=== PATIENT | male | born 1945 ===

== ENCOUNTER 2016-09-26 19:45 | Inpatient (IN) | payer MEDICARE, OTHER ==
[2016-09-26 19:55] VITALS: BMI 29.9
[2016-09-26] MEDS ORDERED: Sodium Chloride 0.9% 500 ML IV STA (20:15)
--- NOTE | 2016-09-26 20:18 | ED PDOC ---
Arrival/HPI - General Chief Complaint: Shortness Of Breath Time Seen by Provider: 09/26/16 19:54 Historian: Patient - History of Present Illness Narrative History of Present Illness (Text): 09/26/16 20:30 70 year old male presents to the emergency department complaining of generalized muscle pain since this morning. Patient also notes his "head feels empty". He reports that he feels "dizzy" and has no strength. Contrary to triage, patient denies any shortness of breath. Patient denies any trauma, fever , chills, nausea, vomiting, diarrhea, abdominal pain, back pain, chest pain, neck pain, headache. PMD: Dr. Ozuna Time/Duration: Other (today) Symptom Course: Unchanged Quality: Other Context: Home Past Medical History - Provider Review Nursing Documentation Reviewed: Yes - Infectious Disease Hx of Infectious Diseases: None - Tetanus Immunization Tetanus Immunization: Unknown - Cardiac Hx Cardiac Disorders: Yes Hx Hypertension: Yes - Pulmonary Hx Respiratory Disorders: No - Neurological Hx Neurological Disorder: No - HEENT Hx HEENT Disorder: No - Renal Hx Renal Disorder: No - Endocrine/Metabolic Hx Endocrine Disorders: Yes Hx Hypothyroidism: Yes - Hematological/Oncological Hx Blood Disorders: No - Integumentary Hx Dermatological Disorder: No - Musculoskeletal/Rheumatological Hx Musculoskeletal Disorders: No - Gastrointestinal Hx Gastrointestinal Disorders: No - Genitourinary/Gynecological Hx Genitourinary Disorders: No - Psychiatric Hx Psychophysiologic Disorder: Yes Hx Depression: Yes Hx Emotional Abuse: No Hx Physical Abuse: No Hx Substance Use: No - Surgical History Hx Cataract Extraction: Yes (b/l) Hx Tonsillectomy: Yes Other/Comment: goiter removed, sinus surgery - Anesthesia Hx Anesthesia: Yes Hx Anesthesia Reactions: No Hx Malignant Hyperthermia: No - Suicidal Assessment Feels Threatened In Home Enviroment: No Family/Social History - Physician Review Nursing Documentation Reviewed: Yes Family/Social History: No Known Family HX Smoking Status: Former Smoker Hx Alcohol Use: No Hx Substance Use: No Hx Substance Use Treatment: No Allergies/Home Meds Allergies/Adverse Reactions: Allergies No Known Allergies Allergy (Verified 09/26/16 19:55) Home Medications: Home Meds Medication Instructions Recorded Confirmed Febuxostat [Uloric] 80 mg PO DAILY 05/07/12 09/26/16 Gabapentin 100 mg PO BID 05/07/12 09/26/16 Aspirin 2 tab PO DAILY 07/03/12 09/26/16 Colchicine 0.6 mg PO PRN PRN 07/03/12 09/26/16 Indomethacin 50 mg PO PRN PRN 07/03/12 09/26/16 Levothyroxine [Synthroid] 0.5 mg PO DAILY 07/03/12 09/26/16 Sildenafil Citrate [Viagra] 25 mg PO PRN PRN 07/03/12 09/26/16 amLODIPine [Norvasc] 10 mg PO DAILY 03/22/14 09/26/16 Review of Systems - Physician Review All systems were reviewed & negative as marked: Yes - Review of Systems Constitutional: absent: Weight Change, Fevers, Night Sweats Respiratory: absent: SOB, Cough, Sputum, Wheezing Cardiovascular: absent: Chest Pain, Palpitations, Edema Gastrointestinal: absent: Abdominal Pain, Constipation, Diarrhea, Nausea, Vomiting Musculoskeletal: Myalgias. absent: Back Pain, Neck Pain Neurological: Dizziness, Gait Changes. absent: Headache, Focal Weakness, Speech Changes, Facial Droop, Disequilibrium, Seizure Psychiatric: Anxiety Physical Exam Vital Signs Reviewed: Yes Vital Signs Temp Pulse Resp BP Pulse Ox 09/26/16 20:13 18 09/26/16 19:50 97.8 F 100 H 24 184/99 H 100 Temperature: Afebrile Blood Pressure: Hypertensive Pulse: Tachycardic Respiratory Rate: Normal Appearance: Positive for: Well-Appearing Pain Distress: None Mental Status: Positive for: Alert and Oriented X 3 - Systems Exam Head: Present: Atraumatic, Normocephalic Pupils: Present: PERRL Extroacular Muscles: Present: EOMI, Other (scant nystamgus) Conjunctiva: Present: Normal Ears: Present: NORMAL TM Mouth: Present: Moist Mucous Membranes Neck: Present: Normal Range of Motion Respiratory/Chest: Present: Clear to Auscultation, Good Air Exchange. No: Respiratory Distress, Accessory Muscle Use Cardiovascular: Present: Regular Rate and Rhythm, Normal S1, S2. No: Murmurs Abdomen: Present: Normal Bowel Sounds. No: Tenderness, Distention, Peritoneal Signs Back: Present: Normal Inspection Upper Extremity: Present: Normal Inspection, Normal ROM, NORMAL PULSES. No: Cyanosis, Edema Lower Extremity: Present: Normal Inspection, NORMAL PULSES, Normal ROM. No: Edema, CALF TENDERNESS Neurological: Present: GCS=15, CN II-XII Intact, Speech Normal, Motor Func Grossly Intact. No: Gait Normal (unable to get out of bed and ambulate due to report of extreme dizziness) Skin: Present: Warm, Dry, Normal Color. No: Rashes Psychiatric: Present: Alert, Oriented x 3, Normal Insight, Normal Concentration Medical Decision Making ED Course and Treatment: 09/26/16 20:17 Impression: 70 year old male with generalized muscle pain. He notes his "head feels empty". Unable to ambulate on exam. Plan: -- CT head, aspirin if negative cthead -- Chest X-ray -- EKG -- Labs -- IV Fluids, meclizine -- Reassess and disposition Progress Note EKG shows sinus rhythm at 94bpm with 1st degree AV block, pvcs, and non- specific ST changes Report Date: 09/26/16 21:46 EXAM: CT Head Without Intravenous Contrast Dictated and Authenticated by: Blake Chris MD IMPRESSION: 1. No acute intracranial hemorrhage or acute territorial type infarct. 2. There are scattered foci of hypodensity within the cerebral white matter, likely representing small vessel ischemic disease in a patient this age. 3. Minimal to mild atrophy. 4. Paranasal sinus disease is noted above. 5. Effusion is visualized within the right mastoid air cells, consistent with mastoiditis in the absence of trauma. 09/26/16 21:57 Cxray negative. Electrolytes show low phos. Replacement ordered. Thyroid studies and trop x 1 negative. Patient has had no improvement with meclizine and cannot ambulate. Will transfer to tele observation with neuro consult for persistent dizziness. - Lab Interpretations Lab Results: 09/26/16 20:45 09/26/16 20:45 Lab Results 09/26/16 20:45: Free T4 0.85, TSH 3rd Generation 1.01 09/26/16 20:45: Sodium 137, Potassium 3.9, Chloride 102, Carbon Dioxide 24, Anion Gap 15, BUN 11, Creatinine 0.9, Est GFR ( Amer) > 60, Est GFR (Non- Af Amer) > 60, Random Glucose 100, Calcium 8.8, Phosphorus 1.5 L, Magnesium 2.0 , Total Bilirubin 0.8, AST 31, ALT 31, Alkaline Phosphatase 63, Total Creatine Kinase 113, Troponin I < 0.01, Total Protein 8.2, Albumin 4.5, Globulin 3.8, Albumin/Globulin Ratio 1.2 09/26/16 20:45: WBC 5.6, RBC 4.83, Hgb 15.6, Hct 42.3, MCV 87.6, MCH 32.3, MCHC 36.9, RDW 12.8, Plt Count 206, MPV 8.9, Gran % 51.9, Lymph % (Auto) 38.3 H, [place] % (Auto) 7.3 H, Eos % (Auto) 2.0, Baso % (Auto) 0.5, Gran # 2.92, Lymph # 2.2, [place] # 0.4, Eos # 0.1, Baso # 0.03 I have reviewed the lab results: Yes - RAD Interpretation Radiology Orders: 09/26/16 20:14 HEAD W/O CONTRAST [CT] Stat 09/26/16 20:15 CHEST PORTABLE [RAD] Stat - EKG Interpretation Interpreted by ED Physician: Yes - Medication Orders Current Medication Orders: Discontinued Medications Sodium Chloride (Sodium Chloride 0.9%) 500 mls @ 999 mls/hr IV .Q31M STA Stop: 09/26/16 20:45 Last Admin: 09/26/16 20:50 Dose: 999 mls/hr Meclizine HCl (Antivert) 50 mg PO STAT STA Stop: 09/26/16 21:55 Potassium Phos/Sodium Phos (Neutra-Phos) 1 pkt PO STAT STA Stop: 09/26/16 21:32 - Scribe Statement The provider has reviewed the documentation as recorded by the [place] training with Cher Glasgow Provider Scribe Attestation: All medical record entries made by the Scribe were at my direction and personally dictated by me. I have reviewed the chart and agree that the record accurately reflects my personal performance of the history, physical exam, medical decision making, and the department course for this patient. I have also personally directed, reviewed, and agree with the discharge instructions and disposition. Disposition/Present on Arrival - Present on Arrival Any Indicators Present on Arrival: No History of DVT/PE: No History of Uncontrolled Diabetes: No Urinary Catheter: No History of Decub. Ulcer: No History Surgical Site Infection Following: None - Disposition Have Diagnosis and Disposition been Completed?: Yes Diagnosis: Dizziness Disposition: HOSPITALIZED Disposition Time: 22:10 Patient Plan: Observation Condition: FAIR Referrals: Vazquez Wylie MD [Primary Care Provider] - Follow up with primary Forms: [employer] ([place])
[2016-09-26 21:04] LABS: BASO # 0.03 K/mm3 (0.0-2.0); BASO % 0.5 % (0.0-3.0); EOS # 0.1 (0.0-0.7); GRAN # 2.92 (1.4-6.5); GRAN % 51.9 % (50.0-68.0); HEMOGLOBIN 15.6 g/dL (14.0-18.0); LYMPH # 2.2 (1.2-3.4); LYMPH % 38.3 % (22.0-35.0); MEAN CELL VOLUME 87.6 fl (80.0-105.0); MEAN CORPUSCULAR HEMOGLOBIN 32.3 pg (25.0-35.0); MEAN CORPUSCULAR HGB CONC 36.9 g/dl (31.0-37.0); MEAN PLATELET VOLUME 8.9 fl (7.0-11.0); MONO # 0.4 (0.1-0.6); MONO % 7.3 % (1.0-6.0); PLATELET COUNT 206 10^3/uL (120.0-450.0); RBC 4.83 10^6/uL (3.5-6.1); RED CELL DISTRIBUTION WIDTH 12.8 % (11.5-14.5); WHITE BLOOD COUNT 5.6 10^3/ul (4.5-11.0)
[2016-09-26 21:17] LABS: ALB/GLOB RATIO 1.2 (1.1-1.8); ALBUMIN 4.5 g/dL (3.0-4.8); ALT/SGPT 31 U/L (7-56); AST/SGOT 31 U/L (15-59); BLOOD UREA NITROGEN 11 mg/dL (7-21); CALCIUM 8.8 mg/dL (8.4-10.5); GFR AFRICAN-AMERICAN > 60; GFR NON-AFRICAN AMERICAN > 60
[2016-09-26 21:30] LABS: TROPONIN I < 0.01 ng/mL
[2016-09-26] MEDS ORDERED: Potassium & Sodium Phosphate PO STA (21:31)
[2016-09-26 21:33] LABS: FREE T4 0.85 ng/dL (0.78-2.19)
--- NOTE | 2016-09-26 21:46 | CT ---
EXAM: CT Head Without Intravenous Contrast CLINICAL HISTORY: The patient age is 70 years old and is male; Signs and symptoms; Speech disturbance; Slurred speech; Additional info: Headache Facility exam id and description: Ct heads head w/o contrast TECHNIQUE: Axial computed tomography images of the head/brain without intravenous contrast. This CT exam was performed using one or more of the following dose reduction techniques: automated exposure control, adjustment of the mA and/or kV according to patient size, and/or use of iterative reconstruction technique. EXAM DATE/TIME: 09/26/2016 8:14 PM COMPARISON: No relevant prior studies available. FINDINGS: Brain: There are scattered foci of hypodensity within the cerebral white matter, likely representing small vessel ischemic disease in a patient this age. The acuity of the white matter disease is indeterminate. The white-cornejo differentiation is preserved demonstrating no acute territorial type infarct. There is minimal to mild prominence of the ventricles and sulci, compatible with atrophy. No acute intracranial hemorrhage is seen. Midline shift: There is no midline shift. Ventricles: See above. Bones/joints: The calvarium demonstrates no evidence for a depressed fracture. Soft tissues: No acute abnormality. Vasculature: There is atherosclerotic calcification of the cavernous internal carotid arteries and distal vertebral arteries. Sinuses: An air-fluid level is visualized within the left maxillary sinus, with mucosal thickening. There is mucosal thickening of the ethmoid air cells. A mucus retention cyst or polyp is visualized within the right maxillary sinus. Mastoid air cells: Effusion is visualized within the right mastoid air cells, consistent with mastoiditis in the absence of trauma. IMPRESSION: 1. No acute intracranial hemorrhage or acute territorial type infarct. 2. There are scattered foci of hypodensity within the cerebral white matter, likely representing small vessel ischemic disease in a patient this age. 3. Minimal to mild atrophy. 4. Paranasal sinus disease is noted above. 5. Effusion is visualized within the right mastoid air cells, consistent with mastoiditis in the absence of trauma.
[2016-09-27] MEDS: Levothyroxine 50 MCG TAB PO SCH (07:53)
--- NOTE | 2016-09-27 09:00 | RAD ---
HISTORY: sob COMPARISON: No prior. FINDINGS: LUNGS: No active pulmonary disease. PLEURA: No significant pleural effusion identified, no pneumothorax apparent. CARDIOVASCULAR: Normal. OSSEOUS STRUCTURES: No significant abnormalities. VISUALIZED UPPER ABDOMEN: Normal. OTHER FINDINGS: None. IMPRESSION: No active disease.
[2016-09-27] MEDS: FEBUXOSTAT 80 MG PO SCH (12:38)
--- NOTE | 2016-09-27 20:37 | CP.PCM.CON ---
<Oswald Segal - Last Filed: 09/27/16 20:25> History of Present Illness - History of Present Illness History of Present Illness: Consult Note for Dr. Myers 70 y/o M with PMH of HTN and Hyperthyroidism s/p thyroidectomy presents to the hospital for lightheadedness and left sided tingling and numbness. Pt states he was at home yesterday and began feeling these symptoms while sitting down. Pt denies any pain or weakness. Pt states the numbness and tingling are constant, and currently feels these symptoms. Pt did not take any medication at home for these symptoms. No alleviating or exacerbating factors. Pt has never had these symptoms before. Once the patient realized these symptoms were constant, he came to the hospital. Denies CP, SOB, N/V/D, fevers, chills, headache, syncope. PMH: HTN Surgical Hx: Thyroidectomy Family Hx: Noncontributory Social Hx: Quit smoking 20 years ago. 1 ppd x 10 years. Denies alcohol or illicit druguse Medication: Gabapentin, ASA, Norvasc, Vitamins Allergies: NKDA Review of Systems - Review of Systems Review of Systems: 12 point review of systems as per HPI, otherwise negative Past Patient History - Infectious Disease Hx of Infectious Diseases: None - Tetanus Immunizations Tetanus Immunization: Unknown - Past Social History Smoking Status: Former Smoker - CARDIAC Hx Cardiac Disorders: Yes Hx Hypertension: Yes - PULMONARY Hx Respiratory Disorders: No - NEUROLOGICAL Hx Neurological Disorder: No - HEENT Hx Cataracts: Yes (b/l cataract removal) Other/Comment: tonsillectomy - RENAL Hx Chronic Kidney Disease: No - ENDOCRINE/METABOLIC Hx Endocrine Disorders: Yes Hx Hypothyroidism: Yes - HEMATOLOGICAL/ONCOLOGICAL Hx Blood Disorders: No - INTEGUMENTARY Hx Dermatological Problems: No - MUSCULOSKELETAL/RHEUMATOLOGICAL Hx Falls: Yes - GASTROINTESTINAL Other/Comment: inguinal hernia repair - GENITOURINARY/GYNECOLOGICAL Hx Genitourinary Disorders: No - PSYCHIATRIC Hx Depression: Yes Hx Substance Use: No - SURGICAL HISTORY Hx Cataract Extraction: Yes (b/l) Hx Tonsillectomy: Yes Other/Comment: goiter removed, sinus surgery - ANESTHESIA Hx Anesthesia: Yes Hx Anesthesia Reactions: No Hx Malignant Hyperthermia: No Meds Allergies/Adverse Reactions: Allergies Allergy/AdvReac Type Severity Reaction Status Date / Time No Known Allergies Allergy Verified 09/26/16 19:55 - Medications Medications: Current Medications Amlodipine Besylate (Norvasc) 10 mg PO DAILY [facility] Last Admin: 09/27/16 10:17 Dose: 10 mg Aspirin (Ecotrin) 81 mg PO DAILY [facility] Last Admin: 09/27/16 10:13 Dose: 81 mg Clopidogrel Bisulfate (Plavix) 75 mg PO DAILY [facility] Colchicine (Colocrys) 0.6 mg PO DAILY PRN PRN Reason: Pain, Mild (1-3) Gabapentin (Neurontin) 100 mg PO BID [facility] Last Admin: 09/27/16 18:45 Dose: 100 mg Indomethacin (Indocin) 50 mg PO TID PRN PRN Reason: GOUT PAIN Levothyroxine Sodium (Synthroid) 50 mcg PO ACB [facility] Last Admin: 09/27/16 07:53 Dose: 50 mcg Meclizine HCl (Antivert) 12.5 mg PO DAILY PRN PRN Reason: dizzyness Non-Formulary Medication (Febuxostat [Uloric]) 80 mg PO DAILY [facility] Last Admin: 09/27/16 12:38 Dose: Not Given Physical Exam - Constitutional Appears: Non-toxic, No Acute Distress - Head Exam Head Exam: ATRAUMATIC, NORMAL INSPECTION, NORMOCEPHALIC - Eye Exam Eye Exam: EOMI, PERRL - ENT Exam ENT Exam: Mucous Membranes Moist - Neck Exam Neck exam: Positive for: Normal Inspection. Negative for: Lymphadenopathy - Respiratory Exam Respiratory Exam: Clear to Auscultation Bilateral, NORMAL BREATHING PATTERN. absent: Rales, Rhonchi, Wheezes - Cardiovascular Exam Cardiovascular Exam: RRR, +S1, +S2 - GI/Abdominal Exam GI & Abdominal Exam: Normal Bowel Sounds, Soft. absent: Tenderness - Extremities Exam Extremities exam: Positive for: normal inspection. Negative for: calf tenderness, pedal edema - Neurological Exam Neurological exam: Alert, CN II-XII Intact, Oriented x3 Additional comments: + babinski on left foot 5/5 muscle strength in all extremities Tingling sensation on left side, no motor deficits No pronator drift - Psychiatric Exam Psychiatric exam: Normal Affect, Normal Mood - Skin Skin Exam: Intact, Normal Color, Warm Results - Vital Signs Recent Vital Signs: Last Vital Signs Temp 98.3 F 09/27/16 16:53 Pulse 71 09/27/16 17:25 Resp 20 09/27/16 16:53 BP 141/77 09/27/16 16:53 Pulse Ox 95 09/27/16 06:00 - Labs Result Diagrams: 09/26/16 20:45 09/26/16 20:45 Assessment & Plan - Assessment and Plan (Free Text) Plan: 70 y/o M with PMH of HTN presents with what appears to be mild ischemic stroke as per read on Brain MRI. Pt will be started on ASA and plavix at this time. Pt will also benefit from physical therapy and likely need subacute rehab. Pt may also benefit from psychiatry consult. Pt will continue to be monitored and followed at this time. Plan: ASA and plavix Physical therapy May need subacute rehab Luzma, PGY-2 <Tanmay Myers - Last Filed: 09/27/16 22:40> Meds - Medications Medications: Current Medications Amlodipine Besylate (Norvasc) 10 mg PO DAILY [facility] Last Admin: 09/27/16 10:17 Dose: 10 mg Aspirin (Ecotrin) 81 mg PO DAILY [facility] Last Admin: 09/27/16 10:13 Dose: 81 mg Clopidogrel Bisulfate (Plavix) 75 mg PO DAILY [facility] Colchicine (Colocrys) 0.6 mg PO DAILY PRN PRN Reason: Pain, Mild (1-3) Gabapentin (Neurontin) 100 mg PO BID [facility] Last Admin: 09/27/16 18:45 Dose: 100 mg Indomethacin (Indocin) 50 mg PO TID PRN PRN Reason: GOUT PAIN Levothyroxine Sodium (Synthroid) 50 mcg PO ACB [facility] Last Admin: 09/27/16 07:53 Dose: 50 mcg Meclizine HCl (Antivert) 12.5 mg PO DAILY PRN PRN Reason: dizzyness Non-Formulary Medication (Febuxostat [Uloric]) 80 mg PO DAILY [facility] Last Admin: 09/27/16 12:38 Dose: Not Given Results - Vital Signs Recent Vital Signs: Last Vital Signs Temp 98.3 F 09/27/16 16:53 Pulse 71 09/27/16 17:25 Resp 20 09/27/16 16:53 BP 141/77 09/27/16 16:53 Pulse Ox 95 09/27/16 06:00 - Labs Result Diagrams: 09/26/16 20:45 09/26/16 20:45 Assessment & Plan - Assessment and Plan (Free Text) Plan: PATIENTS SYMPTOMS OF LEFT SIDE FACIAL NUMBNESS AND LEFT SIDE EXTREMITY NUMBNESS WITH INTERMITTENT SLURRED SPEECH IS SECONDARY TO AN 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 ON NEURO EXAM HE HAD LEFT PLANTAR FLEXION WITH MILD LEFT SIDE WEAKNESS AND LEFT FACIAL DECREASED SENSATION TO TOUCH. RECOMMEND: 1) ASA 81 MG PO DAILY, PLAVIX 75 MG PO DAILY, LIPITOR 80 MG PO DAILY FOR STROKE PREVENTION. 2) KEEP PERMISSIVE TODAY AND TOMORROW TO A GOAL OF 130-140 MMG HG SYSTOLIC. 3) 2D ECHO, CAROTID DOPPLER, A1C, HOMOCYSTEINE LEVEL. 4. PT/OT AND ROCHELLE. THANK YOU Jonathon MYERS MD. Attending/Attestation - Attestation I have personally seen and examined this patient.: Yes I have fully participated in the care of the patient.: Yes I have reviewed all pertinent clinical information: Yes
--- NOTE | 2016-09-27 21:22 | MRI ---
EXAM: MR Head Without Intravenous Contrast CLINICAL HISTORY: The patient age is 70 years old and is male; Signs and symptoms; Numbness / parasthesia and weakness, extremity; Left; Patient HX: Left side weakness and numbness. ; Additional info: Left side numbness? Weakness Facility exam id and description: Mri br s brain without contrast TECHNIQUE: Magnetic resonance images of the head/brain without intravenous contrast in multiple planes. EXAM DATE/TIME: 09/27/2016 10:59 AM COMPARISON: CT - HEAD W/O CONTRAST 09/26/2016 8:45:00 PM FINDINGS: Brain: There are scattered foci of high FLAIR signal intensity within the cerebral white matter. There is no mass effect or restricted diffusion associated with these foci. In a patient this age, this likely represents chronic small vessel ischemic disease. There is mild prominence of the ventricles and sulci, compatible with atrophy. Foci of T2 hyperintensity are visualized within the bilateral basal ganglia, consistent with dilated perivascular spaces and/or chronic ischemic changes. No cerebral edema. Brainstem: Restricted diffusion is identified within the right side of the chris, consistent with acute ischemic change. Ventricles: See above. Bones/joints: No acute abnormality. Sinuses: An air-fluid level is visualized within the left maxillary sinus, with mucosal thickening. There is focal thickening of scattered ethmoid air cells. Mastoid air cells: Effusion is visualized within the right mastoid air cells, consistent with mastoiditis in the absence of trauma. Orbits: Bilateral probable intraocular lens implants are visualized. IMPRESSION: 1. Restricted diffusion is identified within the right side of the chris, consistent with acute ischemic change. 2. There are scattered foci of high FLAIR signal intensity within the cerebral white matter. In a patient this age, this likely represents chronic small vessel ischemic disease. 3. Mild atrophy. 4. Additional chronic ischemic changes are noted above. 5. Effusion is visualized within the right mastoid air cells, consistent with mastoiditis in the absence of trauma. 6. Paranasal sinus disease is noted above.
--- NOTE | 2016-09-27 22:51 | CP.PCM.HP ---
History of Present Illness - History of Present Illness History of Present Illness: 70 year old male presents to the emergency department complaining of generalized muscle pain since this morning. Patient also notes his "head feels empty". He reports that he feels "dizzy" and has no strength. Contrary to triage, patient denies any shortness of breath. Patient denies any trauma, fever , chills, nausea, vomiting, diarrhea, abdominal pain, back pain, chest pain, neck pain, headache. Present on Admission - Present on Admission Any Indicators Present on Admission: No Review of Systems - Constitutional Constitutional: As Per HPI - EENT Eyes: As Per HPI Ears: As Per HPI Nose/Mouth/Throat: As Per HPI - Cardiovascular Cardiovascular: As Per HPI - Respiratory Respiratory: As Per HPI - Gastrointestinal Gastrointestinal: As Per HPI - Genitourinary Genitourinary: As Per HPI - Musculoskeletal Musculoskeletal: As Per HPI - Integumentary Integumentary: As Per HPI - Neurological Neurological: As Per HPI - Psychiatric Psychiatric: As Per HPI - Endocrine Endocrine: As Per HPI - Hematologic/Lymphatic Hematologic: As Per HPI Past Patient History - Infectious Disease Hx of Infectious Diseases: None - Tetanus Immunizations Tetanus Immunization: Unknown - Past Social History Smoking Status: Former Smoker - CARDIAC Hx Cardiac Disorders: Yes Hx Hypertension: Yes - PULMONARY Hx Respiratory Disorders: No - NEUROLOGICAL Hx Neurological Disorder: No - HEENT Hx Cataracts: Yes (b/l cataract removal) Other/Comment: tonsillectomy - RENAL Hx Chronic Kidney Disease: No - ENDOCRINE/METABOLIC Hx Endocrine Disorders: Yes Hx Hypothyroidism: Yes - HEMATOLOGICAL/ONCOLOGICAL Hx Blood Disorders: No - INTEGUMENTARY Hx Dermatological Problems: No - MUSCULOSKELETAL/RHEUMATOLOGICAL Hx Falls: Yes - GASTROINTESTINAL Other/Comment: inguinal hernia repair - GENITOURINARY/GYNECOLOGICAL Hx Genitourinary Disorders: No - PSYCHIATRIC Hx Depression: Yes Hx Substance Use: No - SURGICAL HISTORY Hx Cataract Extraction: Yes (b/l) Hx Tonsillectomy: Yes Other/Comment: goiter removed, sinus surgery - ANESTHESIA Hx Anesthesia: Yes Hx Anesthesia Reactions: No Hx Malignant Hyperthermia: No Meds Allergies/Adverse Reactions: Allergies Allergy/AdvReac Type Severity Reaction Status Date / Time No Known Allergies Allergy Verified 09/26/16 19:55 Physical Exam - Constitutional Appears: Well - Head Exam Head Exam: ATRAUMATIC, NORMAL INSPECTION, NORMOCEPHALIC - Eye Exam Eye Exam: EOMI, Normal appearance, PERRL Pupil Exam: NORMAL ACCOMODATION, PERRL - ENT Exam ENT Exam: Mucous Membranes Moist, Normal Exam - Neck Exam Neck exam: Positive for: Normal Inspection - Respiratory Exam Respiratory Exam: Clear to Auscultation Bilateral, NORMAL BREATHING PATTERN - Cardiovascular Exam Cardiovascular Exam: REGULAR RHYTHM - GI/Abdominal Exam GI & Abdominal Exam: Normal Bowel Sounds, Soft. absent: Tenderness - Rectal Exam Rectal Exam: NORMAL INSPECTION - Exam Exam: Circumcision, NORMAL INSPECTION External exam: NORMAL EXTERNAL EXAM Speculum exam: NORMAL SPECULUM EXAM Bimanual exam: NORMAL BIMANUAL EXAM - Extremities Exam Extremities exam: Positive for: normal inspection - Back Exam Back exam: NORMAL INSPECTION - Neurological Exam Neurological exam: Alert, CN II-XII Intact, Normal Gait, Oriented x3, Reflexes Normal - Psychiatric Exam Psychiatric exam: Normal Affect, Normal Mood - Skin Skin Exam: Dry, Intact, Normal Color, Warm Results - Vital Signs Recent Vital Signs: Last Vital Signs Temp 98.3 F 09/27/16 16:53 Pulse 71 09/27/16 17:25 Resp 20 09/27/16 16:53 BP 141/77 09/27/16 16:53 Pulse Ox 95 09/27/16 06:00 - Labs Result Diagrams: 09/26/16 20:45 09/26/16 20:45 Assessment & Plan - Assessment and Plan (Free Text) Assessment: 70 y/o M with PMH of HTN presents with what appears to be mild ischemic stroke as per read on Brain MRI. Pt will be started on ASA and plavix at this time. Pt will also benefit from physical therapy and likely need subacute rehab. Pt may also benefit from psychiatry consult. Pt will continue to be monitored and followed at this time. Plan: ASA and plavix Physical therapy May need subacute rehab
--- NOTE | 2016-09-28 01:08 | CARD ---
APPROVED REPORT EKG Measurement Heart [id number] <Conclusion> Sinus rhythm with 1st degree AV block with frequent premature ventricular complexes Possible Left atrial enlargement Inferior infarct, age undetermined Abnormal ECG
[2016-09-28 06:45] LABS: HEMOGLOBIN 15.2 g/dL (14.0-18.0); MEAN CORPUSCULAR HEMOGLOBIN 31.4 pg (25.0-35.0); MEAN CORPUSCULAR HGB CONC 35.3 g/dl (31.0-37.0); MEAN PLATELET VOLUME 8.6 fl (7.0-11.0); RBC 4.84 10^6/uL (3.5-6.1); RED CELL DISTRIBUTION WIDTH 13.3 % (11.5-14.5); WHITE BLOOD COUNT 5.2 10^3/ul (4.5-11.0)
[2016-09-28 06:48] LABS: BLOOD UREA NITROGEN 12 mg/dL (7-21); CALCIUM 8.7 mg/dL (8.4-10.5); GFR AFRICAN-AMERICAN > 60; GFR NON-AFRICAN AMERICAN > 60; HDL CHOLESTEROL 39 mg/dL (29-60)
[2016-09-28 06:59] LABS: LDL CHOLESTEROL 104 mg/dL (0-129)
[2016-09-28] MEDS: Levothyroxine 50 MCG TAB PO SCH (08:28)
[2016-09-28] MEDS: FEBUXOSTAT 80 MG PO SCH (09:08)
--- NOTE | 2016-09-28 14:26 | US ---
PROCEDURE: Bilateral carotid artery duplex ultrasound HISTORY: Carotid stenosis PHYSICIAN(S): Gregory Traylor MD. TECHNIQUE: Duplex sonography and color-flow Doppler were used to evaluate the carotid bifurcations and limited segments of the vertebral arteries bilaterally. FINDINGS: There is mild focal echogenic plaque noted at the carotid bifurcations bilaterally. The peak systolic velocity in the proximal right internal carotid artery is 55 cm/sec. This corresponds to a 20 to 39% proximal right ICA stenosis. Normal systolic velocities are noted in the proximal right external carotid artery. There is antegrade flow in the right vertebral artery. The peak systolic velocity in the proximal left internal carotid artery is 49 cm/sec. This corresponds to a 20 to 39% proximal left ICA stenosis. Normal systolic velocities are noted in the proximal left external carotid artery. There is antegrade flow in the left vertebral artery. IMPRESSION: 1. Bilateral 20-39% proximal ICA stenoses. 2. Antegrade flow in both vertebral arteries.
[2016-09-28] MEDS ORDERED: POLYETHYLENE GLYCOL 3350 17 GM/Dose PACKET PO STA (15:59)
[2016-09-28] MEDS ORDERED: POLYETHYLENE GLYCOL 3350 17 GM/Dose PACKET PO PRN (16:00)
--- NOTE | 2016-09-28 16:28 | CARD ---
APPROVED REPORT EXAM: Two-dimensional and M-mode echocardiogram with Doppler and color Doppler. INDICATION BUBBLE STUDY TO R/O PFO 2D DIMENSIONS Left Atrium (2D)4.0 (1.6-4.0cm)IVSd1.5 (0.7-1.1cm) LVDd4.5 (3.9-5.9cm)PWd1.6 (0.7-1.1cm) LVDs3.4 (2.5-4.0cm)FS (%) 24.9 % LVEF (%)49.4 (>50%) M-Mode DIMENSIONS Aortic Root3.60 (2.2-3.7cm)Aortic Cusp Exc.2.10 (1.5-2.0cm) Aortic Valve AoV Peak Hlrjgvjv206.0cm/Ayana Peak GR.6mmHg Mitral Valve MV E Sieajusf56.5cm/sMV A Wkixqfng250.0cm/sE/A ratio0.4 TDI Lateral E' Peak V6.14cm/sMedial E' Peak V3.61cm/sE/Lateral E'6.6 E/Medial E'11.2 Pulmonary Valve PV Peak Wlcezaga36.1cm/sPV Peak Grad.2mmHg Tricuspid Valve TR Peak Eujpautr754pq/sRAP [id number] Peak Gr.21mmHg [id number] LEFT VENTRICLE The left ventricle is normal size. There is mild to moderate concentric left ventricular hypertrophy. Left ventricle systolic function is low normal.EF-50% There is normal LV segmental wall motion. Transmitral Doppler flow pattern is Grade III-reversible restrictive diastolic dysfunction. No left ventricle thrombus noted on this study. There is no ventricular septal defect visualized. There is no left ventricular aneurysm. There is no mass noted in the left ventricle. RIGHT VENTRICLE The right ventricle is normal size. There is normal right ventricular wall thickness. The right ventricular systolic function is normal. ATRIA The left atrium is mildly dilated. The right atrium size is normal. The atrial septum is aneurysmal, but intact , No PFO by Bubble study or colorflow. AORTIC VALVE The aortic valve is thickened but opens well. The aortic valve is mildly sclerotic. There is trace aortic regurgitation. There is no aortic valvular stenosis. There is no aortic valvular vegetation. MITRAL VALVE The mitral valve is thickened but opens well. Mitral regurgitation is trace. There is no mitral valve stenosis. There is no evidence of mitral valve prolapse. TRICUSPID VALVE The tricuspid valve leaflets are thickened , but open well. There is trace tricuspid regurgitation. There is no tricuspid valve stenosis. There is no tricuspid valve prolapse or vegetation. PULMONIC VALVE The pulmonary valve is normal in structure. There is trace pulmonic valvular regurgitation. There is no pulmonic valvular stenosis. GREAT VESSELS The aortic root is normal in size. The ascending aorta is normal in size. The pulmonary artery is normal. The IVC is normal in size and collapses >50% with inspiration. PERICARDIAL EFFUSION There is no pleural effusion. There is no pericardial effusion. <Conclusion> The left ventricle is normal size. There is mild to moderate concentric left ventricular hypertrophy. Left ventricle systolic function is low normal.EF-50% The atrial septum is aneurysmal, but intact , No PFO by Bubble study or colorflow. Thickened Aortic and mitral Valve leaflets Trace MR/TR/AR/PI [id number] No thrombus or vegetation noted.
--- NOTE | 2016-09-28 19:04 | PN ---
DATE: 09/28/2016 NEUROLOGY FOLLOWUP CHIEF COMPLAINT: Followup for left facial numbness and transient slurred speech. SUBJECTIVE: The patient seen and examined at bedside. Currently, he is no longer have been left facial numbness. He is doing much better. He is able to move his left upper and lower extremities without any difficulties. Mild numbness in the left upper extremity but otherwise he is doing well. He had acute right pontine infarct which is likely secondary to a diffuse atherosclerosis and hypertension. His echocardiogram with bubble study show no evidence of PFO and does showed ezvo-qr-ggxuvmkc concentric left ventricular hypertrophy and EF of 50%. His carotid Doppler showed 20-39% proximal ICA stenosis. He is on aspirin and Plavix for stroke prevention as well as gabapentin 100 mg p.o. b.i.d. for neuropathic relief. He is doing much better in terms of his mood in physical therapy evaluation. PAST MEDICAL HISTORY: History of hypertension and depression from recent loss of his brother. REVIEW OF SYSTEMS: A 14-point review of systems is negative except as per the HPI. ALLERGIES: NO KNOWN DRUG ALLERGIES. MEDICATIONS: Reviewed by the nurse per reconciliation sheet. SOCIAL HISTORY: No illicit drug use, smoking, or EtOH abuse. FAMILY HISTORY: Noncontributory. PHYSICAL EXAMINATION: VITAL SIGNS: Temperature of 98.1, pulse rate 78, blood pressure of 141/75, respiratory rate of 18, oxygen saturation 95% via room air. GENERAL: The patient is sitting up in bed, in no acute distress. HEENT: Head is atraumatic and normocephalic. PERRLA. Extraocular muscles intact. NECK: Supple. No JVD. No adenopathy noted. LUNGS: Clear to auscultation. No adventitious sounds. HEART: S1 and S2, normal rate and rhythm. No murmurs, rubs, or gallops. ABDOMEN: Soft, nontender, nondistended. Bowel sounds are present. EXTREMITIES: No clubbing, no cyanosis. Peripheral pulses 2+ felt bilaterally. NEUROLOGIC: The patient is alert, oriented to person, place, month and year. Speech is fluent without any errors. Cranial nerves II through XII intact. Motor exam: Moves all extremities equally except for some mild left upper extremity pronator drift and mild left side weakness compare to the right. Left toe is upgoing. Right toe is downgoing. Sensory exam: Light touch, pinprick, proprioception, vibration intact. DTRs are 2+ throughout. Coordination: Qmfexs-ew-zfus intact. Gait is deferred for now. LABORATORY DATA: B12 is 654, LDL is 104, total cholesterol 160. Sodium is 140, potassium 3.9, chloride 106, carbon dioxide 23, BUN of 12, creatinine 0.9, random glucose 98, A1c is 5.5. ASSESSMENT AND PLAN: This is a 70-year-old man who has a past medical history of hypertension, dyslipidemia who had came in for dizziness, lightheadedness and transient left side facial numbness in the left side, upper and lower extremity numbness with some mild weakness with intermittent slurred speech which was secondary to an acute right pontine infarct due to hypertension and diffuse atherosclerosis. He is doing much better in terms of exam today. RECOMMENDATIONS: At this time we recommend: 1. Aspirin 81 mg p.o. daily, Plavix 75 mg p.o. daily, Lipitor 80 mg for stroke prevention. 2. Keep his blood pressure between 130-140 mmHg systolically. 4. PT/OT evaluation and for possible subacute rehab. He is clinically stable from neurological standpoint. We will follow him up as an outpatient. Tanmay Myers MD
--- NOTE | 2016-09-28 21:46 | CON ---
REASON FOR THE CONSULTATION: Cardiac evaluation, possible CVA. BRIEF CLINICAL HISTORY: A 70-year-old male with past medical history of hypertension, hyperthyroidism, status post partial thyroidectomy 6 years ago admitted with slurring of speech, heaviness in the tongue and left upper and lower extremity weakness. Denies any chest pain. Denies any shortness of breath. Denies any palpitation. PAST HISTORY: Significant for hyperthyroidism, status post thyroidectomy and gout. PAST SURGICAL HISTORY: Significant for thyroidectomy for hypothyroidism, partial. SOCIAL HISTORY: Denies any smoking but drinks a little bit more than socially. Quit smoking 20 years ago. Used to smoke one pack a day for 10 years. Has no history of substance abuse. CURRENT MEDICATIONS: The patient is taking at home Viagra 25 mg p.r.n., amlodipine 10 mg daily, levothyroxine 50 mcg, indomethacin 50 mg, gabapentin 100 mg, colchicine 0.6 mg, and aspirin. REVIEW OF SYSTEMS: As per HPI. PHYSICAL EXAMINATION VITAL SIGNS: Temperature is afebrile, heart rate 92, blood pressure 139/75. HEENT: PERRLA. Extraocular muscles are intact. NECK: Supple. No carotid bruit. No thyromegaly. CHEST: Clear to auscultation. HEART: S1 and S2, regular. ABDOMEN: Soft. EXTREMITIES: Clubbing and cyanosis negative. LABORATORY DATA: Blood workup as follows: WBC 5.8, hemoglobin 15, hematocrit 43.1, platelet count 197. Chemistry shows sodium 140, potassium 3.9, chloride 106, carbon dioxide 20, anion gap 15, BUN 12, creatinine 0.9, triglycerides 107, cholesterol 160, LDL 104, HDL 39, TSH 1.01. IMPRESSION: Left-sided weakness, slurring of speech, cerebrovascular accident, possible mild ischemic stroke as per MRI of the brain, history of hypertension, borderline diabetes, obesity. RECOMMENDATIONS: Admitting blood pressure 184/99. Controlled with aggressive control of blood pressure. Echo to assess LV function, rule out any PFO with bubble study. Lipid profile, TSH, hemoglobin A1c. EKG shows normal sinus echo and PVCs. Continue monitoring telemetry to rule out any arrhythmia. We will follow with you. Yesterday, magnesium was *------* level today. Thank you Dr. Thomas for providing the opportunity in taking care of the patient. Jan Boudreaux MD
--- NOTE | 2016-09-29 04:13 | PN ---
The patient is 70-year-old male. SUBJECTIVE: The patient is seen and examined at the bedside, looking comfortable. Left facial numbness has gone, able to move his left upper and lower extremities without any difficulty. Less numbness in the left upper extremity, but doing better. No nausea, vomiting or diarrhea. No hematuria or hematochezia. No headache, no dizziness. No chest pain, no palpitation. PHYSICAL EXAMINATION: VITAL SIGNS: Temperature is 98, pulse 78, respiratory rate 18, blood pressure 140/75. HEENT: Head is normocephalic, atraumatic. Eyes; PERRLA. Extraocular muscles intact. Conjunctivae clear. Nose is patent. Mucous membranes moist. NECK: Supple. No carotid bruit. No JVD, no thyromegaly. CHEST: Bilaterally symmetrical. HEART: S1 and S2 positive. LUNGS: Clear to auscultation. ABDOMEN: Soft. Bowel sounds present. No organomegaly. EXTREMITIES: No edema and no cyanosis. NEUROLOGIC: The patient is awake and alert. Moving all 4 extremities. No focal deficit. Communicating very well. MEDICATIONS: Meclizine, colchicine, Zyloric, indomethacin, started the patient on Lipitor, Glycol. LABORATORY DATA: White blood cell 5.2, hemoglobin of 15.2, hematocrit 43.1, platelets 197. Sodium 140, potassium 3.9, BUN 10, creatinine 0.9. ASSESSMENT AND PLAN: The patient is 70-year-old male with right pontine infarction which is likely secondary to diffuse atherosclerosis and hypertension as per neurologist. He has history of hypertension; dyslipidemia; dizziness; lightheadedness, got better; depression, seen by Dr. Emily Askew, psychiatrist, doing good; cerebrovascular accident, seen by neurologist,getting physical therapy. Continue aspirin, keep blood pressure between 130 to 140. Physical therapy and occupational therapy. May be the patient needs subacute rehab. Clinically stable, doing better. Gastrointestinal and deep venous thrombosis prophylaxis , we will follow up. Angelia Thomas MD
--- NOTE | 2016-09-29 04:27 | CON ---
DATE: HISTORY OF PRESENT ILLNESS: The patient is a 70-year-old male with no known previous psychiatric history, self reported history of depression. The patient was admitted on the medical side for evaluation of lightheadedness and left-sided tingling and numbness. Psych consult was called for evaluation of possible depressive symptoms. The patient was seen and examined, discussed with the nursing staff, notes reviewed. The patient presented to be alert and oriented, pleasant and cooperative. The patient reported that now, he still has a slurred speech and some weakness on the left side. The patient reports that at times, he feels depressed, but denied feeling of hopelessness, denied feeling of helplessness, denied thoughts of harming himself or others. The patient also denied feeling anxious. Denied panic attacks. The patient reports at that time, he had difficultly to fall asleep and to stay asleep and he was taking Lunesta in the past. This health technical writer offered Sonata 5 mg at nighttime as needed for insomnia. Risks, benefits, and alternatives were explained to the patient. The patient verbalized understanding, willing to try this medication. The patient denies using any drugs and denied drinking alcohol. PAST PSYCHIATRIC HISTORY: The patient was making vague statement that 8 years ago, he had a gun and he had bad thoughts, but the patient said that tack maker as well as credit risk review officer took that gun from him and from that time, the patient does not have an access to guns. The patient also reported that he used to hear some voices of his family from the because he was missing them so much. At the present moment, the patient denies any psychotic symptoms. The patient reported that he was filling medications at [facility] pharmacy, phone number is [phone]. This health technical writer called and confirmed the medication. The patient was on amlodipine before as well as Flexeril as well as gabapentin. The patient is not on any psychotropic medication and the patient is not on Lunesta. The patient denies being admitted to the psychiatric and the patient even denied history of suicidal attempt. HOME MEDICATIONS: Reviewed. The patient was on Norvasc, Viagra, Synthroid, indomethacin, gabapentin, colchicine as well as aspirin, this is as per emergency room report. SOCIAL HISTORY: The patient is retired. 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 MENTAL STATUS: The patient appears to be alert, pleasant, cooperative, good personal hygiene, intermittent eye contact. Speech was normal rate, tone, quality, and quantity, but the patient complains of the slurring of his speech, which could be very minimal. Mood described, "I feel okay." Affect was reactive. Mood congruent. Thought process was coherent and goal directed. Thought content, the patient denied visual, auditory, or tactile hallucinations. Denies paranoid ideation. The patient denied thoughts of harming himself or others. Denied intents or plan. Insight and judgment are fair. Impulses are low controlled. IMPRESSION: As per history, the patient has history of depression, seems to be in remission, but we need to have more information right now and observe the patient on the medical side. Rule out adjustment disorder and rule out mood disorder due to general medical condition. PLAN: Continue current management. Continue current medication. This health technical writer offered Sonata at the nighttime for insomnia. The patient is willing to take that medication. This health technical writer will follow up on this patient tomorrow. This health technical writer called to the pharmacy and confirmed the medication, the patient was not on any psychotropic medication meanwhile the patient does not present in any acute distress. The patient reported that he is actively participating in yarsani activities as well as the patient said that his mood is not that bad. As per the nursing staff, the patient has changing his stories about the numbness. At the beginning, it was left side and by the end, it was right side and then the patient complained of left side numbness and weakness again, but besides that, there are no behavioral incidents. We will follow up and advice accordingly. Emily Askew MD
--- NOTE | 2016-09-29 07:47 | CON ---
PULMONARY CONSULTATION DATE: 09/28/2016 REFERRING PHYSICIAN: Dr. Thomas. REASON FOR CONSULT: Near syncopal episode, stroke is being ruled out, loud, has sleep apnea syndrome. HISTORY OF PRESENT ILLNESS: This is a 70-year-old gentleman with past medical history significant for hyperthyroidism ended with thyroidectomy in the past, brought into emergency room with lightheadedness. Seen by neurology, neuro workup is progressed. Admit to loud snoring night time, daytime sleepy and takes multiple naps, on and off headaches. No nausea, no vomiting, no diarrhea, no leg pain or no leg swelling. PAST MEDICAL HISTORY: Thyroidectomy, hyperthyroidism, and obesity. FAMILY HISTORY: No significant cardiopulmonary disease reported. SOCIAL HISTORY: He stops smoking many years ago. Denies any alcohol use. ALLERGIES: UNKNOWN. MEDICATIONS: He is on Antivert 12.5 mg daily p.r.n., colchicine 0.6 mg daily, Ecotrin 81 mg daily, Uloric 80 mg daily, Indocin 50 mg 3 times a day p.r.n. basis, Lipitor 10 mg daily, MiraLax 17 g h.s., Neurontin 100 mg twice a day, Norvasc 10 mg daily, Plavix 75 mg daily, zaleplon sonata 5 mg h.s., Synthroid 50 mcg daily. REVIEW OF SYSTEMS: On and off headache, dizziness, loud snoring, daytime sleepiness. No chest pain. No nausea. No vomiting. No dysuria. No leg pain. No leg swelling. PHYSICAL EXAMINATION: GENERAL: Lying in the bed in no acute distress. VITAL SIGNS: Temperature is 98, heart rate is 87, respiratory rate is 18, blood pressure is 141/75 and pulse ox 95% on room air. HEENT: Moist mucous membrane. Crowded airway. Mallampati class IV. NECK: Supple. No JVD. Short, thick neck. LUNGS: Fair airflow with rhonchi. HEART: S1 and S2. ABDOMEN: Soft and nontender. No organomegaly. EXTREMITIES: There is no edema. NEUROLOGIC: Awake, alert, follows simple commands. LABORATORY DATA: Shows hemoglobin 16.2, hematocrit 43.1, WBC 5.2 and platelet is 197. Sodium 140, potassium 3.9, chloride 106, bicarbonate 23, BUN 12, creatinine 0.9, glucose is 98, calcium is 8.7, magnesium 2.0, cholesterol is 160 and B12 is 654. Had echocardiogram done today which shows left ventricle within normal size. LV ejection fraction was 60%. Thickened aortic and mitral valve and no thrombus or vegetation reported. Has carotid studies done which showed bilateral 20-39% proximal ICA stenosis. A brain MRI done yesterday which shows restricted diffusion is identified within the right side of the palms consistent with acute ischemic changes. These are scattered foci of a high FLAIR signal intensity within the cerebral white matter. Mild atrophic additional chronic ischemic changes are noted above. A mastoiditis, paranasal sinus disease is noted. IMPRESSION AND PLAN: Cerebrovascular accident, ischemic changes to the palms with gait disorder, near sleep apnea syndrome, hypertension, history of hypothyroid. Will continue Plavix and aspirin. Keep blood pressure at least 140 and above to 160. Will discuss with neurology the benefit from MRA and possible angiography. Outpatient sleep study, sleep apnea precautions, careful sedation. Thank you and we will follow with you. Jan Godinez MD
[2016-09-29] MEDS: Levothyroxine 50 MCG TAB PO SCH (07:55)
[2016-09-29] MEDS: FEBUXOSTAT 80 MG PO SCH (09:20)
--- NOTE | 2016-09-29 14:27 | PN ---
DATE: SUBJECTIVE: This is a 70-year-old [place] gentleman. The patient was admitted on the medical side for lightheadedness; also weakness on the left side of the body. Psych consult was called for evaluation of possible depressive symptoms. The patient was seen initially yesterday. Followed up by this fiction and nonfiction writer prose today. The patient was initiated from [facility] yesterday because the patient complaint of insomnia. The patient was followed up today. The patient presented to be alert and oriented, pleasant and cooperative. The patient said that he is feeling anxious about the fact that he needs to go to subacute rehab. The patient was provided with rehabs information at [place]. The patient asked to be seen by social insurance adviser. hoe worker explained plan in detail, but she will comeback and talk to him more. The patient denied being depressed; denied thoughts of harming himself or others. Denied intent or plan. The patient reported that he slept well last night. Denied hearing voices. Denied seeing things. Collaterals from the nursing staff, the patient is complaint with the mediations; no behavioral incidents. The patient is pleasant and cooperative. PHYSICAL EXAMINATION: VITAL SIGNS: Reviewed within normal limits. Blood pressure 178/84. MEDICATIONS: Reviewed; Norvasc, aspirin, atenolol, Lipitor, Plavix, Neurontin, Synthroid, Antivert, MiraLax as well as sonata as needed for insomnia. MENTAL STATUS EXAMINATION: The patient appears to be alert and oriented, pleasant and cooperative. Fair eye contact. Speech was normal rate, tone, quality, and quantity. The patient had some accent. Mood described anxious to go to acute rehab. The patient said that his family cannot visit him there. hoe worker is on the case who will explain possible options. The patient's affect was reactive. Mood congruent. Thought process was coherent and goal directed. Thought content, the patient denied visual, auditory, or tactile hallucinations. Denied paranoid ideation. The patient does not present to be psychotic or depressed. Insight and judgment are fair. Impulses are low controlled. IMPRESSION: As per history, the patient has history of depression but seems to be in remission; rule out mood disorder due to general medical condition and anxiety disorder due to general medical condition. The patient has some weakness on his left side of the body; need to have him acute rehab. PLAN: Continue [facility]. The patient needs to be followed up with psychiatrist in the acute rehab. The patient denied thoughts of harming himself or others. Denied intents or plan. The patient is pleasant and cooperative; participating in treatment plan. This fiction and nonfiction writer prose will sign off. Should you have any questions, give me a call back. Thank you very much for letting me to participate in care of your patient. The patient did not in eminent danger to self or others. Should that have any questions give me a call back. Emily Askew MD
--- NOTE | 2016-09-29 14:29 | PN ---
DATE: 09/29/2016 REASON FOR CONSULTATION: Followup cardiac evaluation for CVA. SUBJECTIVE: The patient denies any chest pain with complaining of weakness of the left upper and lower extremity. OBJECTIVE: GENERAL: Lying flat on the bed, not in apparent distress. VITAL SIGNS: As follows, temperature afebrile, heart rate 60, blood pressure 149/90. HEENT: PERRLA intact. NECK: Supple. No carotid bruit or thyromegaly. CHEST: Clear to auscultation. HEART: S1 and S2 regular. ABDOMEN: Soft. EXTREMITIES: Clubbing and cyanosis negative. Left upper extremity and lower extremity weaker than the right. LABORATORY DATA: The patient had echocardiography done yesterday that showed left ventricle ejection fraction 50% low normal septum aneurysmal, but intact no PFO, color flow or bubble study noted. No PFO. Thickened aortic and mitral valve leaflet, trace MR, trace TR, trace CR, trace PI, RV systolic pressure 31. No thrombus or vegetation noted. Bilateral carotid duplex showed 20% to 39% proximal ICA stenosis. Antegrade flow and in vertebral arteries noted. Telemetry strip shows no arrhythmia. IMPRESSION: A 70-year-old male with past medical history significant for hypertension. Admitted with the left upper and lower extremity weakness. Echo did not show any evidence of patent foramen ovale, bilateral carotid mild disease. No arrhythmia noted in telemetry. RECOMMENDATIONS: Continue aggressive control of hypertension. Continue aspirin. Continue atorvastatin. Discontinue telemetry. We will follow with you. I will put hydralazine p.r.n. because the patient is on amlodipine 10 mg, put low dose of atenolol also and put 10 mg hydralazine p.r.n., also increase atorvastatin to 20 mg daily. Thank you Dr. Thomas for providing the opportunity in taking care of the patient Marcia Ricardo. Jan Boudreaux MD
[2016-09-29] MEDS ORDERED: Sodium Chloride 0.9% 1,000 ML IV SCH (15:00)
--- NOTE | 2016-09-29 16:50 | MRI ---
PROCEDURE: MRI BRAIN WITHOUT CONTRAST HISTORY: stroke COMPARISON: Brain MRI 09/27/2016 without contrast TECHNIQUE: Multiplanar, multisequence MR images of the brain were obtained without intravenous contrast enhancement. FINDINGS: HEMORRHAGE: None DWI: No evidence of an acute or early subacute infarction. BRAIN PARENCHYMA: A lacune infarction in evolution is appreciate the right chris with persistent restricted diffusion as shown on prior MRI of the brain 09/27/2016. The overall volume of affected chris has increased slightly. The pontine infarction is better defined in long TR weighted imaging in the interval. A tiny probable cavernomas in the right cerebral peduncle once again, cephalad to the level of the infarct. No definite acute intracranial hemorrhage is grossly evident. No separate interval brain infarction identified throughout the remainder of the brain. Stable diffuse cerebral atrophy and chronic microangiopathy are identified with the cerebellum remaining unremarkable diffusely. No suspicious extra-axial fluid collection. VENTRICLES: Unremarkable. No hydrocephalus. CRANIUM: Unremarkable. ORBITS: Grossly unremarkable. PARANASAL SINUSES/MASTOIDS: Left maxillary sinus disease is again evident and there is likely some hypo development of the right mastoid air cell complex with mastoiditis not completely excluded here. VASCULAR SYSTEM: Skull base flow voids intact. OTHER FINDINGS: None. IMPRESSION: Mild increase in size of an acute lacunar infarction at the right chris with post ischemic changes now identifiable in the FLAIR and T2 weighted sequences separate from the diffusion-weighted study. No significant mass effect and no definite acute intracranial hemorrhage identified. Lesser additional findings as discussed above.
--- NOTE | 2016-09-29 17:12 | CT ---
PROCEDURE: CT Angiography of the neck with contrast HISTORY: right pontine infarct with swelling COMPARISON: None available. TECHNIQUE: Contiguous axial images of the neck were obtained from the level of the skull-base to the superior mediastinum in the arteriographic phase of enhancement. Coronal and sagittal reformats or also generated. IV contrast dose: Omnipaque 350, 150 cc Radiation Dose - DLP: 566 mGy-cm This CT exam was performed using one or more of the following dose reduction techniques: Automated exposure control, adjustment of the mA and/or kV according to patient size, and/or use of iterative reconstruction technique. FINDINGS: RIGHT CAROTID ARTERIES: Common Carotid Artery: Normal. Carotid Bifurcation: Trace atherosclerotic plaque is seen at the proximal anterior right carotid bulb extending into the external carotid artery minimally. Internal Carotid Artery:No significant stenosis. External Carotid Artery (proximal branches): No significant stenosis. LEFT CAROTID ARTERIES: Common Carotid Artery: Normal. Carotid Bifurcation: Trace atherosclerotic plaque is identified at the left carotid bulb extending into the left internal carotid artery origin minimally. Internal Carotid Artery:No significant stenosis. External Carotid Artery (proximal branches): Normal. VERTEBRAL ARTERIES: Right Vertebral Artery: Normal. Left Vertebral Artery: Minimal distal atherosclerotic plaque without significant stenosis. Left dominant vertebrobasilar circulation. The basilar artery appears widely patent incidentally. OTHER FINDINGS: None. IMPRESSION: No significant stenosis in the bilateral common or internal carotid artery is or the visualized bilateral vertebral arteries. Trace atherosclerotic changes are seen at the bilateral carotid bulbs as well as distal left vertebral artery as discussed above.
--- NOTE | 2016-09-29 18:31 | PN ---
NEUROLOGY FOLLOWUP DATE: 09/29/2016 CHIEF COMPLAINT: Followup for left facial numbness and left-sided weakness. SUBJECTIVE: The patient was seen and examined at bedside. The patient had worsening left side numbness and as well as left side weakness, left lower extremity weakness more than left upper extremity. Has now more prominent left facial droop, which was different than yesterday. He had an elevated blood pressure with systolic and diastolic of 182/107 at 5:30 this morning. He has been having fluctuated elevated blood pressures throughout his stay. He went for another stat MRI of the brain which showed mild extension of the existing acute right pontine infarct with some mild swelling, likely causing his further left-sided weakness. He had a echocardiogram with bubble study which showed no evidence of PFO and showed [id number] concentric left hypertrophy with EF of 50%. His carotid Doppler showed 20-39% proximal ICA stenosis. He was placed on aspirin and Plavix for stroke prevention and gabapentin 100 mg p.o. b.i.d. for neuropathic pain relief. He will be going for a stat CT angio of the head and neck. PAST MEDICAL HISTORY: History of hypertension and depression for recent loss of his brother. REVIEW OF SYSTEMS: A 14-point review of system is negative except for the HPI. ALLERGIES: NO KNOWN DRUG ALLERGIES. SOCIAL HISTORY: No illicit drug use, smoking or EtOH abuse. FAMILY HISTORY: Noncontributory. PHYSICAL EXAMINATION: GENERAL: The patient is sitting up in the bed. In no acute distress. VITAL SIGNS: Afebrile, pulse rate is 91, blood pressure is 170/84, respiratory rate of 14, and oxygen saturation of 99% via room air. HEENT: Atraumatic and normocephalic. PERRLA. Extraocular muscles intact. NECK: Supple. No JVD. No adenopathy noted. LUNGS: Clear to auscultation. No adventitious sounds. HEART: S1 and S2, normal rate and rhythm. No murmurs, rubs, or gallops. ABDOMEN: Soft, nontender, nondistended. Bowel sounds are present. EXTREMITIES: No clubbing and no cyanosis. Peripheral pulses 2+ felt bilaterally. NEUROLOGIC: The patient is alert and oriented to person, place, month and year. Speech is slightly dysarthric, no aphasia noted. Cranial nerves II through XII are intact except for a left facial droop. Motor exam: Moves all extremities equally except for some left upper and lower extremity hemiparesis with left lower extremity plegia. Left toe is upgoing. Right toe is downgoing. Sensory exam: Light touch, pinprick, proprioception, vibration intact. Decrease to light touch on the left when compared to the right. DTRs are 2+ throughout. Coordination: [id number] intact with the right, but difficult on the left due to the left-sided weakness. Gait is deferred for now. LABORATORY DATA: No new labs were done today. ASSESSMENT AND PLAN: This is a 70-year-old man with past medical history of hypertension and dyslipidemia, who came in for dizziness, lightheadedness and transient left-sided facial numbness in the left side as well as left side mild left upper and lower extremity weakness and intermittent slurred speech who was found to have small acute right pontine infarct which is secondary to diffuse atherosclerosis and hypertension. Today, on 09/29/2016, he had worsening left hemiparesis and the left facial droop with some slurred speech and went for stat MRI of the brain which showed more of an extension of his existing acute right pontine infarct with some mild swelling which was seen by me which is likely secondary to uncontrolled hypertension and diffuse atherosclerotic disease, most likely small vessel. RECOMMENDATIONS: At this time we will recommend: 1. Stat CT angio of the head and neck. 2. Continue with aspirin 81 mg p.o. daily and Plavix 75 mg p.o. daily and Lipitor 80 mg for stroke prevention. 3. do not actually drop his blood pressure more than 20 mmHg at a time. 4. We will await the results of CT angio. 5. We will continue for acute rehab placement for PT and OT and speech therapy and follow with from vascular neurology for any further additional input. Thank you for this follow up. Tanmay Myers MD MTDAngel
--- NOTE | 2016-09-29 18:38 | CP.PCM.CON ---
History of Present Illness - History of Present Illness History of Present Illness: Mr. Kennedy is a 70-year-old man with a past medical history of hypertension and hyperthyroidism (s/p thyroidectomy), who presented to the ED on the 8th with left facial numbness and slight weakness on the left side. MRI of the brain showed a right pontine ischemic ischemic stroke. He was started on aspirin and Plavix. However, over the last 24 hours, he has continued to progress the left side hemiplegia, dysarthia, diplopia and dysphagia. I was called to assist from a vascular neurology standpoint. When I saw the patient, he was sitting up in his chair with difficulty in speech , but was able to comprehend and followed commands appropriately. He could not move his left side and was complaining that he was having double vision. Review of Systems - Review of Systems All systems: reviewed and no additional remarkable complaints except Past Patient History - Infectious Disease Hx of Infectious Diseases: None - Tetanus Immunizations Tetanus Immunization: Unknown - Past Social History Smoking Status: Former Smoker - CARDIAC Hx Cardiac Disorders: Yes Hx Hypertension: Yes - PULMONARY Hx Respiratory Disorders: No - NEUROLOGICAL Hx Neurological Disorder: No - HEENT Hx Cataracts: Yes (b/l cataract removal) Other/Comment: tonsillectomy - RENAL Hx Chronic Kidney Disease: No - ENDOCRINE/METABOLIC Hx Hypothyroidism: Yes - HEMATOLOGICAL/ONCOLOGICAL Hx Blood Disorders: No - INTEGUMENTARY Hx Dermatological Problems: No - MUSCULOSKELETAL/RHEUMATOLOGICAL Hx Falls: Yes - GASTROINTESTINAL Other/Comment: inguinal hernia repair - GENITOURINARY/GYNECOLOGICAL Hx Genitourinary Disorders: No - PSYCHIATRIC Hx Depression: Yes Hx Substance Use: No - SURGICAL HISTORY Hx Cataract Extraction: Yes (b/l) Hx Tonsillectomy: Yes Other/Comment: goiter removed, sinus surgery - ANESTHESIA Hx Anesthesia: Yes Hx Anesthesia Reactions: No Hx Malignant Hyperthermia: No Meds Allergies/Adverse Reactions: Allergies Allergy/AdvReac Type Severity Reaction Status Date / Time No Known Allergies Allergy Verified 09/26/16 19:55 - Medications Medications: Current Medications Amlodipine Besylate (Norvasc) 10 mg PO DAILY [facility] Last Admin: 09/29/16 09:17 Dose: 10 mg Aspirin (Ecotrin) 81 mg PO DAILY [facility] Last Admin: 09/29/16 09:17 Dose: 81 mg Atenolol (Tenormin) 25 mg PO DAILY [facility] Last Admin: 09/29/16 09:22 Dose: 25 mg Atorvastatin Calcium (Lipitor) 80 mg PO DIN [facility] Last Admin: 09/29/16 18:09 Dose: 80 mg Clopidogrel Bisulfate (Plavix) 75 mg PO DAILY [facility] Last Admin: 09/29/16 09:17 Dose: 75 mg Colchicine (Colocrys) 0.6 mg PO DAILY PRN PRN Reason: Pain, Mild (1-3) Gabapentin (Neurontin) 100 mg PO BID [facility] Last Admin: 09/29/16 18:09 Dose: 100 mg Hydralazine HCl (Apresoline) 10 mg PO QID PRN PRN Reason: for sbp>170 & or diastolic>100 Sodium Chloride (Sodium Chloride 0.9%) 1,000 mls @ 100 mls/hr IV .Q10H [facility] Indomethacin (Indocin) 50 mg PO TID PRN PRN Reason: GOUT PAIN Levothyroxine Sodium (Synthroid) 50 mcg PO ACB [facility] Last Admin: 09/29/16 07:55 Dose: 50 mcg Meclizine HCl (Antivert) 12.5 mg PO DAILY PRN PRN Reason: dizzyness Non-Formulary Medication (Febuxostat [Uloric]) 80 mg PO DAILY [facility] Last Admin: 09/29/16 09:20 Dose: Not Given Polyethylene Glycol (Miralax) 17 gm PO HS PRN PRN Reason: Constipation Zaleplon (Sonata) 5 mg PO HS PRN PRN Reason: Insomnia Last Admin: 09/28/16 23:25 Dose: 5 mg Physical Exam - Constitutional Appears: Well - Head Exam Head Exam: ATRAUMATIC, NORMAL INSPECTION, NORMOCEPHALIC - Eye Exam Eye Exam: Normal appearance, PERRL - ENT Exam ENT Exam: Mucous Membranes Moist, Normal Exam - Neck Exam Neck exam: Positive for: Full Rom, Normal Inspection - Respiratory Exam Respiratory Exam: Clear to Auscultation Bilateral, NORMAL BREATHING PATTERN - Cardiovascular Exam Cardiovascular Exam: REGULAR RHYTHM, +S1, +S2 - GI/Abdominal Exam GI & Abdominal Exam: Normal Bowel Sounds, Soft. absent: Tenderness - Rectal Exam Rectal Exam: Deferred - Extremities Exam Extremities exam: Positive for: normal inspection - Back Exam Back exam: NORMAL INSPECTION - Neurological Exam Neurological exam: Abnormal Gait Additional comments: Diplopia worse on right lateral gaze. Left facial droop, left arm strength is 0 /5 proximally and 1/5 distally, left leg is 1/5 proximally and 0/5 distally. Right upper and lower extremities are full in strength. Sensation is intact throughout. Gait was not assessed. NIHSS = 10 - Psychiatric Exam Psychiatric exam: Normal Affect, Normal Mood - Skin Skin Exam: Dry, Intact, Normal Color, Warm Results - Vital Signs Recent Vital Signs: Last Vital Signs Temp 98.4 F 09/29/16 05:30 Pulse 78 09/29/16 09:22 Resp 18 09/29/16 09:00 BP 178/84 H 09/29/16 09:22 Pulse Ox 99 09/29/16 09:00 - Labs Result Diagrams: 09/28/16 04:10 09/28/16 04:10 Labs: Laboratory Results - last 24 hr 09/29/16 06:30 TSH 3rd Generation 0.65 - Imaging and Cardiology CT scan - head Status: Image reviewed by me, Report reviewed by me (left vertebral artery appears to have a concentric plaque that is not likely to be flow limiting close to the joining with the other vert.) MRI Status: Image reviewed by me, Report reviewed by me (Right pontine ischemic stroke increased in size with slightly more edema than previous MRI.) Assessment & Plan (1) Right pontine stroke Assessment and Plan: The patient seems to be progressing and has more significant weakness and oropharyngeal muscle difficulty. I recommend the followin. Telemetry 2. NPO until further notice, except for meds during which time he should be observed by a nurse taking the medications with thickened liquid 3. Load with Plavix 300 mg ONCE and continue 75 mg daily along with aspirin 81 mg daily, give high dose statin (Lipitor 80 mg) 4. Fluids with NS at 100 mL/hr 5. Permissive hypertension (only treat BP that is higher than 200/105 mm Hg for the next 24 hours) 6. Q 1 hour neuro checks, and transfer to ICU 7. DVT Px Thank you. I will follow the patient along with general neurology and the primary team. Status: Acute Priority: High
--- NOTE | 2016-09-29 18:41 | CP.PCM.PN ---
Subjective - Date & Time of Evaluation Date of Evaluation: 09/29/16 Time of Evaluation: 14:00 - Subjective Subjective: Called by pre owned sales consultant to evaluate the patient in concern for worsening CVA and airway management The patient is seen to be aao x 3 , speaking in full sentences but is having some trouble clearing secretions. L sided weakness noted. Objective - Vital Signs/Intake and Output Vital Signs (last 24 hours): Temp Pulse Resp BP Pulse Ox 98.6 F 77 19 151/92 H 97 09/29/16 18:19 09/29/16 18:19 09/29/16 18:19 09/29/16 18:19 09/29/16 18:19 Intake and Output: 09/29/16 09/29/16 06:59 18:59 Intake Total 360 Output Total 850 Balance -490 - Medications Medications: Current Medications Amlodipine Besylate (Norvasc) 10 mg PO DAILY [facility] Last Admin: 09/29/16 09:17 Dose: 10 mg Aspirin (Ecotrin) 81 mg PO DAILY [facility] Last Admin: 09/29/16 09:17 Dose: 81 mg Atenolol (Tenormin) 25 mg PO DAILY [facility] Last Admin: 09/29/16 09:22 Dose: 25 mg Atorvastatin Calcium (Lipitor) 80 mg PO DIN [facility] Last Admin: 09/29/16 18:09 Dose: 80 mg Clopidogrel Bisulfate (Plavix) 75 mg PO DAILY [facility] Last Admin: 09/29/16 09:17 Dose: 75 mg Colchicine (Colocrys) 0.6 mg PO DAILY PRN PRN Reason: Pain, Mild (1-3) Gabapentin (Neurontin) 100 mg PO BID [facility] Last Admin: 09/29/16 18:09 Dose: 100 mg Hydralazine HCl (Apresoline) 10 mg PO QID PRN PRN Reason: for sbp>170 & or diastolic>100 Sodium Chloride (Sodium Chloride 0.9%) 1,000 mls @ 100 mls/hr IV .Q10H [facility] Indomethacin (Indocin) 50 mg PO TID PRN PRN Reason: GOUT PAIN Levothyroxine Sodium (Synthroid) 50 mcg PO ACB [facility] Last Admin: 09/29/16 07:55 Dose: 50 mcg Meclizine HCl (Antivert) 12.5 mg PO DAILY PRN PRN Reason: dizzyness Non-Formulary Medication (Febuxostat [Uloric]) 80 mg PO DAILY [facility] Last Admin: 09/29/16 09:20 Dose: Not Given Polyethylene Glycol (Miralax) 17 gm PO HS PRN PRN Reason: Constipation Zaleplon (Sonata) 5 mg PO HS PRN PRN Reason: Insomnia Last Admin: 09/28/16 23:25 Dose: 5 mg - Labs Labs: 09/28/16 04:10 09/28/16 04:10 - Constitutional Appears: Well - Head Exam Head Exam: ATRAUMATIC - Eye Exam Eye Exam: EOMI, Normal appearance - ENT Exam ENT Exam: Mucous Membranes Moist - Neck Exam Neck Exam: Full ROM - Respiratory Exam Respiratory Exam: NORMAL BREATHING PATTERN - Cardiovascular Exam Cardiovascular Exam: REGULAR RHYTHM - GI/Abdominal Exam GI & Abdominal Exam: Normal Bowel Sounds - Rectal Exam Rectal Exam: NORMAL INSPECTION - Extremities Exam Extremities Exam: Normal Inspection - Back Exam Back Exam: NORMAL INSPECTION - Neurological Exam Neurological Exam: Alert, Awake, Oriented x3 Neuro motor strength exam: Left Upper Extremity: 2/1, Left Lower Extremity: 2/1 - Psychiatric Exam Psychiatric exam: Normal Affect - Skin Skin Exam: Warm Assessment and Plan - Assessment and Plan (Free Text) Assessment: 70 y/o M w/ CVA w/ mild worsening noted on repeat MRi . Alejandra focus and CTA shows abnormality in the basilar artery. SBP 180, would keep as is. Permissive HTN Neurochecks needed. NPO. Swallow eval. Neurology consults appreciated. If there is concern about the patient aspirating , can be watched in the ICU cc time 45 min
[2016-09-29] MEDS: Sodium Chloride 0.9% 1,000 ML IV SCH (20:53)
--- NOTE | 2016-09-29 23:20 | PN ---
PULMONARY PROGRESS NOTE DATE: 09/29/2016 REFERRING PHYSICIAN: Dr. Thomas. SUBJECTIVE: The patient was lying in the bed. He was moved to med/surgical floor, more dysarthric than yesterday, left upper and lower extremity much weaker than yesterday. No chest pain, no shortness of breath. No nausea. No vomiting. No diarrhea. PHYSICAL EXAMINATION: GENERAL: No acute distress. VITAL SIGNS: Temperature is 98, heart rate is 91, respiratory rate is 18, blood pressure is 178/84 and pulse ox 99% on room air. HEENT: Moist mucous membrane. Crowded airway. Mallampati score is IV. NECK: Supple. No JVD. LUNGS: Has fair airflow with rhonchi. HEART: S1 and S2. ABDOMEN: Soft and nontender. No organomegaly. EXTREMITIES: There is no edema. NEUROLOGIC: More dysarthric, increased weakness of left upper and lower extremity almost 2/5 probably of the both left upper and lower extremity. He is awake and alert though. MEDICATIONS: He is on Antivert 12.5 mg daily p.r.n., hydralazine 10 mg q.i.d. p.r.n., colchicine 0.6 mg daily p.r.n., Ecotrin 81 mg daily, Uloric 80 mg daily, Indocin 50 mg 3 times a day p.r.n., MiraLax 17 g p.r.n., gabapentin 100 mg twice a day, Norvasc 10 mg daily, IV fluid normal saline being started 100 mL per hour, Ambien 5 mg at bedtime p.r.n., Synthroid 50 mcg daily and Tenormin 25 mg daily. LABORATORY DATA: Shows hemoglobin 15.2, hematocrit 43.1 and WBC 5.2. IMPRESSION AND PLAN: Ischemic stroke of chris area, hypertension, hypothyroid, history of gout, may have sleep apnea syndrome, so the patient is changed with increased weakness of left extremity and also with dysarthria. Case discussed in detail with pocket grinder operator to move the patient to ICU, also spoke to nursing staff and incharge nurse. Case discussed with general neurology Dr. Myers and also spoke to vascular neurology Dr. Chung Macario in detail, to stat MRI of the brain done which shows increasing evolving chris stroke and also CT angio shows vertebral artery and basilar artery compromise with the flow. I had a long discussion with vascular neurology Dr. Macario. The patient being started on high-dose of anti-lipid also being loaded with Plavix, IV fluid already started. We will keep the patient's blood pressure high as per neuro team, also need to involve neuro intervention in case his neurology status worse and the need of stenting the vertebral artery. Also spoke to William Joya and informed about the case, she has agreed with the plan and the patient will be moving to ICU on IV fluid, Plavix and high-dose of Lipitor and close monitoring. If deteriorate, may need intervention, sleep apnea precaution, keep head elevated 45 degree, avoid sedation. Critical care time spent more than 35 minutes. Jan Godinez MD
--- NOTE | 2016-09-29 23:43 | CP.PCM.PN ---
Subjective - Date & Time of Evaluation Date of Evaluation: 09/29/16 Time of Evaluation: 06:00 - Subjective Subjective: Mr. Kennedy is a 70-year-old man with a past medical history of hypertension and hyperthyroidism (s/p thyroidectomy), who presented to the ED on the with left facial numbness and slight weakness on the left side. MRI of the brain showed a right pontine ischemic ischemic stroke. He was started on aspirin and Plavix. However, over the last 24 hours, he has continued to progress the left side hemiplegia, dysarthia, diplopia and dysphagia. patient was sitting up in his chair with difficulty in speech, but was able to comprehend and followed commands appropriately. He could not move his left side and was complaining that he was having double vision. icu consult called to transfer pt to the unit , Objective - Vital Signs/Intake and Output Vital Signs (last 24 hours): Temp Pulse Resp BP Pulse Ox 98 F 70 16 144/83 99 09/29/16 21:17 09/29/16 21:17 09/29/16 21:17 09/29/16 21:17 09/29/16 21:17 - Medications Medications: Current Medications Amlodipine Besylate (Norvasc) 10 mg PO DAILY [facility] Last Admin: 09/29/16 09:17 Dose: 10 mg Aspirin (Ecotrin) 81 mg PO DAILY [facility] Last Admin: 09/29/16 09:17 Dose: 81 mg Atenolol (Tenormin) 25 mg PO DAILY [facility] Last Admin: 09/29/16 09:22 Dose: 25 mg Atorvastatin Calcium (Lipitor) 80 mg PO DIN [facility] Last Admin: 09/29/16 18:09 Dose: 80 mg Clopidogrel Bisulfate (Plavix) 75 mg PO DAILY [facility] Last Admin: 09/29/16 09:17 Dose: 75 mg Colchicine (Colocrys) 0.6 mg PO DAILY PRN PRN Reason: Pain, Mild (1-3) Gabapentin (Neurontin) 100 mg PO BID [facility] Last Admin: 09/29/16 18:09 Dose: 100 mg Hydralazine HCl (Apresoline) 10 mg PO QID PRN PRN Reason: for sbp>170 & or diastolic>100 Sodium Chloride (Sodium Chloride 0.9%) 1,000 mls @ 100 mls/hr IV .Q10H [facility] Last Admin: 09/29/16 20:53 Dose: 100 mls/hr Indomethacin (Indocin) 50 mg PO TID PRN PRN Reason: GOUT PAIN Levothyroxine Sodium (Synthroid) 50 mcg PO ACB [facility] Last Admin: 09/29/16 07:55 Dose: 50 mcg Meclizine HCl (Antivert) 12.5 mg PO DAILY PRN PRN Reason: dizzyness Non-Formulary Medication (Febuxostat [Uloric]) 80 mg PO DAILY [facility] Last Admin: 09/29/16 09:20 Dose: Not Given Polyethylene Glycol (Miralax) 17 gm PO HS PRN PRN Reason: Constipation Zaleplon (Sonata) 5 mg PO HS PRN PRN Reason: Insomnia Last Admin: 09/29/16 22:45 Dose: 5 mg - Labs Labs: 09/28/16 04:10 09/28/16 04:10 - Constitutional Appears: Well - Head Exam Head Exam: ATRAUMATIC, NORMAL INSPECTION, NORMOCEPHALIC - Eye Exam Eye Exam: Normal appearance - ENT Exam ENT Exam: Mucous Membranes Moist, Normal Exam - Neck Exam Neck Exam: Full ROM, Normal Inspection. absent: Lymphadenopathy - Respiratory Exam Respiratory Exam: Clear to Ausculation Bilateral, NORMAL BREATHING PATTERN - Cardiovascular Exam Cardiovascular Exam: REGULAR RHYTHM, +S1, +S2. absent: Murmur - GI/Abdominal Exam GI & Abdominal Exam: Soft, Normal Bowel Sounds. absent: Tenderness - Rectal Exam Rectal Exam: NORMAL INSPECTION - Exam Exam: Circumcision, NORMAL INSPECTION External exam: NORMAL EXTERNAL EXAM Speculum exam: NORMAL SPECULUM EXAM Bimanual exam: NORMAL BIMANUAL EXAM - Extremities Exam Extremities Exam: Normal Capillary Refill, Normal Inspection. absent: Joint Swelling, Pedal Edema - Back Exam Back Exam: NORMAL INSPECTION - Neurological Exam Neurological Exam: Alert, Awake, Oriented x3 - Psychiatric Exam Psychiatric exam: Normal Affect, Normal Mood - Skin Skin Exam: Dry, Intact, Normal Color, Warm Assessment and Plan (1) Hyperthyroidism Status: Acute - Assessment and Plan (Free Text) Assessment: 70 y/o M w/ CVA w/ mild worsening noted on repeat MRi . Alejandra focus and CTA shows abnormality in the basilar artery. SBP 180, would keep as is. Permissive HTN Neurochecks needed. NPO. Swallow eval. Neurology consults appreciated. If there is concern about the patient aspirating , can be watched in the ICU Plan: 1. transfer to the unit 2. NPO until further notice, except for meds during which time he should be observed by a nurse taking the medications with thickened liquid 3. Load with Plavix 300 mg ONCE and continue 75 mg daily along with aspirin 81 mg daily, give high dose statin (Lipitor 80 mg) 4. Fluids with NS at 100 mL/hr 5. Permissive hypertension (only treat BP that is higher than 200/105 mm Hg for the next 24 hours) 6. Q 1 hour neuro checks, and transfer to ICU 7. DVT Px d/d with dr marx .
[2016-09-30] MEDS: Sodium Chloride 0.9% 1,000 ML IV SCH ×2 (06:51→17:14)
--- NOTE | 2016-09-30 09:17 | PN ---
DATE: 09/30/2016 SUBJECTIVE: The patient is awake alert, speaking freely without slurry, but complaints of left-sided weakness and inability to move the left arm. The patient does have some noticeable swelling on the left side of his face, but no facial droopy. No complaints of pain, no nausea, vomiting, no chest pain, no abdominal pain, no cough or wheezing. He is able to swallow water and take his p.o. medications at this time. PHYSICAL EXAMINATION GENERAL: Note that his temperature is 98, pulse is 66, respirations at 19 and BP 158/79. SKIN: Warm and dry. HEENT: Head atraumatic normocephalic. Eyes reactive to light. Ears, nose and throat seen to be within normal limits. NECK: Supple, no JVD, no thyroid enlargement, no lymph nodes. HEART: Has regular rate and rhythm. Normal S1 and S2. LUNGS: Reveal good breath sounds bilaterally. ABDOMEN: Soft, decreased bowel sounds. GENITALIA AND RECTAL: Deferred. MUSCULOSKELETAL: No joint deformities. EXTREMITIES: Reveal trace lower extremity edema. NEUROLOGIC: The patient has a dense left-sided weakness and hemiplegia. LABORATORY DATA: Reveals a white count of 5.2, hemoglobin of 15.5, hematocrit 43.1 with platelets of 197,000. Sodium is 140, potassium 3.9, chloride 106, CO2 of 23 with a BUN of 12, creatinine of 0.9 and glucose of 106. IMPRESSION: This patient has right pontine ischemic stroke that seems to have progressed resulting in a dense left-sided hemiplegia. The patient has a history of hypertension, hyperthyroidism status post thyroidectomy. PLAN: We will continue with ICU observation with neuro checks. The patient is on hydralazine for his blood pressure, Antivert and medications for his cholesterol which is Lipitor. He is getting Plavix and continues with his Synthroid. The patient will be followed closely and we will continue to treat aggressively along with the other consultants and the primary care doctor. Ariel Lugo MD
[2016-09-30] MEDS: Levothyroxine 50 MCG TAB PO SCH (11:51)
[2016-09-30] MEDS: FEBUXOSTAT 80 MG PO SCH (11:52)
--- NOTE | 2016-09-30 21:24 | CP.PCM.PN ---
Subjective - Date & Time of Evaluation Date of Evaluation: 09/30/16 Time of Evaluation: 21:22 - Subjective Subjective: Mr. Kennedy was seen and examined today in the ICU. There were no acute events overnight. He continues to have the same left side weakness and diplopia he was complaining of yesterday. His speech is dysarthria. He is able to swallow thickened liquid. He had no other complaints. Objective - Vital Signs/Intake and Output Vital Signs (last 24 hours): Temp Pulse Resp BP Pulse Ox 98.6 F 66 20 118/72 96 09/30/16 18:29 09/30/16 18:29 09/30/16 18:29 09/30/16 18:29 09/30/16 18:29 Intake and Output: 09/30/16 10/01/16 18:59 06:59 Intake Total 1920 Output Total 850 Balance 1070 - Medications Medications: Current Medications Amlodipine Besylate (Norvasc) 10 mg PO DAILY [facility] Last Admin: 09/30/16 11:51 Dose: 10 mg Aspirin (Ecotrin) 81 mg PO DAILY [facility] Last Admin: 09/30/16 11:51 Dose: 81 mg Atenolol (Tenormin) 25 mg PO DAILY [facility] Last Admin: 09/30/16 11:51 Dose: 25 mg Atorvastatin Calcium (Lipitor) 80 mg PO DIN [facility] Last Admin: 09/30/16 17:16 Dose: 80 mg Clopidogrel Bisulfate (Plavix) 75 mg PO DAILY [facility] Last Admin: 09/30/16 11:51 Dose: 75 mg Colchicine (Colocrys) 0.6 mg PO DAILY PRN PRN Reason: Pain, Mild (1-3) Gabapentin (Neurontin) 100 mg PO BID [facility] Last Admin: 09/30/16 17:16 Dose: 100 mg Hydralazine HCl (Apresoline) 10 mg PO QID PRN PRN Reason: for sbp>170 & or diastolic>100 Sodium Chloride (Sodium Chloride 0.9%) 1,000 mls @ 100 mls/hr IV .Q10H [facility] Last Admin: 09/30/16 17:14 Dose: 100 mls/hr Levothyroxine Sodium (Synthroid) 50 mcg PO ACB [facility] Last Admin: 09/30/16 11:51 Dose: 50 mcg Non-Formulary Medication (Febuxostat [Uloric]) 80 mg PO DAILY [facility] Last Admin: 09/30/16 11:52 Dose: Not Given Pantoprazole Sodium (Protonix Ec Tab) 40 mg PO 0600 [facility] Polyethylene Glycol (Miralax) 17 gm PO HS PRN PRN Reason: Constipation Zaleplon (Sonata) 5 mg PO HS PRN PRN Reason: Insomnia Last Admin: 09/29/16 22:45 Dose: 5 mg - Labs Labs: 09/28/16 04:10 09/28/16 04:10 - Neurological Exam Additional comments: Neurologically unchanged compared with yesterday's examination. Assessment and Plan (1) Right pontine stroke Assessment & Plan: Stable clinical exam. Will obtain repeat CT scan of the head tomorrow to evaluate evolution and begin normalizing the blood pressure. Continue aspirin and plavix as planned, continue NS at 100 mL/hr, DVT Px, PT/OT treatment. Status: Acute
--- NOTE | 2016-10-01 00:47 | PN ---
PULMONARY CRITICAL CARE PROGRESS NOTE DATE: 09/30/2016 REFERRING PHYSICIAN: Dr. Thomas. SUBJECTIVE: He is seen examiner intensive care unit, night was unremarkable. He was started on IV fluids, received high dose of Plavix and Lipitor. Seems like his stroke is complete. Still have a 1/5 weakness strength of the left upper extremity, has about 2/5 left lower extremity, dysarthria is little better, wants to eat, diet has been disorder. No cough, no sputum production, no nausea, no vomiting, no diarrhea, no leg pain or leg swelling. Asking his BiPAP, it could be started in the hospital. OBJECTIVE: GENERAL: No acute distress. VITAL SIGNS: Temperature is 98, heart rate is 76, respiratory rate is 18, blood pressure 152/89 and pulse ox 97% on nasal cannula. HEENT: Moist mucous membrane. Crowded airway. Mallampati score is IV. NECK: Supple. No JVD. LUNGS: Has fair airflow with rhonchi. HEART: S1 and S2. ABDOMEN: Soft and nontender. No organomegaly. EXTREMITIES: There is no edema. NEUROLOGIC: Awake, alert, follows simple commands. MEDICATIONS: He is on: 1. Antivert 12.5 mg daily, p.r.n. 2. Hydralazine 10 mg q.i.d., p.r.n. 3. Colchicine 0.6 mg p.r.n. 4. Ecotrin 81 mg daily. 5. Uloric 80 mg daily. 6. Indocin 50 mg three times a day, p.r.n. 7. Lipitor 80 mg twice a day. 8. MiraLax 17 g at bedtime. 9. Neurontin 100 mg twice a day. 10. Norvasc 10 mg daily. 11. Plavix 75 mg daily. 12. IV fluid normal saline 100 mL per hour. 13. Sonata 5 mg at bedtime, p.r.n. 14. Synthroid 50 mcg p.o. 15. Tenormin 25 mg daily. LABORATORY DATA: Reviewed. No new lab results available. His homocysteine level yesterday was 9.7. TSH 0.65. ASSESSMENT AND PLAN: Ischemic stroke involving the chris with progression yesterday of the stroke with the left upper extremity weakness, left lower extremity weakness with dysarthria. Issue of hypertension, hypothyroid, gout may have sleep apnea syndrome. Appreciated neurology team help. Seems stable with the last 12 hour or so. We will continue IV fluid, try to keep blood pressure higher. We will start him on a CPAP 10 cm at 30% oxygen while sleeping. Has patient precautions, gastric prophylaxis, DVT prophylaxis. We will start physical therapy by tomorrow. Critical care time spent more than 35 minutes. Thank you for this follow up. Jan Godinez MD
[2016-10-01] MEDS: Sodium Chloride 0.9% 1,000 ML IV SCH ×2 (03:15→15:13)
--- NOTE | 2016-10-01 05:04 | PN ---
DATE: SUBJECTIVE: The patient is a 70-year-old male. The patient is seen and examined at the bedside in the unit, feeling comfortable. No nausea, vomiting, or diarrhea. He is still complaining about the weakness of the left side. He is not able to move the left upper extremity. No hematuria, hematochezia. No coughing. No wheezing. He is able to swallow water and take his p.o. medications. We will do swallowing evaluation. PHYSICAL EXAMINATION: VITAL SIGNS: Temperature 98, pulse 56, respirations 19, blood pressure 160/70. HEENT: Head is normocephalic and atraumatic. Eyes: PERRLA, extraocular muscles intact, conjunctivae are clear. Nose is patent. Mucous membranes moist. NECK: Supple. No carotid bruits or thyromegaly. CHEST: Bilaterally symmetrical. HEART: S1 and S2 positive. LUNGS: Clear to auscultation. ABDOMEN: Soft. Bowel sounds positive. No organomegaly. EXTREMITIES: No edema. No cyanosis. NEUROLOGIC: The patient is awake and alert. Moving all 4 extremities. No focal deficit. LABORATORY DATA: White blood cell is 5.3, hemoglobin 15.5, hematocrit 43.1, platelets of 197. Sodium 140, potassium 3.9, BUN 12, creatinine 0.9. MEDICATIONS: Reviewed by me. ASSESSMENT AND PLAN: Mr. Davion Kennedy is a 70-year-old male, who has right pontine ischemic stroke that seems to have progressed, resulting in dense left sided hemiplegia. The patient has a history of hypertension, hyperthyroidism, status post thyroidectomy. Now, the patient is in intensive care unit. Neuro check. We will continue hydralazine, Antivert, Lipitor, stroke protocol. The patient is getting Plavix and Synthroid. Seen by Dr. Chung Macario, stroke specialist. No overnight change happened. We will obtain a CT scan of the head tomorrow to evaluate the evolution and begin normalization of the blood pressure. Continue normal saline at 75 mL/hour. GI and DVT prophylaxis. Repeat labs. We will follow up. Angelia Thomas MD
[2016-10-01 05:58] LABS: HEMOGLOBIN 15.9 g/dL (14.0-18.0); MEAN CELL VOLUME 88.4 fl (80.0-105.0); MEAN CORPUSCULAR HEMOGLOBIN 31.9 pg (25.0-35.0); MEAN CORPUSCULAR HGB CONC 36.1 g/dl (31.0-37.0); MEAN PLATELET VOLUME 8.7 fl (7.0-11.0); RBC 4.98 10^6/uL (3.5-6.1); WHITE BLOOD COUNT 6.7 10^3/ul (4.5-11.0)
[2016-10-01 06:13] LABS: ALB/GLOB RATIO 1.3 (1.1-1.8); ALT/SGPT 23 U/L (7-56); AST/SGOT 28 U/L (15-59); BLOOD UREA NITROGEN 16 mg/dL (7-21); GFR AFRICAN-AMERICAN > 60; GFR NON-AFRICAN AMERICAN > 60
[2016-10-01 07:45] VITALS: O2SAT 96
[2016-10-01] MEDS: Levothyroxine 50 MCG TAB PO SCH (08:40)
[2016-10-01] MEDS: FEBUXOSTAT 80 MG PO SCH (09:55)
[2016-10-01] MEDS: Pantoprazole 40 mg EC Tab PO SCH (09:56)
--- NOTE | 2016-10-01 13:07 | PN ---
DATE: 10/01/2016 [employer]S CL[employer] MAINTENANCE NOTE SUBJECTIVE: The patient is resting comfortably and speaking freely. No complaints of cough or congestion or aspiration. The patient has some small movement on the left upper extremity. No nauseousness or vomiting. No drooling. No obvious facial droop at this time. PHYSICAL EXAMINATION: VITAL SIGNS: Temperature 97.9, pulse 61, respirations 15, blood pressure 149/90, and O2 saturation 96% on room air. HEENT: Head is atraumatic and normocephalic. Eyes are reactive to light. Ears, nose, and throat seemed to be within normal limits. NECK: Supple. No JVD. No thyroid enlargement. No lymph nodes. HEART: Regular rate and rhythm. Normal S1 and S2. LUNGS: Reveals good breath sounds bilaterally. ABDOMEN: Soft and nontender. Normal bowel sounds. No organomegaly noted. GENITALIA: Deferred. RECTAL: Deferred. MUSCULOSKELETAL: No joint deformities. EXTREMITIES: Revealed significant weakness on the left side upper and lower extremities. Trace lower extremity edema. NEUROLOGIC: The patient has left-sided weakness from CVA. LABORATORY DATA: Reveal a white count of 6.7, hemoglobin of 15.9, and hematocrit 44.0 with platelet of 206,000. CMP is pending. IMPRESSION: The patient has a right pontine ischemic stroke with dense left-sided hemiplegia. He has a history of hypertension, hyperthyroid, and status post thyroidectomy. PLAN: We will continue with ICU observation and neuro checks, but if other consultants and attending are agreeable, we will transfer to the floor. We will continue with hydralazine for the patient's blood pressure. He is on Antivert, as well as cholesterol medications, which is Lipitor. The patient continues with Plavix and his Synthroid and we will continue to observe and treat aggressively along with the other consultants and primary care doctor. Ariel Lugo MD
--- NOTE | 2016-10-01 14:55 | CP.PCM.PN ---
Subjective - Date & Time of Evaluation Date of Evaluation: 10/01/16 Time of Evaluation: 14:52 - Subjective Subjective: Mr. Kennedy was seen and examined today at bedside. He was working with speech therapy at the time and was showing some modest improvement. His diet was advanced and he was tolerating it well. There were no acute events overnight. Objective - Vital Signs/Intake and Output Vital Signs (last 24 hours): Temp Pulse Resp BP Pulse Ox 98.7 F 62 20 158/80 H 96 10/01/16 11:27 10/01/16 11:16 10/01/16 11:16 10/01/16 11:16 10/01/16 11:16 Intake and Output: 10/01/16 10/01/16 06:59 18:59 Intake Total 1340 Output Total 1600 Balance -260 - Medications Medications: Current Medications Amlodipine Besylate (Norvasc) 10 mg PO DAILY [facility] Last Admin: 10/01/16 09:54 Dose: 10 mg Aspirin (Ecotrin) 81 mg PO DAILY [facility] Last Admin: 10/01/16 09:55 Dose: 81 mg Atenolol (Tenormin) 25 mg PO DAILY [facility] Last Admin: 10/01/16 09:54 Dose: 25 mg Atorvastatin Calcium (Lipitor) 80 mg PO DIN [facility] Last Admin: 09/30/16 17:16 Dose: 80 mg Clopidogrel Bisulfate (Plavix) 75 mg PO DAILY [facility] Last Admin: 10/01/16 09:54 Dose: 75 mg Colchicine (Colocrys) 0.6 mg PO DAILY PRN PRN Reason: Pain, Mild (1-3) Gabapentin (Neurontin) 100 mg PO BID [facility] Last Admin: 10/01/16 09:54 Dose: 100 mg Hydralazine HCl (Apresoline) 10 mg PO QID PRN PRN Reason: for sbp>170 & or diastolic>100 Last Admin: 10/01/16 06:00 Dose: 10 mg Sodium Chloride (Sodium Chloride 0.9%) 1,000 mls @ 100 mls/hr IV .Q10H [facility] Last Admin: 10/01/16 03:15 Dose: 100 mls/hr Levothyroxine Sodium (Synthroid) 50 mcg PO ACB [facility] Last Admin: 10/01/16 08:40 Dose: 50 mcg Non-Formulary Medication (Febuxostat [Uloric]) 80 mg PO DAILY [facility] Last Admin: 10/01/16 09:55 Dose: Not Given Pantoprazole Sodium (Protonix Ec Tab) 40 mg PO 0600 [facility] Last Admin: 10/01/16 09:56 Dose: 40 mg Polyethylene Glycol (Miralax) 17 gm PO HS PRN PRN Reason: Constipation Zaleplon (Sonata) 5 mg PO HS PRN PRN Reason: Insomnia Last Admin: 09/29/16 22:45 Dose: 5 mg - Labs Labs: 10/01/16 05:30 10/01/16 05:30 - Neurological Exam Neurological Exam: Altered, Awake, CN II-XII Intact, Oriented x3 Neuro motor strength exam: Left Upper Extremity: 0 (trace movement in the thumb) , Right Upper Extremity: 5, Left Lower Extremity: 3, Right Lower Extremity: 5 Assessment and Plan (1) Right pontine stroke Assessment & Plan: Continue current medication regimen. May start normalizing BP today, but hold antihypertensive meds for BP< 120/80. Continue DVT Px, PT/OT. Status: Acute
--- NOTE | 2016-10-02 00:27 | CP.PCM.PN ---
Subjective - Date & Time of Evaluation Date of Evaluation: 10/01/16 Time of Evaluation: 09:00 - Subjective Subjective: Subjective: Mr. Kennedy was seen and examined today at bedside. He was working with speech therapy at the time and was showing some modest improvement. His diet was advanced and he was tolerating it well. There were no acute events overnight. . transfer to medicle floor . Objective - Vital Signs/Intake and Output Vital Signs (last 24 hours): Temp Pulse Resp BP Pulse Ox 98.7 F 62 20 158/80 H 96 10/01/16 11:27 10/01/16 11:16 10/01/16 11:16 10/01/16 11:16 10/01/16 11:16 Intake and Output: 10/01/16 10/02/16 18:59 06:59 Output Total 1775 Balance -1775 - Medications Medications: Current Medications Amlodipine Besylate (Norvasc) 10 mg PO DAILY REPLACED BY [facility] Last Admin: 10/01/16 09:54 Dose: 10 mg Aspirin (Ecotrin) 81 mg PO DAILY REPLACED BY [facility] Last Admin: 10/01/16 09:55 Dose: 81 mg Atenolol (Tenormin) 25 mg PO DAILY REPLACED BY [facility] Last Admin: 10/01/16 09:54 Dose: 25 mg Atorvastatin Calcium (Lipitor) 80 mg PO DIN REPLACED BY [facility] Last Admin: 10/01/16 17:21 Dose: 80 mg Clopidogrel Bisulfate (Plavix) 75 mg PO DAILY REPLACED BY [facility] Last Admin: 10/01/16 09:54 Dose: 75 mg Colchicine (Colocrys) 0.6 mg PO DAILY PRN PRN Reason: Pain, Mild (1-3) Gabapentin (Neurontin) 100 mg PO BID REPLACED BY [facility] Last Admin: 10/01/16 17:21 Dose: 100 mg Hydralazine HCl (Apresoline) 10 mg PO QID PRN PRN Reason: for sbp>170 & or diastolic>100 Last Admin: 10/01/16 06:00 Dose: 10 mg Sodium Chloride (Sodium Chloride 0.9%) 1,000 mls @ 100 mls/hr IV .Q10H REPLACED BY [facility] Last Admin: 10/01/16 15:13 Dose: 100 mls/hr Levothyroxine Sodium (Synthroid) 50 mcg PO ACB REPLACED BY [facility] Last Admin: 10/01/16 08:40 Dose: 50 mcg Non-Formulary Medication (Febuxostat [Uloric]) 80 mg PO DAILY REPLACED BY [facility] Last Admin: 10/01/16 09:55 Dose: Not Given Pantoprazole Sodium (Protonix Ec Tab) 40 mg PO 0600 REPLACED BY [facility] Last Admin: 10/01/16 09:56 Dose: 40 mg Polyethylene Glycol (Miralax) 17 gm PO HS PRN PRN Reason: Constipation Zaleplon (Sonata) 5 mg PO HS PRN PRN Reason: Insomnia Last Admin: 09/29/16 22:45 Dose: 5 mg - Labs Labs: 10/01/16 05:30 10/01/16 05:30 - Constitutional Appears: Well - Head Exam Head Exam: ATRAUMATIC, NORMAL INSPECTION, NORMOCEPHALIC - Eye Exam Eye Exam: EOMI, Normal appearance, PERRL Pupil Exam: NORMAL ACCOMODATION, PERRL - ENT Exam ENT Exam: Mucous Membranes Moist, Normal Exam - Neck Exam Neck Exam: Full ROM, Normal Inspection. absent: Lymphadenopathy - Respiratory Exam Respiratory Exam: Clear to Ausculation Bilateral, NORMAL BREATHING PATTERN - Cardiovascular Exam Cardiovascular Exam: REGULAR RHYTHM, +S1, +S2. absent: Murmur - GI/Abdominal Exam GI & Abdominal Exam: Soft, Normal Bowel Sounds. absent: Tenderness - Rectal Exam Rectal Exam: NORMAL INSPECTION - Exam Exam: Circumcision, NORMAL INSPECTION External exam: NORMAL EXTERNAL EXAM Speculum exam: NORMAL SPECULUM EXAM Bimanual exam: NORMAL BIMANUAL EXAM - Extremities Exam Extremities Exam: Full ROM, Normal Capillary Refill, Normal Inspection. absent : Joint Swelling, Pedal Edema - Back Exam Back Exam: NORMAL INSPECTION - Neurological Exam Neurological Exam: Alert, Awake, CN II-XII Intact, Normal Gait, Oriented x3 - Psychiatric Exam Psychiatric exam: Normal Affect, Normal Mood - Skin Skin Exam: Dry, Intact, Normal Color, Warm Assessment and Plan (1) Hyperthyroidism Status: Acute - Assessment and Plan (Free Text) Assessment: Mr. Kennedy was seen and examined today at bedside. He was working with speech therapy at the time and was showing some modest improvement. His diet was advanced and he was tolerating it well. There were no acute events overnight. right pontine stroke Plan: Continue current medication regimen. May start normalizing BP today, but hold antihypertensive meds for BP< 120/80. Continue DVT Px, PT/OT.
[2016-10-02] MEDS: Sodium Chloride 0.9% 1,000 ML IV SCH ×2 (05:59→06:00)
[2016-10-02] MEDS: Pantoprazole 40 mg EC Tab PO SCH (05:59)
[2016-10-02 08:21] VITALS: PULSE 63; RESP 18; TEMP 98.1
[2016-10-02] MEDS: Levothyroxine 50 MCG TAB PO SCH (09:55)
[2016-10-02] MEDS: FEBUXOSTAT 80 MG PO SCH (09:58)
--- NOTE | 2016-10-02 14:38 | CP.PCM.PN ---
Subjective - Date & Time of Evaluation Date of Evaluation: 10/02/16 Time of Evaluation: 14:35 - Subjective Subjective: Mr. Kennedy was seen and examined today at bedside. He was found in NAD. There were no acute events overnight. He had a friend in the room visiting and the patient was conversant despite having some residual dysarthria. Objective - Vital Signs/Intake and Output Vital Signs (last 24 hours): Temp Pulse Resp BP Pulse Ox 98.1 F 63 18 153/94 H 96 10/02/16 08:00 10/02/16 13:36 10/02/16 08:00 10/02/16 13:36 10/02/16 08:00 Intake and Output: 10/02/16 10/02/16 06:59 18:59 Intake Total 120 840 Output Total 3075 725 Balance -2955 115 - Medications Medications: Current Medications Amlodipine Besylate (Norvasc) 10 mg PO DAILY [facility] Last Admin: 10/02/16 09:58 Dose: 10 mg Aspirin (Ecotrin) 81 mg PO DAILY [facility] Last Admin: 10/02/16 09:55 Dose: 81 mg Atenolol (Tenormin) 25 mg PO DAILY [facility] Last Admin: 10/02/16 09:55 Dose: 25 mg Atorvastatin Calcium (Lipitor) 80 mg PO DIN [facility] Last Admin: 10/01/16 17:21 Dose: 80 mg Clopidogrel Bisulfate (Plavix) 75 mg PO DAILY [facility] Last Admin: 10/02/16 09:58 Dose: 75 mg Colchicine (Colocrys) 0.6 mg PO DAILY PRN PRN Reason: Pain, Mild (1-3) Gabapentin (Neurontin) 100 mg PO BID [facility] Last Admin: 10/02/16 09:58 Dose: 100 mg Hydralazine HCl (Apresoline) 10 mg PO QID PRN PRN Reason: for sbp>170 & or diastolic>100 Last Admin: 10/02/16 05:59 Dose: 10 mg Hydralazine HCl (Apresoline) 10 mg PO TID [facility] Last Admin: 10/02/16 13:36 Dose: 10 mg Sodium Chloride (Sodium Chloride 0.9%) 1,000 mls @ 100 mls/hr IV .Q10H [facility] Last Admin: 10/02/16 06:00 Dose: Not Given Levothyroxine Sodium (Synthroid) 50 mcg PO ACB [facility] Last Admin: 10/02/16 09:55 Dose: 50 mcg Non-Formulary Medication (Febuxostat [Uloric]) 80 mg PO DAILY [facility] Last Admin: 10/02/16 09:58 Dose: Not Given Pantoprazole Sodium (Protonix Ec Tab) 40 mg PO 0600 [facility] Last Admin: 10/02/16 05:59 Dose: 40 mg Polyethylene Glycol (Miralax) 17 gm PO HS PRN PRN Reason: Constipation Zaleplon (Sonata) 5 mg PO HS PRN PRN Reason: Insomnia Last Admin: 09/29/16 22:45 Dose: 5 mg - Labs Labs: 10/01/16 05:30 10/01/16 05:30 - Neurological Exam Neurological Exam: Awake, CN II-XII Intact Neuro motor strength exam: Left Upper Extremity: 0 (subtle thumb movement), Right Upper Extremity: 5, Left Lower Extremity: 3, Right Lower Extremity: 5 Additional comments: NIHSS= 7 Assessment and Plan (1) Right pontine stroke Assessment & Plan: Continue current medications. Transfer to acute rehab for further management. DVT Px. Speech/swallow eval and adjust diet accordingly to avoid aspiration PNA. Status: Acute
--- NOTE | 2016-10-02 15:18 | PN ---
DATE: 10/02/2016 LOCATION: The patient in room 362, bed 1. REASON FOR CONSULTATION: CVA, cardiac evaluation. SUBJECTIVE: The patient is sitting in chair without any chest pain, shortness of breath, or palpitation. Still complaints weakness of the left upper and left lower extremity. PHYSICAL EXAMINATION: VITAL SIGNS: Blood pressure 159/96, respirations 18, pulse 63, and temperature 98.1. HEENT: Head is normocephalic. Eyes: Pupils normal. Conjunctivae normal. Nose and throat normal. NECK: JVP low. Carotid equal. Thorax: AP diameter normal. LUNGS: Clear. CARDIOVASCULAR: S1 and S2. ABDOMEN: Soft. No tenderness. No organomegaly. Bowel sounds normal. EXTREMITIES: No clubbing. No cyanosis. LABORATORY DATA: Shows WBC 6.7, hemoglobin 15.9, hematocrit 44.0, and platelets 206. Random sugar 109. Sodium 141, potassium 3.6, BUN 16, creatinine 0.9. AST 28, ALT 23, total protein and albumin normal. DIAGNOSES: Hypertension, weakness of the left leg. Echo did not show any evidence of foramen ovale. No arrhythmia was noted on telemetry. PLAN: The patient's blood pressure is still elevated. The patient is on aspirin 81 mg daily, Uloric 80 mg p.o. daily, Lipitor 80 mg p.o. daily, Neurontin 100 mg b.i.d., amlodipine 10 daily, Plavix 75 daily, Protonix 40 mg daily, Synthroid 50 mcg p.o. daily, atenolol 25 mg p.o. daily. Since blood pressure is high, the patient on hydralazine 10 mg p.o. q.i.d. p.r.n., we will put the patient on regular hydralazine 10 mg t.i.d. to control the blood pressure and will monitor with you and follow with you. Jan Loredo MD
[2016-10-02 17:39] VITALS: BP 152/87
--- NOTE | 2016-10-02 22:27 | PN ---
PULMONARY PROGRESS NOTE DATE: 10/02/2016 REFERRING PHYSICIAN: Dr. Thomas. SUBJECTIVE: He is lying in the bed, head at 45 degrees. Tolerated CPAP well last night. No headache. No rhinitis. Has left upper extremity plegia. No cough, no sputum production, no nausea, no vomiting, no diarrhea. PHYSICAL EXAMINATION: GENERAL: No acute distress. VITAL SIGNS: Temperature is 98, heart rate 63, respiratory rate is 20, blood pressure 152/87 and pulse ox 96% on room air. HEENT: Moist mucous membrane. Crowded airway. NECK: Supple. No JVD. LUNGS: Has fair airflow with few rhonchi. HEART: S1 and S2. ABDOMEN: Soft and nontender. No organomegaly. EXTREMITIES: There is no edema. NEUROLOGIC: Awake, alert and follows simple commands. Has a left hemiparesis. MEDICATIONS: Hydralazine 10 mg q.i.d. p.r.n., colchicine 0.6 mg daily, Ecotrin 81 mg daily, Uloric 80 mg daily, Lipitor 80 mg daily, MiraLax 17 g p.o. at bedtime, Neurontin 100 mg twice a day, Norvasc 10 mg daily, Plavix 75 mg daily, Protonix 40 mg daily, IV fluid normal saline 100 mL per hour, Sonata 5 mg at bedtime p.r.n., Tenormin 25 mg at bedtime and Synthroid 50 mcg p.o. a.c. LABORATORY DATA: Reviewed. Blood sugar 131. MRSA not detected. IMPRESSION AND PLAN: Alejandra ischemic stroke for the left upper extremity and left lower extremity weakness, hypertension, hypothyroid, may have sleep apnea syndrome. The patient will be transferred to acute inpatient rehab. We will suggest continue continuous positive airway pressure 10 cm, gastric prophylaxis, deep vein thrombosis prophylaxis, and aspiration precaution. He should attend a sleep study as an outpatient. Thank you. We will follow with you. Jan Godinez MD
--- NOTE | 2016-10-03 15:05 | PCM.RRTMUL ---
PRINT SUPPORT SPECIALIST Nurse Assessment - Ventilator Settings FIO2 (% Oxygen):: 30 - Vital Signs Blood Pressure:: 152/87 I.Reason for PRINT SUPPORT SPECIALIST - A) Acute Change in Patient: Subjective: PRINT SUPPORT SPECIALIST Time: 2:46p.m. Vital Signs: BP-125/69 RR-14 HR-58 O2%-97 S: Pt. seen at bed. PRINT SUPPORT SPECIALIST called because patient just had a bowel movement and felt dizzy and got up and collappsed but did not lose consciousness. Pt. now in bed alert awake oriented x 3. Pt. denies hitting his head on the floor. Pt. wiht no complaints at this time. O: General: AAOx3 NAD Heent: NC/AT Resp: CTAB Cardio:S1-S2 no mumur [employer]INT SUPPORT [employer]IST Intervention CBC BMP EKG O2 via Nasal Canula Accucheck [employer]IST outcome: EKG- with no change from previous EKG Pt. stable and asymptomatic 139 accucheck A/P: 70 y.o. male in acute rehab s/p CVA in stable conditon. PMD notified, DR. Antonio aware PRINT SUPPORT SPECIALIST End 2:55p.m. Vitals signs BP139/75 RR-14 HR-55 O2 via NC 100% [employer] SUPPORT SPECIALIST resident: Facundo Olson M.D. PR[employer] SUPPORT SPECIALIST leader: Dr. Nella Weber
== END 2016-10-02 19:49 | DRG 65 ==
LOC: ED 19:45 → ERH 22:11 → 2RSO 23:55 → OBSVTOIN 09-27 22:57 → 3RNO 09-29 11:28 → CCU 09-29 20:38 → 3RNO 10-01 12:18
PROVIDERS: ADMIT Internal Medicine; ATTEND Internal Medicine
DX: I63.9 Cerebral infarction, unspecified (principal); G81.94 Hemiplegia, unspecified affecting left nondominant side; I10 Essential (primary) hypertension; E78.5 Hyperlipidemia, unspecified; E89.0 Postprocedural hypothyroidism; G47.30 Sleep apnea, unspecified; R47.1 Dysarthria and anarthria; H53.2 Diplopia; R13.10 Dysphagia, unspecified; H70.91 Unspecified mastoiditis, right ear; I65.23 Occlusion and stenosis of bilateral carotid arteries; M10.9 Gout, unspecified; R29.810 Facial weakness; Z79.899 Other long term (current) drug therapy; Z79.82 Long term (current) use of aspirin; Z87.891 Personal history of nicotine dependence; Z98.42 Cataract extraction status, left eye; Z98.41 Cataract extraction status, right eye; R40.2412 Glasgow coma scale score 13-15, at arrival to emergency department; I44.0 Atrioventricular block, first degree; F32.89 Other specified depressive episodes; F06.30 Mood disorder due to known physiological condition, unspecified; F43.20 Adjustment disorder, unspecified; F06.4 Anxiety disorder due to known physiological condition

== ENCOUNTER 2017-08-11 16:48 | Inpatient (IN) | payer MEDICARE, OTHER ==
--- NOTE | 2017-08-11 17:22 | ED PDOC ---
Arrival/HPI - General Chief Complaint: Shortness Of Breath Time Seen by Provider: 08/11/17 17:01 Historian: Patient - History of Present Illness Narrative History of Present Illness (Text): 08/11/17 17:19 pt p/w + < 1 day onset of shortness of breath/wheezing/severe weakness/fatigue; pt states he was awake this morning and trying to move around in his apt and suddenly felt very shortness of breath; pt states no fever/chills/sweats, no chest pain/palpitations, no abd pain, no n/v, no numbness/tingling, no urinary/ bowel changes, no sick contact, no travel; pt states he accidentally fell while in his bedroom, + left facial bruising is noted, pt states he did not seek any medical attention; pt denied LOC, pt denied lightheadedness/dizziness; pt is here for further eval; pt's without other complaints. PCP: Dr Wylie pt is right hand dominate hx of CVA (left sided weakness), pt is primarily wheelchair bound pt lives alone primarily Time/Duration: 24 hours Symptom Onset: Sudden Symptom Course: Unchanged Activities at Onset: Rest Context: Home Past Medical History - Provider Review Nursing Documentation Reviewed: Yes - Travel History Have you recently traveled outside [place] w/in the past 3 mons?: No - Past History Past History: Non-Contributing - Infectious Disease Hx of Infectious Diseases: None - Tetanus Immunization Tetanus Immunization: Unknown - Cardiac Hx Hypertension: Yes - Pulmonary Hx Respiratory Disorders: Yes Hx Sleep Apnea: Yes Other/Comment: uses BPAP - Neurological Hx Neurological Disorder: No - HEENT Hx Cataracts: Yes (b/l cataract removal) Other/Comment: tonsillectomy - Renal Hx Renal Disorder: No - Endocrine/Metabolic Hx Hypothyroidism: Yes - Hematological/Oncological Hx AIDS: No - Integumentary Hx Dermatological Disorder: No - Musculoskeletal/Rheumatological Hx Falls: No - Gastrointestinal Other/Comment: inguinal hernia repair - Genitourinary/Gynecological Hx Genitourinary Disorders: No - Psychiatric Hx Depression: Yes Hx Substance Use: No - Surgical History Hx Cataract Extraction: Yes (b/l) Hx Tonsillectomy: Yes Other/Comment: goiter removed, sinus surgery(Polyps). Inguinal Hernia. - Anesthesia Hx Anesthesia: Yes Hx Anesthesia Reactions: No Hx Malignant Hyperthermia: No - Suicidal Assessment Feels Threatened In Home Enviroment: No Family/Social History - Physician Review Nursing Documentation Reviewed: Yes Family/Social History: No Known Family HX Smoking Status: Former Smoker Hx Alcohol Use: No Hx Substance Use: No Hx Substance Use Treatment: No Allergies/Home Meds Allergies/Adverse Reactions: Allergies No Known Allergies Allergy (Verified 08/11/17 16:55) Home Medications: Home Meds Medication Instructions Recorded Confirmed Levothyroxine [Synthroid] 50 mcg PO DAILY 07/03/12 08/11/17 Allopurinol [Zyloprim] 300 mg PO DAILY 08/11/17 08/11/17 Cyclobenzaprine [Flexeril] 10 mg PO TID 08/11/17 08/11/17 Gabapentin [Neurontin] 600 mg PO DAILY 08/11/17 08/11/17 Losartan/Hydrochlorothiazide 1 tab PO DAILY 08/11/17 08/11/17 [Losartan-Hctz 50-12.5 mg Tab] Meloxicam [Mobic] 15 mg PO DAILY 08/11/17 08/11/17 Tamsulosin [Flomax] 1 cap PO DAILY 08/11/17 08/11/17 Verapamil [Calan SR Tab] 240 mg PO DAILY 08/11/17 08/11/17 Review of Systems - Review of Systems Constitutional: Fatigue Eyes: Normal ENT: Normal Respiratory: SOB, Wheezing. absent: Cough Cardiovascular: FALCON. absent: Chest Pain, Palpitations Gastrointestinal: absent: Abdominal Pain, Nausea, Vomiting Genitourinary Male: Normal Musculoskeletal: Normal Skin: Normal Neurological: absent: Headache, Dizziness Endocrine: Normal Hemo/Lymphatic: Normal Psychiatric: Normal Physical Exam - Physical Exam Narrative Physical Exam (Text): 08/11/17 17:23 General: alert/awake, GCS = 15, oriented x 2 (not to date/time), resting in bed , uncomfortable, cooperative, interactive; NAD Head: NC/AT EYE: PERRLA, EOMI, sclera anicteric, no nystagmus, no photophobia; visual field intact b/l Facial: noted left mid-face/lower facial ecchymosis; no gross deformities noted , no focal tenderness, pt is able to open his jaw Oral: uvula/tongue are midline, no exudate/lesions, no drooling/stridor, no dysphonia; poor dentitions NECK: intact ROM, no midline tenderness, no nuchal rigidity, no meningeal signs ; no step off Chest: basiliar wheezing noted b/l, no w/r/r; no tachypenia, no accessory muscle use noted Cardiac: +S1, +S2, no m/r/r, no tachycardia Abdominal: +BS, soft/nd/nt, well nourished patient; no masses/rebound/guarding/ rigidity; no carter's sign, no mcburney's point tenderness Extremities: intact ROM, strength 5-/5 grossly intact b/l upper limbs Left weaker than Right; pt lower ext 4+/5 strength with left weaker than right; neurovasc intact b/l; +1/5 pitting edema/swelling b/l up to mid tib-fib; no Patricia's sign b/l BACK: no step off, no midline tenderness, NO crepitus, no gross deformities noted; Intact ROM SKIN: cap refill < 1 sec, no ulcerations, no petechiae, no rashes; no gross pallor noted NEURO: CNII-XII WNL, no facial asymmetries, oriented x 2 (not to date/time) Psych: normal insight, slight flat/depressed affect; follows command with ease Vital Signs Reviewed: Yes Vital Signs Temp Pulse Resp BP Pulse Ox 08/11/17 19:00 94 H 19 167/91 H 99 08/11/17 17:00 99.2 F 65 20 167/85 H 97 Temperature: Afebrile Blood Pressure: Hypertensive Pulse: Regular Respiratory Rate: Normal Appearance: Positive for: Well-Appearing, Uncomfortable. No: Non-Toxic, Ill- Appearing, Unkept Pain Distress: None Mental Status: Positive for: other (alert/awake, oriented x 2 (not to date/time) ) - Systems Exam Head: Present: Atraumatic, Normocephalic Medical Decision Making ED Course and Treatment: 08/11/17 17:27 Impression: shortness of breath/weakness i have consider all the differential diagnosis regarding pt's chief medical complaints/clinical findings, including but are not limited to: shortness of breath/wheezing/weakness A/P: shortness of breath/wheezing/weakness - labs - iv - ct - us - xray - treatment - supportive care - observe/reevaluation 1850 pt is resting in bed, NOT in any distress oriented x 2 (not to date/time) follows commands with ease 08/11/17 19:00 Dr Day, ICU intensivists made aware, will evaluate patient, will likely accept patient to the ICU for further eval/care/mgt paging Dr Johnston (Neurosx nutrition aide) 08/11/17 19:[address] Johnston, on-call neurosurgeon, who has been made aware of patient's condition/emergency department diagnosis. Requesting patient to be placed under observation in ICU and will prep for surgery Sunday/Sunday; and requests patient's admitting physicians to obtain medical clearance for surgery; recommend elevating pt's head/head of the bed to [address] Johnston about giving patient anticonvulsant medications and he stated currently it is not recommended. We also discussed about reversal of patient's Plavix, however patient's INR is 1.1 (below an INR of 2), Dr. Johnston does not recommend Concentra at this current time. 08/11/17 19:[address] Thomas, on-call medical service/attending, who has been made aware of patient's condition, and agrees with emergency department management and treatment. 08/11/172029 pt is made aware of his medical results agrees with admission Re-evaluation Time: 19:22 Reassessment Condition: Unchanged - Critical Care Critical Care Minutes: 45 minutes Critical Care Time: Excluding Proc Time Narrative Critical Care (Text): 08/11/17 21:54 critical care time: 45min, excluding procedure time, excluding time teaching residents/students/mid-level providers; including initial eval/diagnosis, diagnostic interpretation, re-eval, consultations, final disposition - Lab Interpretations Lab Results: 08/11/17 17:55 08/11/17 17:55 Lab Results 08/11/17 19:40: Urine Color Yellow, Urine Appearance Clear, Urine pH 6.5, Ur Specific Wagner 1.015, Urine Protein Negative, Urine Glucose (UA) Negative, Urine Ketones Negative, Urine Blood Negative, Urine Nitrate Negative, Urine Bilirubin Negative, Urine Urobilinogen 0.2, Ur Leukocyte Esterase Negative 08/11/17 17:55: Sodium 134, Chloride 94 L, Potassium 3.8, Carbon Dioxide 26, Anion Gap 18, BUN 23 H, Creatinine 1.1, Est GFR ( Amer) > 60, Est GFR ( Non-Af Amer) > 60, Random Glucose 144 H, Calcium 9.1, Magnesium 2.0, Total Bilirubin 1.2, AST 27, ALT 31, Alkaline Phosphatase 57, Lactate Dehydrogenase 537, Total Creatine Kinase 88, Troponin I < 0.01, NT-Pro-B Natriuret Pep 299, Total Protein 8.0, Albumin 4.5, Globulin 3.6, Albumin/Globulin Ratio 1.3 08/11/17 17:55: pO2 40, VBG pH 7.39, VBG pCO2 46.0, VBG HCO3 27.8, VBG Total CO2 29.2 H, VBG O2 Sat (Calc) 80.6 H, VBG Base Excess 2.2 H, VBG Potassium 4.0, Sodium 131.0 L, Chloride 95.0 L, Glucose 156 H, Lactate 2.4 H, FiO2 21.0, Venous Blood Potassium 4.0 08/11/17 17:55: PT 12.7 H, INR 1.11 H, APTT 30.9 08/11/17 17:55: WBC 8.8 D, RBC 4.11, Hgb 13.6 L D, Hct 37.1 L, MCV 90.3, MCH 33.1, MCHC 36.7, RDW 13.9, Plt Count 247, MPV 8.0, Gran % 73.3 H, Lymph % (Auto ) 16.7 L, Colbert % (Auto) 8.8 H, Eos % (Auto) 0.9 L, Baso % (Auto) 0.3, Gran # 6.45, Lymph # (Auto) 1.5, Colbert # (Auto) 0.8 H, Eos # (Auto) 0.1, Baso # (Auto) 0.03 I have reviewed the lab results: Yes Interpretation: Abnormal lab values (elevated lactic; elevated gluc) - RAD Interpretation Narrative RAD Interpretations (Text): prelim reading 08/11/[address] head: Prominent acute subdural bleed in the left hemispheric convexity. Moderate midline shift is present. Mild uncal herniation. Thank you for allowing us to participate in the care of your patient. Dictated and Authenticated by: Kwadwo Christie MD 08/11/2017 7:05 PM Eastern Time ([place] & [place]) CT face: IMPRESSION: No definite facial fractures. Left maxillary sinus fluid. Soft tissue contusion of the left zygomatic region. Thank you for allowing us to participate in the care of your patient. Dictated and Authenticated by: Kwadwo Christie MD 08/11/2017 7:07 PM Eastern Time ([place] & [place]) Chest X-Ray: rotated poor insp effort left lower lobe atelectasis? Physician Impression : Abnormal B/L leg u/s: NO DVT Radiology Orders: 08/11/17 17:15 DUPLEX LOWER EXTRM VEIN BILAT [US] Stat 08/11/17 17:16 HEAD W/O CONTRAST [CT] Stat CHEST PORTABLE [RAD] Stat 08/11/17 17:17 MAXILLOFACIAL W/O CONTRAST [CT] Stat Computer Sciences Professor: ED Physician, Radiologist - EKG Interpretation EKG Interpretation (Text): 08/11/17 17:30 sinus rhythm at 95 bpm, LAD, + ectopy, qs in leads III/F, V1-2, no st-t changes , ABNL EKG; unchanged compare with old ekg 09/2016 Interpreted by ED Physician: Yes Type: 12 lead EKG Comparison: Similar to previous EKG - Medication Orders Current Medication Orders: Allopurinol (Zyloprim) 300 mg PO DAILY [facility] Atenolol (Tenormin) 25 mg PO DAILY [facility] Atorvastatin Calcium (Lipitor) 80 mg PO DIN [facility] Famotidine (Pepcid) 40 mg PO HS [facility] Gabapentin (Neurontin) 600 mg PO DAILY [facility] PRN Reason: Protocol Hydrochlorothiazide (Microzide) 12.5 mg PO DAILY [facility] Levalbuterol HCl (Xopenex) 1.25 mg IH [id number] [facility] Levothyroxine Sodium (Synthroid) 50 mcg PO ACB [facility] Losartan Potassium (Cozaar) 50 mg PO DAILY [facility] Methylprednisolone (Solu-Medrol) 40 mg IV Q12 [facility] Tamsulosin HCl (Flomax) 0.4 mg PO DAILY [facility] Verapamil HCl (Calan Sr Tab) 240 mg PO DAILY [facility] Discontinued Medications Albuterol/Ipratropium (Duoneb 3 Mg/0.5 Mg (3 Ml) Ud) 3 ml IH Q15M [facility] Stop: 08/11/17 18:01 Last Admin: 08/11/17 18:11 Dose: 3 ml Aspirin (Ecotrin) 81 mg PO STAT [facility] Stop: 08/11/17 17:16 Last Admin: 08/11/17 18:09 Dose: 81 mg Methylprednisolone (Solu-Medrol) 125 mg IVP STAT [facility] Stop: 08/11/17 17:19 Last Admin: 08/11/17 17:56 Dose: 125 mg Disposition/Present on Arrival - Present on Arrival Any Indicators Present on Arrival: No History of DVT/PE: No History of Uncontrolled Diabetes: No Urinary Catheter: No History of Decub. 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
[2017-08-11] MEDS: Albuterol-Ipratrop 3 mg / 0.5 (3 ml) UD IH SCH ×3 (17:34→18:11)
[2017-08-11 18:07] LABS: BASO # 0.03 K/mm3 (0.0-2.0); BASO % 0.3 % (0.0-3.0); EOS # 0.1 (0.0-0.7); EOS % 0.9 % (1.5-5.0); GRAN # 6.45 (1.4-6.5); GRAN % 73.3 % (50.0-68.0); HEMOGLOBIN 13.6 g/dL (14.0-18.0); LYMPH # 1.5 (1.2-3.4); LYMPH % 16.7 % (22.0-35.0); MEAN CELL VOLUME 90.3 fl (80.0-105.0); MEAN CORPUSCULAR HEMOGLOBIN 33.1 pg (25.0-35.0); MEAN CORPUSCULAR HGB CONC 36.7 g/dl (31.0-37.0); MONO # 0.8 (0.1-0.6); MONO % 8.8 % (1.0-6.0); RBC 4.11 10^6/uL (3.5-6.1); RED CELL DISTRIBUTION WIDTH 13.9 % (11.5-14.5); WHITE BLOOD COUNT 8.8 10^3/ul (4.5-11.0)
[2017-08-11 18:08] LABS: VENOUS BLOOD GAS BASE EXCESS 2.2 mmol/L (0.0-2.0); VENOUS BLOOD GAS PO2 40 mm/Hg (30-55); VENOUS BLOOD PH 7.39 (7.32-7.43)
[2017-08-11 18:14] LABS: ALB/GLOB RATIO 1.3 (1.1-1.8); ALBUMIN 4.5 g/dL (3.0-4.8); ALT/SGPT 31 U/L (7-56); AST/SGOT 27 U/L (17-59); BLOOD UREA NITROGEN 23 mg/dL (7-21); CALCIUM 9.1 mg/dL (8.4-10.5); GFR AFRICAN-AMERICAN > 60; GFR NON-AFRICAN AMERICAN > 60
[2017-08-11 18:20] LABS: INR 1.11 (0.93-1.08); PARTIAL THROMBOPLASTIN TIME 30.9 Seconds (25.1-36.5); PROTHROMBIN TIME 12.7 SECONDS (9.4-12.5)
[2017-08-11 18:26] LABS: B-TYPE NATRIURETIC PEPTIDE 299 pg/mL (0-450); TROPONIN I < 0.01 ng/mL
[2017-08-11 19:52] LABS: PH,URINE 6.5 (4.7-8.0); URINE BILIRUBIN NEGATIVE (NEGATIVE); URINE BLOOD NEGATIVE (NEGATIVE); URINE GLUCOSE (UA) NEGATIVE (NEGATIVE); URINE LEUKOCYTE ESTERASE NEGATIVE Leu/uL (NEGATIVE); URINE PROTEIN NEGATIVE mg/dL (<30 mg/dL); URINE UROBILINOGEN 0.2 E.U./dL (<1 E.U./dL)
[2017-08-11 19:55] LABS: URINE APPEARANCE CLEAR (CLEAR); URINE COLOR YELLOW (YELLOW)
--- NOTE | 2017-08-11 20:46 | CP.PCM.CON ---
<GeriElly murcia - Last Filed: 08/11/17 21:43> History of Present Illness - History of Present Illness History of Present Illness: ICU Consult Note, Adonay Delgado PGY2 Reason for consult: Subdural hematoma This is a 71yo male with past medical history of HTN, hypothyroidism, CVA (L sided weakness) who came to ED for shortness of breath and fall. Patient reports he tried to transfer from his bed to the wheel chair and he fell. He hit his head, but denies losing consciousness or have dizziness at the time. He uses a wheelchair and lives alone so the fall was unwitnessed. Patient is a poor historian. He states that he felt short of breath for 1 day and was wheezing, but does not feel short of breath now. His GCS is 15. In ED, patient was found to have L subdural hematoma 1.4cm w/ midline shift. There are no focal neurologic deficits. Patient denies chest pain, numbness/tingling, fever/ chills, dizziness, nausea/vomiting/diarrhea, vision changes, headache, weakness. History was obtained through medical records. Past medical history: HTN, hypothyroidism, CVA (L sided weakness) Past surgical history: thyroidectomy, bilateral cataract removal Home meds: Reviewed as per MAR Allergies: NKDA Social history: Lives alone. Former smoker, denies EtOH or drug use. Review of Systems - Review of Systems All systems: reviewed and no additional remarkable complaints except Review of Systems: 12 point ROS reviewed as per HPI. Past Patient History - Infectious Disease Hx of Infectious Diseases: None - Tetanus Immunizations Tetanus Immunization: Unknown - Past Medical History & Family History Past Medical History?: Yes - Past Social History Smoking Status: Former Smoker - CARDIAC Hx Hypertension: Yes - PULMONARY Hx Respiratory Disorders: Yes Hx Sleep Apnea: Yes Other/Comment: uses BPAP - NEUROLOGICAL Hx Neurological Disorder: No - HEENT Hx Cataracts: Yes (b/l cataract removal) Other/Comment: tonsillectomy - RENAL Hx Chronic Kidney Disease: No - ENDOCRINE/METABOLIC Hx Hypothyroidism: Yes - HEMATOLOGICAL/ONCOLOGICAL Hx AIDS: No - INTEGUMENTARY Hx Dermatological Problems: No - MUSCULOSKELETAL/RHEUMATOLOGICAL Hx Falls: No - GASTROINTESTINAL Other/Comment: inguinal hernia repair - GENITOURINARY/GYNECOLOGICAL Hx Genitourinary Disorders: No - PSYCHIATRIC Hx Depression: Yes Hx Substance Use: No - SURGICAL HISTORY Hx Cataract Extraction: Yes (b/l) Hx Tonsillectomy: Yes Other/Comment: goiter removed, sinus surgery(Polyps). Inguinal Hernia. - ANESTHESIA Hx Anesthesia: Yes Hx Anesthesia Reactions: No Hx Malignant Hyperthermia: No Meds Allergies/Adverse Reactions: Allergies Allergy/AdvReac Type Severity Reaction Status Date / Time No Known Allergies Allergy Verified 08/11/17 16:55 - Medications Medications: Current Medications Allopurinol (Zyloprim) 300 mg PO DAILY [facility] Atenolol (Tenormin) 25 mg PO DAILY [facility] Atorvastatin Calcium (Lipitor) 80 mg PO DIN [facility] Famotidine (Pepcid) 40 mg PO HS [facility] Gabapentin (Neurontin) 600 mg PO DAILY [facility] PRN Reason: Protocol Hydrochlorothiazide (Microzide) 12.5 mg PO DAILY [facility] Levalbuterol HCl (Xopenex) 1.25 mg IH [id number] [facility] Levothyroxine Sodium (Synthroid) 50 mcg PO ACB [facility] Losartan Potassium (Cozaar) 50 mg PO DAILY [facility] Methylprednisolone (Solu-Medrol) 40 mg IV Q12 [facility] Tamsulosin HCl (Flomax) 0.4 mg PO DAILY [facility] Verapamil HCl (Calan Sr Tab) 240 mg PO DAILY [facility] Physical Exam - Constitutional Appears: No Acute Distress - Head Exam Additional comments: L cheek bruising - Eye Exam Eye Exam: Normal appearance, PERRL Pupil Exam: NORMAL ACCOMODATION, PERRL - ENT Exam ENT Exam: Mucous Membranes Moist - Respiratory Exam Respiratory Exam: Clear to Auscultation Bilateral, NORMAL BREATHING PATTERN. absent: Rales, Rhonchi, Wheezes - Cardiovascular Exam Cardiovascular Exam: REGULAR RHYTHM, +S1, +S2. absent: Gallop, Rubs, Systolic Murmur - GI/Abdominal Exam GI & Abdominal Exam: Normal Bowel Sounds, Soft. absent: Rigid, Tenderness - Extremities Exam Extremities exam: Negative for: calf tenderness, pedal edema - Neurological Exam Neurological exam: Alert, CN II-XII Intact - Expanded Neurological Exam Expanded Patient oriented to: person, place, time Cranial nerves: EOM's Intact: Normal, Facial Palsey w/Forehead Movement: Normal , Facial Palsey w/o Forehead Movement: Normal Sensory exam: Lower Extremity 2 Point Discrimination: Normal, Lower Extremity Light Touch: Normal Neuro motor strength exam: Left Upper Extremity: 3, Right Upper Extremity: 5, Left Lower Extremity: 4, Right Lower Extremity: 5 Coma Scale Eye Opening: SPONTANEOUS Coma Scale Motor Response: OBEYS COMMANDS Coma Scale Verbal: Oriented Coma Scale Total: 15 - Skin Skin Exam: Dry, Warm Additional comments: Bruising on L face and R flank Results - Vital Signs Recent Vital Signs: Last Vital Signs Temp 99.2 F 08/11/17 17:00 Pulse 94 H 08/11/17 19:00 Resp 19 08/11/17 19:00 BP 167/91 H 08/11/17 19:00 Pulse Ox 99 08/11/17 19:00 - Labs Result Diagrams: 08/11/17 17:55 08/11/17 17:55 Assessment & Plan - Assessment and Plan (Free Text) Assessment: This is a 71yo male with past medical history of HTN, hypothyroidism, CVA (L sided weakness) admitted for L subdural hematoma Plan: Neuro: L subdural hematoma, Hx of CVA w/ residual L sided weakness Head CT: L subdural hematoma w/ midline shift 1.7cm Maxofacial CT showed L zygomatic contusion, no fracture Neuro checks Continue to monitor BP Neuro and neurosurgery on consult Possible plan for OR Sun/ Passed bedside swallow eval- no focal neurological deficits noted Head of bed elevated Fall/seizure precaution CV: Hx of HTN Cardiology on consult for possible OR EKG showed SR@95 BPM, similar to previous EKG Patient placed on home meds: Atenolol, cozaar, Verapamil, HCTZ, Lipitor Maintain SBP <160. Avoid fluctuations in BP Pulm: Aspiration precaution Maintain SpO2>90% Xopenex, On solumedrol 40q12 CXR showed poor inspiration- final read pending GI: Passed swallow eval Heart healthy diet Nephro: Monitor electrolytes and replace as needed Heme: Hgb 13.7- continue to monitor H/H INR: 1.1 - recheck in AM Hold anticoagulation due to active bleeding LE U/S negative for DVT ID: afebrile, no leukocytosis Lactate 2.4. Can be reactive from hematoma Endo: Maintain euglycemia (140-180s) GI ppx: Pepcid DVT ppx: SCDs Case seen, discussed and reviewed with attending Adonay Delgado PGY2 - Date & Time Date: 08/11/17 Time: 22:32 <Cm Day - Last Filed: 08/11/17 23:41> Meds - Medications Medications: Current Medications Allopurinol (Zyloprim) 300 mg PO DAILY [facility] Atenolol (Tenormin) 25 mg PO DAILY [facility] Atorvastatin Calcium (Lipitor) 80 mg PO DIN [facility] Last Admin: 08/11/17 22:48 Dose: 80 mg Famotidine (Pepcid) 40 mg PO HS [facility] Last Admin: 08/11/17 22:46 Dose: 40 mg Gabapentin (Neurontin) 600 mg PO DAILY [facility] PRN Reason: Protocol Hydrochlorothiazide (Microzide) 12.5 mg PO DAILY [facility] Levalbuterol HCl (Xopenex) 1.25 mg IH [id number] [facility] Levothyroxine Sodium (Synthroid) 50 mcg PO ACB [facility] Losartan Potassium (Cozaar) 50 mg PO DAILY [facility] Methylprednisolone (Solu-Medrol) 40 mg IV Q12 [facility] Last Admin: 08/11/17 22:45 Dose: 40 mg Tamsulosin HCl (Flomax) 0.4 mg PO DAILY [facility] Verapamil HCl (Calan Sr Tab) 240 mg PO DAILY [facility] Results - Vital Signs Recent Vital Signs: Last Vital Signs Temp 98.6 F 08/11/17 21:30 Pulse 97 H 08/11/17 23:20 Resp 20 08/11/17 23:20 BP 159/98 H 08/11/17 23:00 Pulse Ox 95 08/11/17 23:20 - Labs Result Diagrams: 08/11/17 17:55 08/11/17 17:55 Labs: Laboratory Results - last 24 hr 08/11/17 22:32 pO2 77 H VBG pH 7.44 H VBG pCO2 35.0 L VBG HCO3 23.8 VBG Total CO2 24.9 VBG O2 Sat (Calc) 97.4 H VBG Base Excess 0.1 VBG Potassium 3.6 Sodium 130.0 L Chloride 96.0 L Glucose 215 H Lactate 3.0 H FiO2 21.0 Venous Blood Potassium 3.6 Attending/Attestation - Attestation I have personally seen and examined this patient.: Yes I have fully participated in the care of the patient.: Yes I have reviewed all pertinent clinical information: Yes Notes (Text): 08/11/17 23:41 He was seen when he was in the bed # 1 in the ER. Agree with consult note.
[2017-08-11] MEDS: Levalbuterol 1.25 MG/3 ML Inhal Soln UD IH SCH (21:00)
[2017-08-11 22:42] LABS: VENOUS BLOOD GAS BASE EXCESS 0.1 mmol/L (0.0-2.0); VENOUS BLOOD GAS PO2 77 mm/Hg (30-55); VENOUS BLOOD PH 7.44 (7.32-7.43)
[2017-08-11] MEDS: MethylPREDNISolone 40 mg Vial IV SCH (22:45)
[2017-08-12] MEDS: Levalbuterol 1.25 MG/3 ML Inhal Soln UD IH SCH ×2 (02:15→07:13)
[2017-08-12 02:32] VITALS: BMI 28.5
[2017-08-12 05:53] LABS: VENOUS BLOOD GAS BASE EXCESS -1.5 mmol/L (0.0-2.0); VENOUS BLOOD GAS PO2 90 mm/Hg (30-55); VENOUS BLOOD PH 7.47 (7.32-7.43)
[2017-08-12 05:56] LABS: HEMOGLOBIN 14.2 g/dL (14.0-18.0); MEAN CELL VOLUME 89.7 fl (80.0-105.0); MEAN CORPUSCULAR HEMOGLOBIN 32.6 pg (25.0-35.0); MEAN CORPUSCULAR HGB CONC 36.3 g/dl (31.0-37.0); MEAN PLATELET VOLUME 7.9 fl (7.0-11.0); RBC 4.36 10^6/uL (3.5-6.1); RED CELL DISTRIBUTION WIDTH 13.7 % (11.5-14.5); WHITE BLOOD COUNT 9.3 10^3/ul (4.5-11.0)
[2017-08-12 06:08] LABS: ALB/GLOB RATIO 1.3 (1.1-1.8); ALBUMIN 4.7 g/dL (3.0-4.8); ALT/SGPT 20 U/L (7-56); AST/SGOT 34 U/L (17-59); BLOOD UREA NITROGEN 19 mg/dL (7-21); CALCIUM 9.3 mg/dL (8.4-10.5); GFR AFRICAN-AMERICAN > 60; GFR NON-AFRICAN AMERICAN > 60
[2017-08-12 06:09] LABS: INR 1.13 (0.93-1.08)
--- NOTE | 2017-08-12 07:08 | HP ---
DATE: 08/11/2017 HISTORY OF PRESENT ILLNESS: Patient is a 71-year-old [place] male who came to emergency room because of shortness of breath, but denies any chest pain. When he woke up this morning, he had some shortness of breath that progressively got worse. So, he came to emergency room for further evaluation. Does complain of some palpitation. No chest pain. No abdominal pain. No nausea or vomiting. No diarrhea. No hemoptysis. No hematemesis. Does complain of generalized weakness and fatigue. Patient has significant past medical history of CVA with left-sided weakness and mostly he is wheelchair bound. Patient also added that he had a fall last night and did not get any attention. He states he has fallen multiple times. PAST MEDICAL HISTORY: His past medical history is also significant for: 1. COPD. 2. History of CHF. 3. History of sleep apnea and he uses BiPAP for that. 4. History of CVA with left hemiparesis. 5. Hypothyroidism. SURGICAL HISTORY: Significant for: 1. Thyroidectomy because of goiter. 2. History of cataract extraction. 3. History of inguinal hernia repair. 4. History of polypectomy for a nasal polyp. ALLERGIES: HE IS NOT ALLERGIC TO ANY MEDICATION. MEDICATIONS AT HOME: He is on levothyroxine 50 mcg daily, losartan 50/12.5 daily, Flexeril 10 mg three times a day, Lipitor 80 mg daily, atenolol 25 daily, verapamil mg daily, Mobic 15 mg daily, gabapentin 600 daily, Flomax 0.4 mg daily, Plavix 75 daily, allopurinol 300 daily. SOCIAL HISTORY: He used to be a heavy smoker in the past, but quit a few years ago. REVIEW OF SYSTEMS: Significant for mild shortness of breath and left-sided weakness. Patient was admitted in rehab in rest of last year after he had the stroke. PHYSICAL EXAMINATION: GENERAL: Awake, alert, oriented, able to communicate. VITAL SIGNS: He has temperature of 99.2, pulse 65, respirations 20, blood pressure 167/91. LUNGS: Bilateral few expiratory rhonchi. HEART: S1 and S2 audible. ABDOMEN: Soft and nontender. No rebound. No guarding. NEUROLOGIC: He is awake and alert with left hemiparesis. LABORATORY EXAM: WBC is 8.8, hemoglobin 13.6, hematocrit 37.1, platelet 247. PT 12.7, INR 1.1, PTT 31.9. Chemistry: Sodium 134, potassium 3.8, chloride 94, CO2 of 26, BUN 23, creatinine 1.1, blood sugar of 144. Patient has facial droop. The maxillofacial CT scan is negative for fracture and CT scan of the brain shows subdural hematoma. ASSESSMENT: 1. Chronic obstructive pulmonary disease exacerbation. 2. Multiple falls leading to subdural hematoma. 3. History of cerebrovascular accident with left hemiparesis. 4. Hypertension. 5. Hyperlipidemia. 6. History of spinal stenosis. 7. Degenerative disk disease. 8. Generalized osteoarthritis. 9. History of acute lacunar infarct of the right chris with ischemic changes. PLAN: Patient will be admitted in ICU, possible [facility] hole intervention for evacuation of hematoma. Monitor his neurological status. Monitor his blood pressure. We will resume his medication. Hold his Plavix for now. Neuro eval by Dr. Myers and neurosurgical eval by Dr. Johnston have been requested. Adrian Thomas MD
[2017-08-12] MEDS: Levothyroxine 50 MCG TAB PO SCH (07:47)
--- NOTE | 2017-08-12 08:32 | CP.CCUPN ---
<Jaylyn Fernandez - Last Filed: 08/12/17 14:10> CCU Subjective - Physician Review Subjective (Free Text): 08/12/17 08:28 Overnight, BP 170. Got hydralazine x 1 tolerated breakfast Sunday - Intervention neurosurg Cardiac clearance CCU Objective - Vital Signs / Intake & Output Vital Signs (Last 4 hours): Vital Signs Pulse Resp BP Pulse Ox 08/12/17 06:40 105 H 19 95 08/12/17 06:31 104 H 17 187/101 H 96 08/12/17 06:30 106 H 17 94 L 08/12/17 06:20 103 H 16 96 08/12/17 06:10 103 H 15 96 08/12/17 06:01 107 H 17 167/103 H 98 08/12/17 06:00 108 H 18 93 L 08/12/17 05:50 121 H 23 87 L 08/12/17 05:40 107 H 19 94 L 08/12/17 05:30 105 H 18 97 08/12/17 05:20 98 H 18 95 08/12/17 05:10 101 H 19 95 08/12/17 05:00 105 H 22 135/105 H 92 L 08/12/17 04:50 94 H 18 94 L 08/12/17 04:40 97 H 19 94 L 08/12/17 04:33 98 H 154/82 H 95 08/12/17 04:30 97 H 20 95 Intake and Output (Last 8hrs): Intake & Output 08/11/17 08/12/17 08/12/17 22:59 06:59 14:59 Weight 171 lb 3.2 oz Other: Voiding Method Urinal - Physical Exam Head: Positive for: Normocephalic, Other (L zygomatic contusion; L neck contusion. tender on palpation. No pain when moving eyes.) Pupils: Positive for: PERRL, Other (4mm b/l) Extroacular Muscles: Positive for: EOMI Neck: Positive for: Other (supple) Respiratory/Chest: Positive for: Clear to Auscultation, Decreased Breath Sounds (b/l lung bases). Negative for: Respiratory Distress, Rales, Retracting, Rhonchi Cardiovascular: Positive for: Regular Rate and Rhythm, Normal S1, S2 Abdomen: Positive for: Normal Bowel Sounds. Negative for: Tenderness, Distention, Peritoneal Signs, Rebound, [place]'s Point Tender Back: Positive for: Normal Inspection, Other (R flank eccymosis). Negative for : Midline Tenderness, Paraspinal Tenderness Lower Extremity: Negative for: Edema, CALF TENDERNESS Neurological: Positive for: CN II-XII Intact, Speech Normal, Other (Motor: LUE/ LLE 3+/5; RUE/RLE 4/5. Good hand vegetable grader on R; weak hand vegetable grader on L; Sensory intact. AAOx3) Skin: Positive for: Warm, Dry, Other (accymosis; R flank' L face) Psychiatric: Positive for: Alert, Oriented x 3 - Medications Active Medications: Active Medications Generic Name Dose Route Start Last Admin Trade Name Freq PRN Reason Stop Dose Admin Allopurinol 300 mg 08/12/17 10:00 Zyloprim PO DAILY LUIS Atenolol 25 mg 08/12/17 10:00 Tenormin PO DAILY ULIS Atorvastatin Calcium 80 mg 08/11/17 19:45 08/11/17 22:48 Lipitor PO 80 mg DIN LUIS Administration Famotidine 40 mg 08/11/17 22:00 08/11/17 22:46 Pepcid PO 40 mg HS LUIS Administration Gabapentin 600 mg 08/12/17 10:00 Neurontin PO DAILY [facility] Protocol Hydrochlorothiazide 12.5 mg 08/12/17 10:00 Microzide PO DAILY LUIS Levalbuterol HCl 1.25 mg 08/11/17 20:00 08/12/17 07:13 Xopenex IH 1.25 mg [id number] LUIS Administration Levothyroxine Sodium 50 mcg 08/12/17 07:30 08/12/17 07:47 Synthroid PO 50 mcg ACB LUIS Administration Losartan Potassium 50 mg 08/12/17 10:00 Cozaar PO DAILY LUIS Methylprednisolone 40 mg 08/11/17 22:00 08/11/17 22:45 Solu-Medrol IV 40 mg Q12 LUIS Administration Tamsulosin HCl 0.4 mg 08/12/17 10:00 Flomax PO DAILY LUIS Verapamil HCl 240 mg 08/12/17 10:00 Calan Sr Tab PO DAILY LUIS - Patient Studies Lab Studies: Lab Studies 08/12/17 08/12/17 08/12/17 Range/Units 08:00 05:35 05:30 WBC (4.5-11.0) 10^3/ul RBC (3.5-6.1) 10^6/uL Hgb (14.0-18.0) g/dL Hct (42.0-52.0) % MCV (80.0-105.0) fl MCH (25.0-35.0) pg MCHC (31.0-37.0) g/dl RDW (11.5-14.5) % Plt Count (120.0-450.0) 10^3/uL MPV (7.0-11.0) fl PT 13.0 H (9.4-12.5) SECONDS INR 1.13 H (0.93-1.08) pO2 90 H (30-55) mm/Hg VBG pH 7.47 H (7.32-7.43) VBG pCO2 29.0 L (40-60) VBG HCO3 21.1 (21-28) mmol/l VBG Total CO2 22.0 (22-28) mmol.L VBG O2 Sat (Calc) 98.7 H (40-65) % VBG Base Excess -1.5 L (0.0-2.0) mmol/L VBG Potassium 3.9 (3.6-5.2) mmol/L Sodium 131.0 L (132-148) mmol/L Chloride 96.0 L (98-107) mmol/L Glucose 164 H (75-110) mg/dl Lactate 4.1 H* (0.7-2.1) mmol/L FiO2 21.0 % Potassium (3.6-5.0) mmol/L Carbon Dioxide (21-33) mmol/L Anion Gap (10-20) BUN (7-21) mg/dL Creatinine (0.8-1.5) mg/dl Est GFR ( Amer) Est GFR (Non-Af Amer) Random Glucose (70-110) mg/dL Calcium (8.4-10.5) mg/dL Phosphorus 4.1 (2.5-4.5) mg/dL Total Bilirubin (0.2-1.3) mg/dL AST (17-59) U/L ALT (7-56) U/L Alkaline Phosphatase (38-126) U/L Total Creatine Kinase 86 (35-230) U/L Total Protein (5.8-8.3) g/dL Albumin (3.0-4.8) g/dL Globulin gm/dL Albumin/Globulin Ratio (1.1-1.8) Venous Blood Potassium 3.9 (3.6-5.2) mmol/L 08/12/17 08/12/17 08/11/17 Range/Units 05:30 05:30 22:32 WBC 9.3 (4.5-11.0) 10^3/ul RBC 4.36 (3.5-6.1) 10^6/uL Hgb 14.2 (14.0-18.0) g/dL Hct 39.1 L (42.0-52.0) % MCV 89.7 (80.0-105.0) fl MCH 32.6 (25.0-35.0) pg MCHC 36.3 (31.0-37.0) g/dl RDW 13.7 (11.5-14.5) % Plt Count 256 (120.0-450.0) 10^3/uL MPV 7.9 (7.0-11.0) fl PT (9.4-12.5) SECONDS INR (0.93-1.08) pO2 77 H (30-55) mm/Hg VBG pH 7.44 H (7.32-7.43) VBG pCO2 35.0 L (40-60) VBG HCO3 23.8 (21-28) mmol/l VBG Total CO2 24.9 (22-28) mmol.L VBG O2 Sat (Calc) 97.4 H (40-65) % VBG Base Excess 0.1 (0.0-2.0) mmol/L VBG Potassium 3.6 (3.6-5.2) mmol/L Sodium 135 130.0 L (132-148) mmol/L Chloride 96 L 96.0 L (98-107) mmol/L Glucose 215 H (75-110) mg/dl Lactate 3.0 H (0.7-2.1) mmol/L FiO2 21.0 % Potassium 4.1 (3.6-5.0) mmol/L Carbon Dioxide 21 (21-33) mmol/L Anion Gap 22 H (10-20) BUN 19 (7-21) mg/dL Creatinine 0.9 (0.8-1.5) mg/dl Est GFR ( Amer) > 60 Est GFR (Non-Af Amer) > 60 Random Glucose 155 H (70-110) mg/dL Calcium 9.3 (8.4-10.5) mg/dL Phosphorus (2.5-4.5) mg/dL Total Bilirubin 1.2 (0.2-1.3) mg/dL AST 34 (17-59) U/L ALT 20 (7-56) U/L Alkaline Phosphatase 64 (38-126) U/L Total Creatine Kinase (35-230) U/L Total Protein 8.3 (5.8-8.3) g/dL Albumin 4.7 (3.0-4.8) g/dL Globulin 3.6 gm/dL Albumin/Globulin Ratio 1.3 (1.1-1.8) Venous Blood Potassium 3.6 (3.6-5.2) mmol/L Laboratory Results - last 24 hr 08/11/17 08/12/17 08/12/17 22:32 05:30 05:30 WBC 9.3 RBC 4.36 Hgb 14.2 Hct 39.1 L MCV 89.7 MCH 32.6 MCHC 36.3 RDW 13.7 Plt Count 256 MPV 7.9 PT INR pO2 77 H VBG pH 7.44 H VBG pCO2 35.0 L VBG HCO3 23.8 VBG Total CO2 24.9 VBG O2 Sat (Calc) 97.4 H VBG Base Excess 0.1 VBG Potassium 3.6 Sodium 130.0 L 135 Chloride 96.0 L 96 L Glucose 215 H Lactate 3.0 H FiO2 21.0 Potassium 4.1 Carbon Dioxide 21 Anion Gap 22 H BUN 19 Creatinine 0.9 Est GFR ( Amer) > 60 Est GFR (Non-Af Amer) > 60 Random Glucose 155 H Calcium 9.3 Phosphorus Total Bilirubin 1.2 AST 34 ALT 20 Alkaline Phosphatase 64 Total Creatine Kinase Total Protein 8.3 Albumin 4.7 Globulin 3.6 Albumin/Globulin Ratio 1.3 Venous Blood Potassium 3.6 08/12/17 08/12/17 08/12/17 05:30 05:35 08:00 WBC RBC Hgb Hct MCV MCH MCHC RDW Plt Count MPV PT 13.0 H INR 1.13 H pO2 90 H VBG pH 7.47 H VBG pCO2 29.0 L VBG HCO3 21.1 VBG Total CO2 22.0 VBG O2 Sat (Calc) 98.7 H VBG Base Excess -1.5 L VBG Potassium 3.9 Sodium 131.0 L Chloride 96.0 L Glucose 164 H Lactate 4.1 H* FiO2 21.0 Potassium Carbon Dioxide Anion Gap BUN Creatinine Est GFR ( Amer) Est GFR (Non-Af Amer) Random Glucose Calcium Phosphorus 4.1 Total Bilirubin AST ALT Alkaline Phosphatase Total Creatine Kinase 86 Total Protein Albumin Globulin Albumin/Globulin Ratio Venous Blood Potassium 3.9 Critical Care Progress Note - Nutrition Nutrition: Nutrition Category Date Time Status Heart Healthy Diet [DIET] Diets 08/11/17 Breakfast Active Assessment/Plan - Assessment and Plan (Free Text) Plan: Mr Marcia Ricardo, 71yo male with past medical history of HTN, hypothyroidism, CVA (L sided weakness) admitted for L subdural hematoma s/p fall due to lost of balance. He has bruises on L face and R body, suspicious of Hx frequent falls. CT head (08/11): Prominent acute subdural bleed in the left hemispheric convexity. Moderate midline shift is present. Mild uncal herniation. PE: pupil 4mm b/l. A: Acute on chronic subdural hematoma with midline shift, questionable uncal herniation because pt is still conscious & no 3rd nerve palsy (down and out) COPD exacerbation Hx prior CVA with L residual weakness Mechanical fall Hx Falls; Deconditioning Neuro: Head CT: L subdural hematoma w/ midline shift 1.7cm Maxofacial CT showed L zygomatic contusion, no fracture Continue Neuro checks Craniotomy with evacuation of L sided subdural hematoma tomorrow (Mon) Passed bedside swallow eval - no focal neurological deficits noted Head of bed elevated Fall/seizure precaution No need for 3% Na - chronic subdural hematoma. Shrinking brain will make the chronic hematoma larger HOLD PLAVIX CV: Hx of HTN Yes. Cardiology cleared for OR EKG showed SR@95 BPM, similar to previous EKG Patient placed on home meds: Atenolol, cozaar, Verapamil, HCTZ, Lipitor Maintain SBP 130-140. Avoid fluctuations in BP Want RN to page resident if BP too high. Pulm: Aspiration precaution Maintain SpO2>90% Duoneb On solumedrol 40q12 CXR showed poor inspiration, no marked pleural effusion/infiltrates GI: Passed swallow eval Heart healthy diet Nephro: Monitor electrolytes and replace as needed Heme: Hgb 13.7 --> 14.2; stable INR: 1.1 --> 1.3 Hold anticoagulation due to active bleeding LE U/S negative for DVT ID: afebrile, no leukocytosis Lactate 2.4. Can be reactive from hematoma Endo: Maintain euglycemia (140-180s) GI ppx: Pepcid DVT ppx: SCDs Dispo plan: OR tomorrow. NPO MN. continue neuro check Consult: Louis Whitney, s/r/d/w Dr. Mcclellan <Wily Mcclellan - Last Filed: 08/12/17 15:13> CCU Objective - Vital Signs / Intake & Output Vital Signs (Last 4 hours): Vital Signs Temp Pulse Resp BP 08/12/17 14:00 86 144/66 08/12/17 13:59 87 19 08/12/17 13:00 139/82 08/12/17 12:59 87 21 08/12/17 12:18 100 H 24 08/12/17 12:00 98.6 F 100 H 23 Intake and Output (Last 8hrs): Intake & Output 08/12/17 08/12/17 08/12/17 06:59 14:59 22:59 Intake Total 120 Output Total 500 Balance -380 Weight 171 lb 12.8 oz Intake: IV 0 Right Antecubital 0 Oral 120 Output: Urine 500 Urine, Voided 500 Other: # Bowel Movements 0 - Medications Active Medications: Active Medications Generic Name Dose Route Start Last Admin Trade Name Freq PRN Reason Stop Dose Admin Albuterol/Ipratropium 3 ml 08/12/17 14:00 08/12/17 13:15 Duoneb 3 Mg/0.5 Mg (3 Ml) Ud IH 3 ml [id number] LUIS Administration Allopurinol 300 mg 08/12/17 10:00 08/12/17 09:12 Zyloprim PO 300 mg DAILY LUIS Administration Atenolol 25 mg 08/12/17 10:00 08/12/17 09:12 Tenormin PO 25 mg DAILY LUIS Administration Atorvastatin Calcium 80 mg 08/11/17 19:45 08/11/17 22:48 Lipitor PO 80 mg DIN LUIS Administration Doxycycline Hyclate 100 mg 08/12/17 10:00 08/12/17 09:14 Doryx PO 100 mg Q12 LUIS Administration Protocol Famotidine 40 mg 08/11/17 22:00 08/11/17 22:46 Pepcid PO 40 mg HS LUIS Administration Gabapentin 600 mg 08/12/17 10:00 08/12/17 09:14 Neurontin PO 600 mg DAILY LUIS Administration Protocol Hydrochlorothiazide 12.5 mg 08/12/17 10:00 08/12/17 09:14 Microzide PO 12.5 mg DAILY LUIS Administration Levalbuterol HCl 1.25 mg 08/11/17 20:00 08/12/17 07:13 Xopenex IH 1.25 mg [id number] LUIS Administration Levothyroxine Sodium 50 mcg 08/12/17 07:30 08/12/17 07:47 Synthroid PO 50 mcg ACB LUIS Administration Losartan Potassium 50 mg 08/12/17 10:00 08/12/17 09:14 Cozaar PO 50 mg DAILY LUIS Administration Methylprednisolone 40 mg 08/11/17 22:00 08/12/17 09:15 Solu-Medrol IV 40 mg Q12 LUIS Administration Tamsulosin HCl 0.4 mg 08/12/17 10:00 08/12/17 09:14 Flomax PO 0.4 mg DAILY LUIS Administration Verapamil HCl 240 mg 08/12/17 10:00 08/12/17 09:25 Calan Sr Tab PO 240 mg DAILY LUIS Administration - Patient Studies Lab Studies: Lab Studies 08/12/17 08/12/17 08/12/17 Range/Units 11:40 08:00 05:35 WBC (4.5-11.0) 10^3/ul RBC (3.5-6.1) 10^6/uL Hgb (14.0-18.0) g/dL Hct (42.0-52.0) % MCV (80.0-105.0) fl MCH (25.0-35.0) pg MCHC (31.0-37.0) g/dl RDW (11.5-14.5) % Plt Count (120.0-450.0) 10^3/uL MPV (7.0-11.0) fl PT (9.4-12.5) SECONDS INR (0.93-1.08) pO2 55 90 H (30-55) mm/Hg VBG pH 7.48 H 7.47 H (7.32-7.43) VBG pCO2 31.0 L 29.0 L (40-60) VBG HCO3 23.1 21.1 (21-28) mmol/l VBG Total CO2 24.1 22.0 (22-28) mmol.L VBG O2 Sat (Calc) 93.9 H 98.7 H (40-65) % VBG Base Excess 0.4 -1.5 L (0.0-2.0) mmol/L VBG Potassium 4.0 3.9 (3.6-5.2) mmol/L Sodium 129.0 L 131.0 L (132-148) mmol/L Chloride 95.0 L 96.0 L (98-107) mmol/L Glucose 182 H 164 H (75-110) mg/dl Lactate 3.5 H 4.1 H* (0.7-2.1) mmol/L FiO2 21.0 21.0 % Potassium (3.6-5.0) mmol/L Carbon Dioxide (21-33) mmol/L Anion Gap (10-20) BUN (7-21) mg/dL Creatinine (0.8-1.5) mg/dl Est GFR ( Amer) Est GFR (Non-Af Amer) Random Glucose (70-110) mg/dL Calcium (8.4-10.5) mg/dL Phosphorus 4.1 (2.5-4.5) mg/dL Total Bilirubin (0.2-1.3) mg/dL AST (17-59) U/L ALT (7-56) U/L Alkaline Phosphatase (38-126) U/L Total Creatine Kinase 86 (35-230) U/L Total Protein (5.8-8.3) g/dL Albumin (3.0-4.8) g/dL Globulin gm/dL Albumin/Globulin Ratio (1.1-1.8) Venous Blood Potassium 4.0 3.9 (3.6-5.2) mmol/L 08/12/17 08/12/17 08/12/17 Range/Units 05:30 05:30 05:30 WBC 9.3 (4.5-11.0) 10^3/ul RBC 4.36 (3.5-6.1) 10^6/uL Hgb 14.2 (14.0-18.0) g/dL Hct 39.1 L (42.0-52.0) % MCV 89.7 (80.0-105.0) fl MCH 32.6 (25.0-35.0) pg MCHC 36.3 (31.0-37.0) g/dl RDW 13.7 (11.5-14.5) % Plt Count 256 (120.0-450.0) 10^3/uL MPV 7.9 (7.0-11.0) fl PT 13.0 H (9.4-12.5) SECONDS INR 1.13 H (0.93-1.08) pO2 (30-55) mm/Hg VBG pH (7.32-7.43) VBG pCO2 (40-60) VBG HCO3 (21-28) mmol/l VBG Total CO2 (22-28) mmol.L VBG O2 Sat (Calc) (40-65) % VBG Base Excess (0.0-2.0) mmol/L VBG Potassium (3.6-5.2) mmol/L Sodium 135 (132-148) mmol/L Chloride 96 L (98-107) mmol/L Glucose (75-110) mg/dl Lactate (0.7-2.1) mmol/L FiO2 % Potassium 4.1 (3.6-5.0) mmol/L Carbon Dioxide 21 (21-33) mmol/L Anion Gap 22 H (10-20) BUN 19 (7-21) mg/dL Creatinine 0.9 (0.8-1.5) mg/dl Est GFR ( Amer) > 60 Est GFR (Non-Af Amer) > 60 Random Glucose 155 H (70-110) mg/dL Calcium 9.3 (8.4-10.5) mg/dL Phosphorus (2.5-4.5) mg/dL Total Bilirubin 1.2 (0.2-1.3) mg/dL AST 34 (17-59) U/L ALT 20 (7-56) U/L Alkaline Phosphatase 64 (38-126) U/L Total Creatine Kinase (35-230) U/L Total Protein 8.3 (5.8-8.3) g/dL Albumin 4.7 (3.0-4.8) g/dL Globulin 3.6 gm/dL Albumin/Globulin Ratio 1.3 (1.1-1.8) Venous Blood Potassium (3.6-5.2) mmol/L 08/11/17 Range/Units 22:32 WBC (4.5-11.0) 10^3/ul RBC (3.5-6.1) 10^6/uL Hgb (14.0-18.0) g/dL Hct (42.0-52.0) % MCV (80.0-105.0) fl MCH (25.0-35.0) pg MCHC (31.0-37.0) g/dl RDW (11.5-14.5) % Plt Count (120.0-450.0) 10^3/uL MPV (7.0-11.0) fl PT (9.4-12.5) SECONDS INR (0.93-1.08) pO2 77 H (30-55) mm/Hg VBG pH 7.44 H (7.32-7.43) VBG pCO2 35.0 L (40-60) VBG HCO3 23.8 (21-28) mmol/l VBG Total CO2 24.9 (22-28) mmol.L VBG O2 Sat (Calc) 97.4 H (40-65) % VBG Base Excess 0.1 (0.0-2.0) mmol/L VBG Potassium 3.6 (3.6-5.2) mmol/L Sodium 130.0 L (132-148) mmol/L Chloride 96.0 L (98-107) mmol/L Glucose 215 H (75-110) mg/dl Lactate 3.0 H (0.7-2.1) mmol/L FiO2 21.0 % Potassium (3.6-5.0) mmol/L Carbon Dioxide (21-33) mmol/L Anion Gap (10-20) BUN (7-21) mg/dL Creatinine (0.8-1.5) mg/dl Est GFR ( Amer) Est GFR (Non-Af Amer) Random Glucose (70-110) mg/dL Calcium (8.4-10.5) mg/dL Phosphorus (2.5-4.5) mg/dL Total Bilirubin (0.2-1.3) mg/dL AST (17-59) U/L ALT (7-56) U/L Alkaline Phosphatase (38-126) U/L Total Creatine Kinase (35-230) U/L Total Protein (5.8-8.3) g/dL Albumin (3.0-4.8) g/dL Globulin gm/dL Albumin/Globulin Ratio (1.1-1.8) Venous Blood Potassium 3.6 (3.6-5.2) mmol/L Laboratory Results - last 24 hr 08/11/17 08/12/17 08/12/17 22:32 05:30 05:30 WBC 9.3 RBC 4.36 Hgb 14.2 Hct 39.1 L MCV 89.7 MCH 32.6 MCHC 36.3 RDW 13.7 Plt Count 256 MPV 7.9 PT INR pO2 77 H VBG pH 7.44 H VBG pCO2 35.0 L VBG HCO3 23.8 VBG Total CO2 24.9 VBG O2 Sat (Calc) 97.4 H VBG Base Excess 0.1 VBG Potassium 3.6 Sodium 130.0 L 135 Chloride 96.0 L 96 L Glucose 215 H Lactate 3.0 H FiO2 21.0 Potassium 4.1 Carbon Dioxide 21 Anion Gap 22 H BUN 19 Creatinine 0.9 Est GFR ( Amer) > 60 Est GFR (Non-Af Amer) > 60 Random Glucose 155 H Calcium 9.3 Phosphorus Total Bilirubin 1.2 AST 34 ALT 20 Alkaline Phosphatase 64 Total Creatine Kinase Total Protein 8.3 Albumin 4.7 Globulin 3.6 Albumin/Globulin Ratio 1.3 Venous Blood Potassium 3.6 08/12/17 08/12/17 08/12/17 05:30 05:35 08:00 WBC RBC Hgb Hct MCV MCH MCHC RDW Plt Count MPV PT 13.0 H INR 1.13 H pO2 90 H VBG pH 7.47 H VBG pCO2 29.0 L VBG HCO3 21.1 VBG Total CO2 22.0 VBG O2 Sat (Calc) 98.7 H VBG Base Excess -1.5 L VBG Potassium 3.9 Sodium 131.0 L Chloride 96.0 L Glucose 164 H Lactate 4.1 H* FiO2 21.0 Potassium Carbon Dioxide Anion Gap BUN Creatinine Est GFR ( Amer) Est GFR (Non-Af Amer) Random Glucose Calcium Phosphorus 4.1 Total Bilirubin AST ALT Alkaline Phosphatase Total Creatine Kinase 86 Total Protein Albumin Globulin Albumin/Globulin Ratio Venous Blood Potassium 3.9 08/12/17 11:40 WBC RBC Hgb Hct MCV MCH MCHC RDW Plt Count MPV PT INR pO2 55 VBG pH 7.48 H VBG pCO2 31.0 L VBG HCO3 23.1 VBG Total CO2 24.1 VBG O2 Sat (Calc) 93.9 H VBG Base Excess 0.4 VBG Potassium 4.0 Sodium 129.0 L Chloride 95.0 L Glucose 182 H Lactate 3.5 H FiO2 21.0 Potassium Carbon Dioxide Anion Gap BUN Creatinine Est GFR ( Amer) Est GFR (Non-Af Amer) Random Glucose Calcium Phosphorus Total Bilirubin AST ALT Alkaline Phosphatase Total Creatine Kinase Total Protein Albumin Globulin Albumin/Globulin Ratio Venous Blood Potassium 4.0 Critical Care Progress Note - Nutrition Nutrition: Nutrition Category Date Time Status Heart Healthy Diet [DIET] Diets 08/11/17 Breakfast Active Attending/Attestation - Attestation I have personally seen and examined this patient.: Yes I have fully participated in the care of the patient.: Yes I have reviewed all pertinent clinical information: Yes Notes (Text): 08/12/17 15:[address] Mcclellan note
[2017-08-12] MEDS ORDERED: Sodium Chloride 3% 500 ML IV SCH (08:45)
[2017-08-12] MEDS: MethylPREDNISolone 40 mg Vial IV SCH ×2 (09:15→21:12)
[2017-08-12] MEDS: Verapamil 240 mg ER Tab PO SCH (09:25)
--- NOTE | 2017-08-12 09:29 | CP.PCM.PN ---
Subjective - Date & Time of Evaluation Date of Evaluation: 08/12/17 Time of Evaluation: 09:26 - Subjective Subjective: This is a 71yo male with past medical history of HTN, hypothyroidism, CVA (L sided weakness) who came to ED for shortness of breath and fall. Patient reports he tried to transfer from his bed to the wheel chair and he fell. He hit his head, but denies losing consciousness or have dizziness at the time. He uses a wheelchair and lives alone so the fall was unwitnessed. Patient is a poor historian. He states that he felt short of breath for 1 day and was wheezing, but does not feel short of breath now. His GCS is 15. In ED, patient was found to have L subdural hematoma 1.4cm w/ midline shift. Patient denies chest pain, numbness/tingling, fever/chills, dizziness, nausea/vomiting/diarrhea , vision changes, headache, weakness. Past medical history: HTN, hypothyroidism, CVA (L sided weakness) Past surgical history: thyroidectomy, bilateral cataract removal Home meds: Reviewed as per [facility] Allergies: NKDA Social history: Lives alone. Former smoker, denies EtOH or drug use. Exam: fully awake alert oriented MARLI EOM full Face symetric with l sided bruising Motor mild weakness mildred from old cva mild pronator drift Imp L CSDH Spoke to pt he understands and agrees to craniotomy evac of L CSDH Will proceed tomorrow Objective - Vital Signs/Intake and Output Vital Signs (last 24 hours): Temp Pulse Resp BP Pulse Ox 98.4 F 105 H 19 187/101 H 95 08/12/17 00:00 08/12/17 06:40 08/12/17 06:40 08/12/17 06:31 08/12/17 06:40 Intake and Output: 08/12/17 08/12/17 06:59 18:59 Intake Total 120 Output Total 500 Balance -380 - Medications Medications: Current Medications Albuterol/Ipratropium (Duoneb 3 Mg/0.5 Mg (3 Ml) Ud) 3 ml IH [id number] [facility] Allopurinol (Zyloprim) 300 mg PO DAILY [facility] Atenolol (Tenormin) 25 mg PO DAILY [facility] Atorvastatin Calcium (Lipitor) 80 mg PO DIN [facility] Last Admin: 08/11/17 22:48 Dose: 80 mg Doxycycline Hyclate (Doryx) 100 mg PO Q12 LUIS PRN Reason: Protocol Famotidine (Pepcid) 40 mg PO HS [facility] Last Admin: 08/11/17 22:46 Dose: 40 mg Gabapentin (Neurontin) 600 mg PO DAILY [facility] PRN Reason: Protocol Hydrochlorothiazide (Microzide) 12.5 mg PO DAILY [facility] Sodium Chloride (Hypertonic Saline 3%) 500 mls @ 30 mls/hr IV .[id number] [facility] Last Admin: 08/12/17 08:51 Dose: 30 mls/hr Levalbuterol HCl (Xopenex) 1.25 mg IH [id number] [facility] Last Admin: 08/12/17 07:13 Dose: 1.25 mg Levothyroxine Sodium (Synthroid) 50 mcg PO ACB [facility] Last Admin: 08/12/17 07:47 Dose: 50 mcg Losartan Potassium (Cozaar) 50 mg PO DAILY [facility] Methylprednisolone (Solu-Medrol) 40 mg IV Q12 [facility] Last Admin: 08/11/17 22:45 Dose: 40 mg Tamsulosin HCl (Flomax) 0.4 mg PO DAILY [facility] Verapamil HCl (Calan Sr Tab) 240 mg PO DAILY [facility] - Labs Labs: 08/12/17 05:30 08/12/17 05:30 PT 13.0 SECONDS (9.4-12.5) H 08/12/17 05:30 INR 1.13 (0.93-1.08) H 08/12/17 05:30 APTT 30.9 Seconds (25.1-36.5) 08/11/17 17:55
[2017-08-12] MEDS ORDERED: Levothyroxine 50 MCG TAB PO SCH (10:00)
[2017-08-12] MEDS ORDERED: Non Formulary Medication (Losartan/Hydrochlorothiazide [Losartan-Hctz 50-12.5 Mg Tab] 1 TA PO SCH (10:00)
[2017-08-12] MEDS ORDERED: Verapamil 180 mg ER Tab PO SCH (10:00)
--- NOTE | 2017-08-12 10:29 | CON ---
DATE: 08/12/2017 HISTORY OF PRESENT ILLNESS: This is a 71-year-old gentleman with history of COPD, hypertension, CHF and prior history of left hemiparesis, who presented to [facility] (Formerly [facility]) after he fell last night. He described this episode of waking up in the middle of the night with wheezing, shortness of breath and inability to take a deep breath. He was trying to get up and then fell on his face. No chest pain. No nausea, no vomiting, no diarrhea. No constipation. No aggravating or alleviating factors. No nausea, no vomiting. PAST MEDICAL HISTORY: COPD, CHF, sleep apnea, CVA with left hemiparesis, hypothyroidism. SOCIAL HISTORY: The patient is ex-smoker, quit many years ago. No alcohol or illicit drug abuse. ALLERGIES: NKDA. CURRENT MEDICATIONS DuoNeb every 6 hours, allopurinol, atenolol, Lipitor, Pepcid, Neurontin, hydrochlorothiazide, Xopenex, Synthroid, losartan, Solu-Medrol 40 mg IV every 12 hours, hypertonic saline at 30 mL per hour, Flomax, verapamil. PHYSICAL EXAMINATION: VITAL SIGNS: Blood pressure 166/99, heart rate 108, oxygen saturation 96%, respiratory rate 19. HEENT: There is left cheek ecchymosis where he fell. HEART: Regular rate and rhythm. S1 and S2 normal. LUNGS: Clear to auscultation bilaterally. ABDOMEN: Soft, nontender, nondistended. MUSCULOSKELETAL: No C/C/E. NEUROLOGIC: The patient has 4/4 motor strength in the left upper and lower extremity, 5/5 strength on the right upper and lower extremity. It appears that it is chronic and residual and has something to do with prior episode of CVA rather than new subdural hematoma that was found during this admission. SKIN: Moist. PSYCH: The patient is alert, awake, oriented, protecting his airways, not in respiratory or otherwise distress. He is oriented x3. Very comfortable. LABORATORY DATA: Sodium 135, potassium 4.1, chloride 96, carbon dioxide 21, BUN 19, creatinine 0.9, down from 1.1, phosphorus 4.1, CPK 86, AST 34, ALT 20. INR 1.13. CT head revealed left subdural hematoma, acute on chronic, substantial midline shift with questionable uncal herniation. Neurosurgery was contacted yesterday and aware of all the results. Maxillofacial CAT scan did not reveal any fracture, however, contusion of the left soft tissue was noted. Chest x-ray did not reveal any acute pulmonary disease. ASSESSMENT AND PLAN: The patient is a 71-year-old gentleman who presented with [id number]-[id number] subdural hematoma with midline shift and questionable uncal herniation. His clinical exam however, is fairly unremarkable except for residual motor weakness in the left upper and lower extremities which relates to prior history of cerebrovascular accident. The patient does not have third nerve palsy and he is alert, awake, oriented and protecting his airways. At present time, we will proceed with hypertonic saline, Neurology and neurosurgery followup. Neurosurgery requested Cardiology clearance and the order for aprn's insight was put in last night. We will continue to target euvolemia, euglycemia, normothermia and oxygen saturation more than 90%. We will continue with mechanical DVT prophylaxis. We will continue with GI prophylaxis. Other concern is chronic obstructive pulmonary disease flare which led to the patient's fall and currently, the patient is on steroid taper and bronchodilators. I will start the patient on antibiotics. ccm time 40 min Wily Mcclellan MD SALVATORE
[2017-08-12] MEDS: Insulin Reg-LOW-Coverage SC SCH (10:30)
--- NOTE | 2017-08-12 10:57 | CT ---
PROCEDURE: CT HEAD WITHOUT CONTRAST. HISTORY: fall last night, no witness, left facial trauma COMPARISON: Correlation made with concurrent CT scan maxillofacial skeleton. Comparison made with prior CT scan and MRI brain dated 09/26/2016 hand 09/29/2016 respectively. TECHNIQUE: Axial computed tomography images were obtained through the head/brain without intravenous contrast. Radiation dose: Total exam DLP = 823.93 mGy-cm. This CT exam was performed using one or more of the following dose reduction techniques: Automated exposure control, adjustment of the mA and/or kV according to patient size, and/or use of iterative reconstruction technique. FINDINGS: HEMORRHAGE: There is a large left-sided subdural hematoma which extends from from skullbase level superiorly to the convexity. The hematoma is predominantly high so to low-attenuation with some areas of increased attenuation and most consistent with a chronic subdural hematoma. The at collection exerts considerable mass effect with compression of the left cerebral hemisphere and left lateral ventricle with [id number] midline shift (subfalcine herniation) estimated at approximately 12.4 mm. . There may be some minimal left-sided uncal herniation as well. . Vascular calcifications both carotid siphons and vertebral arteries. BRAIN: Mild diffuse/confluent chronic periventricular white matter ischemic changes seen left cerebral hemisphere. These changes are likely present on the right side of compressed and therefore difficult to visualize. Re- demonstrated is a chronic right pontine infarct There is very minor dolichoectasia of the basilar artery. VENTRICLES: As above, marked compression of the left lateral ventricle due to the aforementioned subdural hematoma with mild dilatation of the right temporal horn and right atrium and to a lesser degree posterior body of the right lateral ventricle likely due to mild compression at the level of the right foramen of Monro. CALVARIUM: No acute calvarial fractures. PARANASAL SINUSES: Mild mucosal thickening left maxillary antrum. Minor mucosal thickening seen within a few ethmoid air cells extending superiorly into the frontal sinus. . MASTOID AIR CELLS: The right mastoid air complex remains underpneumatized and sclerotic with opacification of residual right-sided mastoid air cells as well as of partial opacification of the mastoid antrum. There is small amount of soft tissue seen in the epitympanic recess. OTHER FINDINGS: Changes of bilateral cataract surgery IMPRESSION: Large chronic predominant chronic left-sided subdural hematoma with significant subjacent aspect the left cerebral hemisphere resulting in subfalcine and minimal left-sided uncal herniation. There is mild dilatation of the right ventricle consistent with mild compression of the right foramina Painter. Chronic white matter and brainstem ischemic changes. Mild mucoperiosteal inflammatory changes. The right mastoid air complex is underpneumatized and sclerotic with of partial opacification as described.
[2017-08-12 11:49] LABS: VENOUS BLOOD GAS BASE EXCESS 0.4 mmol/L (0.0-2.0); VENOUS BLOOD GAS PO2 55 mm/Hg (30-55); VENOUS BLOOD PH 7.48 (7.32-7.43)
--- NOTE | 2017-08-12 11:58 | CT ---
PROCEDURE: CT MAXILLOFACIAL BONES WITHOUT CONTRAST HISTORY: Fall last night, no witness, left facial trauma COMPARISON: None TECHNIQUE: Contiguous axial CT images of the maxillofacial bones were obtained. Coronal and sagittal reformats were generated. Radiation dose: Total exam DLP = 740.44 mGy-cm. This CT exam was performed using one or more of the following dose reduction techniques: Automated exposure control, adjustment of the mA and/or kV according to patient size, and/or use of iterative reconstruction technique. FINDINGS: NASAL BONES: No evidence of acute nasal bone fracture seen. . There is mild leftward deviation of the nasal septum. In addition, there is a localized atrophic changes of the nasal septal mucosa ORBITS: Changes of bilateral cataract surgery. PARANASAL SINUSES/ MASTOIDS: Minor mucosal thickening left maxillary antrum with questionable tiny fluid level. Minimal mucosal thickening right maxillary antrum. . There is also minimal mucosal thickening within the ethmoid air complex extending superiorly into the frontal sinus. MAXILLA: There is mild soft tissue swelling over the left zygoma and zygomatic arch extending slightly medially into the left premaxillary soft tissues MANDIBLE/ TEMPOROMANDIBULAR JOINTS: Unremarkable. SKULL BASE: Unremarkable. TEMPORAL BONES: Middle ears and mastoid grossly unremarkable. OTHER FINDINGS: None. IMPRESSION: No acute maxillofacial skeletal fracture. Mild soft tissue swelling over the left zygomatic arch and left premaxillary soft tissues. Mild Mild mucoperiosteal inflammatory changes both maxillary antra left greater than right and to a lesser degree ethmoid air complex. Mild leftward deviation of the nasal septum.
[2017-08-12] MEDS: Albuterol-Ipratrop 3 mg / 0.5 (3 ml) UD IH SCH ×2 (13:15→20:30)
--- NOTE | 2017-08-12 13:46 | CARD ---
APPROVED REPORT EKG Measurement Heart [id number] CT [id number] <Conclusion> Sinus rhythm with frequent premature ventricular complexes in a pattern of bigeminy Inferior infarct, age undetermined Abnormal ECG
--- NOTE | 2017-08-12 16:11 | RAD ---
HISTORY: acute shortness of breath, weakness COMPARISON: Comparison chest dated 09/26/2016. FINDINGS: LUNGS: Poor inspiration with low lung volumes, crowded bronchovascular markings and mild bibasilar atelectasis. Right paratracheal density consistent with ectatic great vessels. PLEURA: No significant pleural effusion identified, no pneumothorax apparent. CARDIOVASCULAR: Borderline/mild cardiomegaly. . OSSEOUS STRUCTURES: . Degenerative osteoarthritis both shoulder girdles. VISUALIZED UPPER ABDOMEN: Normal. OTHER FINDINGS: None. IMPRESSION: Poor inspiration with low lung volumes, crowded bronchovascular markings and mild bibasilar atelectasis.
--- NOTE | 2017-08-12 17:46 | US ---
HISTORY: Leg pain and swelling. Evaluate for DVT PHYSICIAN(S): Gregory Traylor MD. TECHNIQUE: Duplex sonography and color-flow Doppler with graded compression were used to evaluate the deep venous systems of both lower extremities. FINDINGS: The visualized deep venous systems of both lower extremities are sonographically normal and compressible. Normal wave forms and augmentation are seen. There is no sonographic evidence for deep venous thrombosis in the visualized segments of both lower extremities. IMPRESSION: No sonographic evidence for deep venous thrombosis in the visualized segments of both lower extremities.
[2017-08-12] MEDS ORDERED: Propofol 10 mg/ml Inj (20 ML) ONE (20:34)
[2017-08-12] MEDS ORDERED: Rocuronium 10 mg/ml (5 ml) ONE (20:35)
[2017-08-12] MEDS ORDERED: Lidocaine 1% Inj (20ml) ONE (20:35)
[2017-08-12] MEDS ORDERED: Etomidate 20 mg/10ml Inj IV ONE (20:35)
[2017-08-12] MEDS ORDERED: Phenylephrine 10 mg/ml Inj ONE (20:36)
[2017-08-12] MEDS ORDERED: ePHEDrine 50 mg/ml Inj ONE (20:36)
[2017-08-13] MEDS: Sodium Chloride 0.9% 1,000 ML IV SCH ×2 (00:30→17:14)
[2017-08-13] MEDS: Albuterol-Ipratrop 3 mg / 0.5 (3 ml) UD IH SCH ×4 (03:16→20:25)
[2017-08-13 07:10] LABS: HEMOGLOBIN 13.6 g/dL (14.0-18.0); MEAN CORPUSCULAR HEMOGLOBIN 32.5 pg (25.0-35.0); MEAN CORPUSCULAR HGB CONC 36.1 g/dl (31.0-37.0); MEAN PLATELET VOLUME 8.2 fl (7.0-11.0); RBC 4.19 10^6/uL (3.5-6.1); RED CELL DISTRIBUTION WIDTH 13.9 % (11.5-14.5); WHITE BLOOD COUNT 19.5 10^3/ul (4.5-11.0)
[2017-08-13 07:25] LABS: INR 1.08 (0.93-1.08); PARTIAL THROMBOPLASTIN TIME 28.7 Seconds (25.1-36.5); PROTHROMBIN TIME 12.4 SECONDS (9.4-12.5)
--- NOTE | 2017-08-13 07:39 | CON ---
DATE: 08/12/2017 CARDIOLOGY CONSULTATION REASON FOR CONSULTATION: Preop evaluation, risk stratification for craniotomy for evacuation of subdural hematoma. BRIEF CLINICAL HISTORY: A 71-year-old Citizen Of [place] male with a past medical history of significant COPD, sleep apnea, CVA with left-sided weakness, who was trying to get out of the commode and could not get up and fell down and gait become unsteady, due to this he fell down and left-sided facial bruise and subdural hematoma with some midline shift, requiring craniotomy and evacuation tomorrow. Cardiology consult was called for preoperative evaluation and risk stratification. Patient denies any chest pain, shortness of breath, or any palpitation. PAST MEDICAL HISTORY: Significant COPD; history of sleep apnea, uses BiPAP at home; history of CVA, left-sided weakness; hypothyroidism. PAST SURGICAL HISTORY: Significant thyroidectomy because of the goiter, history of cataract surgery, history of appendectomy, history of inguinal hernia repair, history of nasal polyp removal. SOCIAL HISTORY: Denies smoking. Denies any history of alcohol abuse. ALLERGIES: NO KNOWN DRUG ALLERGY. CURRENT MEDICATIONS: Patient is taking at home, levothyroxine, losartan, cyanocobalamin, atorvastatin, atenolol, verapamil, meloxicam, gabapentin, Flomax, clopidogrel, and allopurinol. REVIEW OF SYSTEMS: As per HPI. PHYSICAL EXAMINATION: GENERAL: Height of the patient 5 feet 5 inches, weight of the patient was 171 pounds , body mass index 28.5 kg/m2. VITAL SIGNS: Temperature afebrile, heart rate 104, blood pressure 147/95. HEENT: PERRLA. Extraocular muscles intact. NECK: Supple. No carotid bruit or thyromegaly. CHEST: Clear to auscultation. HEART: S1 and S2 regular. ABDOMEN: Soft. EXTREMITIES: Clubbing and cyanosis, negative. LABORATORY DATA: Blood workup as follows: WBC 9.3, hemoglobin 14, hematocrit 39.1, platelet count 256. Chemistry showed sodium 135, potassium 4, chloride 96, carbon dioxide 21, anion gap of 20, BUN 19, creatinine 0.9. ECG shows sinus rhythm, premature atrial contraction, Q-wave interval . IMPRESSION: A 71-year-old male with a past medical history significant for cerebrovascular accident with left-sided weakness, status post mechanical fall leading to subdural hematoma, history of cerebrovascular accident, hypertension, hyperlipidemia, subdural hematoma, midline shift, history of stress test one year ago by PMD at [facility], found to be negative, according to the patient. History of echo, 1 year ago, according to patient, no significant problem noted. RECOMMENDATION: No acute evidence of ischemia, arrhythmia, angina, or congestive heart failure noted. Patient is okay to go for surgery as a moderate risk. Discontinue Plavix. We will start low dose beta-verónica because of APCs. Continue verapamil. We will follow with you. Thank you, Dr. Thomas, for providing me the opportunity in taking care of the patient, Davion Kennedy. We will get lipid profile, TSH, hemoglobin A1c in the morning. We will consider the patient as a moderate risk. Jan Boudreaux MD
[2017-08-13] MEDS: Levothyroxine 50 MCG TAB PO SCH (07:56)
[2017-08-13] MEDS: Insulin Reg-LOW-Coverage SC SCH ×4 (08:00→21:47)
[2017-08-13 08:52] LABS: LDL CHOLESTEROL 44 mg/dL (0-129)
[2017-08-13 08:53] LABS: ALB/GLOB RATIO 1.4 (1.1-1.8); ALBUMIN 4.4 g/dL (3.0-4.8); ALT/SGPT 19 U/L (7-56); AST/SGOT 23 U/L (17-59); BLOOD UREA NITROGEN 24 mg/dL (7-21); CALCIUM 9.2 mg/dL (8.4-10.5); GFR AFRICAN-AMERICAN > 60; GFR NON-AFRICAN AMERICAN > 60; HDL CHOLESTEROL 50 mg/dL (29-60)
--- NOTE | 2017-08-13 09:35 | PN ---
DATE: 08/12/2017 SUBJECTIVE: The patient has no complaints of any chest pain. No shortness of breath. No headaches. No dizziness. He says he was able to get some sleep last night. He wanted to call his family so I dialled his number. PHYSICAL EXAMINATION: VITAL SIGNS: Temperature is 98.4, pulse of 105, blood pressure is 187/101, repeat is 158/92, respirations 19, O2 saturation is 95%. GENERAL: The patient is lying in bed, flat, comfortable. HEENT: No oral lesion. Anicteric sclerae. Moist mucosa. NECK: No JVD, adenopathy, or thyromegaly. CARDIOVASCULAR: S1 and S2, regular. No murmurs, rubs, or gallops. LUNGS: Clear to auscultation bilaterally. No wheeze, rales, or rhonchi. ABDOMEN: Bowel sounds are positive, soft, nontender and nondistended. EXTREMITIES: No cyanosis, clubbing or edema. ASSESSMENT: 1. Subdural hematoma. 2. Chronic obstructive pulmonary disease. 3. Hypertension. 4, Dyslipidemia. 5. Spinal stenosis. 6. Degenerative joint disease. 7. Osteoarthritis. 8. History of lacunar infarct of the right chris. PLAN: The patient is currently admitted to the hospital. He is on losartan for his hypertension. He is on verapamil for his hypertension as well. He is on Flomax. He will continue Lipitor for dyslipidemia. He is on hydrochlorothiazide for his hypertension. He is going to continue with allopurinol. He has consult with Dr. Myers and Dr. Johnston from Neurology and Neurosurgery that is pending. I did speak to the laundry presser on the case. We will continue to follow closely. Cale Alcocer MD MTDD
[2017-08-13] MEDS: MethylPREDNISolone 40 mg Vial IV SCH ×2 (10:01→21:45)
[2017-08-13] MEDS: Verapamil 240 mg ER Tab PO SCH (12:00)
--- NOTE | 2017-08-13 12:09 | CP.CCUPN ---
<Jaylyn Fernandez - Last Filed: 08/13/17 15:11> CCU Subjective - Physician Review Subjective (Free Text): 08/12/17 08:28 Overnight, BP 170. Got hydralazine x 1 tolerated breakfast Sunday - Intervention neurosurg Cardiac clearance 08/13/17 12:06 Got hydralazine x 1 3am 179/98. No new focal neurol deficit Pt complaint that his R arm was weaker than yesterday 08/13/17 15:11 Just received pt from OR s/p craniotomy with L sided subdural hematoma evacuation 50cc blood loss. lidocaine/epi local. General anesthesia. Per Dr Johnston: - drain in subdural space. - hang drain low to promote drainage - Do not change the drain bag - Air in subdural space as pt lay in recumbent position. - amount of drainage is immaterial - neuro check q1 - Diet after fully awake CCU Objective - Vital Signs / Intake & Output Vital Signs (Last 4 hours): Vital Signs Pulse Resp BP Pulse Ox 08/13/17 10:01 99 H 146/81 08/13/17 10:00 98 H 150/90 08/13/17 09:59 101 H 22 08/13/17 09:14 98 H 146/81 08/13/17 09:00 96 H 21 146/81 96 Intake and Output (Last 8hrs): Intake & Output 08/12/17 08/13/17 08/13/17 22:59 06:59 14:59 Intake Total 735 680 Output Total 360 1230 Balance 375 -550 Weight 175 lb 6.4 oz 175 lb Intake: IV 15 560 Right Antecubital 15 560 Oral 720 120 Output: Urine 360 1230 Urine, Voided 360 1230 Other: # Voids Urine, Voided 2 # Bowel Movements 0 0 - Physical Exam Head: Positive for: Normocephalic, Other (L zygomatic contusion; L neck contusion. tender on palpation. No pain when moving eyes.) Pupils: Positive for: PERRL, Other (4mm b/l) Extroacular Muscles: Positive for: EOMI Neck: Positive for: Other (supple) Respiratory/Chest: Positive for: Clear to Auscultation, Decreased Breath Sounds (b/l lung bases). Negative for: Respiratory Distress, Rales, Retracting, Rhonchi Cardiovascular: Positive for: Regular Rate and Rhythm, Normal S1, S2 Abdomen: Positive for: Normal Bowel Sounds. Negative for: Tenderness, Distention, Peritoneal Signs, Rebound, McBur[place]'s Point Tender Back: Positive for: Normal Inspection, Other (R flank eccymosis). Negative for : Midline Tenderness, Paraspinal Tenderness Lower Extremity: Negative for: Edema, CALF TENDERNESS Neurological: Positive for: CN II-XII Intact, Speech Normal, Other (Motor: LUE 3 /5; LLE 3+/5; RUE/RLE 4/5. Good hand docking pilot on R; weak hand docking pilot on L; Sensory intact. AAOx3) Skin: Positive for: Warm, Dry, Other (accymosis; R flank' L face) Psychiatric: Positive for: Alert, Oriented x 3 - Medications Active Medications: Active Medications Generic Name Dose Route Start Last Admin Trade Name Freq PRN Reason Stop Dose Admin Albuterol/Ipratropium 3 ml 08/12/17 14:00 08/13/17 08:11 Duoneb 3 Mg/0.5 Mg (3 Ml) Ud IH 3 ml [id number] LUIS Administration Allopurinol 300 mg 08/12/17 10:00 08/13/17 10:00 Zyloprim PO 300 mg DAILY LUIS Administration Atenolol 25 mg 08/12/17 10:00 08/13/17 10:01 Tenormin PO 25 mg DAILY LUIS Administration Atorvastatin Calcium 80 mg 08/11/17 19:45 08/12/17 17:42 Lipitor PO 80 mg DIN LUIS Administration Doxycycline Hyclate 100 mg 08/12/17 10:00 08/13/17 09:59 Doryx PO 100 mg Q12 LUIS Administration Protocol Famotidine 40 mg 08/11/17 22:00 08/12/17 21:13 Pepcid PO 40 mg HS LUIS Administration Gabapentin 600 mg 08/12/17 10:00 08/13/17 10:02 Neurontin PO 600 mg DAILY LUIS Administration Protocol Hydrochlorothiazide 12.5 mg 08/12/17 10:00 08/13/17 10:00 Microzide PO 12.5 mg DAILY LUIS Administration Sodium Chloride 1,000 mls @ 80 mls/hr 08/13/17 00:30 08/13/17 00:30 Sodium Chloride 0.9% IV 80 mls/hr .[id number] LUIS Administration Insulin Human Regular 0 units 08/12/17 22:00 08/13/17 08:00 Humulin R Low SC Not Given ACHS LUIS Protocol Levalbuterol HCl 1.25 mg 08/11/17 20:00 08/12/17 07:13 Xopenex IH 1.25 mg [id number] LUIS Administration Levothyroxine Sodium 75 mcg 08/14/17 07:30 Synthroid PO ACB LUIS Losartan Potassium 50 mg 08/12/17 10:00 08/13/17 10:00 Cozaar PO 50 mg DAILY LUIS Administration Methylprednisolone 40 mg 08/11/17 22:00 08/13/17 10:01 Solu-Medrol IV 40 mg Q12 LUIS Administration Tamsulosin HCl 0.4 mg 08/12/17 10:00 08/13/17 10:00 Flomax PO 0.4 mg DAILY LUIS Administration Verapamil HCl 240 mg 08/12/17 10:00 08/12/17 09:25 Calan Sr Tab PO 240 mg DAILY LUIS Administration - Patient Studies Lab Studies: Lab Studies 08/13/17 08/13/17 08/13/17 Range/Units 11:11 09:45 09:10 WBC (4.5-11.0) 10^3/ul RBC (3.5-6.1) 10^6/uL Hgb (14.0-18.0) g/dL Hct (42.0-52.0) % MCV (80.0-105.0) fl MCH (25.0-35.0) pg MCHC (31.0-37.0) g/dl RDW (11.5-14.5) % Plt Count (120.0-450.0) 10^3/uL MPV (7.0-11.0) fl PT (9.4-12.5) SECONDS INR (0.93-1.08) APTT (25.1-36.5) Seconds Sodium (132-148) mmol/L Potassium (3.6-5.0) mmol/L Chloride (98-107) mmol/L Carbon Dioxide (21-33) mmol/L Anion Gap (10-20) BUN (7-21) mg/dL Creatinine (0.8-1.5) mg/dl Est GFR ( Amer) Est GFR (Non-Af Amer) POC Glucose (mg/dL) 140 H (65-110) mg/dL Random Glucose (70-110) mg/dL Hemoglobin A1c (4.2-6.5) % Calcium (8.4-10.5) mg/dL Phosphorus (2.5-4.5) mg/dL Magnesium (1.7-2.2) mg/dL Total Bilirubin (0.2-1.3) mg/dL AST (17-59) U/L ALT (7-56) U/L Alkaline Phosphatase (38-126) U/L Total Creatine Kinase (35-230) U/L Total Protein (5.8-8.3) g/dL Albumin (3.0-4.8) g/dL Globulin gm/dL Albumin/Globulin Ratio (1.1-1.8) Triglycerides (35-160) mg/dL Cholesterol (130-200) mg/dL LDL Cholesterol Direct (0-129) mg/dL HDL Cholesterol (29-60) mg/dL TSH 3rd Generation (0.46-4.68) mIU/mL Blood Type AB POSITIVE Blood Type Confirm AB POSITIVE Antibody Screen Negative BBK History Checked No verified bt 08/13/17 08/13/17 08/13/17 Range/Units 07:51 06:00 06:00 WBC (4.5-11.0) 10^3/ul RBC (3.5-6.1) 10^6/uL Hgb (14.0-18.0) g/dL Hct (42.0-52.0) % MCV (80.0-105.0) fl MCH (25.0-35.0) pg MCHC (31.0-37.0) g/dl RDW (11.5-14.5) % Plt Count (120.0-450.0) 10^3/uL MPV (7.0-11.0) fl PT 12.4 (9.4-12.5) SECONDS INR 1.08 (0.93-1.08) APTT 28.7 (25.1-36.5) Seconds Sodium (132-148) mmol/L Potassium (3.6-5.0) mmol/L Chloride (98-107) mmol/L Carbon Dioxide (21-33) mmol/L Anion Gap (10-20) BUN (7-21) mg/dL Creatinine (0.8-1.5) mg/dl Est GFR ( Amer) Est GFR (Non-Af Amer) POC Glucose (mg/dL) 129 H (65-110) mg/dL Random Glucose (70-110) mg/dL Hemoglobin A1c (4.2-6.5) % Calcium (8.4-10.5) mg/dL Phosphorus (2.5-4.5) mg/dL Magnesium (1.7-2.2) mg/dL Total Bilirubin (0.2-1.3) mg/dL AST (17-59) U/L ALT (7-56) U/L Alkaline Phosphatase (38-126) U/L Total Creatine Kinase (35-230) U/L Total Protein (5.8-8.3) g/dL Albumin (3.0-4.8) g/dL Globulin gm/dL Albumin/Globulin Ratio (1.1-1.8) Triglycerides (35-160) mg/dL Cholesterol (130-200) mg/dL LDL Cholesterol Direct (0-129) mg/dL HDL Cholesterol (29-60) mg/dL TSH 3rd Generation 4.93 H (0.46-4.68) mIU/mL Blood Type Blood Type Confirm Antibody Screen BBK History Checked 08/13/17 08/13/17 08/13/17 Range/Units 06:00 05:00 05:00 WBC 19.5 H D (4.5-11.0) 10^3/ul RBC 4.19 (3.5-6.1) 10^6/uL Hgb 13.6 L (14.0-18.0) g/dL Hct 37.7 L (42.0-52.0) % MCV 90.0 (80.0-105.0) fl MCH 32.5 (25.0-35.0) pg MCHC 36.1 (31.0-37.0) g/dl RDW 13.9 (11.5-14.5) % Plt Count 263 (120.0-450.0) 10^3/uL MPV 8.2 (7.0-11.0) fl PT (9.4-12.5) SECONDS INR (0.93-1.08) APTT (25.1-36.5) Seconds Sodium 132 (132-148) mmol/L Potassium 4.3 (3.6-5.0) mmol/L Chloride 95 L (98-107) mmol/L Carbon Dioxide 19 L (21-33) mmol/L Anion Gap 24 H (10-20) BUN 24 H (7-21) mg/dL Creatinine 0.8 (0.8-1.5) mg/dl Est GFR ( Amer) > 60 Est GFR (Non-Af Amer) > 60 POC Glucose (mg/dL) (65-110) mg/dL Random Glucose 141 H (70-110) mg/dL Hemoglobin A1c 5.6 (4.2-6.5) % Calcium 9.2 (8.4-10.5) mg/dL Phosphorus 3.3 (2.5-4.5) mg/dL Magnesium 2.0 (1.7-2.2) mg/dL Total Bilirubin 0.8 (0.2-1.3) mg/dL AST 23 (17-59) U/L ALT 19 (7-56) U/L Alkaline Phosphatase 59 (38-126) U/L Total Creatine Kinase 124 (35-230) U/L Total Protein 7.7 (5.8-8.3) g/dL Albumin 4.4 (3.0-4.8) g/dL Globulin 3.2 gm/dL Albumin/Globulin Ratio 1.4 (1.1-1.8) Triglycerides 51 (35-160) mg/dL Cholesterol 107 L (130-200) mg/dL LDL Cholesterol Direct 44 (0-129) mg/dL HDL Cholesterol 50 (29-60) mg/dL TSH 3rd Generation (0.46-4.68) mIU/mL Blood Type Blood Type Confirm Antibody Screen BBK History Checked 08/12/17 Range/Units 22:13 WBC (4.5-11.0) 10^3/ul RBC (3.5-6.1) 10^6/uL Hgb (14.0-18.0) g/dL Hct (42.0-52.0) % MCV (80.0-105.0) fl MCH (25.0-35.0) pg MCHC (31.0-37.0) g/dl RDW (11.5-14.5) % Plt Count (120.0-450.0) 10^3/uL MPV (7.0-11.0) fl PT (9.4-12.5) SECONDS INR (0.93-1.08) APTT (25.1-36.5) Seconds Sodium (132-148) mmol/L Potassium (3.6-5.0) mmol/L Chloride (98-107) mmol/L Carbon Dioxide (21-33) mmol/L Anion Gap (10-20) BUN (7-21) mg/dL Creatinine (0.8-1.5) mg/dl Est GFR ( Amer) Est GFR (Non-Af Amer) POC Glucose (mg/dL) 136 H (65-110) mg/dL Random Glucose (70-110) mg/dL Hemoglobin A1c (4.2-6.5) % Calcium (8.4-10.5) mg/dL Phosphorus (2.5-4.5) mg/dL Magnesium (1.7-2.2) mg/dL Total Bilirubin (0.2-1.3) mg/dL AST (17-59) U/L ALT (7-56) U/L Alkaline Phosphatase (38-126) U/L Total Creatine Kinase (35-230) U/L Total Protein (5.8-8.3) g/dL Albumin (3.0-4.8) g/dL Globulin gm/dL Albumin/Globulin Ratio (1.1-1.8) Triglycerides (35-160) mg/dL Cholesterol (130-200) mg/dL LDL Cholesterol Direct (0-129) mg/dL HDL Cholesterol (29-60) mg/dL TSH 3rd Generation (0.46-4.68) mIU/mL Blood Type Blood Type Confirm Antibody Screen BBK History Checked Laboratory Results - last 24 hr 08/12/17 08/13/17 08/13/17 22:13 05:00 05:00 WBC 19.5 H D RBC 4.19 Hgb 13.6 L Hct 37.7 L MCV 90.0 MCH 32.5 MCHC 36.1 RDW 13.9 Plt Count 263 MPV 8.2 PT INR APTT Sodium 132 Potassium 4.3 Chloride 95 L Carbon Dioxide 19 L Anion Gap 24 H BUN 24 H Creatinine 0.8 Est GFR ( Amer) > 60 Est GFR (Non-Af Amer) > 60 POC Glucose (mg/dL) 136 H Random Glucose 141 H Hemoglobin A1c Calcium 9.2 Phosphorus 3.3 Magnesium 2.0 Total Bilirubin 0.8 AST 23 ALT 19 Alkaline Phosphatase 59 Total Creatine Kinase 124 Total Protein 7.7 Albumin 4.4 Globulin 3.2 Albumin/Globulin Ratio 1.4 Triglycerides 51 Cholesterol 107 L LDL Cholesterol Direct 44 HDL Cholesterol 50 TSH 3rd Generation Blood Type Blood Type Confirm Antibody Screen BBK History Checked 08/13/17 08/13/17 08/13/17 06:00 06:00 06:00 WBC RBC Hgb Hct MCV MCH MCHC RDW Plt Count MPV PT 12.4 INR 1.08 APTT 28.7 Sodium Potassium Chloride Carbon Dioxide Anion Gap BUN Creatinine Est GFR ( Amer) Est GFR (Non-Af Amer) POC Glucose (mg/dL) Random Glucose Hemoglobin A1c 5.6 Calcium Phosphorus Magnesium Total Bilirubin AST ALT Alkaline Phosphatase Total Creatine Kinase Total Protein Albumin Globulin Albumin/Globulin Ratio Triglycerides Cholesterol LDL Cholesterol Direct HDL Cholesterol TSH 3rd Generation 4.93 H Blood Type Blood Type Confirm Antibody Screen BBK History Checked 08/13/17 08/13/17 08/13/17 07:51 09:10 09:45 WBC RBC Hgb Hct MCV MCH MCHC RDW Plt Count MPV PT INR APTT Sodium Potassium Chloride Carbon Dioxide Anion Gap BUN Creatinine Est GFR ( Amer) Est GFR (Non-Af Amer) POC Glucose (mg/dL) 129 H Random Glucose Hemoglobin A1c Calcium Phosphorus Magnesium Total Bilirubin AST ALT Alkaline Phosphatase Total Creatine Kinase Total Protein Albumin Globulin Albumin/Globulin Ratio Triglycerides Cholesterol LDL Cholesterol Direct HDL Cholesterol TSH 3rd Generation Blood Type AB POSITIVE Blood Type Confirm AB POSITIVE Antibody Screen Negative BBK History Checked No verified bt 08/13/17 11:11 WBC RBC Hgb Hct MCV MCH MCHC RDW Plt Count MPV PT INR APTT Sodium Potassium Chloride Carbon Dioxide Anion Gap BUN Creatinine Est GFR ( Amer) Est GFR (Non-Af Amer) POC Glucose (mg/dL) 140 H Random Glucose Hemoglobin A1c Calcium Phosphorus Magnesium Total Bilirubin AST ALT Alkaline Phosphatase Total Creatine Kinase Total Protein Albumin Globulin Albumin/Globulin Ratio Triglycerides Cholesterol LDL Cholesterol Direct HDL Cholesterol TSH 3rd Generation Blood Type Blood Type Confirm Antibody Screen BBK History Checked Fingerstick Blood Sugar Results: 129 Critical Care Progress Note - Nutrition Nutrition: Nutrition Category Date Time Status Heart Healthy Diet [DIET] Diets 08/11/17 Breakfast Active Assessment/Plan - Assessment and Plan (Free Text) Plan: Mr Marcia Ricardo, 71yo male with past medical history of HTN, hypothyroidism, CVA (L sided weakness) admitted for L subdural hematoma s/p fall due to lost of balance. He has bruises on L face and R body, suspicious of Hx frequent falls. CT head (08/11): Prominent acute subdural bleed in the left hemispheric convexity. Moderate midline shift is present. Mild uncal herniation. PE: pupil 4mm b/l. 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 Cardiology cleared for OR EKG showed SR@95 BPM, similar to previous EKG Patient placed on home meds: Atenolol, cozaar, Verapamil, HCTZ, Lipitor Maintain SBP 130-140. Avoid fluctuations in BP Want RN to page resident if BP too high. Pulm: Aspiration precaution Maintain SpO2>90% Duoneb On solumedrol 40q12 CXR showed poor inspiration, no marked pleural effusion/infiltrates GI: Passed swallow eval Heart healthy diet Nephro: Monitor electrolytes and replace as needed Heme: Hgb 13.7 --> 14.2; stable INR: 1.1 --> 1.3 Hold anticoagulation due to active bleeding LE U/S negative for DVT ID: Lactate 4.1 --> 3.5 --> 3.2. Septic work up Gabyojillian, lee, pending ID recs Endo: Maintain euglycemia (140-180s) GI ppx: Pepcid DVT ppx: SCDs Dispo plan: Pt has new R arm weakness as compare to yesterday. OR today. Neuro check q1. CT head on Sunday. Call Dr. Johnston if any questions Consult: Louis Whitney s/r/d/w Dr. Garcia <Kei Garcia - Last Filed: 08/13/17 15:47> CCU Objective - Vital Signs / Intake & Output Intake and Output (Last 8hrs): Intake & Output 08/13/17 08/13/17 08/13/17 06:59 14:59 22:59 Intake Total 680 Output Total 1230 Balance -550 Weight 175 lb 6.4 oz 175 lb Intake: IV 560 Right Antecubital 560 Oral 120 Output: Urine 1230 Urine, Voided 1230 Other: # Bowel Movements 0 - Medications Active Medications: Active Medications Generic Name Dose Route Start Last Admin Trade Name Freq PRN Reason Stop Dose Admin Albuterol/Ipratropium 3 ml 08/12/17 14:00 08/13/17 13:45 Duoneb 3 Mg/0.5 Mg (3 Ml) Ud IH Not Given [id number] LUIS Allopurinol 300 mg 08/12/17 10:00 08/13/17 10:00 Zyloprim PO 300 mg DAILY LUIS Administration Atenolol 25 mg 08/12/17 10:00 08/13/17 10:01 Tenormin PO 25 mg DAILY LUIS Administration Atorvastatin Calcium 80 mg 08/11/17 19:45 08/12/17 17:42 Lipitor PO 80 mg DIN LUIS Administration Doxycycline Hyclate 100 mg 08/12/17 10:00 08/13/17 09:59 Doryx PO 100 mg Q12 LUIS Administration Protocol Famotidine 40 mg 08/11/17 22:00 08/12/17 21:13 Pepcid PO 40 mg HS LUIS Administration Gabapentin 600 mg 08/12/17 10:00 08/13/17 10:02 Neurontin PO 600 mg DAILY LUIS Administration Protocol Hydrochlorothiazide 12.5 mg 08/12/17 10:00 08/13/17 10:00 Microzide PO 12.5 mg DAILY LUIS Administration Sodium Chloride 1,000 mls @ 80 mls/hr 08/13/17 00:30 08/13/17 00:30 Sodium Chloride 0.9% IV 80 mls/hr .[id number] LUIS Administration Vancomycin HCl 1 gm in 250 mls @ 167 mls/hr 08/13/17 13:00 08/13/17 13:07 Vancomycin 1gm IVPB 167 mls/hr Q12H LUIS Administration Protocol Insulin Human Regular 0 units 08/12/17 22:00 08/13/17 13:07 Humulin R Low SC Not Given ACHS LUIS Protocol Levalbuterol HCl 1.25 mg 08/11/17 20:00 08/12/17 07:13 Xopenex IH 1.25 mg [id number] LUIS Administration Levothyroxine Sodium 75 mcg 08/14/17 07:30 Synthroid PO ACB LUIS Losartan Potassium 50 mg 08/12/17 10:00 08/13/17 10:00 Cozaar PO 50 mg DAILY LUIS Administration Methylprednisolone 40 mg 08/11/17 22:00 08/13/17 10:01 Solu-Medrol IV 40 mg Q12 LUIS Administration Tamsulosin HCl 0.4 mg 08/12/17 10:00 08/13/17 10:00 Flomax PO 0.4 mg DAILY LUIS Administration Verapamil HCl 240 mg 08/12/17 10:00 08/12/17 09:25 Calan Sr Tab PO 240 mg DAILY LUIS Administration - Patient Studies Lab Studies: Microbiology Studies 08/11/17 22:10 MRSA Culture (Admit) - Final Naris MRSA NOT DETECTED Lab Studies 08/13/17 08/13/17 08/13/17 Range/Units 13:20 12:15 11:11 WBC (4.5-11.0) 10^3/ul RBC (3.5-6.1) 10^6/uL Hgb (14.0-18.0) g/dL Hct (42.0-52.0) % MCV (80.0-105.0) fl MCH (25.0-35.0) pg MCHC (31.0-37.0) g/dl RDW (11.5-14.5) % Plt Count (120.0-450.0) 10^3/uL MPV (7.0-11.0) fl PT (9.4-12.5) SECONDS INR (0.93-1.08) APTT (25.1-36.5) Seconds pO2 52 (30-55) mm/Hg VBG pH 7.42 (7.32-7.43) VBG pCO2 36.0 L (40-60) VBG HCO3 23.4 (21-28) mmol/l VBG Total CO2 24.5 (22-28) mmol.L VBG O2 Sat (Calc) 91.5 H (40-65) % VBG Base Excess -0.7 L (0.0-2.0) mmol/L VBG Potassium 4.2 (3.6-5.2) mmol/L Glucose 128 H (75-110) mg/dl Lactate 3.2 H (0.7-2.1) mmol/L FiO2 21.0 % Sodium 128.0 L (132-148) mmol/L Potassium (3.6-5.0) mmol/L Chloride 96.0 L (98-107) mmol/L Carbon Dioxide (21-33) mmol/L Anion Gap (10-20) BUN (7-21) mg/dL Creatinine (0.8-1.5) mg/dl Est GFR ( Amer) Est GFR (Non-Af Amer) POC Glucose (mg/dL) 140 H (65-110) mg/dL Random Glucose (70-110) mg/dL Hemoglobin A1c (4.2-6.5) % Calcium (8.4-10.5) mg/dL Phosphorus (2.5-4.5) mg/dL Magnesium (1.7-2.2) mg/dL Total Bilirubin (0.2-1.3) mg/dL AST (17-59) U/L ALT (7-56) U/L Alkaline Phosphatase (38-126) U/L Total Creatine Kinase (35-230) U/L Total Protein (5.8-8.3) g/dL Albumin (3.0-4.8) g/dL Globulin gm/dL Albumin/Globulin Ratio (1.1-1.8) Triglycerides (35-160) mg/dL Cholesterol (130-200) mg/dL LDL Cholesterol Direct (0-129) mg/dL HDL Cholesterol (29-60) mg/dL TSH 3rd Generation (0.46-4.68) mIU/mL Venous Blood Potassium 4.2 (3.6-5.2) mmol/L Urine Color Yellow (YELLOW) Urine Appearance Clear (CLEAR) Urine pH 7.0 (4.7-8.0) Ur Specific [place] 1.015 (1.005-1.035) Urine Protein Negative (<30 mg/dL) mg/dL Urine Glucose (UA) Negative (NEGATIVE) mg/dL Urine Ketones Negative (NEGATIVE) mg/dL Urine Blood Negative (NEGATIVE) Urine Nitrate Negative (NEGATIVE) Urine Bilirubin Negative (NEGATIVE) Urine Urobilinogen 0.2 (<1 E.U./dL) E.U./dL Ur Leukocyte Esterase Negative (NEGATIVE) Jovana/uL Blood Type Blood Type Confirm Antibody Screen BBK History Checked 08/13/17 08/13/17 08/13/17 Range/Units 09:45 09:10 07:51 WBC (4.5-11.0) 10^3/ul RBC (3.5-6.1) 10^6/uL Hgb (14.0-18.0) g/dL Hct (42.0-52.0) % MCV (80.0-105.0) fl MCH (25.0-35.0) pg MCHC (31.0-37.0) g/dl RDW (11.5-14.5) % Plt Count (120.0-450.0) 10^3/uL MPV (7.0-11.0) fl PT (9.4-12.5) SECONDS INR (0.93-1.08) APTT (25.1-36.5) Seconds pO2 (30-55) mm/Hg VBG pH (7.32-7.43) VBG pCO2 (40-60) VBG HCO3 (21-28) mmol/l VBG Total CO2 (22-28) mmol.L VBG O2 Sat (Calc) (40-65) % VBG Base Excess (0.0-2.0) mmol/L VBG Potassium (3.6-5.2) mmol/L Glucose (75-110) mg/dl Lactate (0.7-2.1) mmol/L FiO2 % Sodium (132-148) mmol/L Potassium (3.6-5.0) mmol/L Chloride (98-107) mmol/L Carbon Dioxide (21-33) mmol/L Anion Gap (10-20) BUN (7-21) mg/dL Creatinine (0.8-1.5) mg/dl Est GFR ( Amer) Est GFR (Non-Af Amer) POC Glucose (mg/dL) 129 H (65-110) mg/dL Random Glucose (70-110) mg/dL Hemoglobin A1c (4.2-6.5) % Calcium (8.4-10.5) mg/dL Phosphorus (2.5-4.5) mg/dL Magnesium (1.7-2.2) mg/dL Total Bilirubin (0.2-1.3) mg/dL AST (17-59) U/L ALT (7-56) U/L Alkaline Phosphatase (38-126) U/L Total Creatine Kinase (35-230) U/L Total Protein (5.8-8.3) g/dL Albumin (3.0-4.8) g/dL Globulin gm/dL Albumin/Globulin Ratio (1.1-1.8) Triglycerides (35-160) mg/dL Cholesterol (130-200) mg/dL LDL Cholesterol Direct (0-129) mg/dL HDL Cholesterol (29-60) mg/dL TSH 3rd Generation (0.46-4.68) mIU/mL Venous Blood Potassium (3.6-5.2) mmol/L Urine Color (YELLOW) Urine Appearance (CLEAR) Urine pH (4.7-8.0) Ur Specific [place] (1.005-1.035) Urine Protein (<30 mg/dL) mg/dL Urine Glucose (UA) (NEGATIVE) mg/dL Urine Ketones (NEGATIVE) mg/dL Urine Blood (NEGATIVE) Urine Nitrate (NEGATIVE) Urine Bilirubin (NEGATIVE) Urine Urobilinogen (<1 E.U./dL) E.U./dL Ur Leukocyte Esterase (NEGATIVE) Jovana/uL Blood Type AB POSITIVE Blood Type Confirm AB POSITIVE Antibody Screen Negative BBK History Checked No verified bt 08/13/17 08/13/17 08/13/17 Range/Units 06:00 06:00 06:00 WBC (4.5-11.0) 10^3/ul RBC (3.5-6.1) 10^6/uL Hgb (14.0-18.0) g/dL Hct (42.0-52.0) % MCV (80.0-105.0) fl MCH (25.0-35.0) pg MCHC (31.0-37.0) g/dl RDW (11.5-14.5) % Plt Count (120.0-450.0) 10^3/uL MPV (7.0-11.0) fl PT 12.4 (9.4-12.5) SECONDS INR 1.08 (0.93-1.08) APTT 28.7 (25.1-36.5) Seconds pO2 (30-55) mm/Hg VBG pH (7.32-7.43) VBG pCO2 (40-60) VBG HCO3 (21-28) mmol/l VBG Total CO2 (22-28) mmol.L VBG O2 Sat (Calc) (40-65) % VBG Base Excess (0.0-2.0) mmol/L VBG Potassium (3.6-5.2) mmol/L Glucose (75-110) mg/dl Lactate (0.7-2.1) mmol/L FiO2 % Sodium (132-148) mmol/L Potassium (3.6-5.0) mmol/L Chloride (98-107) mmol/L Carbon Dioxide (21-33) mmol/L Anion Gap (10-20) BUN (7-21) mg/dL Creatinine (0.8-1.5) mg/dl Est GFR ( Amer) Est GFR (Non-Af Amer) POC Glucose (mg/dL) (65-110) mg/dL Random Glucose (70-110) mg/dL Hemoglobin A1c 5.6 (4.2-6.5) % Calcium (8.4-10.5) mg/dL Phosphorus (2.5-4.5) mg/dL Magnesium (1.7-2.2) mg/dL Total Bilirubin (0.2-1.3) mg/dL AST (17-59) U/L ALT (7-56) U/L Alkaline Phosphatase (38-126) U/L Total Creatine Kinase (35-230) U/L Total Protein (5.8-8.3) g/dL Albumin (3.0-4.8) g/dL Globulin gm/dL Albumin/Globulin Ratio (1.1-1.8) Triglycerides (35-160) mg/dL Cholesterol (130-200) mg/dL LDL Cholesterol Direct (0-129) mg/dL HDL Cholesterol (29-60) mg/dL TSH 3rd Generation 4.93 H (0.46-4.68) mIU/mL Venous Blood Potassium (3.6-5.2) mmol/L Urine Color (YELLOW) Urine Appearance (CLEAR) Urine pH (4.7-8.0) Ur Specific [place] (1.005-1.035) Urine Protein (<30 mg/dL) mg/dL Urine Glucose (UA) (NEGATIVE) mg/dL Urine Ketones (NEGATIVE) mg/dL Urine Blood (NEGATIVE) Urine Nitrate (NEGATIVE) Urine Bilirubin (NEGATIVE) Urine Urobilinogen (<1 E.U./dL) E.U./dL Ur Leukocyte Esterase (NEGATIVE) Jovana/uL Blood Type Blood Type Confirm Antibody Screen BBK History Checked 08/13/17 08/13/17 08/12/17 Range/Units 05:00 05:00 22:13 WBC 19.5 H D (4.5-11.0) 10^3/ul RBC 4.19 (3.5-6.1) 10^6/uL Hgb 13.6 L (14.0-18.0) g/dL Hct 37.7 L (42.0-52.0) % MCV 90.0 (80.0-105.0) fl MCH 32.5 (25.0-35.0) pg MCHC 36.1 (31.0-37.0) g/dl RDW 13.9 (11.5-14.5) % Plt Count 263 (120.0-450.0) 10^3/uL MPV 8.2 (7.0-11.0) fl PT (9.4-12.5) SECONDS INR (0.93-1.08) APTT (25.1-36.5) Seconds pO2 (30-55) mm/Hg VBG pH (7.32-7.43) VBG pCO2 (40-60) VBG HCO3 (21-28) mmol/l VBG Total CO2 (22-28) mmol.L VBG O2 Sat (Calc) (40-65) % VBG Base Excess (0.0-2.0) mmol/L VBG Potassium (3.6-5.2) mmol/L Glucose (75-110) mg/dl Lactate (0.7-2.1) mmol/L FiO2 % Sodium 132 (132-148) mmol/L Potassium 4.3 (3.6-5.0) mmol/L Chloride 95 L (98-107) mmol/L Carbon Dioxide 19 L (21-33) mmol/L Anion Gap 24 H (10-20) BUN 24 H (7-21) mg/dL Creatinine 0.8 (0.8-1.5) mg/dl Est GFR ( Amer) > 60 Est GFR (Non-Af Amer) > 60 POC Glucose (mg/dL) 136 H (65-110) mg/dL Random Glucose 141 H (70-110) mg/dL Hemoglobin A1c (4.2-6.5) % Calcium 9.2 (8.4-10.5) mg/dL Phosphorus 3.3 (2.5-4.5) mg/dL Magnesium 2.0 (1.7-2.2) mg/dL Total Bilirubin 0.8 (0.2-1.3) mg/dL AST 23 (17-59) U/L ALT 19 (7-56) U/L Alkaline Phosphatase 59 (38-126) U/L Total Creatine Kinase 124 (35-230) U/L Total Protein 7.7 (5.8-8.3) g/dL Albumin 4.4 (3.0-4.8) g/dL Globulin 3.2 gm/dL Albumin/Globulin Ratio 1.4 (1.1-1.8) Triglycerides 51 (35-160) mg/dL Cholesterol 107 L (130-200) mg/dL LDL Cholesterol Direct 44 (0-129) mg/dL HDL Cholesterol 50 (29-60) mg/dL TSH 3rd Generation (0.46-4.68) mIU/mL Venous Blood Potassium (3.6-5.2) mmol/L Urine Color (YELLOW) Urine Appearance (CLEAR) Urine pH (4.7-8.0) Ur Specific [place] (1.005-1.035) Urine Protein (<30 mg/dL) mg/dL Urine Glucose (UA) (NEGATIVE) mg/dL Urine Ketones (NEGATIVE) mg/dL Urine Blood (NEGATIVE) Urine Nitrate (NEGATIVE) Urine Bilirubin (NEGATIVE) Urine Urobilinogen (<1 E.U./dL) E.U./dL Ur Leukocyte Esterase (NEGATIVE) Jovana/uL Blood Type Blood Type Confirm Antibody Screen BBK History Checked Laboratory Results - last 24 hr 08/12/17 08/13/17 08/13/17 22:13 05:00 05:00 WBC 19.5 H D RBC 4.19 Hgb 13.6 L Hct 37.7 L MCV 90.0 MCH 32.5 MCHC 36.1 RDW 13.9 Plt Count 263 MPV 8.2 PT INR APTT pO2 VBG pH VBG pCO2 VBG HCO3 VBG Total CO2 VBG O2 Sat (Calc) VBG Base Excess VBG Potassium Glucose Lactate FiO2 Sodium 132 Potassium 4.3 Chloride 95 L Carbon Dioxide 19 L Anion Gap 24 H BUN 24 H Creatinine 0.8 Est GFR ( Amer) > 60 Est GFR (Non-Af Amer) > 60 POC Glucose (mg/dL) 136 H Random Glucose 141 H Hemoglobin A1c Calcium 9.2 Phosphorus 3.3 Magnesium 2.0 Total Bilirubin 0.8 AST 23 ALT 19 Alkaline Phosphatase 59 Total Creatine Kinase 124 Total Protein 7.7 Albumin 4.4 Globulin 3.2 Albumin/Globulin Ratio 1.4 Triglycerides 51 Cholesterol 107 L LDL Cholesterol Direct 44 HDL Cholesterol 50 TSH 3rd Generation Venous Blood Potassium Urine Color Urine Appearance Urine pH Ur Specific [place] Urine Protein Urine Glucose (UA) Urine Ketones Urine Blood Urine Nitrate Urine Bilirubin Urine Urobilinogen Ur Leukocyte Esterase Blood Type Blood Type Confirm Antibody Screen BBK History Checked 08/13/17 08/13/17 08/13/17 06:00 06:00 06:00 WBC RBC Hgb Hct MCV MCH MCHC RDW Plt Count MPV PT 12.4 INR 1.08 APTT 28.7 pO2 VBG pH VBG pCO2 VBG HCO3 VBG Total CO2 VBG O2 Sat (Calc) VBG Base Excess VBG Potassium Glucose Lactate FiO2 Sodium Potassium Chloride Carbon Dioxide Anion Gap BUN Creatinine Est GFR ( Amer) Est GFR (Non-Af Amer) POC Glucose (mg/dL) Random Glucose Hemoglobin A1c 5.6 Calcium Phosphorus Magnesium Total Bilirubin AST ALT Alkaline Phosphatase Total Creatine Kinase Total Protein Albumin Globulin Albumin/Globulin Ratio Triglycerides Cholesterol LDL Cholesterol Direct HDL Cholesterol TSH 3rd Generation 4.93 H Venous Blood Potassium Urine Color Urine Appearance Urine pH Ur Specific [place] Urine Protein Urine Glucose (UA) Urine Ketones Urine Blood Urine Nitrate Urine Bilirubin Urine Urobilinogen Ur Leukocyte Esterase Blood Type Blood Type Confirm Antibody Screen BBK History Checked 08/13/17 08/13/17 08/13/17 07:51 09:10 09:45 WBC RBC Hgb Hct MCV MCH MCHC RDW Plt Count MPV PT INR APTT pO2 VBG pH VBG pCO2 VBG HCO3 VBG Total CO2 VBG O2 Sat (Calc) VBG Base Excess VBG Potassium Glucose Lactate FiO2 Sodium Potassium Chloride Carbon Dioxide Anion Gap BUN Creatinine Est GFR ( Amer) Est GFR (Non-Af Amer) POC Glucose (mg/dL) 129 H Random Glucose Hemoglobin A1c Calcium Phosphorus Magnesium Total Bilirubin AST ALT Alkaline Phosphatase Total Creatine Kinase Total Protein Albumin Globulin Albumin/Globulin Ratio Triglycerides Cholesterol LDL Cholesterol Direct HDL Cholesterol TSH 3rd Generation Venous Blood Potassium Urine Color Urine Appearance Urine pH Ur Specific [place] Urine Protein Urine Glucose (UA) Urine Ketones Urine Blood Urine Nitrate Urine Bilirubin Urine Urobilinogen Ur Leukocyte Esterase Blood Type AB POSITIVE Blood Type Confirm AB POSITIVE Antibody Screen Negative BBK History Checked No verified bt 08/13/17 08/13/17 08/13/17 11:11 12:15 13:20 WBC RBC Hgb Hct MCV MCH MCHC RDW Plt Count MPV PT INR APTT pO2 52 VBG pH 7.42 VBG pCO2 36.0 L VBG HCO3 23.4 VBG Total CO2 24.5 VBG O2 Sat (Calc) 91.5 H VBG Base Excess -0.7 L VBG Potassium 4.2 Glucose 128 H Lactate 3.2 H FiO2 21.0 Sodium 128.0 L Potassium Chloride 96.0 L Carbon Dioxide Anion Gap BUN Creatinine Est GFR ( Amer) Est GFR (Non-Af Amer) POC Glucose (mg/dL) 140 H Random Glucose Hemoglobin A1c Calcium Phosphorus Magnesium Total Bilirubin AST ALT Alkaline Phosphatase Total Creatine Kinase Total Protein Albumin Globulin Albumin/Globulin Ratio Triglycerides Cholesterol LDL Cholesterol Direct HDL Cholesterol TSH 3rd Generation Venous Blood Potassium 4.2 Urine Color Yellow Urine Appearance Clear Urine pH 7.0 Ur Specific [place] 1.015 Urine Protein Negative Urine Glucose (UA) Negative Urine Ketones Negative Urine Blood Negative Urine Nitrate Negative Urine Bilirubin Negative Urine Urobilinogen 0.2 Ur Leukocyte Esterase Negative Blood Type Blood Type Confirm Antibody Screen BBK History Checked Critical Care Progress Note - Nutrition Nutrition: Nutrition Category Date Time Status Heart Healthy Diet [DIET] Diets 08/11/17 Breakfast Active Attending/Attestation - Attestation I have personally seen and examined this patient.: Yes I have fully participated in the care of the patient.: Yes I have reviewed all pertinent clinical information: Yes Notes (Text): 08/13/17 15:44 The patient was seen and examined at the bedside. Patient care was discussed with resident Medical records, lab studies were reviewed and management issues were discussed and formulated. Last 24H events reviewed. Agree with above treatment plans as outlined in 's note with addition of the following: Acute respiratory insufficiency \ Hypoxemia \ COPD \ Subdural hematoma \ HTN -hemodynamic monitoring to maintain MAP>65; B\P control as per neurosurgery parameters -o2 supplementation to maintain Spo2>90 Pao2>60 -continue nebs and taper steroids -broad spectrum ABX and f\u cultures; ID team eval -neurosurgery team f\u post-op; f\u repeat CT head when indicated by -neurology team f\u -f\u Bun\Cr and U\o; continue IVF -NPO diet and aspiration precautions -ISS and BGM monitoring to maintain euglycemia -continue neuro checks as per neurosurgery protocol -DVT\PUD prophylaxis prophylaxis CCM time 30min
[2017-08-13 12:40] LABS: VENOUS BLOOD GAS BASE EXCESS -0.7 mmol/L (0.0-2.0); VENOUS BLOOD GAS PO2 52 mm/Hg (30-55); VENOUS BLOOD PH 7.42 (7.32-7.43)
[2017-08-13] MEDS ORDERED: Meropenem 500 MG in Sodium Chloride 0.9% 50 ML IVPB SCH (12:45)
[2017-08-13] MEDS ORDERED: Vancomycin 500 mg Inj IVPB SCH (12:45)
[2017-08-13] MEDS ORDERED: Propofol 10 mg/ml Inj (20 ML) ONE (12:57)
[2017-08-13] MEDS ORDERED: Rocuronium 10 mg/ml (5 ml) ONE (12:58)
[2017-08-13] MEDS ORDERED: Lidocaine 1% w Epi 1:100,000 Inj ONE (13:05)
[2017-08-13] MEDS ORDERED: Vancomycin 1 g Inj ONE (13:05)
[2017-08-13] MEDS: Vancomycin 1gm in NS 250ml 1 GM/250 ML BAG IVPB SCH (13:07)
--- NOTE | 2017-08-13 13:27 | CP.PCM.CON ---
History of Present Illness - History of Present Illness History of Present Illness: Infectious Disease Consultation: August 13, 2017 71 yo male presenting with SOB and fall but was found to have a Subdural hematoma on imaging studies. Intervention by Neurosurgery. Found to have leukocytosis of 19.7 today. Neurosurgery planning craniotomy evacuation of left CSDH which was done this afternoon. The patient is wheelchair bound and the fall occurred at his home and was unwitnessed. Patient claims he fell while transferring from wheelchair to toilet bowl. The patient claims SOB and wheezing for the past day. On the whole, the patient is awake, alert, and orientated but he is a poor historian. PMHx: HTN, hypothyroidism, CVA (Left sided weakness) PSHx: Thyroidectomy, bilateral cataract removal. Allergies: NKDA Social Hx: lives alone Ex-Smoker No EtOH or illicit drug use Active Medications Albuterol/Ipratropium (Duoneb 3 Mg/0.5 Mg (3 Ml) Ud) 3 ml [facility] [id number] [facility] Last Admin: 08/13/17 13:45 Dose: Not Given Allopurinol (Zyloprim) 300 mg PO DAILY [facility] Last Admin: 08/13/17 10:00 Dose: 300 mg Atenolol (Tenormin) 25 mg PO DAILY [facility] Last Admin: 08/13/17 10:01 Dose: 25 mg Atorvastatin Calcium (Lipitor) 80 mg PO DIN [facility] Last Admin: 08/13/17 17:13 Dose: Not Given Doxycycline Hyclate (Doryx) 100 mg PO Q12 [facility] PRN Reason: Protocol Last Admin: 08/13/17 09:59 Dose: 100 mg Famotidine (Pepcid) 40 mg PO HS [facility] Last Admin: 08/12/17 21:13 Dose: 40 mg Gabapentin (Neurontin) 600 mg PO DAILY [facility] PRN Reason: Protocol Last Admin: 08/13/17 10:02 Dose: 600 mg Hydrochlorothiazide (Microzide) 12.5 mg PO DAILY [facility] Last Admin: 08/13/17 10:00 Dose: 12.5 mg Sodium Chloride (Sodium Chloride 0.9%) 1,000 mls @ 80 mls/hr IV .[id number] [facility] Last Admin: 08/13/17 17:14 Dose: 80 mls/hr Vancomycin HCl (Vancomycin 1gm) 1 gm in 250 mls @ 167 mls/hr IVPB Q12H [facility] PRN Reason: Protocol Last Admin: 08/13/17 13:07 Dose: 167 mls/hr Insulin Human Regular (Humulin R Low) 0 units SC ACHS [facility] PRN Reason: Protocol Last Admin: 08/13/17 17:00 Dose: Not Given Levalbuterol HCl (Xopenex) 1.25 mg [facility] [id number] [facility] Last Admin: 08/12/17 07:13 Dose: 1.25 mg Levothyroxine Sodium (Synthroid) 75 mcg PO ACB [facility] Losartan Potassium (Cozaar) 50 mg PO DAILY [facility] Last Admin: 08/13/17 10:00 Dose: 50 mg Methylprednisolone (Solu-Medrol) 40 mg IV Q12 [facility] Last Admin: 08/13/17 10:01 Dose: 40 mg Tamsulosin HCl (Flomax) 0.4 mg PO DAILY [facility] Last Admin: 08/13/17 10:00 Dose: 0.4 mg Verapamil HCl (Calan Sr Tab) 240 mg PO DAILY [facility] Last Admin: 08/13/17 12:00 Dose: 240 mg Family Hx: non given ROS: No fevers, chills, nausea, vomiting, diarrhea, headaches, dizziness, chest pain , abdominal pain, melena, hematuria, hematemesis, hematochezia, depression, anxiety. Past Patient History - Infectious Disease Hx of Infectious Diseases: None - Tetanus Immunizations Tetanus Immunization: Unknown - Past Medical History & Family History Past Medical History?: Yes - Past Social History Smoking Status: Former Smoker - CARDIAC Hx Hypertension: Yes - PULMONARY Hx Respiratory Disorders: Yes Hx Sleep Apnea: Yes Other/Comment: uses BPAP - NEUROLOGICAL Hx Neurological Disorder: No HX Cerebrovascular Accident: Yes - HEENT Hx Cataracts: Yes (b/l cataract removal) Other/Comment: tonsillectomy - RENAL Hx Chronic Kidney Disease: No - ENDOCRINE/METABOLIC Hx Hypothyroidism: Yes - HEMATOLOGICAL/ONCOLOGICAL Hx Blood Transfusions: No Hx Blood Transfusion Reaction: No - INTEGUMENTARY Hx Dermatological Problems: No - MUSCULOSKELETAL/RHEUMATOLOGICAL Hx Falls: Yes - GASTROINTESTINAL Other/Comment: inguinal hernia repair - GENITOURINARY/GYNECOLOGICAL Hx Genitourinary Disorders: No - PSYCHIATRIC Hx Depression: Yes Hx Substance Use: No - SURGICAL HISTORY Hx Surgeries: Yes - ANESTHESIA Hx Anesthesia Reactions: No Hx Malignant Hyperthermia: No Meds Allergies/Adverse Reactions: Allergies Allergy/AdvReac Type Severity Reaction Status Date / Time No Known Allergies Allergy Verified 08/11/17 16:55 - Medications Medications: Current Medications Albuterol/Ipratropium (Duoneb 3 Mg/0.5 Mg (3 Ml) Ud) 3 ml [facility] [id number] [facility] Last Admin: 08/13/17 08:11 Dose: 3 ml Allopurinol (Zyloprim) 300 mg PO DAILY [facility] Last Admin: 08/13/17 10:00 Dose: 300 mg Atenolol (Tenormin) 25 mg PO DAILY [facility] Last Admin: 08/13/17 10:01 Dose: 25 mg Atorvastatin Calcium (Lipitor) 80 mg PO DIN [facility] Last Admin: 08/12/17 17:42 Dose: 80 mg Doxycycline Hyclate (Doryx) 100 mg PO Q12 [facility] PRN Reason: Protocol Last Admin: 08/13/17 09:59 Dose: 100 mg Famotidine (Pepcid) 40 mg PO HS [facility] Last Admin: 08/12/17 21:13 Dose: 40 mg Gabapentin (Neurontin) 600 mg PO DAILY [facility] PRN Reason: Protocol Last Admin: 08/13/17 10:02 Dose: 600 mg Hydrochlorothiazide (Microzide) 12.5 mg PO DAILY [facility] Last Admin: 08/13/17 10:00 Dose: 12.5 mg Sodium Chloride (Sodium Chloride 0.9%) 1,000 mls @ 80 mls/hr IV .[id number] [facility] Last Admin: 08/13/17 00:30 Dose: 80 mls/hr Vancomycin HCl (Vancomycin 1gm) 1 gm in 250 mls @ 167 mls/hr IVPB Q12H [facility] PRN Reason: Protocol Last Admin: 08/13/17 13:07 Dose: 167 mls/hr Insulin Human Regular (Humulin R Low) 0 units SC ACHS [facility] PRN Reason: Protocol Last Admin: 08/13/17 13:07 Dose: Not Given Levalbuterol HCl (Xopenex) 1.25 mg [facility] [id number] [facility] Last Admin: 08/12/17 07:13 Dose: 1.25 mg Levothyroxine Sodium (Synthroid) 75 mcg PO ACB [facility] Losartan Potassium (Cozaar) 50 mg PO DAILY [facility] Last Admin: 08/13/17 10:00 Dose: 50 mg Methylprednisolone (Solu-Medrol) 40 mg IV Q12 [facility] Last Admin: 08/13/17 10:01 Dose: 40 mg Tamsulosin HCl (Flomax) 0.4 mg PO DAILY [facility] Last Admin: 08/13/17 10:00 Dose: 0.4 mg Verapamil HCl (Calan Sr Tab) 240 mg PO DAILY [facility] Last Admin: 08/12/17 09:25 Dose: 240 mg Physical Exam - Constitutional Appears: Non-toxic, No Acute Distress, Chronically Ill - Head Exam Additional comments: Left neck contusion Left zygomatic contusion. - Eye Exam Eye Exam: EOMI, PERRL - ENT Exam ENT Exam: Mucous Membranes Moist, Normal External Ear Exam, TM's Normal Bilaterally - Neck Exam Neck exam: Positive for: Full Rom - Respiratory Exam Respiratory Exam: Decreased Breath Sounds, Clear to Auscultation Bilateral. absent: Rales, Rhonchi, Wheezes - Cardiovascular Exam Cardiovascular Exam: REGULAR RHYTHM, RRR, +S1, +S2 - GI/Abdominal Exam GI & Abdominal Exam: Normal Bowel Sounds, Soft. absent: Distended, Tenderness - Extremities Exam Extremities exam: Negative for: joint swelling, pedal edema - Neurological Exam Neurological exam: Alert, CN II-XII Intact, Oriented x3 - Psychiatric Exam Psychiatric exam: Normal Affect, Normal Mood - Skin Skin Exam: Intact, Normal Color Results - Vital Signs Recent Vital Signs: Last Vital Signs Temp 98.8 F 08/13/17 08:00 Pulse 99 H 08/13/17 10:01 Resp 22 08/13/17 09:59 BP 146/81 08/13/17 10:01 Pulse Ox 96 08/13/17 09:00 - Labs Result Diagrams: 08/13/17 05:00 08/13/17 05:00 Labs: Laboratory Results - last 24 hr 08/12/17 08/13/17 08/13/17 22:13 05:00 05:00 WBC 19.5 H D RBC 4.19 Hgb 13.6 L Hct 37.7 L MCV 90.0 MCH 32.5 MCHC 36.1 RDW 13.9 Plt Count 263 MPV 8.2 PT INR APTT pO2 VBG pH VBG pCO2 VBG HCO3 VBG Total CO2 VBG O2 Sat (Calc) VBG Base Excess VBG Potassium Glucose Lactate FiO2 Sodium 132 Potassium 4.3 Chloride 95 L Carbon Dioxide 19 L Anion Gap 24 H BUN 24 H Creatinine 0.8 Est GFR ( Amer) > 60 Est GFR (Non-Af Amer) > 60 POC Glucose (mg/dL) 136 H Random Glucose 141 H Hemoglobin A1c Calcium 9.2 Phosphorus 3.3 Magnesium 2.0 Total Bilirubin 0.8 AST 23 ALT 19 Alkaline Phosphatase 59 Total Creatine Kinase 124 Total Protein 7.7 Albumin 4.4 Globulin 3.2 Albumin/Globulin Ratio 1.4 Triglycerides 51 Cholesterol 107 L LDL Cholesterol Direct 44 HDL Cholesterol 50 TSH 3rd Generation Venous Blood Potassium Blood Type Blood Type Confirm Antibody Screen BBK History Checked 08/13/17 08/13/17 08/13/17 06:00 06:00 06:00 WBC RBC Hgb Hct MCV MCH MCHC RDW Plt Count MPV PT 12.4 INR 1.08 APTT 28.7 pO2 VBG pH VBG pCO2 VBG HCO3 VBG Total CO2 VBG O2 Sat (Calc) VBG Base Excess VBG Potassium Glucose Lactate FiO2 Sodium Potassium Chloride Carbon Dioxide Anion Gap BUN Creatinine Est GFR ( Amer) Est GFR (Non-Af Amer) POC Glucose (mg/dL) Random Glucose Hemoglobin A1c 5.6 Calcium Phosphorus Magnesium Total Bilirubin AST ALT Alkaline Phosphatase Total Creatine Kinase Total Protein Albumin Globulin Albumin/Globulin Ratio Triglycerides Cholesterol LDL Cholesterol Direct HDL Cholesterol TSH 3rd Generation 4.93 H Venous Blood Potassium Blood Type Blood Type Confirm Antibody Screen BBK History Checked 08/13/17 08/13/17 08/13/17 07:51 09:10 09:45 WBC RBC Hgb Hct MCV MCH MCHC RDW Plt Count MPV PT INR APTT pO2 VBG pH VBG pCO2 VBG HCO3 VBG Total CO2 VBG O2 Sat (Calc) VBG Base Excess VBG Potassium Glucose Lactate FiO2 Sodium Potassium Chloride Carbon Dioxide Anion Gap BUN Creatinine Est GFR ( Amer) Est GFR (Non-Af Amer) POC Glucose (mg/dL) 129 H Random Glucose Hemoglobin A1c Calcium Phosphorus Magnesium Total Bilirubin AST ALT Alkaline Phosphatase Total Creatine Kinase Total Protein Albumin Globulin Albumin/Globulin Ratio Triglycerides Cholesterol LDL Cholesterol Direct HDL Cholesterol TSH 3rd Generation Venous Blood Potassium Blood Type AB POSITIVE Blood Type Confirm AB POSITIVE Antibody Screen Negative BBK History Checked No verified bt 08/13/17 08/13/17 11:11 12:15 WBC RBC Hgb Hct MCV MCH MCHC RDW Plt Count MPV PT INR APTT pO2 52 VBG pH 7.42 VBG pCO2 36.0 L VBG HCO3 23.4 VBG Total CO2 24.5 VBG O2 Sat (Calc) 91.5 H VBG Base Excess -0.7 L VBG Potassium 4.2 Glucose 128 H Lactate 3.2 H FiO2 21.0 Sodium 128.0 L Potassium Chloride 96.0 L Carbon Dioxide Anion Gap BUN Creatinine Est GFR ( Amer) Est GFR (Non-Af Amer) POC Glucose (mg/dL) 140 H Random Glucose Hemoglobin A1c Calcium Phosphorus Magnesium Total Bilirubin AST ALT Alkaline Phosphatase Total Creatine Kinase Total Protein Albumin Globulin Albumin/Globulin Ratio Triglycerides Cholesterol LDL Cholesterol Direct HDL Cholesterol TSH 3rd Generation Venous Blood Potassium 4.2 Blood Type Blood Type Confirm Antibody Screen BBK History Checked Assessment & Plan - Assessment and Plan (Free Text) Assessment: 71 yo male with presentation of SOB, wheezing, and fall at home. The patient was found to have a subdural hematoma. Leukocytosis of 19.5. Taken to OR by neurosurgery today. Started on broad spectrum antibiotics with Doxycycline, Vancomycin, and Rocephin (to start). No known drug allergies. Supportive care. S/P craniotomy. K[place]aid cultures. Thank you for allowing me to participate in the care of the patient, we will follow with you.
[2017-08-13 13:33] LABS: URINE BILIRUBIN NEGATIVE (NEGATIVE); URINE BLOOD NEGATIVE (NEGATIVE); URINE GLUCOSE (UA) NEGATIVE (NEGATIVE); URINE LEUKOCYTE ESTERASE NEGATIVE Leu/uL (NEGATIVE); URINE PROTEIN NEGATIVE mg/dL (<30 mg/dL); URINE UROBILINOGEN 0.2 E.U./dL (<1 E.U./dL)
[2017-08-13 13:35] LABS: URINE APPEARANCE CLEAR (CLEAR); URINE COLOR YELLOW (YELLOW)
[2017-08-13] MEDS ORDERED: Bacitracin Ointment 30 GM TUBE ONE (14:00)
[2017-08-13] MEDS ORDERED: Absorbable Gelatin Sponge Size 100 ONE (14:04)
[2017-08-13] MEDS ORDERED: Thrombin Topical 20,000 Intl Units Spray Kit TOP ONE (14:05)
[2017-08-13] MEDS ORDERED: Glycopyrrolate 0.2 mg/ml (2ml vial) ONE (14:20)
[2017-08-13 17:02] LABS: VENOUS BLOOD GAS BASE EXCESS -1.8 mmol/L (0.0-2.0); VENOUS BLOOD GAS PO2 38 mm/Hg (30-55); VENOUS BLOOD PH 7.36 (7.32-7.43)
--- NOTE | 2017-08-14 01:27 | PN ---
DATE: 08/13/2017 SUBJECTIVE: Patient is a 71-year-old, seen and examined, lying in bed, seems to be comfortable. Seems to be more alert, able to give some history, seems to be somewhat confused though. PHYSICAL EXAMINATION: VITAL SIGNS: He is afebrile, pulse 80, respirations 14, blood pressure 159/91. LUNGS: Bilateral good airflow. No rhonchi or crackle. HEART: S1 and S2 audible. ABDOMEN: Soft, obese, nontender. No rebound. No guarding. NEUROLOGIC: He is awake and alert, able to communicate, but forgetful. SKIN: He has left facial and cheek bruise. LABORATORY DATA: WBC hemoglobin 13.6, hematocrit 37, platelets 263. PT 12.4, INR 1.08. Chemistry: Blood sugar is 128. Urinalysis is unremarkable. ASSESSMENT: 1. Status post fall. 2. Subdural hematoma. 3. Left facial contusion. 4. 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 5. Hypertension. 6. Hyperlipidemia. PLAN: Patient underwent dorcas hole evacuation of subdural hematoma. Otherwise, we will monitor his blood pressure. Currently he is on verapamil 240 daily, losartan 50 mg daily. He has been started on doxycycline. He is on nebulizer treatment. I will continue him on statins. He is on Solu-Medrol 40 mg every 12 hours, we will taper down in a.m. He is also getting vancomycin 1 g every 12 hours, and we will follow up CBC and CMP in the a.m. Adrian Thomas MD
[2017-08-14] MEDS: Vancomycin 1gm in NS 250ml 1 GM/250 ML BAG IVPB SCH ×2 (01:42→13:20)
[2017-08-14] MEDS: Albuterol-Ipratrop 3 mg / 0.5 (3 ml) UD IH SCH ×4 (02:58→19:21)
[2017-08-14] MEDS: Sodium Chloride 0.9% 1,000 ML IV SCH (04:43)
[2017-08-14 06:36] LABS: HEMOGLOBIN 14.2 g/dL (14.0-18.0); MEAN CELL VOLUME 90.9 fl (80.0-105.0); MEAN CORPUSCULAR HEMOGLOBIN 33.2 pg (25.0-35.0); MEAN CORPUSCULAR HGB CONC 36.5 g/dl (31.0-37.0); MEAN PLATELET VOLUME 8.6 fl (7.0-11.0); RBC 4.28 10^6/uL (3.5-6.1); WHITE BLOOD COUNT 17.4 10^3/ul (4.5-11.0)
[2017-08-14 06:42] LABS: VENOUS BLOOD GAS BASE EXCESS -0.7 mmol/L (0.0-2.0); VENOUS BLOOD GAS PO2 108 mm/Hg (30-55); VENOUS BLOOD PH 7.39 (7.32-7.43)
[2017-08-14 07:07] LABS: ALB/GLOB RATIO 1.2 (1.1-1.8); ALBUMIN 4.2 g/dL (3.0-4.8); ALT/SGPT 20 U/L (7-56); AST/SGOT 24 U/L (17-59); BLOOD UREA NITROGEN 18 mg/dL (7-21); CALCIUM 8.5 mg/dL (8.4-10.5); GFR AFRICAN-AMERICAN > 60; GFR NON-AFRICAN AMERICAN > 60
--- NOTE | 2017-08-14 07:44 | CP.CCUPN ---
<Jaylyn Fernandez - Last Filed: 08/14/17 10:09> CCU Subjective - Physician Review Subjective (Free Text): 08/12/17 08:28 Overnight, BP 170. Got hydralazine x 1 tolerated breakfast Sunday - Intervention neurosurg Cardiac clearance 08/13/17 12:06 Got hydralazine x 1 3am 179/98. No new focal neurol deficit Pt complaint that his R arm was weaker than yesterday 08/13/17 15:11 Just received pt from OR s/p craniotomy with L sided subdural hematoma evacuation 50cc blood loss. lidocaine/epi local. General anesthesia. Per Dr Johnston: - drain in subdural space. - hang drain low to promote drainage - Do not change the drain bag - Air in subdural space as pt lay in recumbent position. - amount of drainage is immaterial - neuro check q1 - Diet after fully awake 08/14/17 07:40 Pt is awake, states L arm weakness was better. tolerated dinner. No acute complaint CCU Objective - Vital Signs / Intake & Output Vital Signs (Last 4 hours): Vital Signs Temp Pulse Resp BP Pulse Ox 08/14/17 07:00 84 14 156/70 H 97 08/14/17 06:00 84 13 148/83 97 08/14/17 05:24 92 H 20 169/96 H 94 L 08/14/17 05:00 95 H 23 178/97 H 08/14/17 04:00 98.8 F 94 H 17 152/91 H 93 L Intake and Output (Last 8hrs): Intake & Output 08/13/17 08/14/17 08/14/17 22:59 06:59 14:59 Intake Total 1150 960 Output Total 400 Balance 750 960 Intake: IV 1150 960 Right Antecubital 1150 960 Oral 0 0 Output: Urine 400 Urine, Voided 400 Other: # Voids Urine, Voided 0 # Bowel Movements 0 - Physical Exam Head: Positive for: Normocephalic, Other (L zygomatic contusion; L neck contusion. tender on palpation. No pain when moving eyes. L subdural space drain in place, serosanguounous drainage) Pupils: Positive for: PERRL, Other (4mm b/l) Extroacular Muscles: Positive for: EOMI Neck: Positive for: Other (supple) Respiratory/Chest: Positive for: Clear to Auscultation, Decreased Breath Sounds (b/l lung bases). Negative for: Respiratory Distress, Rales, Retracting, Rhonchi Cardiovascular: Positive for: Regular Rate and Rhythm, Normal S1, S2 Abdomen: Positive for: Normal Bowel Sounds. Negative for: Tenderness, Distention, Peritoneal Signs, Rebound, [place]'s Point Tender Back: Positive for: Normal Inspection, Other (R flank eccymosis). Negative for : Midline Tenderness, Paraspinal Tenderness Lower Extremity: Negative for: Edema, CALF TENDERNESS Neurological: Positive for: CN II-XII Intact, Speech Normal, Other (Motor: LUE/ LLE 3+/5; RUE/RLE 4/5. 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 AAOx3) Skin: Positive for: Warm, Dry, Other (accymosis; R flank' L face) Psychiatric: Positive for: Alert, Oriented x 3 - Medications Active Medications: Active Medications Generic Name Dose Route Start Last Admin Trade Name Freq PRN Reason Stop Dose Admin Albuterol/Ipratropium 3 ml 08/12/17 14:00 08/14/17 02:58 Duoneb 3 Mg/0.5 Mg (3 Ml) Ud IH 3 ml [id number] LUIS Administration Allopurinol 300 mg 08/12/17 10:00 08/13/17 10:00 Zyloprim PO 300 mg DAILY LUIS Administration Atenolol 25 mg 08/12/17 10:00 08/13/17 10:01 Tenormin PO 25 mg DAILY LUIS Administration Atorvastatin Calcium 80 mg 08/11/17 19:45 08/13/17 17:13 Lipitor PO Not Given DIN LUIS Doxycycline Hyclate 100 mg 08/12/17 10:00 08/13/17 21:45 Doryx PO 100 mg Q12 LUIS Administration Protocol Famotidine 40 mg 08/11/17 22:00 08/13/17 21:46 Pepcid PO 40 mg HS LUIS Administration Gabapentin 600 mg 08/12/17 10:00 08/13/17 10:02 Neurontin PO 600 mg DAILY LUIS Administration Protocol Hydrochlorothiazide 12.5 mg 08/12/17 10:00 08/13/17 10:00 Microzide PO 12.5 mg DAILY LUIS Administration Sodium Chloride 1,000 mls @ 80 mls/hr 08/13/17 00:30 08/14/17 04:43 Sodium Chloride 0.9% IV 80 mls/hr .[id number] LUIS Administration Vancomycin HCl 1 gm in 250 mls @ 167 mls/hr 08/13/17 13:00 08/14/17 01:42 Vancomycin 1gm IVPB 167 mls/hr Q12H LUIS Administration Protocol Ceftriaxone Sodium 1 gm in 100 mls @ 100 mls/hr 08/14/17 10:00 Rocephin 1 Gram Ivpb IVPB DAILY LUIS Protocol Insulin Human Regular 0 units 08/12/17 22:00 08/13/17 21:47 Humulin R Low SC Not Given ACHS LUIS Protocol Levothyroxine Sodium 75 mcg 08/14/17 07:30 Synthroid PO ACB LUIS Losartan Potassium 50 mg 08/12/17 10:00 08/13/17 10:00 Cozaar PO 50 mg DAILY LUIS Administration Methylprednisolone 40 mg 08/11/17 22:00 08/13/17 21:45 Solu-Medrol IV 40 mg Q12 LUIS Administration Tamsulosin HCl 0.4 mg 08/12/17 10:00 08/13/17 10:00 Flomax PO 0.4 mg DAILY LUIS Administration Verapamil HCl 240 mg 08/12/17 10:00 08/13/17 12:00 Calan Sr Tab PO 240 mg DAILY LUIS Administration - Patient Studies Lab Studies: Microbiology Studies 08/11/17 22:10 MRSA Culture (Admit) - Final Naris MRSA NOT DETECTED Lab Studies 08/14/17 08/14/17 08/14/17 Range/Units 06:28 06:28 06:28 WBC 17.4 H (4.5-11.0) 10^3/ul RBC 4.28 (3.5-6.1) 10^6/uL Hgb 14.2 (14.0-18.0) g/dL Hct 38.9 L (42.0-52.0) % MCV 90.9 (80.0-105.0) fl MCH 33.2 (25.0-35.0) pg MCHC 36.5 (31.0-37.0) g/dl RDW 14.0 (11.5-14.5) % Plt Count 250 (120.0-450.0) 10^3/uL MPV 8.6 (7.0-11.0) fl pO2 108 H (30-55) mm/Hg VBG pH 7.39 (7.32-7.43) VBG pCO2 40.0 (40-60) VBG HCO3 24.2 (21-28) mmol/l VBG Total CO2 25.4 (22-28) mmol.L VBG O2 Sat (Calc) 99.1 H (40-65) % VBG Base Excess -0.7 L (0.0-2.0) mmol/L VBG Potassium 4.1 (3.6-5.2) mmol/L Glucose 159 H (75-110) mg/dl Lactate 3.5 H (0.7-2.1) mmol/L FiO2 21.0 % Sodium 132 129.0 L (132-148) mmol/L Potassium 4.2 (3.6-5.0) mmol/L Chloride 97 L 97.0 L (98-107) mmol/L Carbon Dioxide 22 (21-33) mmol/L Anion Gap 18 (10-20) BUN 18 (7-21) mg/dL Creatinine 0.7 L (0.8-1.5) mg/dl Est GFR ( Amer) > 60 Est GFR (Non-Af Amer) > 60 POC Glucose (mg/dL) (65-110) mg/dL Random Glucose 149 H (70-110) mg/dL Hemoglobin A1c (4.2-6.5) % Calcium 8.5 (8.4-10.5) mg/dL Phosphorus (2.5-4.5) mg/dL Magnesium (1.7-2.2) mg/dL Total Bilirubin 0.8 (0.2-1.3) mg/dL AST 24 (17-59) U/L ALT 20 (7-56) U/L Alkaline Phosphatase 59 (38-126) U/L Total Creatine Kinase (35-230) U/L Total Protein 7.6 (5.8-8.3) g/dL Albumin 4.2 (3.0-4.8) g/dL Globulin 3.4 gm/dL Albumin/Globulin Ratio 1.2 (1.1-1.8) Triglycerides (35-160) mg/dL Cholesterol (130-200) mg/dL LDL Cholesterol Direct (0-129) mg/dL HDL Cholesterol (29-60) mg/dL Procalcitonin (0.19-0.49) NG/ML TSH 3rd Generation (0.46-4.68) mIU/mL Venous Blood Potassium 4.1 (3.6-5.2) mmol/L Urine Color (YELLOW) Urine Appearance (CLEAR) Urine pH (4.7-8.0) Ur Specific [place] (1.005-1.035) Urine Protein (<30 mg/dL) mg/dL Urine Glucose (UA) (NEGATIVE) mg/dL Urine Ketones (NEGATIVE) mg/dL Urine Blood (NEGATIVE) Urine Nitrate (NEGATIVE) Urine Bilirubin (NEGATIVE) Urine Urobilinogen (<1 E.U./dL) E.U./dL Ur Leukocyte Esterase (NEGATIVE) Jovana/uL Blood Type Blood Type Confirm Antibody Screen BBK History Checked 08/13/17 08/13/17 08/13/17 Range/Units 21:05 16:53 16:04 WBC (4.5-11.0) 10^3/ul RBC (3.5-6.1) 10^6/uL Hgb (14.0-18.0) g/dL Hct (42.0-52.0) % MCV (80.0-105.0) fl MCH (25.0-35.0) pg MCHC (31.0-37.0) g/dl RDW (11.5-14.5) % Plt Count (120.0-450.0) 10^3/uL MPV (7.0-11.0) fl pO2 38 (30-55) mm/Hg VBG pH 7.36 (7.32-7.43) VBG pCO2 42.0 (40-60) VBG HCO3 23.7 (21-28) mmol/l VBG Total CO2 25.0 (22-28) mmol.L VBG O2 Sat (Calc) 78.9 H (40-65) % VBG Base Excess -1.8 L (0.0-2.0) mmol/L VBG Potassium 4.4 (3.6-5.2) mmol/L Glucose 145 H (75-110) mg/dl Lactate 3.4 H (0.7-2.1) mmol/L FiO2 21.0 % Sodium 130.0 L (132-148) mmol/L Potassium (3.6-5.0) mmol/L Chloride 96.0 L (98-107) mmol/L Carbon Dioxide (21-33) mmol/L Anion Gap (10-20) BUN (7-21) mg/dL Creatinine (0.8-1.5) mg/dl Est GFR ( Amer) Est GFR (Non-Af Amer) POC Glucose (mg/dL) 108 128 H (65-110) mg/dL Random Glucose (70-110) mg/dL Hemoglobin A1c (4.2-6.5) % Calcium (8.4-10.5) mg/dL Phosphorus (2.5-4.5) mg/dL Magnesium (1.7-2.2) mg/dL Total Bilirubin (0.2-1.3) mg/dL AST (17-59) U/L ALT (7-56) U/L Alkaline Phosphatase (38-126) U/L Total Creatine Kinase (35-230) U/L Total Protein (5.8-8.3) g/dL Albumin (3.0-4.8) g/dL Globulin gm/dL Albumin/Globulin Ratio (1.1-1.8) Triglycerides (35-160) mg/dL Cholesterol (130-200) mg/dL LDL Cholesterol Direct (0-129) mg/dL HDL Cholesterol (29-60) mg/dL Procalcitonin (0.19-0.49) NG/ML TSH 3rd Generation (0.46-4.68) mIU/mL Venous Blood Potassium 4.4 (3.6-5.2) mmol/L Urine Color (YELLOW) Urine Appearance (CLEAR) Urine pH (4.7-8.0) Ur Specific [place] (1.005-1.035) Urine Protein (<30 mg/dL) mg/dL Urine Glucose (UA) (NEGATIVE) mg/dL Urine Ketones (NEGATIVE) mg/dL Urine Blood (NEGATIVE) Urine Nitrate (NEGATIVE) Urine Bilirubin (NEGATIVE) Urine Urobilinogen (<1 E.U./dL) E.U./dL Ur Leukocyte Esterase (NEGATIVE) Jovana/uL Blood Type Blood Type Confirm Antibody Screen BBK History Checked 08/13/17 08/13/17 08/13/17 Range/Units 13:20 12:15 12:15 WBC (4.5-11.0) 10^3/ul RBC (3.5-6.1) 10^6/uL Hgb (14.0-18.0) g/dL Hct (42.0-52.0) % MCV (80.0-105.0) fl MCH (25.0-35.0) pg MCHC (31.0-37.0) g/dl RDW (11.5-14.5) % Plt Count (120.0-450.0) 10^3/uL MPV (7.0-11.0) fl pO2 52 (30-55) mm/Hg VBG pH 7.42 (7.32-7.43) VBG pCO2 36.0 L (40-60) VBG HCO3 23.4 (21-28) mmol/l VBG Total CO2 24.5 (22-28) mmol.L VBG O2 Sat (Calc) 91.5 H (40-65) % VBG Base Excess -0.7 L (0.0-2.0) mmol/L VBG Potassium 4.2 (3.6-5.2) mmol/L Glucose 128 H (75-110) mg/dl Lactate 3.2 H (0.7-2.1) mmol/L FiO2 21.0 % Sodium 128.0 L (132-148) mmol/L Potassium (3.6-5.0) mmol/L Chloride 96.0 L (98-107) mmol/L Carbon Dioxide (21-33) mmol/L Anion Gap (10-20) BUN (7-21) mg/dL Creatinine (0.8-1.5) mg/dl Est GFR ( Amer) Est GFR (Non-Af Amer) POC Glucose (mg/dL) (65-110) mg/dL Random Glucose (70-110) mg/dL Hemoglobin A1c (4.2-6.5) % Calcium (8.4-10.5) mg/dL Phosphorus (2.5-4.5) mg/dL Magnesium (1.7-2.2) mg/dL Total Bilirubin (0.2-1.3) mg/dL AST (17-59) U/L ALT (7-56) U/L Alkaline Phosphatase (38-126) U/L Total Creatine Kinase (35-230) U/L Total Protein (5.8-8.3) g/dL Albumin (3.0-4.8) g/dL Globulin gm/dL Albumin/Globulin Ratio (1.1-1.8) Triglycerides (35-160) mg/dL Cholesterol (130-200) mg/dL LDL Cholesterol Direct (0-129) mg/dL HDL Cholesterol (29-60) mg/dL Procalcitonin 0.05 L (0.19-0.49) NG/ML TSH 3rd Generation (0.46-4.68) mIU/mL Venous Blood Potassium 4.2 (3.6-5.2) mmol/L Urine Color Yellow (YELLOW) Urine Appearance Clear (CLEAR) Urine pH 7.0 (4.7-8.0) Ur Specific [place] 1.015 (1.005-1.035) Urine Protein Negative (<30 mg/dL) mg/dL Urine Glucose (UA) Negative (NEGATIVE) mg/dL Urine Ketones Negative (NEGATIVE) mg/dL Urine Blood Negative (NEGATIVE) Urine Nitrate Negative (NEGATIVE) Urine Bilirubin Negative (NEGATIVE) Urine Urobilinogen 0.2 (<1 E.U./dL) E.U./dL Ur Leukocyte Esterase Negative (NEGATIVE) Jovana/uL Blood Type Blood Type Confirm Antibody Screen BBK History Checked 08/13/17 08/13/17 08/13/17 Range/Units 11:11 09:45 09:10 WBC (4.5-11.0) 10^3/ul RBC (3.5-6.1) 10^6/uL Hgb (14.0-18.0) g/dL Hct (42.0-52.0) % MCV (80.0-105.0) fl MCH (25.0-35.0) pg MCHC (31.0-37.0) g/dl RDW (11.5-14.5) % Plt Count (120.0-450.0) 10^3/uL MPV (7.0-11.0) fl pO2 (30-55) mm/Hg VBG pH (7.32-7.43) VBG pCO2 (40-60) VBG HCO3 (21-28) mmol/l VBG Total CO2 (22-28) mmol.L VBG O2 Sat (Calc) (40-65) % VBG Base Excess (0.0-2.0) mmol/L VBG Potassium (3.6-5.2) mmol/L Glucose (75-110) mg/dl Lactate (0.7-2.1) mmol/L FiO2 % Sodium (132-148) mmol/L Potassium (3.6-5.0) mmol/L Chloride (98-107) mmol/L Carbon Dioxide (21-33) mmol/L Anion Gap (10-20) BUN (7-21) mg/dL Creatinine (0.8-1.5) mg/dl Est GFR ( Amer) Est GFR (Non-Af Amer) POC Glucose (mg/dL) 140 H (65-110) mg/dL Random Glucose (70-110) mg/dL Hemoglobin A1c (4.2-6.5) % Calcium (8.4-10.5) mg/dL Phosphorus (2.5-4.5) mg/dL Magnesium (1.7-2.2) mg/dL Total Bilirubin (0.2-1.3) mg/dL AST (17-59) U/L ALT (7-56) U/L Alkaline Phosphatase (38-126) U/L Total Creatine Kinase (35-230) U/L Total Protein (5.8-8.3) g/dL Albumin (3.0-4.8) g/dL Globulin gm/dL Albumin/Globulin Ratio (1.1-1.8) Triglycerides (35-160) mg/dL Cholesterol (130-200) mg/dL LDL Cholesterol Direct (0-129) mg/dL HDL Cholesterol (29-60) mg/dL Procalcitonin (0.19-0.49) NG/ML TSH 3rd Generation (0.46-4.68) mIU/mL Venous Blood Potassium (3.6-5.2) mmol/L Urine Color (YELLOW) Urine Appearance (CLEAR) Urine pH (4.7-8.0) Ur Specific [place] (1.005-1.035) Urine Protein (<30 mg/dL) mg/dL Urine Glucose (UA) (NEGATIVE) mg/dL Urine Ketones (NEGATIVE) mg/dL Urine Blood (NEGATIVE) Urine Nitrate (NEGATIVE) Urine Bilirubin (NEGATIVE) Urine Urobilinogen (<1 E.U./dL) E.U./dL Ur Leukocyte Esterase (NEGATIVE) Jovana/uL Blood Type AB POSITIVE Blood Type Confirm AB POSITIVE Antibody Screen Negative BBK History Checked No verified bt 08/13/17 08/13/17 08/13/17 Range/Units 07:51 06:00 06:00 WBC (4.5-11.0) 10^3/ul RBC (3.5-6.1) 10^6/uL Hgb (14.0-18.0) g/dL Hct (42.0-52.0) % MCV (80.0-105.0) fl MCH (25.0-35.0) pg MCHC (31.0-37.0) g/dl RDW (11.5-14.5) % Plt Count (120.0-450.0) 10^3/uL MPV (7.0-11.0) fl pO2 (30-55) mm/Hg VBG pH (7.32-7.43) VBG pCO2 (40-60) VBG HCO3 (21-28) mmol/l VBG Total CO2 (22-28) mmol.L VBG O2 Sat (Calc) (40-65) % VBG Base Excess (0.0-2.0) mmol/L VBG Potassium (3.6-5.2) mmol/L Glucose (75-110) mg/dl Lactate (0.7-2.1) mmol/L FiO2 % Sodium (132-148) mmol/L Potassium (3.6-5.0) mmol/L Chloride (98-107) mmol/L Carbon Dioxide (21-33) mmol/L Anion Gap (10-20) BUN (7-21) mg/dL Creatinine (0.8-1.5) mg/dl Est GFR ( Amer) Est GFR (Non-Af Amer) POC Glucose (mg/dL) 129 H (65-110) mg/dL Random Glucose (70-110) mg/dL Hemoglobin A1c 5.6 (4.2-6.5) % Calcium (8.4-10.5) mg/dL Phosphorus (2.5-4.5) mg/dL Magnesium (1.7-2.2) mg/dL Total Bilirubin (0.2-1.3) mg/dL AST (17-59) U/L ALT (7-56) U/L Alkaline Phosphatase (38-126) U/L Total Creatine Kinase (35-230) U/L Total Protein (5.8-8.3) g/dL Albumin (3.0-4.8) g/dL Globulin gm/dL Albumin/Globulin Ratio (1.1-1.8) Triglycerides (35-160) mg/dL Cholesterol (130-200) mg/dL LDL Cholesterol Direct (0-129) mg/dL HDL Cholesterol (29-60) mg/dL Procalcitonin (0.19-0.49) NG/ML TSH 3rd Generation 4.93 H (0.46-4.68) mIU/mL Venous Blood Potassium (3.6-5.2) mmol/L Urine Color (YELLOW) Urine Appearance (CLEAR) Urine pH (4.7-8.0) Ur Specific [place] (1.005-1.035) Urine Protein (<30 mg/dL) mg/dL Urine Glucose (UA) (NEGATIVE) mg/dL Urine Ketones (NEGATIVE) mg/dL Urine Blood (NEGATIVE) Urine Nitrate (NEGATIVE) Urine Bilirubin (NEGATIVE) Urine Urobilinogen (<1 E.U./dL) E.U./dL Ur Leukocyte Esterase (NEGATIVE) Jovana/uL Blood Type Blood Type Confirm Antibody Screen BBK History Checked 08/13/17 Range/Units 05:00 WBC (4.5-11.0) 10^3/ul RBC (3.5-6.1) 10^6/uL Hgb (14.0-18.0) g/dL Hct (42.0-52.0) % MCV (80.0-105.0) fl MCH (25.0-35.0) pg MCHC (31.0-37.0) g/dl RDW (11.5-14.5) % Plt Count (120.0-450.0) 10^3/uL MPV (7.0-11.0) fl pO2 (30-55) mm/Hg VBG pH (7.32-7.43) VBG pCO2 (40-60) VBG HCO3 (21-28) mmol/l VBG Total CO2 (22-28) mmol.L VBG O2 Sat (Calc) (40-65) % VBG Base Excess (0.0-2.0) mmol/L VBG Potassium (3.6-5.2) mmol/L Glucose (75-110) mg/dl Lactate (0.7-2.1) mmol/L FiO2 % Sodium 132 (132-148) mmol/L Potassium 4.3 (3.6-5.0) mmol/L Chloride 95 L (98-107) mmol/L Carbon Dioxide 19 L (21-33) mmol/L Anion Gap 24 H (10-20) BUN 24 H (7-21) mg/dL Creatinine 0.8 (0.8-1.5) mg/dl Est GFR ( Amer) > 60 Est GFR (Non-Af Amer) > 60 POC Glucose (mg/dL) (65-110) mg/dL Random Glucose 141 H (70-110) mg/dL Hemoglobin A1c (4.2-6.5) % Calcium 9.2 (8.4-10.5) mg/dL Phosphorus 3.3 (2.5-4.5) mg/dL Magnesium 2.0 (1.7-2.2) mg/dL Total Bilirubin 0.8 (0.2-1.3) mg/dL AST 23 (17-59) U/L ALT 19 (7-56) U/L Alkaline Phosphatase 59 (38-126) U/L Total Creatine Kinase 124 (35-230) U/L Total Protein 7.7 (5.8-8.3) g/dL Albumin 4.4 (3.0-4.8) g/dL Globulin 3.2 gm/dL Albumin/Globulin Ratio 1.4 (1.1-1.8) Triglycerides 51 (35-160) mg/dL Cholesterol 107 L (130-200) mg/dL LDL Cholesterol Direct 44 (0-129) mg/dL HDL Cholesterol 50 (29-60) mg/dL Procalcitonin (0.19-0.49) NG/ML TSH 3rd Generation (0.46-4.68) mIU/mL Venous Blood Potassium (3.6-5.2) mmol/L Urine Color (YELLOW) Urine Appearance (CLEAR) Urine pH (4.7-8.0) Ur Specific [place] (1.005-1.035) Urine Protein (<30 mg/dL) mg/dL Urine Glucose (UA) (NEGATIVE) mg/dL Urine Ketones (NEGATIVE) mg/dL Urine Blood (NEGATIVE) Urine Nitrate (NEGATIVE) Urine Bilirubin (NEGATIVE) Urine Urobilinogen (<1 E.U./dL) E.U./dL Ur Leukocyte Esterase (NEGATIVE) Jovana/uL Blood Type Blood Type Confirm Antibody Screen BBK History Checked Laboratory Results - last 24 hr 08/13/17 08/13/17 08/13/17 05:00 06:00 06:00 WBC RBC Hgb Hct MCV MCH MCHC RDW Plt Count MPV pO2 VBG pH VBG pCO2 VBG HCO3 VBG Total CO2 VBG O2 Sat (Calc) VBG Base Excess VBG Potassium Glucose Lactate FiO2 Sodium 132 Potassium 4.3 Chloride 95 L Carbon Dioxide 19 L Anion Gap 24 H BUN 24 H Creatinine 0.8 Est GFR ( Amer) > 60 Est GFR (Non-Af Amer) > 60 POC Glucose (mg/dL) Random Glucose 141 H Hemoglobin A1c 5.6 Calcium 9.2 Phosphorus 3.3 Magnesium 2.0 Total Bilirubin 0.8 AST 23 ALT 19 Alkaline Phosphatase 59 Total Creatine Kinase 124 Total Protein 7.7 Albumin 4.4 Globulin 3.2 Albumin/Globulin Ratio 1.4 Triglycerides 51 Cholesterol 107 L LDL Cholesterol Direct 44 HDL Cholesterol 50 Procalcitonin TSH 3rd Generation 4.93 H Venous Blood Potassium Urine Color Urine Appearance Urine pH Ur Specific [place] Urine Protein Urine Glucose (UA) Urine Ketones Urine Blood Urine Nitrate Urine Bilirubin Urine Urobilinogen Ur Leukocyte Esterase Blood Type Blood Type Confirm Antibody Screen BBK History Checked 08/13/17 08/13/17 08/13/17 07:51 09:10 09:45 WBC RBC Hgb Hct MCV MCH MCHC RDW Plt Count MPV pO2 VBG pH VBG pCO2 VBG HCO3 VBG Total CO2 VBG O2 Sat (Calc) VBG Base Excess VBG Potassium Glucose Lactate FiO2 Sodium Potassium Chloride Carbon Dioxide Anion Gap BUN Creatinine Est GFR ( Amer) Est GFR (Non-Af Amer) POC Glucose (mg/dL) 129 H Random Glucose Hemoglobin A1c Calcium Phosphorus Magnesium Total Bilirubin AST ALT Alkaline Phosphatase Total Creatine Kinase Total Protein Albumin Globulin Albumin/Globulin Ratio Triglycerides Cholesterol LDL Cholesterol Direct HDL Cholesterol Procalcitonin TSH 3rd Generation Venous Blood Potassium Urine Color Urine Appearance Urine pH Ur Specific [place] Urine Protein Urine Glucose (UA) Urine Ketones Urine Blood Urine Nitrate Urine Bilirubin Urine Urobilinogen Ur Leukocyte Esterase Blood Type AB POSITIVE Blood Type Confirm AB POSITIVE Antibody Screen Negative BBK History Checked No verified bt 08/13/17 08/13/17 08/13/17 11:11 12:15 12:15 WBC RBC Hgb Hct MCV MCH MCHC RDW Plt Count MPV pO2 52 VBG pH 7.42 VBG pCO2 36.0 L VBG HCO3 23.4 VBG Total CO2 24.5 VBG O2 Sat (Calc) 91.5 H VBG Base Excess -0.7 L VBG Potassium 4.2 Glucose 128 H Lactate 3.2 H FiO2 21.0 Sodium 128.0 L Potassium Chloride 96.0 L Carbon Dioxide Anion Gap BUN Creatinine Est GFR ( Amer) Est GFR (Non-Af Amer) POC Glucose (mg/dL) 140 H Random Glucose Hemoglobin A1c Calcium Phosphorus Magnesium Total Bilirubin AST ALT Alkaline Phosphatase Total Creatine Kinase Total Protein Albumin Globulin Albumin/Globulin Ratio Triglycerides Cholesterol LDL Cholesterol Direct HDL Cholesterol Procalcitonin 0.05 L TSH 3rd Generation Venous Blood Potassium 4.2 Urine Color Urine Appearance Urine pH Ur Specific [place] Urine Protein Urine Glucose (UA) Urine Ketones Urine Blood Urine Nitrate Urine Bilirubin Urine Urobilinogen Ur Leukocyte Esterase Blood Type Blood Type Confirm Antibody Screen BBK History Checked 08/13/17 08/13/17 08/13/17 13:20 16:04 16:53 WBC RBC Hgb Hct MCV MCH MCHC RDW Plt Count MPV pO2 38 VBG pH 7.36 VBG pCO2 42.0 VBG HCO3 23.7 VBG Total CO2 25.0 VBG O2 Sat (Calc) 78.9 H VBG Base Excess -1.8 L VBG Potassium 4.4 Glucose 145 H Lactate 3.4 H FiO2 21.0 Sodium 130.0 L Potassium Chloride 96.0 L Carbon Dioxide Anion Gap BUN Creatinine Est GFR ( Amer) Est GFR (Non-Af Amer) POC Glucose (mg/dL) 128 H Random Glucose Hemoglobin A1c Calcium Phosphorus Magnesium Total Bilirubin AST ALT Alkaline Phosphatase Total Creatine Kinase Total Protein Albumin Globulin Albumin/Globulin Ratio Triglycerides Cholesterol LDL Cholesterol Direct HDL Cholesterol Procalcitonin TSH 3rd Generation Venous Blood Potassium 4.4 Urine Color Yellow Urine Appearance Clear Urine pH 7.0 Ur Specific [place] 1.015 Urine Protein Negative Urine Glucose (UA) Negative Urine Ketones Negative Urine Blood Negative Urine Nitrate Negative Urine Bilirubin Negative Urine Urobilinogen 0.2 Ur Leukocyte Esterase Negative Blood Type Blood Type Confirm Antibody Screen BBK History Checked 08/13/17 08/14/17 08/14/17 21:05 06:28 06:28 WBC 17.4 H RBC 4.28 Hgb 14.2 Hct 38.9 L MCV 90.9 MCH 33.2 MCHC 36.5 RDW 14.0 Plt Count 250 MPV 8.6 pO2 108 H VBG pH 7.39 VBG pCO2 40.0 VBG HCO3 24.2 VBG Total CO2 25.4 VBG O2 Sat (Calc) 99.1 H VBG Base Excess -0.7 L VBG Potassium 4.1 Glucose 159 H Lactate 3.5 H FiO2 21.0 Sodium 129.0 L Potassium Chloride 97.0 L Carbon Dioxide Anion Gap BUN Creatinine Est GFR ( Amer) Est GFR (Non-Af Amer) POC Glucose (mg/dL) 108 Random Glucose Hemoglobin A1c Calcium Phosphorus Magnesium Total Bilirubin AST ALT Alkaline Phosphatase Total Creatine Kinase Total Protein Albumin Globulin Albumin/Globulin Ratio Triglycerides Cholesterol LDL Cholesterol Direct HDL Cholesterol Procalcitonin TSH 3rd Generation Venous Blood Potassium 4.1 Urine Color Urine Appearance Urine pH Ur Specific [place] Urine Protein Urine Glucose (UA) Urine Ketones Urine Blood Urine Nitrate Urine Bilirubin Urine Urobilinogen Ur Leukocyte Esterase Blood Type Blood Type Confirm Antibody Screen BBK History Checked 08/14/17 06:28 WBC RBC Hgb Hct MCV MCH MCHC RDW Plt Count MPV pO2 VBG pH VBG pCO2 VBG HCO3 VBG Total CO2 VBG O2 Sat (Calc) VBG Base Excess VBG Potassium Glucose Lactate FiO2 Sodium 132 Potassium 4.2 Chloride 97 L Carbon Dioxide 22 Anion Gap 18 BUN 18 Creatinine 0.7 L Est GFR ( Amer) > 60 Est GFR (Non-Af Amer) > 60 POC Glucose (mg/dL) Random Glucose 149 H Hemoglobin A1c Calcium 8.5 Phosphorus Magnesium Total Bilirubin 0.8 AST 24 ALT 20 Alkaline Phosphatase 59 Total Creatine Kinase Total Protein 7.6 Albumin 4.2 Globulin 3.4 Albumin/Globulin Ratio 1.2 Triglycerides Cholesterol LDL Cholesterol Direct HDL Cholesterol Procalcitonin TSH 3rd Generation Venous Blood Potassium Urine Color Urine Appearance Urine pH Ur Specific [place] Urine Protein Urine Glucose (UA) Urine Ketones Urine Blood Urine Nitrate Urine Bilirubin Urine Urobilinogen Ur Leukocyte Esterase Blood Type Blood Type Confirm Antibody Screen BBK History Checked Fingerstick Blood Sugar Results: 108 Critical Care Progress Note - Nutrition Nutrition: Nutrition Category Date Time Status Heart Healthy Diet [DIET] Diets 08/11/17 Breakfast Active Assessment/Plan - Assessment and Plan (Free Text) Plan: Mr Marcia Ricardo, 71yo male with past medical history of HTN, hypothyroidism, CVA (L sided weakness) admitted for L subdural hematoma s/p fall due to lost of balance. He has bruises on L face and R body, suspicious of Hx frequent falls. CT head (08/11): Prominent acute subdural bleed in the left hemispheric convexity. Moderate midline shift is present. Mild uncal herniation. PE: pupil 4mm b/l. 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 Cardiology cleared for OR EKG showed SR@95 BPM, similar to previous EKG Patient placed on home meds: Atenolol, cozaar, Verapamil, HCTZ, Lipitor Maintain SBP 130-160. Avoid fluctuations in BP Want RN to page resident if BP too high. Pulm: Aspiration precaution o2 supplementation to maintain Spo2>90 Pao2>60 Duoneb On solumedrol 20q12 CXR showed poor inspiration, no marked pleural effusion/infiltrates GI: Passed swallow eval Heart healthy diet : D/C fluid. Pt can eat [place] cath if needed Nephro: Monitor electrolytes and replace as needed Heme: H/H stable Hold anticoagulation due to subdural hematoma LE U/S negative for DVT ID: Lactate 4.1 --> 3.5 F/u Septic work up U/A neg MRSA nares negative Doxycycline, Vancomycin, and Rocephin Endo: Maintain euglycemia (140-180s) GI ppx: Pepcid DVT ppx: SCDs Dispo plan: Neuro check q1. CT head on Sunday to see air situation & see if drain can be pulled. Dr. Johnston ok for PT/OT in bed. Tomorrow, after CT, call Dr. Johnston if OK to pull drain and downgrade to tele Consult: Louis Whitney Asif s/r/d/w Dr. Garcia <Kei Garcia - Last Filed: 08/14/17 10:43> CCU Objective - Vital Signs / Intake & Output Vital Signs (Last 4 hours): Vital Signs Pulse Resp BP Pulse Ox 08/14/17 09:11 94 H 147/87 08/14/17 09:10 94 H 147/87 08/14/17 09:04 93 H 147/87 08/14/17 07:00 84 14 156/70 H 97 Intake and Output (Last 8hrs): Intake & Output 08/13/17 08/14/17 08/14/17 22:59 06:59 14:59 Intake Total 1150 960 Output Total 400 Balance 750 960 Intake: IV 1150 960 Right Antecubital 1150 960 Oral 0 0 Output: Urine 400 Urine, Voided 400 Other: # Voids Urine, Voided 0 # Bowel Movements 0 - Medications Active Medications: Active Medications Generic Name Dose Route Start Last Admin Trade Name Freq PRN Reason Stop Dose Admin Albuterol/Ipratropium 3 ml 08/12/17 14:00 08/14/17 07:58 Duoneb 3 Mg/0.5 Mg (3 Ml) Ud IH 3 ml [id number] LUIS Administration Allopurinol 300 mg 08/12/17 10:00 08/14/17 09:05 Zyloprim PO 300 mg DAILY LUIS Administration Atenolol 25 mg 08/12/17 10:00 08/14/17 09:11 Tenormin PO 25 mg DAILY LUIS Administration Atorvastatin Calcium 80 mg 08/11/17 19:45 08/13/17 17:13 Lipitor PO Not Given DIN LUIS Doxycycline Hyclate 100 mg 08/12/17 10:00 08/14/17 09:05 Doryx PO 100 mg Q12 LUIS Administration Protocol Famotidine 40 mg 08/11/17 22:00 08/13/17 21:46 Pepcid PO 40 mg HS LUIS Administration Gabapentin 600 mg 08/12/17 10:00 08/14/17 09:05 Neurontin PO 600 mg DAILY LUIS Administration Protocol Hydralazine HCl 10 mg 08/14/17 09:58 Apresoline IVP Q6 PRN for sbp>160 Hydrochlorothiazide 12.5 mg 08/12/17 10:00 08/14/17 09:06 Microzide PO 12.5 mg DAILY LUIS Administration Vancomycin HCl 1 gm in 250 mls @ 167 mls/hr 08/13/17 13:00 08/14/17 01:42 Vancomycin 1gm IVPB 167 mls/hr Q12H LUIS Administration Protocol Ceftriaxone Sodium 1 gm in 100 mls @ 100 mls/hr 08/14/17 10:00 08/14/17 09:02 Rocephin 1 Gram Ivpb IVPB 100 mls/hr DAILY LUIS Administration Protocol Insulin Human Regular 0 units 08/12/17 22:00 08/14/17 08:37 Humulin R Low SC Not Given ACHS LUIS Protocol Levothyroxine Sodium 75 mcg 08/14/17 07:30 08/14/17 08:40 Synthroid PO 75 mcg ACB LUIS Administration Losartan Potassium 50 mg 08/12/17 10:00 08/14/17 09:04 Cozaar PO 50 mg DAILY LUIS Administration Methylprednisolone 20 mg 08/14/17 10:00 08/14/17 09:04 Solu-Medrol IVP 20 mg Q12 LUIS Administration Tamsulosin HCl 0.4 mg 08/12/17 10:00 08/14/17 09:05 Flomax PO 0.4 mg DAILY LUIS Administration Verapamil HCl 240 mg 08/12/17 10:00 08/14/17 09:10 Calan Sr Tab PO 240 mg DAILY LUIS Administration - Patient Studies Lab Studies: Microbiology Studies 08/11/17 22:10 MRSA Culture (Admit) - Final Naris MRSA NOT DETECTED Lab Studies 08/14/17 08/14/17 08/14/17 Range/Units 08:25 06:28 06:28 WBC 17.4 H (4.5-11.0) 10^3/ul RBC 4.28 (3.5-6.1) 10^6/uL Hgb 14.2 (14.0-18.0) g/dL Hct 38.9 L (42.0-52.0) % MCV 90.9 (80.0-105.0) fl MCH 33.2 (25.0-35.0) pg MCHC 36.5 (31.0-37.0) g/dl RDW 14.0 (11.5-14.5) % Plt Count 250 (120.0-450.0) 10^3/uL MPV 8.6 (7.0-11.0) fl pO2 (30-55) mm/Hg VBG pH (7.32-7.43) VBG pCO2 (40-60) VBG HCO3 (21-28) mmol/l VBG Total CO2 (22-28) mmol.L VBG O2 Sat (Calc) (40-65) % VBG Base Excess (0.0-2.0) mmol/L VBG Potassium (3.6-5.2) mmol/L Sodium 132 (132-148) mmol/L Chloride 97 L (98-107) mmol/L Glucose (75-110) mg/dl Lactate (0.7-2.1) mmol/L FiO2 % Potassium 4.2 (3.6-5.0) mmol/L Carbon Dioxide 22 (21-33) mmol/L Anion Gap 18 (10-20) BUN 18 (7-21) mg/dL Creatinine 0.7 L (0.8-1.5) mg/dl Est GFR ( Amer) > 60 Est GFR (Non-Af Amer) > 60 POC Glucose (mg/dL) 122 H (65-110) mg/dL Random Glucose 149 H (70-110) mg/dL Hemoglobin A1c (4.2-6.5) % Calcium 8.5 (8.4-10.5) mg/dL Total Bilirubin 0.8 (0.2-1.3) mg/dL AST 24 (17-59) U/L ALT 20 (7-56) U/L Alkaline Phosphatase 59 (38-126) U/L Total Protein 7.6 (5.8-8.3) g/dL Albumin 4.2 (3.0-4.8) g/dL Globulin 3.4 gm/dL Albumin/Globulin Ratio 1.2 (1.1-1.8) Procalcitonin (0.19-0.49) NG/ML Venous Blood Potassium (3.6-5.2) mmol/L Urine Color (YELLOW) Urine Appearance (CLEAR) Urine pH (4.7-8.0) Ur Specific Newton (1.005-1.035) Urine Protein (<30 mg/dL) mg/dL Urine Glucose (UA) (NEGATIVE) mg/dL Urine Ketones (NEGATIVE) mg/dL Urine Blood (NEGATIVE) Urine Nitrate (NEGATIVE) Urine Bilirubin (NEGATIVE) Urine Urobilinogen (<1 E.U./dL) E.U./dL Ur Leukocyte Esterase (NEGATIVE) Jovana/uL 08/14/17 08/13/17 08/13/17 Range/Units 06:28 21:05 16:53 WBC (4.5-11.0) 10^3/ul RBC (3.5-6.1) 10^6/uL Hgb (14.0-18.0) g/dL Hct (42.0-52.0) % MCV (80.0-105.0) fl MCH (25.0-35.0) pg MCHC (31.0-37.0) g/dl RDW (11.5-14.5) % Plt Count (120.0-450.0) 10^3/uL MPV (7.0-11.0) fl pO2 108 H 38 (30-55) mm/Hg VBG pH 7.39 7.36 (7.32-7.43) VBG pCO2 40.0 42.0 (40-60) VBG HCO3 24.2 23.7 (21-28) mmol/l VBG Total CO2 25.4 25.0 (22-28) mmol.L VBG O2 Sat (Calc) 99.1 H 78.9 H (40-65) % VBG Base Excess -0.7 L -1.8 L (0.0-2.0) mmol/L VBG Potassium 4.1 4.4 (3.6-5.2) mmol/L Sodium 129.0 L 130.0 L (132-148) mmol/L Chloride 97.0 L 96.0 L (98-107) mmol/L Glucose 159 H 145 H (75-110) mg/dl Lactate 3.5 H 3.4 H (0.7-2.1) mmol/L FiO2 21.0 21.0 % Potassium (3.6-5.0) mmol/L Carbon Dioxide (21-33) mmol/L Anion Gap (10-20) BUN (7-21) mg/dL Creatinine (0.8-1.5) mg/dl Est GFR ( Amer) Est GFR (Non-Af Amer) POC Glucose (mg/dL) 108 (65-110) mg/dL Random Glucose (70-110) mg/dL Hemoglobin A1c (4.2-6.5) % Calcium (8.4-10.5) mg/dL Total Bilirubin (0.2-1.3) mg/dL AST (17-59) U/L ALT (7-56) U/L Alkaline Phosphatase (38-126) U/L Total Protein (5.8-8.3) g/dL Albumin (3.0-4.8) g/dL Globulin gm/dL Albumin/Globulin Ratio (1.1-1.8) Procalcitonin (0.19-0.49) NG/ML Venous Blood Potassium 4.1 4.4 (3.6-5.2) mmol/L Urine Color (YELLOW) Urine Appearance (CLEAR) Urine pH (4.7-8.0) Ur Specific Newton (1.005-1.035) Urine Protein (<30 mg/dL) mg/dL Urine Glucose (UA) (NEGATIVE) mg/dL Urine Ketones (NEGATIVE) mg/dL Urine Blood (NEGATIVE) Urine Nitrate (NEGATIVE) Urine Bilirubin (NEGATIVE) Urine Urobilinogen (<1 E.U./dL) E.U./dL Ur Leukocyte Esterase (NEGATIVE) Jovana/uL 08/13/17 08/13/17 08/13/17 Range/Units 16:04 13:20 12:15 WBC (4.5-11.0) 10^3/ul RBC (3.5-6.1) 10^6/uL Hgb (14.0-18.0) g/dL Hct (42.0-52.0) % MCV (80.0-105.0) fl MCH (25.0-35.0) pg MCHC (31.0-37.0) g/dl RDW (11.5-14.5) % Plt Count (120.0-450.0) 10^3/uL MPV (7.0-11.0) fl pO2 52 (30-55) mm/Hg VBG pH 7.42 (7.32-7.43) VBG pCO2 36.0 L (40-60) VBG HCO3 23.4 (21-28) mmol/l VBG Total CO2 24.5 (22-28) mmol.L VBG O2 Sat (Calc) 91.5 H (40-65) % VBG Base Excess -0.7 L (0.0-2.0) mmol/L VBG Potassium 4.2 (3.6-5.2) mmol/L Sodium 128.0 L (132-148) mmol/L Chloride 96.0 L (98-107) mmol/L Glucose 128 H (75-110) mg/dl Lactate 3.2 H (0.7-2.1) mmol/L FiO2 21.0 % Potassium (3.6-5.0) mmol/L Carbon Dioxide (21-33) mmol/L Anion Gap (10-20) BUN (7-21) mg/dL Creatinine (0.8-1.5) mg/dl Est GFR ( Amer) Est GFR (Non-Af Amer) POC Glucose (mg/dL) 128 H (65-110) mg/dL Random Glucose (70-110) mg/dL Hemoglobin A1c (4.2-6.5) % Calcium (8.4-10.5) mg/dL Total Bilirubin (0.2-1.3) mg/dL AST (17-59) U/L ALT (7-56) U/L Alkaline Phosphatase (38-126) U/L Total Protein (5.8-8.3) g/dL Albumin (3.0-4.8) g/dL Globulin gm/dL Albumin/Globulin Ratio (1.1-1.8) Procalcitonin (0.19-0.49) NG/ML Venous Blood Potassium 4.2 (3.6-5.2) mmol/L Urine Color Yellow (YELLOW) Urine Appearance Clear (CLEAR) Urine pH 7.0 (4.7-8.0) Ur Specific Newton 1.015 (1.005-1.035) Urine Protein Negative (<30 mg/dL) mg/dL Urine Glucose (UA) Negative (NEGATIVE) mg/dL Urine Ketones Negative (NEGATIVE) mg/dL Urine Blood Negative (NEGATIVE) Urine Nitrate Negative (NEGATIVE) Urine Bilirubin Negative (NEGATIVE) Urine Urobilinogen 0.2 (<1 E.U./dL) E.U./dL Ur Leukocyte Esterase Negative (NEGATIVE) Jovana/uL 08/13/17 08/13/17 08/13/17 Range/Units 12:15 11:11 06:00 WBC (4.5-11.0) 10^3/ul RBC (3.5-6.1) 10^6/uL Hgb (14.0-18.0) g/dL Hct (42.0-52.0) % MCV (80.0-105.0) fl MCH (25.0-35.0) pg MCHC (31.0-37.0) g/dl RDW (11.5-14.5) % Plt Count (120.0-450.0) 10^3/uL MPV (7.0-11.0) fl pO2 (30-55) mm/Hg VBG pH (7.32-7.43) VBG pCO2 (40-60) VBG HCO3 (21-28) mmol/l VBG Total CO2 (22-28) mmol.L VBG O2 Sat (Calc) (40-65) % VBG Base Excess (0.0-2.0) mmol/L VBG Potassium (3.6-5.2) mmol/L Sodium (132-148) mmol/L Chloride (98-107) mmol/L Glucose (75-110) mg/dl Lactate (0.7-2.1) mmol/L FiO2 % Potassium (3.6-5.0) mmol/L Carbon Dioxide (21-33) mmol/L Anion Gap (10-20) BUN (7-21) mg/dL Creatinine (0.8-1.5) mg/dl Est GFR ( Amer) Est GFR (Non-Af Amer) POC Glucose (mg/dL) 140 H (65-110) mg/dL Random Glucose (70-110) mg/dL Hemoglobin A1c 5.6 (4.2-6.5) % Calcium (8.4-10.5) mg/dL Total Bilirubin (0.2-1.3) mg/dL AST (17-59) U/L ALT (7-56) U/L Alkaline Phosphatase (38-126) U/L Total Protein (5.8-8.3) g/dL Albumin (3.0-4.8) g/dL Globulin gm/dL Albumin/Globulin Ratio (1.1-1.8) Procalcitonin 0.05 L (0.19-0.49) NG/ML Venous Blood Potassium (3.6-5.2) mmol/L Urine Color (YELLOW) Urine Appearance (CLEAR) Urine pH (4.7-8.0) Ur Specific Newton (1.005-1.035) Urine Protein (<30 mg/dL) mg/dL Urine Glucose (UA) (NEGATIVE) mg/dL Urine Ketones (NEGATIVE) mg/dL Urine Blood (NEGATIVE) Urine Nitrate (NEGATIVE) Urine Bilirubin (NEGATIVE) Urine Urobilinogen (<1 E.U./dL) E.U./dL Ur Leukocyte Esterase (NEGATIVE) Jovana/uL Laboratory Results - last 24 hr 08/13/17 08/13/17 08/13/17 06:00 11:11 12:15 WBC RBC Hgb Hct MCV MCH MCHC RDW Plt Count MPV pO2 VBG pH VBG pCO2 VBG HCO3 VBG Total CO2 VBG O2 Sat (Calc) VBG Base Excess VBG Potassium Sodium Chloride Glucose Lactate FiO2 Potassium Carbon Dioxide Anion Gap BUN Creatinine Est GFR ( Amer) Est GFR (Non-Af Amer) POC Glucose (mg/dL) 140 H Random Glucose Hemoglobin A1c 5.6 Calcium Total Bilirubin AST ALT Alkaline Phosphatase Total Protein Albumin Globulin Albumin/Globulin Ratio Procalcitonin 0.05 L Venous Blood Potassium Urine Color Urine Appearance Urine pH Ur Specific Newton Urine Protein Urine Glucose (UA) Urine Ketones Urine Blood Urine Nitrate Urine Bilirubin Urine Urobilinogen Ur Leukocyte Esterase 08/13/17 08/13/17 08/13/17 12:15 13:20 16:04 WBC RBC Hgb Hct MCV MCH MCHC RDW Plt Count MPV pO2 52 VBG pH 7.42 VBG pCO2 36.0 L VBG HCO3 23.4 VBG Total CO2 24.5 VBG O2 Sat (Calc) 91.5 H VBG Base Excess -0.7 L VBG Potassium 4.2 Sodium 128.0 L Chloride 96.0 L Glucose 128 H Lactate 3.2 H FiO2 21.0 Potassium Carbon Dioxide Anion Gap BUN Creatinine Est GFR ( Amer) Est GFR (Non-Af Amer) POC Glucose (mg/dL) 128 H Random Glucose Hemoglobin A1c Calcium Total Bilirubin AST ALT Alkaline Phosphatase Total Protein Albumin Globulin Albumin/Globulin Ratio Procalcitonin Venous Blood Potassium 4.2 Urine Color Yellow Urine Appearance Clear Urine pH 7.0 Ur Specific Newton 1.015 Urine Protein Negative Urine Glucose (UA) Negative Urine Ketones Negative Urine Blood Negative Urine Nitrate Negative Urine Bilirubin Negative Urine Urobilinogen 0.2 Ur Leukocyte Esterase Negative 08/13/17 08/13/17 08/14/17 16:53 21:05 06:28 WBC RBC Hgb Hct MCV MCH MCHC RDW Plt Count MPV pO2 38 108 H VBG pH 7.36 7.39 VBG pCO2 42.0 40.0 VBG HCO3 23.7 24.2 VBG Total CO2 25.0 25.4 VBG O2 Sat (Calc) 78.9 H 99.1 H VBG Base Excess -1.8 L -0.7 L VBG Potassium 4.4 4.1 Sodium 130.0 L 129.0 L Chloride 96.0 L 97.0 L Glucose 145 H 159 H Lactate 3.4 H 3.5 H FiO2 21.0 21.0 Potassium Carbon Dioxide Anion Gap BUN Creatinine Est GFR ( Amer) Est GFR (Non-Af Amer) POC Glucose (mg/dL) 108 Random Glucose Hemoglobin A1c Calcium Total Bilirubin AST ALT Alkaline Phosphatase Total Protein Albumin Globulin Albumin/Globulin Ratio Procalcitonin Venous Blood Potassium 4.4 4.1 Urine Color Urine Appearance Urine pH Ur Specific Newton Urine Protein Urine Glucose (UA) Urine Ketones Urine Blood Urine Nitrate Urine Bilirubin Urine Urobilinogen Ur Leukocyte Esterase 08/14/17 08/14/17 08/14/17 06:28 06:28 08:25 WBC 17.4 H RBC 4.28 Hgb 14.2 Hct 38.9 L MCV 90.9 MCH 33.2 MCHC 36.5 RDW 14.0 Plt Count 250 MPV 8.6 pO2 VBG pH VBG pCO2 VBG HCO3 VBG Total CO2 VBG O2 Sat (Calc) VBG Base Excess VBG Potassium Sodium 132 Chloride 97 L Glucose Lactate FiO2 Potassium 4.2 Carbon Dioxide 22 Anion Gap 18 BUN 18 Creatinine 0.7 L Est GFR ( Amer) > 60 Est GFR (Non-Af Amer) > 60 POC Glucose (mg/dL) 122 H Random Glucose 149 H Hemoglobin A1c Calcium 8.5 Total Bilirubin 0.8 AST 24 ALT 20 Alkaline Phosphatase 59 Total Protein 7.6 Albumin 4.2 Globulin 3.4 Albumin/Globulin Ratio 1.2 Procalcitonin Venous Blood Potassium Urine Color Urine Appearance Urine pH Ur Specific Newton Urine Protein Urine Glucose (UA) Urine Ketones Urine Blood Urine Nitrate Urine Bilirubin Urine Urobilinogen Ur Leukocyte Esterase Critical Care Progress Note - Nutrition Nutrition: Nutrition Category Date Time Status Heart Healthy Diet [DIET] Diets 08/11/17 Breakfast Active Attending/Attestation - Attestation I have personally seen and examined this patient.: Yes I have fully participated in the care of the patient.: Yes I have reviewed all pertinent clinical information: Yes Notes (Text): 08/14/17 10:41 The patient was seen and examined at the bedside. Patient care was discussed with resident Medical records, lab studies were reviewed and management issues were discussed and formulated. Last 24H events reviewed. Agree with above treatment plans as outlined in 's note with addition of the following: Acute respiratory insufficiency \ Hypoxemia \ COPD \ Subdural hematoma \ HTN -hemodynamic monitoring to maintain MAP>65; B\P control as per neurosurgery parameters -o2 supplementation to maintain Spo2>90 Pao2>60 -continue nebs and taper steroids -broad spectrum ABX and f\u cultures; ID team eval appreciated -neurosurgery team f\u post-op; f\u repeat CT head tomorrow -neurology team f\u -f\u Bun\Cr and U\o; d\c IVF -start PO diet and continue aspiration precautions -ISS and BGM monitoring to maintain euglycemia -continue neuro checks as per neurosurgery protocol -PT\OT eval -DVT\PUD prophylaxis prophylaxis CCM time 25min
[2017-08-14] MEDS: Insulin Reg-LOW-Coverage SC SCH ×4 (08:37→21:36)
[2017-08-14] MEDS: Levothyroxine 75 MCG TAB PO SCH (08:40)
[2017-08-14] MEDS: cefTRIAXone 1 gm 1 GM/100 ML BAG IVPB SCH (09:02)
[2017-08-14] MEDS: MethylPREDNISolone 40 mg Vial IVP SCH ×2 (09:04→21:36)
[2017-08-14] MEDS: Verapamil 240 mg ER Tab PO SCH (09:10)
--- NOTE | 2017-08-14 09:11 | OP ---
PROCEDURE DATE: 08/13/2017 SURGEON: Joselito Johnston MD PREOPERATIVE DIAGNOSIS: Left extensive subdural hematoma. POSTOPERATIVE DIAGNOSIS: Left extensive subdural hematoma. OPERATIVE PROCEDURE: Left craniotomy and evacuation of subdural hematoma. DESCRIPTION OF PROCEDURE: The patient was brought to the operating room, intubated appropriately. Head was turned to the right. Bolster was placed under the left shoulder. His head was prepped and draped in the usual manner. A lazy-S incision was marked out superior to the superior temporal line and instilled lidocaine with epinephrine after draping. The scalp was incised sharply and retracted back using Gelpi retractors. Two dorcas holes were placed and craniotome was swung around connecting them. The bone plate was removed and the dura was opened in a cruciate manner. The underlying subdural fluid was thick color and had appearance of several fragments of fresh clot remaining. The subdural specimen was sent for pathology and subdural space was irrigated until all returns were clear. At this point, there was noticed that the source of bleeding appeared to be at the superior aspect of the craniotomy site where there was bridging veins attached to the dura. These were coagulated and divided. A piece of Gelfoam was placed over this area. A 10-Slovenian red rubber catheter was passed through a separate stab wound into the subdural space and the dura was then re-approximated using 4-0 Nurolon. We irrigated through the catheter again until all returns were clear, and then a piece of Gelfoam was placed over the exposed dura. The bone plate was re-approximated with two 12 Rapid Fix and one 16 Rapid Fix clamps. This was done after a piece of Gelfoam was placed over the exposed dura. The scalp was re-approximated with two layers of 3-0 Vicryl subgaleal and skin marcelino. The drain was tacked in the usual manner and attached to the collection bag. Sterile dressing was applied. The patient was awoken from anesthesia, found to be moving all extremities in preop condition, taken to the ICU in stable condition. Blood loss approximately 75 mL. All counts were correct. Specimen was subdural hematoma, left sided. Joselito Johnston MD [facility] # [id number]
--- NOTE | 2017-08-14 09:11 | CON ---
DATE: 08/13/2017 NEUROLOGY CONSULT CHIEF COMPLAINT: Left subdural hematoma. HISTORY OF PRESENT ILLNESS: A 71-year-old man with history of hypertension, hypothyroidism, history of CVA, residual mild left-sided weakness, who has had a fall while going from bed to the wheelchair and had some confusion, therefore came in to the hospital, had a left subdural hematoma with mass effect. It was in the left hemisphere convexity with moderate midline shift with herniation with pupils 4 mm bilaterally. Neurosurgery evaluated the patient, will take him from craniotomy for a status post left subdural evacuation. Currently, the patient is following commands. He has mild residual left-sided weakness. His Plavix is on hold. Otherwise, no new focal neurological signs. He is deconditioned. REVIEW OF SYSTEMS: Fourteen-point review of systems is negative except as per the HPI. PAST MEDICAL HISTORY: As above. FAMILY HISTORY: Noncontributory. SOCIAL HISTORY: No illicit drug use, smoking or EtOH abuse. MEDICATIONS: Reviewed by nurses' reconciliation sheet. LABORATORY DATA: Sodium is 132, potassium 4.3, chloride of 95, carbon dioxide 19, BUN of 24, creatinine 0.8, random glucose of 141, A1c is 5.6, TSH is 4.93. PHYSICAL EXAMINATION: VITAL SIGNS: Temperature afebrile, pulse rate of 99, blood pressure 146/81, respiratory rate of 22. GENERAL: The patient is sitting up in bed, in no acute distress. HEENT: Has some left zygomatic contusion and left neck contusion from the fall. Pupils are equal, reactive to light, 4 mm bilaterally. NECK: Supple. No JVD. No adenopathy noted. LUNGS: Decreased breath sounds bilaterally. ABDOMEN: Soft, nontender and nondistended. Bowel sounds are present. HEART: S1, S2. Normal rate and rhythm. No murmurs, rubs or gallops. EXTREMITIES: No clubbing. No cyanosis. Peripheral pulses 2+ felt bilaterally. NEUROLOGIC: The patient is alert and oriented to person, place, month and year. Speech is fluent without any errors. Cranial nerves II through XII intact. Motor exam: Moves all extremities equally except for his residual left-sided weakness 4/5 and right upper extremity is 5-/5 bilaterally. 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 This could be residual from old CVA. Sensory exam: Light touch, pinprick, proprioception and vibration are intact. DTRs are 2+ throughout. Coordination: [id number] intact. No dysmetria noted. ASSESSMENT AND PLAN: This is a 71-year-old man with past medical history of hypertension, hypothyroidism, history of cerebrovascular accident left residual weakness. Admitted for status post fall after losing balance and sustained a left subdural hematoma in the left hemispheric convexity with moderate midline shift with herniation and his pupils are 4 mm bilaterally. He has acute on chronic subdural hematoma with midline shift, but he is alert and oriented to person and place, month and year. He is status post evacuation and craniotomy by Neurosurgery at this time. He is also being treated for his underlying chronic obstructive pulmonary disease exacerbation. He is mildly deconditioned. At this time, I recommend, 1. Follow up with Neurosurgery's recommendations in regards to his subdural evacuation on the left, for craniotomy. 2. Hold antiplatelets for 3 seeks from the onset of the bleed. 3. Keep his blood pressures between 130-140s and avoid fluctuations in blood pressure. 4. Maintain his SpO2 above 90, DuoNeb, Solu-Medrol 40 every 12. 5. Physical Therapy/Occupational Therapy evaluation and continue current present medical management. Thank you for this consult. Tanmay Myers MD
--- NOTE | 2017-08-14 09:17 | PN ---
DATE: 08/13/2017 TYPE OF DICTATION: Progress note. REASON FOR CONSULTATION AND FOLLOWUP: Preop evaluation; risk stratification for craniotomy for evacuation of subdural hematoma. SUBJECTIVE: Patient denies any chest pain, shortness of breath, or any palpitation, lying flat in the bed. OBJECTIVE: GENERAL: Not in apparent distress. VITAL SIGNS: As follows, temperature afebrile, heart rate 96, blood pressure 143/80. HEENT: PERRLA. Extraocular muscles intact. NECK: Supple. No carotid bruits or thyromegaly. CHEST: Clear to auscultation. HEART: S1 and S2 regular. ABDOMEN: Soft. EXTREMITIES: Clubbing and cyanosis negative. LABORATORY DATA: Blood workup as follows: WBC , hemoglobin 13.6, hematocrit 37.7, platelet count of 263. Chemistry shows sodium 132, potassium 4.3, chloride 95, carbon dioxide is 19, anion gap of 24, BUN 24, creatinine 0.8. TSH 4.93. Total cholesterol 107, triglycerides 51, LDL 44, HDL 50. IMPRESSION: Status post fall, status post subdural hematoma requiring OR for evacuation and craniotomy, history of cerebrovascular accident in the past, hyperlipidemia, hypothyroidism, hypertension, history of a stress test a year ago by PMD negative. RECOMMENDATIONS: The patient is cleared to go from Cardiology point of view as a moderate risk. No craniotomy. No absolute contraindication. (No evidence of ischemia). No evidence of arrhythmia or congestive heart failure. We will follow postop. Continue verapamil. Continue low-dose beta-verónica. We will start . The patient was on 50 mcg, we will increase to 75 of levothyroxine. Thank you, Dr. Thomas, for providing us the opportunity in taking care of the patient, Davion Kennedy. Jan Boudreaux MD
--- NOTE | 2017-08-14 11:21 | CP.PCM.PN ---
Subjective - Date & Time of Evaluation Date of Evaluation: 08/14/17 Time of Evaluation: 11:20 - Subjective Subjective: post op day 1 awake alert talking appropriatley good st L arm weaker but baseline Abelardo drain functioning nicely CT in AM Objective - Vital Signs/Intake and Output Vital Signs (last 24 hours): Temp Pulse Resp BP Pulse Ox 98.8 F 94 H 14 147/87 97 08/14/17 04:00 08/14/17 09:11 08/14/17 07:00 08/14/17 09:11 08/14/17 07:00 Intake and Output: 08/14/17 08/14/17 06:59 18:59 Intake Total 960 Balance 960 - Medications Medications: Current Medications Albuterol/Ipratropium (Duoneb 3 Mg/0.5 Mg (3 Ml) Ud) 3 ml IH [id number] [facility] Last Admin: 08/14/17 07:58 Dose: 3 ml Allopurinol (Zyloprim) 300 mg PO DAILY [facility] Last Admin: 08/14/17 09:05 Dose: 300 mg Atenolol (Tenormin) 25 mg PO DAILY [facility] Last Admin: 08/14/17 09:11 Dose: 25 mg Atorvastatin Calcium (Lipitor) 80 mg PO DIN [facility] Last Admin: 08/13/17 17:13 Dose: Not Given Doxycycline Hyclate (Doryx) 100 mg PO Q12 [facility] PRN Reason: Protocol Last Admin: 08/14/17 09:05 Dose: 100 mg Famotidine (Pepcid) 40 mg PO HS [facility] Last Admin: 08/13/17 21:46 Dose: 40 mg Gabapentin (Neurontin) 600 mg PO DAILY [facility] PRN Reason: Protocol Last Admin: 08/14/17 09:05 Dose: 600 mg Hydralazine HCl (Apresoline) 10 mg IVP Q6 PRN PRN Reason: for sbp>160 Hydrochlorothiazide (Microzide) 12.5 mg PO DAILY [facility] Last Admin: 08/14/17 09:06 Dose: 12.5 mg Vancomycin HCl (Vancomycin 1gm) 1 gm in 250 mls @ 167 mls/hr IVPB Q12H [facility] PRN Reason: Protocol Last Admin: 08/14/17 01:42 Dose: 167 mls/hr Ceftriaxone Sodium (Rocephin 1 Gram Ivpb) 1 gm in 100 mls @ 100 mls/hr IVPB DAILY [facility] PRN Reason: Protocol Last Admin: 08/14/17 09:02 Dose: 100 mls/hr Insulin Human Regular (Humulin R Low) 0 units SC ACHS [facility] PRN Reason: Protocol Last Admin: 08/14/17 08:37 Dose: Not Given Levothyroxine Sodium (Synthroid) 75 mcg PO ACB [facility] Last Admin: 08/14/17 08:40 Dose: 75 mcg Losartan Potassium (Cozaar) 50 mg PO DAILY [facility] Last Admin: 08/14/17 09:04 Dose: 50 mg Methylprednisolone (Solu-Medrol) 20 mg IVP Q12 [facility] Last Admin: 08/14/17 09:04 Dose: 20 mg Tamsulosin HCl (Flomax) 0.4 mg PO DAILY [facility] Last Admin: 08/14/17 09:05 Dose: 0.4 mg Verapamil HCl (Calan Sr Tab) 240 mg PO DAILY [facility] Last Admin: 08/14/17 09:10 Dose: 240 mg - Labs Labs: 08/14/17 06:28 08/14/17 06:28 PT 12.4 SECONDS (9.4-12.5) 08/13/17 06:00 INR 1.08 (0.93-1.08) 08/13/17 06:00 APTT 28.7 Seconds (25.1-36.5) 08/13/17 06:00
--- NOTE | 2017-08-14 12:10 | PN ---
DATE: 08/14/2017 SUBJECTIVE: Patient is a 71 years old, seen and examined, seems to be doing okay, able to communicate. Not in any acute distress. Eating and tolerating. Had status post craniotomy with left-sided subdural hematoma evacuation. PHYSICAL EXAMINATION: VITAL SIGNS: The patient is afebrile, pulse 94, respirations 14, blood pressure 147/87. LUNGS: Bilateral good airflow. No rhonchi or crackle. HEART: S1 and S2 audible. ABDOMEN: Soft, nontender. No rebound. No guarding. NEUROLOGIC: The patient is awake and alert, able to communicate. He has residual deficit from previous CVA with left hemiparesis. EXTREMITIES: Bilateral legs, no edema. LABORATORY DATA: WBC is 17.4, hemoglobin 14, hematocrit 38.9, platelets 250. Chemistry: Sodium 132, potassium 4.2, chloride 97, CO2 of 22, BUN 18, creatinine 0.7, blood sugar of 122. ASSESSMENT AND PLAN: 1. Status post fall. 2. Left subdural hematoma, status post craniotomy and evacuation, 50 mL of blood was removed. 3. History of cerebrovascular accident with left hemiparesis. 4. History of hypertension. 5. Hyperlipidemia. 6. History of chronic obstructive pulmonary disease. PLAN: We will continue cardiac monitoring. Continue ICU monitoring. Neurological check and monitor blood pressure. Continue on current antibiotics. We will follow up this patient in a.m. Adrian Thomas MD
--- NOTE | 2017-08-14 16:50 | CP.PCM.PN ---
Subjective - Date & Time of Evaluation Date of Evaluation: 08/14/17 Time of Evaluation: 16:00 - Subjective Subjective: Infectious Disease Follow Up: August 14, 2017 71 yo male presenting with SOB and fall but was found to have a Subdural hematoma on imaging studies. Intervention by Neurosurgery. Found to have leukocytosis of 19.7 today. Neurosurgery planning craniotomy evacuation of left CSDH which was done this afternoon. The patient is wheelchair bound and the fall occurred at his home and was unwitnessed. Patient claims he fell while transferring from wheelchair to toilet bowl. The patient claims SOB and wheezing for the past day. On the whole, the patient is awake, alert, and orientated but he is a poor historian. POD #1 for craniotomy. Tolerating oral intake. Objective - Vital Signs/Intake and Output Vital Signs (last 24 hours): Temp Pulse Resp BP Pulse Ox 98.5 F 84 19 156/92 H 96 08/14/17 12:00 08/14/17 13:50 08/14/17 13:00 08/14/17 13:00 08/14/17 13:00 Intake and Output: 08/14/17 08/14/17 06:59 18:59 Intake Total 960 Balance 960 - Medications Medications: Current Medications Albuterol/Ipratropium (Duoneb 3 Mg/0.5 Mg (3 Ml) Ud) 3 ml IH [id number] [facility] Last Admin: 08/14/17 14:05 Dose: 3 ml Allopurinol (Zyloprim) 300 mg PO DAILY [facility] [place] Last Admin: 08/14/17 09:05 Dose: 300 mg Atenolol (Tenormin) 25 mg PO DAILY [facility] [place] Last Admin: 08/14/17 09:11 Dose: 25 mg Atorvastatin Calcium (Lipitor) 80 mg PO DIN [facility] [place] Last Admin: 08/13/17 17:13 Dose: Not Given Doxycycline Hyclate (Doryx) 100 mg PO Q12 [facility] PRN Reason: Protocol Last Admin: 08/14/17 09:05 Dose: 100 mg Famotidine (Pepcid) 40 mg PO HS [facility] [place] Last Admin: 08/13/17 21:46 Dose: 40 mg Gabapentin (Neurontin) 600 mg PO DAILY [facility] [place] PRN Reason: Protocol Last Admin: 08/14/17 09:05 Dose: 600 mg Hydralazine HCl (Apresoline) 10 mg IVP Q6 PRN PRN Reason: for sbp>160 Hydrochlorothiazide (Microzide) 12.5 mg PO DAILY [facility] [place] Last Admin: 08/14/17 09:06 Dose: 12.5 mg Vancomycin HCl (Vancomycin 1gm) 1 gm in 250 mls @ 167 mls/hr IVPB Q12H [facility] PRN Reason: Protocol Last Admin: 08/14/17 13:20 Dose: 167 mls/hr Ceftriaxone Sodium (Rocephin 1 Gram Ivpb) 1 gm in 100 mls @ 100 mls/hr IVPB DAILY [facility] PRN Reason: Protocol Last Admin: 08/14/17 09:02 Dose: 100 mls/hr Insulin Human Regular (Humulin R Low) 0 units SC ACHS [facility] PRN Reason: Protocol Last Admin: 08/14/17 12:55 Dose: 1 unit Levothyroxine Sodium (Synthroid) 75 mcg PO ACB [facility] [place] Last Admin: 08/14/17 08:40 Dose: 75 mcg Losartan Potassium (Cozaar) 50 mg PO DAILY [facility] [place] Last Admin: 08/14/17 09:04 Dose: 50 mg Methylprednisolone (Solu-Medrol) 20 mg IVP Q12 [facility] Last Admin: 08/14/17 09:04 Dose: 20 mg Tamsulosin HCl (Flomax) 0.4 mg PO DAILY [facility] [place] Last Admin: 08/14/17 09:05 Dose: 0.4 mg Verapamil HCl (Calan Sr Tab) 240 mg PO DAILY [facility] [place] Last Admin: 08/14/17 09:10 Dose: 240 mg - Labs Labs: 08/14/17 06:28 08/14/17 06:28 PT 12.4 SECONDS (9.4-12.5) 08/13/17 06:00 INR 1.08 (0.93-1.08) 08/13/17 06:00 APTT 28.7 Seconds (25.1-36.5) 08/13/17 06:00 - Constitutional Appears: Non-toxic, No Acute Distress, Chronically Ill - Head Exam Additional comments: Left neck contusion Left zygomatic contusion. S/P craniotomy - Eye Exam Eye Exam: EOMI, PERRL Pupil Exam: NORMAL ACCOMODATION, PERRL - ENT Exam ENT Exam: Mucous Membranes Moist, Normal External Ear Exam, TM's Normal Bilaterally - Neck Exam Neck Exam: Full ROM - Respiratory Exam Respiratory Exam: Decreased Breath Sounds, NORMAL BREATHING PATTERN. absent: Rales, Rhonchi, Wheezes - Cardiovascular Exam Cardiovascular Exam: REGULAR RHYTHM, RRR, +S1, +S2 - GI/Abdominal Exam GI & Abdominal Exam: Soft, Normal Bowel Sounds. absent: Distended, Tenderness - Extremities Exam Extremities Exam: Joint Swelling, Pedal Edema - Neurological Exam Neurological Exam: Alert, Awake, CN II-XII Intact, Oriented x3 - Psychiatric Exam Psychiatric exam: Normal Affect, Normal Mood - Skin Skin Exam: Intact, Normal Color Assessment and Plan - Assessment and Plan (Free Text) Assessment: 71 yo male with presentation of SOB, wheezing, and fall at home. The patient was found to have a subdural hematoma. Leukocytosis of 19.5. Taken to OR by neurosurgery today. Started on broad spectrum antibiotics with Doxycycline, Vancomycin, and Rocephin (to start). No known drug allergies. Supportive care. S/P craniotomy. Kincaid cultures. Slight improvement to WBC to 17.4. Cultures taken to date have been negative so far. POD #1 from craniotomy. Tolerating oral feeds today. Thank you for allowing me to participate in the care of the patient, we will follow with you.
[2017-08-15] MEDS: Vancomycin 1gm in NS 250ml 1 GM/250 ML BAG IVPB SCH ×2 (01:33→13:25)
[2017-08-15] MEDS: Albuterol-Ipratrop 3 mg / 0.5 (3 ml) UD IH SCH ×4 (02:45→19:29)
[2017-08-15] MEDS ORDERED: [UNRECOGNIZED DRUG - OTHER] MM ONE (02:51)
[2017-08-15] MEDS ORDERED: Absorbable Gelatin Sponge Size 100 MM ONE (03:00)
[2017-08-15 06:52] LABS: GRAN # 11.43 (1.4-6.5); GRAN % 90.3 % (50.0-68.0); HEMOGLOBIN 13.6 g/dL (14.0-18.0); LYMPH # 0.5 (1.2-3.4); LYMPH % 3.9 % (22.0-35.0); MEAN CELL VOLUME 89.8 fl (80.0-105.0); MEAN CORPUSCULAR HEMOGLOBIN 32.9 pg (25.0-35.0); MEAN CORPUSCULAR HGB CONC 36.7 g/dl (31.0-37.0); MEAN PLATELET VOLUME 8.5 fl (7.0-11.0); MONO # 0.7 (0.1-0.6); MONO % 5.8 % (1.0-6.0); PLATELET COUNT 236 10^3/uL (120.0-450.0); RBC 4.13 10^6/uL (3.5-6.1); RED CELL DISTRIBUTION WIDTH 13.7 % (11.5-14.5); WHITE BLOOD COUNT 12.7 10^3/ul (4.5-11.0)
[2017-08-15 07:12] LABS: ALB/GLOB RATIO 1.2 (1.1-1.8); ALT/SGPT 21 U/L (7-56); AST/SGOT 28 U/L (17-59); BLOOD UREA NITROGEN 20 mg/dL (7-21); CALCIUM 8.4 mg/dL (8.4-10.5); GFR AFRICAN-AMERICAN > 60; GFR NON-AFRICAN AMERICAN > 60
[2017-08-15] MEDS: Insulin Reg-LOW-Coverage SC SCH ×4 (07:30→22:30)
--- NOTE | 2017-08-15 07:42 | PN ---
DATE: 08/14/2017 REASON FOR THE CONSULTATION: Followup preop evaluation and risk stratification for craniotomy for evacuation of subdural hematoma, status post craniotomy postop. SUBJECTIVE: The patient denies any chest pain, shortness of breath or any palpitation. Head is wrapped in the dressing postop and draining blood. Drainage tube is in place. OBJECTIVE: GENERAL: Not in any apparent distress. As mentioned, head is in a dressing after craniotomy and drainage tube is there. VITAL SIGNS: Temperature afebrile, heart rate 94, blood pressure 147/87. HEENT: PERRLA. Extraocular muscles intact. NECK: Supple. No carotid bruit. No thyromegaly. CHEST: Clear to auscultation. HEART: S1 and S2 regular. ABDOMEN: Soft. EXTREMITIES: Clubbing and cyanosis negative. LABORATORY DATA: Blood workup as follows; WBC , hemoglobin 14.8, hematocrit 38.9, platelet count 250. Chemistry shows sodium 132, potassium 4.2, chloride 97, carbon dioxide 22, anion gap of 18, BUN 18, creatinine 0.7. IMPRESSION: Status post fall; status post subdural hematoma, status post craniotomy and evacuation of subdural hematoma, extensive left subdural hematoma; hypertension; leukocytosis; history of cerebrovascular accident with left-sided weakness; unsteady gait; facial contusion from the fall. RECOMMENDATION: Decrease IV fluid. Start p.o. medication. Continue losartan. Continue p.r.n. hydralazine for systolic more than 160. Continue hydrochlorothiazide. Continue verapamil. Continue low-dose beta verónica. We will follow with you. Thank you, Dr. Thomas for providing us the opportunity in taking care of the patient, Davion Kennedy. Jan Boudreaux MD
[2017-08-15 07:51] LABS: LYMPHOCYTE 4 % (22.0-35.0); MONOCYTE 6 % (1.0-6.0); NEUTROPHIL 90 % (50.0-70.0)
[2017-08-15 07:52] LABS: PLATELET ESTIMATE n (NORMAL)
[2017-08-15] MEDS: Levothyroxine 75 MCG TAB PO SCH (08:02)
--- NOTE | 2017-08-15 08:09 | CT ---
PROCEDURE: CT HEAD WITHOUT CONTRAST. HISTORY: follow up COMPARISON: None available. TECHNIQUE: Axial computed tomography images were obtained through the head/brain without intravenous contrast. Radiation dose: Total exam DLP = mGy-cm. This CT exam was performed using one or more of the following dose reduction techniques: Automated exposure control, adjustment of the mA and/or kV according to patient size, and/or use of iterative reconstruction technique. FINDINGS: HEMORRHAGE: Significant air noted in the left extradural space likely postsurgical. Findings compatible with post surgical evacuation of left subdural hematoma. BRAIN: No mass effect or edema. No atrophy or chronic microvascular ischemic changes. VENTRICLES: Unremarkable. No hydrocephalus. CALVARIUM: Unremarkable. PARANASAL SINUSES: Unremarkable as visualized. No significant inflammatory changes. MASTOID AIR CELLS: Unremarkable as visualized. No inflammatory changes. OTHER FINDINGS: None. IMPRESSION: Significant air noted in the left extradural space likely postsurgical. Findings compatible with post surgical evacuation of left subdural hematoma. Moderate mass effect.
--- NOTE | 2017-08-15 08:26 | CP.CCUPN ---
<Jaylyn Fernandez - Last Filed: 08/15/17 12:03> CCU Subjective - Physician Review Subjective (Free Text): 08/12/17 08:28 Overnight, BP 170. Got hydralazine x 1 tolerated breakfast Sunday - Intervention neurosurg Cardiac clearance 08/13/17 12:06 Got hydralazine x 1 3am 179/98. No new focal neurol deficit Pt complaint that his R arm was weaker than yesterday 08/13/17 15:11 Just received pt from OR s/p craniotomy with L sided subdural hematoma evacuation 50cc blood loss. lidocaine/epi local. General anesthesia. Per Dr Johnston: - drain in subdural space. - hang drain low to promote drainage - Do not change the drain bag - Air in subdural space as pt lay in recumbent position. - amount of drainage is immaterial - neuro check q1 - Diet after fully awake 08/14/17 07:40 Pt is awake, states L arm weakness was better. tolerated dinner. No acute complaint 08/15/17 08:23 Pt was agitated last night, got ativan 0.5 x 1 SBP 179-180 6am - got hydralazine When interview pt this am, pt did not recall any event overnight CCU Objective - Vital Signs / Intake & Output Vital Signs (Last 4 hours): Vital Signs Pulse BP 08/15/17 06:34 97 H 174/94 H 08/15/17 06:00 90 Intake and Output (Last 8hrs): Intake & Output 08/14/17 08/15/17 08/15/17 22:59 06:59 14:59 Intake Total 1520 Output Total 505 Balance 1015 Intake: IV 800 Right Antecubital 800 Oral 720 Output: Drainage 25 EVD 25 Urine 480 Urine, Voided 480 Other: # Bowel Movements 0 - Physical Exam Head: Positive for: Normocephalic, Other (L zygomatic contusion; L neck contusion. tender on palpation. No pain when moving eyes. L subdural space drain in place, serosanguounous drainage) Pupils: Positive for: PERRL, Other (4mm b/l) Extroacular Muscles: Positive for: EOMI Neck: Positive for: Other (supple) Respiratory/Chest: Positive for: Clear to Auscultation, Decreased Breath Sounds (b/l lung bases). Negative for: Respiratory Distress, Rales, Retracting, Rhonchi Cardiovascular: Positive for: Regular Rate and Rhythm, Normal S1, S2 Abdomen: Positive for: Normal Bowel Sounds. Negative for: Tenderness, Distention, Peritoneal Signs, Rebound, [place]'s [place] Tender Back: Positive for: Normal Inspection, Other (R flank eccymosis). Negative for : Midline Tenderness, Paraspinal Tenderness Lower Extremity: Negative for: Edema, CALF TENDERNESS Neurological: Positive for: CN II-XII Intact, Speech Normal, Other (Motor: LUE/ LLE 3+/5; RUE/RLE 4/5. Good hand acquisitions assistant on R; weak hand acquisitions assistant on L; Sensory intact. AAOx3) Skin: Positive for: Warm, Dry, Other (accymosis; R flank' L face) Psychiatric: Positive for: Alert, Oriented x 3 - Medications Active Medications: Active Medications Generic Name Dose Route Start Last Admin Trade Name Freq PRN Reason Stop Dose Admin Albuterol/Ipratropium 3 ml 08/12/17 14:00 08/15/17 08:05 Duoneb 3 Mg/0.5 Mg (3 Ml) Ud IH 3 ml [id number] LUIS Administration Allopurinol 300 mg 08/12/17 10:00 08/14/17 09:05 Zyloprim PO 300 mg DAILY LUIS Administration Atenolol 25 mg 08/12/17 10:00 08/14/17 09:11 Tenormin PO 25 mg DAILY LUIS Administration Atorvastatin Calcium 80 mg 08/11/17 19:45 08/14/17 17:21 Lipitor PO 80 mg DIN LUIS Administration Doxycycline Hyclate 100 mg 08/12/17 10:00 08/14/17 21:35 Doryx PO 100 mg Q12 LUIS Administration Protocol Famotidine 40 mg 08/11/17 22:00 08/14/17 21:35 Pepcid PO 40 mg HS LUIS Administration Gabapentin 600 mg 08/12/17 10:00 08/14/17 09:05 Neurontin PO 600 mg DAILY LUIS Administration Protocol Hydralazine HCl 10 mg 08/14/17 09:58 08/15/17 06:34 Apresoline IVP 10 mg Q6 PRN Administration for sbp>160 Hydrochlorothiazide 12.5 mg 08/12/17 10:00 06/26/18 09:06 Microzide PO 12.5 mg DAILY LUIS Administration Vancomycin HCl 1 gm in 250 mls @ 167 mls/hr 08/13/17 13:00 08/15/17 01:33 Vancomycin 1gm IVPB 167 mls/hr Q12H LUIS Administration Protocol Ceftriaxone Sodium 1 gm in 100 mls @ 100 mls/hr 08/14/17 10:00 08/14/17 09:02 Rocephin 1 Gram Ivpb IVPB 100 mls/hr DAILY LUIS Administration Protocol Insulin Human Regular 0 units 08/12/17 22:00 08/14/17 21:36 Humulin R Low SC Not Given ACHS LUIS Protocol Levothyroxine Sodium 75 mcg 08/14/17 07:30 08/14/17 08:40 Synthroid PO 75 mcg ACB LUIS Administration Losartan Potassium 50 mg 08/12/17 10:00 08/14/17 09:04 Cozaar PO 50 mg DAILY LUIS Administration Methylprednisolone 20 mg 08/14/17 10:00 08/14/17 21:36 Solu-Medrol IVP 20 mg Q12 LUIS Administration Tamsulosin HCl 0.4 mg 08/12/17 10:00 08/14/17 09:05 Flomax PO 0.4 mg DAILY LUIS Administration Verapamil HCl 240 mg 08/12/17 10:00 08/14/17 09:10 Calan Sr Tab PO 240 mg DAILY LUIS Administration - Patient Studies Lab Studies: Microbiology Studies 08/13/17 12:30 Blood Culture - Preliminary Blood-Venous NO GROWTH AFTER 24 HOURS 08/13/17 12:15 Blood Culture - Preliminary Blood-Venous NO GROWTH AFTER 24 HOURS Lab Studies 08/15/17 08/15/17 08/14/17 Range/Units 06:00 06:00 23:32 WBC 12.7 H D (4.5-11.0) 10^3/ul RBC 4.13 (3.5-6.1) 10^6/uL Hgb 13.6 L (14.0-18.0) g/dL Hct 37.1 L (42.0-52.0) % MCV 89.8 (80.0-105.0) fl MCH 32.9 (25.0-35.0) pg MCHC 36.7 (31.0-37.0) g/dl RDW 13.7 (11.5-14.5) % Plt Count 236 (120.0-450.0) 10^3/uL MPV 8.5 (7.0-11.0) fl Gran % 90.3 H (50.0-68.0) % Lymph % (Auto) 3.9 L (22.0-35.0) % Esmeralda % (Auto) 5.8 (1.0-6.0) % Eos % (Auto) 0.0 L (1.5-5.0) % Baso % (Auto) 0.0 (0.0-3.0) % Gran # 11.43 H (1.4-6.5) Lymph # (Auto) 0.5 L (1.2-3.4) Esmeralda # (Auto) 0.7 H (0.1-0.6) Eos # (Auto) 0.0 (0.0-0.7) Baso # (Auto) 0.00 (0.0-2.0) K/mm3 Neutrophils % (Manual) 90 H (50.0-70.0) % Lymphocytes % (Manual) 4 L (22.0-35.0) % Monocytes % (Manual) 6 (1.0-6.0) % Platelet Evaluation n (NORMAL) Sodium 131 L (132-148) mmol/L Potassium 3.8 (3.6-5.0) mmol/L Chloride 96 L (98-107) mmol/L Carbon Dioxide 22 (21-33) mmol/L Anion Gap 17 (10-20) BUN 20 (7-21) mg/dL Creatinine 0.8 (0.8-1.5) mg/dl Est GFR ( Amer) > 60 Est GFR (Non-Af Amer) > 60 POC Glucose (mg/dL) 139 H (65-110) mg/dL Random Glucose 159 H (70-110) mg/dL Calcium 8.4 (8.4-10.5) mg/dL Phosphorus 2.5 (2.5-4.5) mg/dL Magnesium 2.2 (1.7-2.2) mg/dL Total Bilirubin 0.8 (0.2-1.3) mg/dL AST 28 (17-59) U/L ALT 21 (7-56) U/L Alkaline Phosphatase 60 (38-126) U/L Total Protein 7.4 (5.8-8.3) g/dL Albumin 4.0 (3.0-4.8) g/dL Globulin 3.4 gm/dL Albumin/Globulin Ratio 1.2 (1.1-1.8) 08/14/17 08/14/17 08/14/17 Range/Units 21:34 16:32 12:30 WBC (4.5-11.0) 10^3/ul RBC (3.5-6.1) 10^6/uL Hgb (14.0-18.0) g/dL Hct (42.0-52.0) % MCV (80.0-105.0) fl MCH (25.0-35.0) pg MCHC (31.0-37.0) g/dl RDW (11.5-14.5) % Plt Count (120.0-450.0) 10^3/uL MPV (7.0-11.0) fl Gran % (50.0-68.0) % Lymph % (Auto) (22.0-35.0) % Esmeralda % (Auto) (1.0-6.0) % Eos % (Auto) (1.5-5.0) % Baso % (Auto) (0.0-3.0) % Gran # (1.4-6.5) Lymph # (Auto) (1.2-3.4) Esmeralda # (Auto) (0.1-0.6) Eos # (Auto) (0.0-0.7) Baso # (Auto) (0.0-2.0) K/mm3 Neutrophils % (Manual) (50.0-70.0) % Lymphocytes % (Manual) (22.0-35.0) % Monocytes % (Manual) (1.0-6.0) % Platelet Evaluation (NORMAL) Sodium (132-148) mmol/L Potassium (3.6-5.0) mmol/L Chloride (98-107) mmol/L Carbon Dioxide (21-33) mmol/L Anion Gap (10-20) BUN (7-21) mg/dL Creatinine (0.8-1.5) mg/dl Est GFR ( Amer) Est GFR (Non-Af Amer) POC Glucose (mg/dL) 109 139 H 173 H (65-110) mg/dL Random Glucose (70-110) mg/dL Calcium (8.4-10.5) mg/dL Phosphorus (2.5-4.5) mg/dL Magnesium (1.7-2.2) mg/dL Total Bilirubin (0.2-1.3) mg/dL AST (17-59) U/L ALT (7-56) U/L Alkaline Phosphatase (38-126) U/L Total Protein (5.8-8.3) g/dL Albumin (3.0-4.8) g/dL Globulin gm/dL Albumin/Globulin Ratio (1.1-1.8) //18 Range/Units 08:25 WBC (4.5-11.0) 10^3/ul RBC (3.5-6.1) 10^6/uL Hgb (14.0-18.0) g/dL Hct (42.0-52.0) % MCV (80.0-105.0) fl MCH (25.0-35.0) pg MCHC (31.0-37.0) g/dl RDW (11.5-14.5) % Plt Count (120.0-450.0) 10^3/uL MPV (7.0-11.0) fl Gran % (50.0-68.0) % Lymph % (Auto) (22.0-35.0) % Esmeralda % (Auto) (1.0-6.0) % Eos % (Auto) (1.5-5.0) % Baso % (Auto) (0.0-3.0) % Gran # (1.4-6.5) Lymph # (Auto) (1.2-3.4) Esmeralda # (Auto) (0.1-0.6) Eos # (Auto) (0.0-0.7) Baso # (Auto) (0.0-2.0) K/mm3 Neutrophils % (Manual) (50.0-70.0) % Lymphocytes % (Manual) (22.0-35.0) % Monocytes % (Manual) (1.0-6.0) % Platelet Evaluation (NORMAL) Sodium (132-148) mmol/L Potassium (3.6-5.0) mmol/L Chloride (98-107) mmol/L Carbon Dioxide (21-33) mmol/L Anion Gap (10-20) BUN (7-21) mg/dL Creatinine (0.8-1.5) mg/dl Est GFR ( Amer) Est GFR (Non-Af Amer) POC Glucose (mg/dL) 122 H (65-110) mg/dL Random Glucose (70-110) mg/dL Calcium (8.4-10.5) mg/dL Phosphorus (2.5-4.5) mg/dL Magnesium (1.7-2.2) mg/dL Total Bilirubin (0.2-1.3) mg/dL AST (17-59) U/L ALT (7-56) U/L Alkaline Phosphatase (38-126) U/L Total Protein (5.8-8.3) g/dL Albumin (3.0-4.8) g/dL Globulin gm/dL Albumin/Globulin Ratio (1.1-1.8) Laboratory Results - last 24 hr 08/14/17 08/14/17 08/14/17 08:25 12:30 16:32 WBC RBC Hgb Hct MCV MCH MCHC RDW Plt Count MPV Gran % Lymph % (Auto) Esmeralda % (Auto) Eos % (Auto) Baso % (Auto) Gran # Lymph # (Auto) Esmeralda # (Auto) Eos # (Auto) Baso # (Auto) Neutrophils % (Manual) Lymphocytes % (Manual) Monocytes % (Manual) Platelet Evaluation Sodium Potassium Chloride Carbon Dioxide Anion Gap BUN Creatinine Est GFR ( Amer) Est GFR (Non-Af Amer) POC Glucose (mg/dL) 122 H 173 H 139 H Random Glucose Calcium Phosphorus Magnesium Total Bilirubin AST ALT Alkaline Phosphatase Total Protein Albumin Globulin Albumin/Globulin Ratio 08/14/17 08/14/17 08/15/17 21:34 23:32 06:00 WBC 12.7 H D RBC 4.13 Hgb 13.6 L Hct 37.1 L MCV 89.8 MCH 32.9 MCHC 36.7 RDW 13.7 Plt Count 236 MPV 8.5 Gran % 90.3 H Lymph % (Auto) 3.9 L Esmeralda % (Auto) 5.8 Eos % (Auto) 0.0 L Baso % (Auto) 0.0 Gran # 11.43 H Lymph # (Auto) 0.5 L Esmeralda # (Auto) 0.7 H Eos # (Auto) 0.0 Baso # (Auto) 0.00 Neutrophils % (Manual) 90 H Lymphocytes % (Manual) 4 L Monocytes % (Manual) 6 Platelet Evaluation n Sodium Potassium Chloride Carbon Dioxide Anion Gap BUN Creatinine Est GFR ( Amer) Est GFR (Non-Af Amer) POC Glucose (mg/dL) 109 139 H Random Glucose Calcium Phosphorus Magnesium Total Bilirubin AST ALT Alkaline Phosphatase Total Protein Albumin Globulin Albumin/Globulin Ratio 08/15/17 06:00 WBC RBC Hgb Hct MCV MCH MCHC RDW Plt Count MPV Gran % Lymph % (Auto) Esmeralda % (Auto) Eos % (Auto) Baso % (Auto) Gran # Lymph # (Auto) Esmeralda # (Auto) Eos # (Auto) Baso # (Auto) Neutrophils % (Manual) Lymphocytes % (Manual) Monocytes % (Manual) Platelet Evaluation Sodium 131 L Potassium 3.8 Chloride 96 L Carbon Dioxide 22 Anion Gap 17 BUN 20 Creatinine 0.8 Est GFR ( Amer) > 60 Est GFR (Non-Af Amer) > 60 POC Glucose (mg/dL) Random Glucose 159 H Calcium 8.4 Phosphorus 2.5 Magnesium 2.2 Total Bilirubin 0.8 AST 28 ALT 21 Alkaline Phosphatase 60 Total Protein 7.4 Albumin 4.0 Globulin 3.4 Albumin/Globulin Ratio 1.2 Fingerstick Blood Sugar Results: 109 Critical Care Progress Note - Nutrition Nutrition: Nutrition Category Date Time Status Heart Healthy Diet [DIET] Diets 08/11/17 Breakfast Active Assessment/Plan - Assessment and Plan (Free Text) Plan: Mr Marcia Ricardo, 71yo male with past medical history of HTN, hypothyroidism, CVA (L sided weakness) admitted for L subdural hematoma s/p fall due to lost of balance. He has bruises on L face and R body, suspicious of Hx frequent falls. CT head (08/11): Prominent acute subdural bleed in the left hemispheric convexity. Moderate midline shift is present. Mild uncal herniation. PE: pupil 4mm b/l. 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 Neuro: Head CT (admission): L subdural hematoma w/ midline shift 1.7cm Maxofacial CT showed L zygomatic contusion, no fracture Head CT (08/15): Significant air in L extradural space likely postsurgical. Moderate mass effect. Neuro checks q4 Head of bed 20 degrees Fall/seizure precaution HOLD PLAVIX Dr. Preston schofield to PT/OT on the floor and downgrade to medsurg CV: Hx of HTN Yes. Cardiology cleared for OR EKG showed SR@95 BPM, similar to previous EKG Patient placed on home meds: Atenolol, cozaar, Verapamil, HCTZ, Lipitor Maintain SBP 130-160. Avoid fluctuations in BP Want RN to page resident if BP too high. Pulm: Aspiration precaution o2 supplementation to maintain Spo2>90 Pao2>60 Duoneb On solumedrol 20q12 CXR showed poor inspiration, no marked pleural effusion/infiltrates GI: Passed swallow eval Heart healthy diet : D/C fluid. Pt can eat [place] cath if needed Nephro: Monitor electrolytes and replace as needed Heme: H/H stable Hold anticoagulation due to subdural hematoma LE U/S negative for DVT ID: Lactate 4.1 --> 3.5 Blood Cx: neg x 1d U/A neg MRSA nares negative Doxycycline, Vancomycin, and Rocephin Endo: Maintain euglycemia (140-180s) GI ppx: Pepcid DVT ppx: SCDs Dispo plan: Subdural drains are pulled. Dr. Preston schofield for PT/OT on floor and downgrdae to med/surg. Patient tolerated out of bed to chair. Continue taper steroid for COPD exacerbation Consult: Louis Whitney Asif s/r/d/w Dr. Garcia <Kei Garcia - Last Filed: 08/15/17 12:19> CCU Objective - Vital Signs / Intake & Output Vital Signs (Last 4 hours): Vital Signs Pulse BP 08/15/17 12:01 90 195/105 H 08/15/17 09:17 100 H 161/91 H 08/15/17 09:16 100 H 161/91 H Intake and Output (Last 8hrs): Intake & Output 08/14/17 08/15/17 08/15/17 22:59 06:59 14:59 Intake Total 1520 Output Total 505 Balance 1015 Intake: IV 800 Right Antecubital 800 Oral 720 Output: Drainage 25 EVD 25 Urine 480 Urine, Voided 480 Other: # Bowel Movements 0 - Medications Active Medications: Active Medications Generic Name Dose Route Start Last Admin Trade Name Freq PRN Reason Stop Dose Admin Acetaminophen 650 mg 08/15/17 12:01 08/15/17 12:11 Tylenol 325mg Tab PO 650 mg Q6H PRN Administration Headache Albuterol/Ipratropium 3 ml 08/12/17 14:00 08/15/17 08:05 Duoneb 3 Mg/0.5 Mg (3 Ml) Ud IH 3 ml [id number] LUIS Administration Allopurinol 300 mg 08/12/17 10:00 08/15/17 09:18 Zyloprim PO 300 mg DAILY LUIS Administration Atenolol 25 mg 08/15/17 18:00 Tenormin PO BID LUIS Atorvastatin Calcium 80 mg 08/11/17 19:45 08/14/17 17:21 Lipitor PO 80 mg DIN LUIS Administration Doxycycline Hyclate 100 mg 08/12/17 10:00 08/15/17 09:16 Doryx PO 100 mg Q12 LUIS Administration Protocol Famotidine 40 mg 08/11/17 22:00 08/14/17 21:35 Pepcid PO 40 mg HS LUIS Administration Gabapentin 600 mg 08/12/17 10:00 08/15/17 09:17 Neurontin PO 600 mg DAILY LUIS Administration Protocol Hydralazine HCl 10 mg 08/14/17 09:58 08/15/17 12:01 Apresoline IVP 10 mg Q6 PRN Administration for sbp>160 Hydrochlorothiazide 12.5 mg 08/12/17 10:00 08/15/17 09:16 Microzide PO 12.5 mg DAILY LUIS Administration Vancomycin HCl 1 gm in 250 mls @ 167 mls/hr 08/13/17 13:00 08/15/17 01:33 Vancomycin 1gm IVPB 167 mls/hr Q12H LUIS Administration Protocol Ceftriaxone Sodium 1 gm in 100 mls @ 100 mls/hr 08/14/17 10:00 08/15/17 09:18 Rocephin 1 Gram Ivpb IVPB 100 mls/hr DAILY LUIS Administration Protocol Insulin Human Regular 0 units 08/12/17 22:00 08/15/17 11:58 Humulin R Low SC 1 unit ACHS LUIS Administration Protocol Levothyroxine Sodium 75 mcg 08/14/17 07:30 08/15/17 08:02 Synthroid PO 75 mcg ACB LUIS Administration Losartan Potassium 50 mg 08/12/17 10:00 08/15/17 09:16 Cozaar PO 50 mg DAILY LUIS Administration Methylprednisolone 20 mg 08/14/17 10:00 08/15/17 09:18 Solu-Medrol IVP 20 mg Q12 LUIS Administration Tamsulosin HCl 0.4 mg 08/12/17 10:00 08/15/17 09:17 Flomax PO 0.4 mg DAILY LUIS Administration Verapamil HCl 240 mg 08/12/17 10:00 08/15/17 09:17 Calan Sr Tab PO 240 mg DAILY LUIS Administration - Patient Studies Lab Studies: Microbiology Studies 08/13/17 13:20 Urine Culture - Final Urine <10,000 CFU/ML. MULTIPLE SPECIES. PROBABLE CONTAMINATION. 08/13/17 12:30 Blood Culture - Preliminary Blood-Venous NO GROWTH AFTER 24 HOURS 08/13/17 12:15 Blood Culture - Preliminary Blood-Venous NO GROWTH AFTER 24 HOURS Lab Studies 08/15/17 08/15/17 08/15/17 Range/Units 07:19 06:00 06:00 WBC 12.7 H D (4.5-11.0) 10^3/ul RBC 4.13 (3.5-6.1) 10^6/uL Hgb 13.6 L (14.0-18.0) g/dL Hct 37.1 L (42.0-52.0) % MCV 89.8 (80.0-105.0) fl MCH 32.9 (25.0-35.0) pg MCHC 36.7 (31.0-37.0) g/dl RDW 13.7 (11.5-14.5) % Plt Count 236 (120.0-450.0) 10^3/uL MPV 8.5 (7.0-11.0) fl Gran % 90.3 H (50.0-68.0) % Lymph % (Auto) 3.9 L (22.0-35.0) % Esmeralda % (Auto) 5.8 (1.0-6.0) % Eos % (Auto) 0.0 L (1.5-5.0) % Baso % (Auto) 0.0 (0.0-3.0) % Gran # 11.43 H (1.4-6.5) Lymph # (Auto) 0.5 L (1.2-3.4) Esmeralda # (Auto) 0.7 H (0.1-0.6) Eos # (Auto) 0.0 (0.0-0.7) Baso # (Auto) 0.00 (0.0-2.0) K/mm3 Neutrophils % (Manual) 90 H (50.0-70.0) % Lymphocytes % (Manual) 4 L (22.0-35.0) % Monocytes % (Manual) 6 (1.0-6.0) % Platelet Evaluation n (NORMAL) Sodium 131 L (132-148) mmol/L Potassium 3.8 (3.6-5.0) mmol/L Chloride 96 L (98-107) mmol/L Carbon Dioxide 22 (21-33) mmol/L Anion Gap 17 (10-20) BUN 20 (7-21) mg/dL Creatinine 0.8 (0.8-1.5) mg/dl Est GFR ( Amer) > 60 Est GFR (Non-Af Amer) > 60 POC Glucose (mg/dL) 136 H (65-110) mg/dL Random Glucose 159 H (70-110) mg/dL Calcium 8.4 (8.4-10.5) mg/dL Phosphorus 2.5 (2.5-4.5) mg/dL Magnesium 2.2 (1.7-2.2) mg/dL Total Bilirubin 0.8 (0.2-1.3) mg/dL AST 28 (17-59) U/L ALT 21 (7-56) U/L Alkaline Phosphatase 60 (38-126) U/L Total Protein 7.4 (5.8-8.3) g/dL Albumin 4.0 (3.0-4.8) g/dL Globulin 3.4 gm/dL Albumin/Globulin Ratio 1.2 (1.1-1.8) 08/14/17 08/14/17 08/14/17 Range/Units 23:32 21:34 16:32 WBC (4.5-11.0) 10^3/ul RBC (3.5-6.1) 10^6/uL Hgb (14.0-18.0) g/dL Hct (42.0-52.0) % MCV (80.0-105.0) fl MCH (25.0-35.0) pg MCHC (31.0-37.0) g/dl RDW (11.5-14.5) % Plt Count (120.0-450.0) 10^3/uL MPV (7.0-11.0) fl Gran % (50.0-68.0) % Lymph % (Auto) (22.0-35.0) % Esmeralda % (Auto) (1.0-6.0) % Eos % (Auto) (1.5-5.0) % Baso % (Auto) (0.0-3.0) % Gran # (1.4-6.5) Lymph # (Auto) (1.2-3.4) Esmeralda # (Auto) (0.1-0.6) Eos # (Auto) (0.0-0.7) Baso # (Auto) (0.0-2.0) K/mm3 Neutrophils % (Manual) (50.0-70.0) % Lymphocytes % (Manual) (22.0-35.0) % Monocytes % (Manual) (1.0-6.0) % Platelet Evaluation (NORMAL) Sodium (132-148) mmol/L Potassium (3.6-5.0) mmol/L Chloride (98-107) mmol/L Carbon Dioxide (21-33) mmol/L Anion Gap (10-20) BUN (7-21) mg/dL Creatinine (0.8-1.5) mg/dl Est GFR ( Amer) Est GFR (Non-Af Amer) POC Glucose (mg/dL) 139 H 109 139 H (65-110) mg/dL Random Glucose (70-110) mg/dL Calcium (8.4-10.5) mg/dL Phosphorus (2.5-4.5) mg/dL Magnesium (1.7-2.2) mg/dL Total Bilirubin (0.2-1.3) mg/dL AST (17-59) U/L ALT (7-56) U/L Alkaline Phosphatase (38-126) U/L Total Protein (5.8-8.3) g/dL Albumin (3.0-4.8) g/dL Globulin gm/dL Albumin/Globulin Ratio (1.1-1.8) // Range/Units 12:30 WBC (4.5-11.0) 10^3/ul RBC (3.5-6.1) 10^6/uL Hgb (14.0-18.0) g/dL Hct (42.0-52.0) % MCV (80.0-105.0) fl MCH (25.0-35.0) pg MCHC (31.0-37.0) g/dl RDW (11.5-14.5) % Plt Count (120.0-450.0) 10^3/uL MPV (7.0-11.0) fl Gran % (50.0-68.0) % Lymph % (Auto) (22.0-35.0) % Esmeralda % (Auto) (1.0-6.0) % Eos % (Auto) (1.5-5.0) % Baso % (Auto) (0.0-3.0) % Gran # (1.4-6.5) Lymph # (Auto) (1.2-3.4) Esmeralda # (Auto) (0.1-0.6) Eos # (Auto) (0.0-0.7) Baso # (Auto) (0.0-2.0) K/mm3 Neutrophils % (Manual) (50.0-70.0) % Lymphocytes % (Manual) (22.0-35.0) % Monocytes % (Manual) (1.0-6.0) % Platelet Evaluation (NORMAL) Sodium (132-148) mmol/L Potassium (3.6-5.0) mmol/L Chloride (98-107) mmol/L Carbon Dioxide (21-33) mmol/L Anion Gap (10-20) BUN (7-21) mg/dL Creatinine (0.8-1.5) mg/dl Est GFR ( Amer) Est GFR (Non-Af Amer) POC Glucose (mg/dL) 173 H (65-110) mg/dL Random Glucose (70-110) mg/dL Calcium (8.4-10.5) mg/dL Phosphorus (2.5-4.5) mg/dL Magnesium (1.7-2.2) mg/dL Total Bilirubin (0.2-1.3) mg/dL AST (17-59) U/L ALT (7-56) U/L Alkaline Phosphatase (38-126) U/L Total Protein (5.8-8.3) g/dL Albumin (3.0-4.8) g/dL Globulin gm/dL Albumin/Globulin Ratio (1.1-1.8) Laboratory Results - last 24 hr 08/14/17 08/14/17 08/14/17 12:30 16:32 21:34 WBC RBC Hgb Hct MCV MCH MCHC RDW Plt Count MPV Gran % Lymph % (Auto) Esmeralda % (Auto) Eos % (Auto) Baso % (Auto) Gran # Lymph # (Auto) Esmeralda # (Auto) Eos # (Auto) Baso # (Auto) Neutrophils % (Manual) Lymphocytes % (Manual) Monocytes % (Manual) Platelet Evaluation Sodium Potassium Chloride Carbon Dioxide Anion Gap BUN Creatinine Est GFR ( Amer) Est GFR (Non-Af Amer) POC Glucose (mg/dL) 173 H 139 H 109 Random Glucose Calcium Phosphorus Magnesium Total Bilirubin AST ALT Alkaline Phosphatase Total Protein Albumin Globulin Albumin/Globulin Ratio 08/14/17 08/15/17 08/15/17 23:32 06:00 06:00 WBC 12.7 H D RBC 4.13 Hgb 13.6 L Hct 37.1 L MCV 89.8 MCH 32.9 MCHC 36.7 RDW 13.7 Plt Count 236 MPV 8.5 Gran % 90.3 H Lymph % (Auto) 3.9 L Esmeralda % (Auto) 5.8 Eos % (Auto) 0.0 L Baso % (Auto) 0.0 Gran # 11.43 H Lymph # (Auto) 0.5 L Esmeralda # (Auto) 0.7 H Eos # (Auto) 0.0 Baso # (Auto) 0.00 Neutrophils % (Manual) 90 H Lymphocytes % (Manual) 4 L Monocytes % (Manual) 6 Platelet Evaluation n Sodium 131 L Potassium 3.8 Chloride 96 L Carbon Dioxide 22 Anion Gap 17 BUN 20 Creatinine 0.8 Est GFR ( Amer) > 60 Est GFR (Non-Af Amer) > 60 POC Glucose (mg/dL) 139 H Random Glucose 159 H Calcium 8.4 Phosphorus 2.5 Magnesium 2.2 Total Bilirubin 0.8 AST 28 ALT 21 Alkaline Phosphatase 60 Total Protein 7.4 Albumin 4.0 Globulin 3.4 Albumin/Globulin Ratio 1.2 08/15/17 07:19 WBC RBC Hgb Hct MCV MCH MCHC RDW Plt Count MPV Gran % Lymph % (Auto) Esmeralda % (Auto) Eos % (Auto) Baso % (Auto) Gran # Lymph # (Auto) Esmeralda # (Auto) Eos # (Auto) Baso # (Auto) Neutrophils % (Manual) Lymphocytes % (Manual) Monocytes % (Manual) Platelet Evaluation Sodium Potassium Chloride Carbon Dioxide Anion Gap BUN Creatinine Est GFR ( Amer) Est GFR (Non-Af Amer) POC Glucose (mg/dL) 136 H Random Glucose Calcium Phosphorus Magnesium Total Bilirubin AST ALT Alkaline Phosphatase Total Protein Albumin Globulin Albumin/Globulin Ratio Critical Care Progress Note - Nutrition Nutrition: Nutrition Category Date Time Status Heart Healthy Diet [DIET] Diets 08/11/17 Breakfast Active Attending/Attestation - Attestation I have personally seen and examined this patient.: Yes I have fully participated in the care of the patient.: Yes I have reviewed all pertinent clinical information: Yes Notes (Text): 08/15/17 12:18 The patient was seen and examined at the bedside. Patient care was discussed with resident Medical records, lab studies were reviewed and management issues were discussed and formulated. Last 24H events reviewed. Agree with above treatment plans as outlined in 's note Pt downgraded this morning to med\surg as per neurosurgical team PT\OT f\u for OOB
[2017-08-15] MEDS: Verapamil 240 mg ER Tab PO SCH (09:17)
[2017-08-15] MEDS: MethylPREDNISolone 40 mg Vial IVP SCH ×2 (09:18→22:07)
[2017-08-15] MEDS: cefTRIAXone 1 gm 1 GM/100 ML BAG IVPB SCH (09:18)
--- NOTE | 2017-08-15 09:57 | CP.PCM.PN ---
Subjective - Date & Time of Evaluation Date of Evaluation: 08/15/17 Time of Evaluation: 09:56 - Subjective Subjective: awake alert oriented [facility] at baseline ct looks good drain d/maurilio ok to transfer to floor adv act and plan subacute transfer Objective - Vital Signs/Intake and Output Vital Signs (last 24 hours): Temp Pulse Resp BP Pulse Ox 98 F 100 H 20 161/91 H 95 08/15/17 04:00 08/15/17 09:17 08/15/17 04:00 08/15/17 09:17 08/15/17 04:00 - Medications Medications: Current Medications Albuterol/Ipratropium (Duoneb 3 Mg/0.5 Mg (3 Ml) Ud) 3 ml IH [id number] [facility] Last Admin: 08/15/17 08:05 Dose: 3 ml Allopurinol (Zyloprim) 300 mg PO DAILY [facility] Last Admin: 08/15/17 09:18 Dose: 300 mg Atenolol (Tenormin) 25 mg PO DAILY [facility] Last Admin: 08/15/17 09:17 Dose: 25 mg Atorvastatin Calcium (Lipitor) 80 mg PO DIN [facility] Last Admin: 08/14/17 17:21 Dose: 80 mg Doxycycline Hyclate (Doryx) 100 mg PO Q12 [facility] PRN Reason: Protocol Last Admin: 08/15/17 09:16 Dose: 100 mg Famotidine (Pepcid) 40 mg PO HS [facility] Last Admin: 08/14/17 21:35 Dose: 40 mg Gabapentin (Neurontin) 600 mg PO DAILY [facility] PRN Reason: Protocol Last Admin: 08/15/17 09:17 Dose: 600 mg Hydralazine HCl (Apresoline) 10 mg IVP Q6 PRN PRN Reason: for sbp>160 Last Admin: 08/15/17 06:34 Dose: 10 mg Hydrochlorothiazide (Microzide) 12.5 mg PO DAILY [facility] Last Admin: 08/15/17 09:16 Dose: 12.5 mg Vancomycin HCl (Vancomycin 1gm) 1 gm in 250 mls @ 167 mls/hr IVPB Q12H [facility] PRN Reason: Protocol Last Admin: 08/15/17 01:33 Dose: 167 mls/hr Ceftriaxone Sodium (Rocephin 1 Gram Ivpb) 1 gm in 100 mls @ 100 mls/hr IVPB DAILY [facility] PRN Reason: Protocol Last Admin: 08/15/17 09:18 Dose: 100 mls/hr Insulin Human Regular (Humulin R Low) 0 units SC ACHS [facility] PRN Reason: Protocol Last Admin: 08/15/17 07:30 Dose: Not Given Levothyroxine Sodium (Synthroid) 75 mcg PO ACB [facility] Last Admin: 08/15/17 08:02 Dose: 75 mcg Losartan Potassium (Cozaar) 50 mg PO DAILY [facility] Last Admin: 08/15/17 09:16 Dose: 50 mg Methylprednisolone (Solu-Medrol) 20 mg IVP Q12 [facility] Last Admin: 08/15/17 09:18 Dose: 20 mg Tamsulosin HCl (Flomax) 0.4 mg PO DAILY [facility] Last Admin: 08/15/17 09:17 Dose: 0.4 mg Verapamil HCl (Calan Sr Tab) 240 mg PO DAILY [facility] Last Admin: 08/15/17 09:17 Dose: 240 mg - Labs Labs: 08/15/17 06:00 08/15/17 06:00 PT 12.4 SECONDS (9.4-12.5) 08/13/17 06:00 INR 1.08 (0.93-1.08) 08/13/17 06:00 APTT 28.7 Seconds (25.1-36.5) 08/13/17 06:00
--- NOTE | 2017-08-15 16:16 | CP.PCM.PN ---
Subjective - Date & Time of Evaluation Date of Evaluation: 08/15/17 Time of Evaluation: 10:00 - Subjective Subjective: Infectious Disease Follow Up: August 15, 2017 71 yo male presenting with SOB and fall but was found to have a Subdural hematoma on imaging studies. Intervention by Neurosurgery. Found to have leukocytosis of 19.7 today. Neurosurgery planning craniotomy evacuation of left CSDH which was done this afternoon. The patient is wheelchair bound and the fall occurred at his home and was unwitnessed. Patient claims he fell while transferring from wheelchair to toilet bowl. The patient claims SOB and wheezing for the past day. On the whole, the patient is awake, alert, and orientated but he is a poor historian. POD #2 for craniotomy. Tolerating oral intake. Patient complains of right arm weakness and mild numbness. Craniotomy drains removed. For transfer to the regular floor. Objective - Vital Signs/Intake and Output Vital Signs (last 24 hours): Temp Pulse Resp BP Pulse Ox 98.4 F 90 15 165/97 H 95 08/15/17 12:00 08/15/17 12:01 08/15/17 12:00 08/15/17 13:49 08/15/17 14:00 - Medications Medications: Current Medications Acetaminophen (Tylenol 325mg Tab) 650 mg PO Q6H PRN PRN Reason: Headache Last Admin: 08/15/17 12:11 Dose: 650 mg Albuterol/Ipratropium (Duoneb 3 Mg/0.5 Mg (3 Ml) Ud) 3 ml IH [id number] [facility] Last Admin: 08/15/17 13:46 Dose: 3 ml Allopurinol (Zyloprim) 300 mg PO DAILY [facility] Last Admin: 08/15/17 09:18 Dose: 300 mg Atenolol (Tenormin) 25 mg PO BID [facility] Atorvastatin Calcium (Lipitor) 80 mg PO DIN [facility] Last Admin: 08/14/17 17:21 Dose: 80 mg Doxycycline Hyclate (Doryx) 100 mg PO Q12 [facility] PRN Reason: Protocol Last Admin: 08/15/17 09:16 Dose: 100 mg Famotidine (Pepcid) 40 mg PO HS [facility] Last Admin: 08/14/17 21:35 Dose: 40 mg Gabapentin (Neurontin) 600 mg PO DAILY [facility] PRN Reason: Protocol Last Admin: 08/15/17 09:17 Dose: 600 mg Hydralazine HCl (Apresoline) 10 mg IVP Q6 PRN PRN Reason: for sbp>160 Last Admin: 08/15/17 12:01 Dose: 10 mg Hydrochlorothiazide (Microzide) 12.5 mg PO DAILY [facility] Last Admin: 08/15/17 09:16 Dose: 12.5 mg Vancomycin HCl (Vancomycin 1gm) 1 gm in 250 mls @ 167 mls/hr IVPB Q12H [facility] PRN Reason: Protocol Last Admin: 08/15/17 13:25 Dose: 167 mls/hr Ceftriaxone Sodium (Rocephin 1 Gram Ivpb) 1 gm in 100 mls @ 100 mls/hr IVPB DAILY [facility] PRN Reason: Protocol Last Admin: 08/15/17 09:18 Dose: 100 mls/hr Insulin Human Regular (Humulin R Low) 0 units SC ACHS [facility] PRN Reason: Protocol Last Admin: 08/15/17 11:58 Dose: 1 unit Levothyroxine Sodium (Synthroid) 75 mcg PO ACB [facility] Last Admin: 08/15/17 08:02 Dose: 75 mcg Losartan Potassium (Cozaar) 50 mg PO DAILY [facility] Last Admin: 08/15/17 09:16 Dose: 50 mg Methylprednisolone (Solu-Medrol) 20 mg IVP Q12 [facility] Last Admin: 08/15/17 09:18 Dose: 20 mg Tamsulosin HCl (Flomax) 0.4 mg PO DAILY [facility] Last Admin: 08/15/17 09:17 Dose: 0.4 mg Verapamil HCl (Calan Sr Tab) 240 mg PO DAILY [facility] Last Admin: 08/15/17 09:17 Dose: 240 mg - Labs Labs: 08/15/17 06:00 08/15/17 06:00 PT 12.4 SECONDS (9.4-12.5) 08/13/17 06:00 INR 1.08 (0.93-1.08) 08/13/17 06:00 APTT 28.7 Seconds (25.1-36.5) 08/13/17 06:00 - Constitutional Appears: Non-toxic, No Acute Distress, Chronically Ill - Head Exam Additional comments: Left neck contusion Left zygomatic contusion. S/P craniotomy - Eye Exam Eye Exam: EOMI, PERRL Pupil Exam: NORMAL ACCOMODATION, PERRL - ENT Exam ENT Exam: Mucous Membranes Moist, Normal External Ear Exam, TM's Normal Bilaterally - Neck Exam Neck Exam: Full ROM - Respiratory Exam Respiratory Exam: Decreased Breath Sounds, NORMAL BREATHING PATTERN. absent: Rales, Rhonchi, Wheezes - Cardiovascular Exam Cardiovascular Exam: REGULAR RHYTHM, RRR, +S1, +S2 - GI/Abdominal Exam GI & Abdominal Exam: Soft, Normal Bowel Sounds. absent: Distended, Tenderness - Extremities Exam Extremities Exam: Joint Swelling, Pedal Edema - Neurological Exam Neurological Exam: Alert, Awake, CN II-XII Intact, Oriented x3 - Psychiatric Exam Psychiatric exam: Normal Affect, Normal Mood - Skin Skin Exam: Intact, Normal Color Assessment and Plan - Assessment and Plan (Free Text) Assessment: 71 yo male with presentation of SOB, wheezing, and fall at home. The patient was found to have a subdural hematoma. Leukocytosis of 19.5. Taken to OR by neurosurgery today. Started on broad spectrum antibiotics with Doxycycline, Vancomycin, and Rocephin (to start). No known drug allergies. Supportive care. S/P craniotomy. Kincaid cultures. Improvement to WBC to 12.7 from 17.4. Cultures taken to date have been negative so far. POD #2 from craniotomy. Tolerating oral feeds today. Thank you for allowing me to participate in the care of the patient, we will follow with you.
--- NOTE | 2017-08-15 16:17 | PN ---
DATE: 08/15/2017 REASON FOR CONSULTATION AND FOLLOWUP: Preop evaluation and risk stratification for craniotomy for evacuation of subdural hematoma, status post craniotomy postop. SUBJECTIVE: Patient denies any chest pain, shortness of breath, or any palpitation. OBJECTIVE: GENERAL: Not in apparent distress, lying flat in the bed. VITAL SIGNS: Temperature afebrile, heart rate 100, blood pressure 160/91. HEENT: PERRLA. Extraocular muscles intact. NECK: Supple. No carotid bruits or thyromegaly. CHEST: Clear to auscultation. HEART: S1 and S2 regular. ABDOMEN: Soft. EXTREMITIES: Clubbing and cyanosis, negative. LABORATORY DATA: Blood workup as follows: WBC 12.7, hemoglobin , hematocrit 37.1, platelet count 236. Chemistry showed sodium 131, potassium 3.8, chloride 96, carbon dioxide 22, anion gap of 17, BUN 20, creatinine 0.8. IMPRESSION: A 71-year-old male with a past medical history significant for cerebrovascular accident, left sided; unsteady gait, who fell down coming to the bathroom and got facial trauma, bruise, and subdural hematoma, status post craniotomy, evacuation of the blood clot. Now postop, denies any chest pain, shortness of breath, or any palpitation. tachycardic, the pressure is not well controlled. RECOMMENDATIONS: patient is on Tenormin 25, we will change to p.o. b.i.d. and we will continue hydralazine p.r.n. Increase the nutritional support as tolerated. Discontinue IV fluids. We will follow with you. CVS status is stable. Thank you, Dr. Thomas, for providing us the opportunity in taking care of the patient, Davion Kennedy. From cardiac point of view, patient is stable to be transferred to Telemetry. Jan Boudreaux MD
--- NOTE | 2017-08-15 18:44 | PN ---
DATE: 08/15/2017 NEUROLOGY FOLLOWUP CHIEF COMPLAINT: Followup for status post craniotomy. SUBJECTIVE: The patient was seen and examined, moving all extremities, now with subtle residual left-sided weakness from prior CVA, otherwise doing well. Currently, he has been moved to the regular floor. Neurosurgery notes reviewed and appreciated. PAST MEDICAL HISTORY: History of CVA with residual mild left-sided weakness, hypertension, hypothyroidism. REVIEW OF SYSTEMS: Fourteen-point review of systems is negative except as per the HPI. FAMILY HISTORY: Noncontributory. SOCIAL HISTORY: No illicit drug use, smoking, or EtOH abuse. MEDICATIONS: Reviewed by nurse per reconciliation sheet. LABORATORY DATA: Sodium is 131, potassium 3.8, chloride of 96, carbon dioxide 22. BUN of 20, creatinine 0.8. Random glucose of 159. PHYSICAL EXAMINATION: VITAL SIGNS: Temperature afebrile, pulse rate of 84, blood pressure 164/87, respiratory rate of 18, oxygen saturation 95% by room air. GENERAL: The patient is sitting up in bed, in no acute distress. HEENT: Head is atraumatic and normocephalic. PERRLA. Has some left zygomatic contusion and left neck contusion from the fall. NECK: Supple. No JVD. No adenopathy noted. LUNGS: Decreased breath sounds bilaterally. HEART: S1 and S2. Normal rate and rhythm. No murmurs, rubs, or gallops. ABDOMEN: Soft, nontender, and nondistended. Bowel sounds are present. EXTREMITIES: No clubbing. No cyanosis. Peripheral pulses are 2+ felt bilaterally. NEUROLOGIC: The patient is alert and oriented to person, place, month, and year. Speech is fluent without any errors. Cranial nerves II through XII intact. Motor exam: Moves all extremities equally except for his residual left-sided weakness from prior CVA. Appliance [employer] on his left hand is weaker than his right from CVA. Sensory exam: Light touch, pinprick, proprioception, and vibration are intact. DTRs are 2+ throughout, 1 at both ankles and knees. Coordination: [id number] intact. No dysmetria noted. Gait is deferred for now. ASSESSMENT AND PLAN: This is a 71-year-old man with past medical history of hypertension, hypothyroidism, history of cerebrovascular accident with residual mild left-sided weakness status post fall after losing balance and sustained the left subdural hematoma in the left hemispheric convexity, which had some moderate midline shift and therefore is status post evacuation and craniotomy and did well and subdural has reduced. Neurosurgery is on board and recommendations are appreciated. He has also been treated for underlying chronic obstructive pulmonary disease exacerbation. He is mildly deconditioned at this time. 1. Continue to follow with Neurosurgery's recommendations. 2. Hold antiplatelet for 3 weeks from the onset of bleed. 3. Keep blood pressures between 130s to 140s systolically and diastolic 70s to 80s and avoid fluctuations in blood pressure. 4. Respiratory therapies [id number]. 5. PT/OT and will likely benefit from subacute rehab. Thank you for this followup. Tanmay Myers MD
--- NOTE | 2017-08-15 21:48 | PN ---
DATE: 08/15/2017 SUBJECTIVE: The patient is 71-year-old, had subdural hematoma evacuated, had 50 mL blood drained, drain was removed today. Patient is being transferred to telemetry. Patient was seen and examined. Complained of headache and feeling little nauseous. PHYSICAL EXAMINATION: VITAL SIGNS: He is afebrile, pulse 90, respirations 18, blood pressure 183/103. LUNGS: Bilateral good airflow. No rhonchi or crackle. HEART: S1 and S2 audible. ABDOMEN: Soft, nontender. No rebound. No guarding. NEUROLOGIC: The patient is awake and alert, confused, disoriented. He has left facial contusion, status post craniotomy and had hematoma evacuated. He has left hemiparesis because of old CVA. LABORATORY EXAM: WBC is 12.5, hemoglobin 13.6, hematocrit 37.1, platelet of 236. Chemistry: Sodium 131, potassium 3.8, chloride 96, CO2 of 24, BUN 20, creatinine 0.8. Blood sugar of 136. Blood cultures and urine cultures are negative. ASSESSMENT: 1. Status post fall. 2. Left subdural hematoma. 3. History of right cerebrovascular accident with left hemiparesis. 4. Unstable gait and difficulty walking. PLAN: Patient is being transferred to Med/Surg. Physical therapy evaluation will be done. We will give him a dose of Zofran. Currently he is on vancomycin, levothyroxine. We will cut down his Solu-Medrol. We will start him on p.o. prednisone. Out of bed to chair. Patient had been stable and plan to transfer him to acute rehab. Adrian Thomas MD
[2017-08-16] MEDS: Vancomycin 1gm in NS 250ml 1 GM/250 ML BAG IVPB SCH ×2 (00:28→12:53)
[2017-08-16] MEDS: Albuterol-Ipratrop 3 mg / 0.5 (3 ml) UD IH SCH ×4 (01:24→19:35)
[2017-08-16] MEDS: Insulin Reg-LOW-Coverage SC SCH ×4 (08:46→22:00)
[2017-08-16] MEDS: MethylPREDNISolone 40 mg Vial IVP SCH (10:16)
[2017-08-16] MEDS: cefTRIAXone 1 gm 1 GM/100 ML BAG IVPB SCH (10:17)
[2017-08-16] MEDS: Verapamil 240 mg ER Tab PO SCH (10:40)
--- NOTE | 2017-08-16 11:03 | CP.PCM.PN ---
Subjective - Date & Time of Evaluation Date of Evaluation: 08/16/17 Time of Evaluation: 07:15 - Subjective Subjective: Lying in bed, awake,no distress Reason for consultation and follow up:Cardiac evaluation and risk stratification for craniotomy,history of CVA, left sided weakness, unsteady gait , post evacuation of subdural hematoma. Seen and examined by me and Dr. Boudreaux Objective - Vital Signs/Intake and Output Vital Signs (last 24 hours): Temp Pulse Resp BP Pulse Ox 98.2 F 75 19 154/95 H 94 L 08/16/17 08:36 08/16/17 10:40 08/16/17 08:36 08/16/17 10:40 08/16/17 08:36 Intake and Output: 08/16/17 08/16/17 06:59 18:59 Intake Total 840 Output Total 1075 Balance -235 - Medications Medications: Current Medications Acetaminophen (Tylenol 325mg Tab) 650 mg PO Q6H PRN PRN Reason: Headache Last Admin: 08/15/17 22:24 Dose: 650 mg Albuterol/Ipratropium (Duoneb 3 Mg/0.5 Mg (3 Ml) Ud) 3 ml IH [id number] [facility] Last Admin: 08/16/17 07:41 Dose: 3 ml Allopurinol (Zyloprim) 300 mg PO DAILY [facility] Last Admin: 08/16/17 10:16 Dose: 300 mg Atenolol (Tenormin) 25 mg PO BID [facility] Last Admin: 08/16/17 10:15 Dose: 25 mg Atorvastatin Calcium (Lipitor) 80 mg PO DIN [facility] Last Admin: 08/15/17 18:54 Dose: 80 mg Doxycycline Hyclate (Doryx) 100 mg PO Q12 [facility] PRN Reason: Protocol Last Admin: 08/16/17 10:14 Dose: 100 mg Famotidine (Pepcid) 40 mg PO HS [facility] Last Admin: 08/15/17 22:06 Dose: 40 mg Gabapentin (Neurontin) 600 mg PO DAILY [facility] PRN Reason: Protocol Last Admin: 08/16/17 10:14 Dose: 600 mg Hydralazine HCl (Apresoline) 10 mg IVP Q6 PRN PRN Reason: for sbp>160 Last Admin: 08/15/17 18:54 Dose: 10 mg Hydrochlorothiazide (Microzide) 12.5 mg PO DAILY [facility] Last Admin: 08/16/17 10:16 Dose: 12.5 mg Vancomycin HCl (Vancomycin 1gm) 1 gm in 250 mls @ 167 mls/hr IVPB Q12H [facility] PRN Reason: Protocol Last Admin: 08/16/17 00:28 Dose: 167 mls/hr Ceftriaxone Sodium (Rocephin 1 Gram Ivpb) 1 gm in 100 mls @ 100 mls/hr IVPB DAILY [facility] PRN Reason: Protocol Last Admin: 08/16/17 10:17 Dose: 100 mls/hr Insulin Human Regular (Humulin R Low) 0 units SC ACHS [facility] PRN Reason: Protocol Last Admin: 08/16/17 08:46 Dose: Not Given Losartan Potassium (Cozaar) 50 mg PO DAILY [facility] Last Admin: 08/16/17 10:16 Dose: 50 mg Methylprednisolone (Solu-Medrol) 20 mg IVP Q12 [facility] Last Admin: 08/16/17 10:16 Dose: 20 mg Prednisone (Prednisone Tab) 20 mg PO DAILY [facility] Last Admin: 08/16/17 10:40 Dose: 20 mg Tamsulosin HCl (Flomax) 0.4 mg PO DAILY [facility] Last Admin: 08/16/17 10:16 Dose: 0.4 mg Verapamil HCl (Calan Sr Tab) 240 mg PO DAILY [facility] Last Admin: 08/16/17 10:40 Dose: 240 mg - Labs Labs: 08/15/17 06:00 08/15/17 06:00 PT 12.4 SECONDS (9.4-12.5) 08/13/17 06:00 INR 1.08 (0.93-1.08) 08/13/17 06:00 APTT 28.7 Seconds (25.1-36.5) 08/13/17 06:00 - Constitutional Appears: No Acute Distress - Head Exam Head Exam: NORMOCEPHALIC Additional comments: left side of head with marcelino intact post craniotomy Left side of face with ecchymosis from fall - Eye Exam Eye Exam: Normal appearance - ENT Exam ENT Exam: Mucous Membranes Moist - Respiratory Exam Respiratory Exam: Clear to Ausculation Bilateral, NORMAL BREATHING PATTERN - Cardiovascular Exam Cardiovascular Exam: +S1, +S2 - GI/Abdominal Exam GI & Abdominal Exam: Soft, Normal Bowel Sounds - Extremities Exam Extremities Exam: Normal Capillary Refill - Neurological Exam Neurological Exam: Oriented x3 Additional comments: lethargic but arousable, follows verbal commands - Skin Skin Exam: Normal Color, Warm Assessment and Plan - Assessment and Plan (Free Text) Assessment: A 71 year old male who was brought to [facility] ER due to facial trauma due to fall. CT scan showed subdural hematoma. He underwent craniotomy and evacuation of hematoma. Significant for cerebrovascular accident left side. Consult was called for risk stratification prior to surgery and cardiac evaluation.Uncontrolled hypertension. Plan: Doing well, stable Transferred from ICU to Lethargic but arousable and follows verbal commands On Apresoline 10 mg IVP PRN, Cozaar 50 mg daily, Calan SR 240 mg daily Continue current treatment Continue current medications Discharge planning Will follow up Plan and treatment discussed with Dr. Boudreaux
--- NOTE | 2017-08-16 17:19 | CP.PCM.PN ---
Subjective - Date & Time of Evaluation Date of Evaluation: 08/16/17 Time of Evaluation: 16:00 - Subjective Subjective: Infectious Disease Follow Up: August 16, 2017 71 yo male presenting with SOB and fall but was found to have a Subdural hematoma on imaging studies. Intervention by Neurosurgery. Found to have leukocytosis of 19.7 which has improved to 12.7 today. Neurosurgery planning craniotomy evacuation of left CSDH which was done this afternoon. The patient is wheelchair bound and the fall occurred at his home and was unwitnessed. Patient claims he fell while transferring from wheelchair to toilet bowl. The patient claims SOB and wheezing for the past day. On the whole, the patient is awake, alert, and orientated but he is a poor historian. POD #3 for craniotomy. Tolerating oral intake. Patient complains of right arm weakness and mild numbness. Craniotomy drains removed. Transferred to the regular floor. Objective - Vital Signs/Intake and Output Vital Signs (last 24 hours): Temp Pulse Resp BP Pulse Ox 98.2 F 84 19 190/120 H 94 L 08/16/17 08:36 08/16/17 16:05 08/16/17 08:36 08/16/17 16:05 08/16/17 08:36 Intake and Output: 08/16/17 08/16/17 06:59 18:59 Intake Total 840 1080 Output Total 1075 775 Balance -235 305 - Medications Medications: Current Medications Acetaminophen (Tylenol 325mg Tab) 650 mg PO Q6H PRN PRN Reason: Headache Last Admin: 08/15/17 22:24 Dose: 650 mg Albuterol/Ipratropium (Duoneb 3 Mg/0.5 Mg (3 Ml) Ud) 3 ml IH [id number] [facility] Last Admin: 08/16/17 13:45 Dose: 3 ml Allopurinol (Zyloprim) 300 mg PO DAILY [facility] Last Admin: 08/16/17 10:16 Dose: 300 mg Amlodipine Besylate (Norvasc) 10 mg PO DAILY [facility] Atenolol (Tenormin) 25 mg PO BID [facility] Last Admin: 08/16/17 10:15 Dose: 25 mg Atorvastatin Calcium (Lipitor) 80 mg PO DIN [facility] Last Admin: 08/15/17 18:54 Dose: 80 mg Doxycycline Hyclate (Doryx) 100 mg PO Q12 [facility] PRN Reason: Protocol Last Admin: 08/16/17 10:14 Dose: 100 mg Famotidine (Pepcid) 40 mg PO HS [facility] Last Admin: 08/15/17 22:06 Dose: 40 mg Gabapentin (Neurontin) 600 mg PO DAILY [facility] PRN Reason: Protocol Last Admin: 08/16/17 10:14 Dose: 600 mg Hydralazine HCl (Apresoline) 10 mg IVP Q6 PRN PRN Reason: for sbp>160 Last Admin: 08/16/17 16:05 Dose: 10 mg Hydrochlorothiazide (Microzide) 12.5 mg PO DAILY [facility] Last Admin: 08/16/17 10:16 Dose: 12.5 mg Ceftriaxone Sodium (Rocephin 1 Gram Ivpb) 1 gm in 100 mls @ 100 mls/hr IVPB DAILY [facility] PRN Reason: Protocol Stop: 08/21/17 10:01 Insulin Human Regular (Humulin R Low) 0 units SC ACHS [facility] PRN Reason: Protocol Last Admin: 08/16/17 11:49 Dose: 1 unit Losartan Potassium (Cozaar) 50 mg PO DAILY [facility] Last Admin: 08/16/17 10:16 Dose: 50 mg Methylprednisolone (Medrol) 8 mg PO TID [facility] PRN Reason: Taper Stop: 08/22/17 11:29 Tamsulosin HCl (Flomax) 0.4 mg PO DAILY [facility] Last Admin: 08/16/17 10:16 Dose: 0.4 mg Verapamil HCl (Calan Sr Tab) 240 mg PO DAILY [facility] Last Admin: 08/16/17 10:40 Dose: 240 mg - Labs Labs: 08/15/17 06:00 08/15/17 06:00 PT 12.4 SECONDS (9.4-12.5) 08/13/17 06:00 INR 1.08 (0.93-1.08) 08/13/17 06:00 APTT 28.7 Seconds (25.1-36.5) 08/13/17 06:00 - Constitutional Appears: Non-toxic, No Acute Distress, Chronically Ill - Head Exam Additional comments: Left neck contusion Left zygomatic contusion. S/P craniotomy - Eye Exam Eye Exam: EOMI, PERRL Pupil Exam: NORMAL ACCOMODATION, PERRL - ENT Exam ENT Exam: Mucous Membranes Moist, Normal External Ear Exam, TM's Normal Bilaterally - Neck Exam Neck Exam: Full ROM, Normal Inspection - Respiratory Exam Respiratory Exam: Decreased Breath Sounds, NORMAL BREATHING PATTERN. absent: Rales, Rhonchi, Wheezes - Cardiovascular Exam Cardiovascular Exam: REGULAR RHYTHM, RRR, +S1, +S2 - GI/Abdominal Exam GI & Abdominal Exam: Soft, Normal Bowel Sounds. absent: Distended, Tenderness - Extremities Exam Extremities Exam: Joint Swelling, Pedal Edema - Neurological Exam Neurological Exam: Alert, Awake, CN II-XII Intact, Oriented x3 - Psychiatric Exam Psychiatric exam: Normal Affect, Normal Mood - Skin Skin Exam: Intact, Normal Color Assessment and Plan - Assessment and Plan (Free Text) Assessment: 71 yo male with presentation of SOB, wheezing, and fall at home. The patient was found to have a subdural hematoma. Leukocytosis of 19.5. Taken to OR by neurosurgery today. Started on broad spectrum antibiotics with Doxycycline, Vancomycin, and Rocephin (to start). No known drug allergies. Supportive care. S/P craniotomy. Kincaid cultures. Improvement to WBC to 12.7 from 17.4. Cultures taken to date have been negative so far. POD #3 from craniotomy. Tolerating oral feeds today. Cultures essentially negative. Can deescalate antibiotics. Consider stopping Vancomycin IV. On Rocephin and Doxycycline. Thank you for allowing me to participate in the care of the patient, we will follow with you.
[2017-08-17] MEDS: Albuterol-Ipratrop 3 mg / 0.5 (3 ml) UD IH SCH ×3 (01:16→13:23)
[2017-08-17 07:28] VITALS: RESP 17; TEMP 97.6; O2SAT 98
--- NOTE | 2017-08-17 07:53 | CP.PCM.PN ---
Subjective - Date & Time of Evaluation Date of Evaluation: 08/17/17 Time of Evaluation: 06:30 - Subjective Subjective: Lying in bed, restless this morning, yes to headache,follows verbal commands Reason for consultation and follow up:Cardiac evaluation and risk stratification for craniotomy,history of CVA, left sided weakness, unsteady gait , post evacuation of subdural hematoma. Seen and examined by me and Dr. Loredo Objective - Vital Signs/Intake and Output Vital Signs (last 24 hours): Temp Pulse Resp BP Pulse Ox 97.6 F 86 17 110/70 98 08/17/17 07:28 08/17/17 07:28 08/17/17 07:28 08/17/17 07:28 08/17/17 07:28 Intake and Output: 08/17/17 08/17/17 06:59 18:59 Intake Total 480 Output Total 900 Balance -420 - Medications Medications: Current Medications Acetaminophen (Tylenol 325mg Tab) 650 mg PO Q6H PRN PRN Reason: Headache Last Admin: 08/17/17 06:31 Dose: 650 mg Albuterol/Ipratropium (Duoneb 3 Mg/0.5 Mg (3 Ml) Ud) 3 ml IH [id number] [facility] Last Admin: 08/17/17 07:16 Dose: 3 ml Allopurinol (Zyloprim) 300 mg PO DAILY [facility] Last Admin: 08/16/17 10:16 Dose: 300 mg Amlodipine Besylate (Norvasc) 10 mg PO DAILY [facility] Atenolol (Tenormin) 25 mg PO BID [facility] Last Admin: 08/16/17 18:10 Dose: 25 mg Atorvastatin Calcium (Lipitor) 80 mg PO DIN [facility] Last Admin: 08/16/17 17:35 Dose: 80 mg Doxycycline Hyclate (Doryx) 100 mg PO Q12 [facility]IS PRN Reason: Protocol Last Admin: 08/16/17 22:14 Dose: 100 mg Famotidine (Pepcid) 40 mg PO HS [facility] Last Admin: 08/16/17 22:14 Dose: 40 mg Gabapentin (Neurontin) 600 mg PO DAILY [facility]IS PRN Reason: Protocol Last Admin: 08/16/17 10:14 Dose: 600 mg Hydralazine HCl (Apresoline) 10 mg IVP Q6 PRN PRN Reason: for sbp>160 Last Admin: 08/17/17 01:20 Dose: 10 mg Hydralazine HCl (Apresoline) 25 mg PO Q8 [facility] Last Admin: 08/17/17 06:31 Dose: 25 mg Hydrochlorothiazide (Microzide) 12.5 mg PO DAILY [facility] Last Admin: 08/16/17 10:16 Dose: 12.5 mg Ceftriaxone Sodium (Rocephin 1 Gram Ivpb) 1 gm in 100 mls @ 100 mls/hr IVPB DAILY [facility] PRN Reason: Protocol Stop: 08/21/17 10:01 Insulin Human Regular (Humulin R Low) 0 units SC ACHS [facility] PRN Reason: Protocol Last Admin: 08/16/17 22:00 Dose: Not Given Losartan Potassium (Cozaar) 100 mg PO DAILY [facility] Last Admin: 08/16/17 22:15 Dose: 100 mg Methylprednisolone (Medrol) 8 mg PO TID [facility] PRN Reason: Taper Stop: 08/22/17 11:29 Tamsulosin HCl (Flomax) 0.4 mg PO DAILY [facility] Last Admin: 08/16/17 10:16 Dose: 0.4 mg Verapamil HCl (Calan Sr Tab) 240 mg PO DAILY [facility] Last Admin: 08/16/17 10:40 Dose: 240 mg - Labs Labs: 08/15/17 06:00 08/15/17 06:00 PT 12.4 SECONDS (9.4-12.5) 08/13/17 06:00 INR 1.08 (0.93-1.08) 08/13/17 06:00 APTT 28.7 Seconds (25.1-36.5) 08/13/17 06:00 - Head Exam Additional comments: Left side of head marcelino intact post craniotomy felt side face with ecchymosis from fall - Eye Exam Eye Exam: Normal appearance - ENT Exam ENT Exam: Mucous Membranes Moist - Respiratory Exam Respiratory Exam: Decreased Breath Sounds, NORMAL BREATHING PATTERN - Cardiovascular Exam Cardiovascular Exam: +S1, +S2 - GI/Abdominal Exam GI & Abdominal Exam: Soft, Normal Bowel Sounds - Extremities Exam Extremities Exam: Normal Capillary Refill Additional comments: move all extremities, left side weakness than right - Neurological Exam Neurological Exam: Alert, Awake - Psychiatric Exam Additional comments: restless - Skin Skin Exam: Normal Color, Warm Assessment and Plan - Assessment and Plan (Free Text) Assessment: A 71 year old male who was brought [facility] ER due to facial trauma due to fall. CT scan showed subdural hematoma. He underwent craniotomy and evacuation of hematoma. Significant for cerebrovascular accident left side. Consult was called for risk stratification prior to surgery and cardiac evaluation.Uncontrolled hypertension. Plan: Restless this morning, yes to headache, able to follow commands move all extremities PRN pain medication given Controlled heart rate and blood pressure On Apresoline 10 mg IVP PRN, Cozaar 50 mg daily, Calan SR 240 mg daily Continue current treatment Continue current medications Discharge planning Will follow up Plan and treatment discussed with Dr. Loredo
[2017-08-17] MEDS: Insulin Reg-LOW-Coverage SC SCH ×2 (08:15→12:21)
[2017-08-17] MEDS: Verapamil 240 mg ER Tab PO SCH (09:53)
[2017-08-17] MEDS ORDERED: cefTRIAXone 1 gm 1 GM/100 ML BAG IVPB SCH (10:00)
--- NOTE | 2017-08-17 12:25 | DS ---
HISTORY OF PRESENT ILLNESS: The patient is 71-year-old. Patient was admitted after he fell, developed left facial contusion and bleeding workup will found to have subdural hematoma. Neurosurgical evaluation was done. Patient underwent subdural hematoma and evacuation and drain was removed yesterday, complained of intermittent headache, otherwise doing well. PHYSICAL EXAMINATION: GENERAL: On examination today; he is awake, alert, oriented, communicative. VITAL SIGNS: He is afebrile, pulse , blood pressure 154/95. LUNGS: Bilateral good airflow. No rhonchi or crackle. HEART: S1, S2 audible. ABDOMEN: Soft, obese, nontender. No rebound. No guarding. NEUROLOGICAL: Patient is awake, alert, oriented, communicative, able to move all extremities; however, he has a residual deficit and weakness from the previous stroke on the left side, was evaluated by physical therapist and was recommended for rehab. So patient is being transferred to [facility]. LABORATORY DATA: Blood sugar is 157 today. Blood culture and urine cultures are negative. ASSESSMENT: 1. Status post fall. 2. Left subdural hematoma, status post evacuation. 3. Acute cerebrovascular accident in the past. 4. Hypertension. 5. Hypothyroidism. PLAN: Patient is currently off of aspirin and Plavix as recommended by neurologist. Continue him on statin. His bleeding seems to be improving. He has no wheezing. We will stop his steroid. We will continue doxycycline, Rocephin for 4 more days that can be continued in acute rehab and after 3 to 4 weeks he need to be placed back on aspirin while he is in acute rehab, then he will follow with his PMD. Adrian Thomas MD
[2017-08-17 13:23] VITALS: BP 156/87; PULSE 70
--- NOTE | 2017-08-18 04:10 | DS ---
HISTORY OF PRESENT ILLNESS: The patient is 71-year-old, seen and examined, was admitted after he fell and he had subdural hematoma, underwent evacuation, postprocedure doing well. Yesterday, the discharge was held because his blood pressure was running 195/110. He was given multiple doses of antihypertensives, seems to be doing well. PHYSICAL EXAMINATION: GENERAL: Today on examination, he is alert, awake, oriented, communicative. VITAL SIGNS: He is afebrile, pulse 86, respirations 17, blood pressure 110/70. HEAD AND NECK: Shows left facial bruise. LUNGS: Bilateral fair airflow. No rhonchi or crackle. HEART: S1 and S2 audible. ABDOMEN: Soft, nontender. No rebound, no guarding. NEUROLOGIC: The patient is awake, alert, oriented, but not ambulatory, he has residual left-sided weakness from previous CVA. LABORATORY DATA: Blood sugar is 157. ASSESSMENT: 1. Status post fall. 2. Subdural hematoma, status post evacuation. 3. History of cerebrovascular accident with left hemiparesis. 4. Deconditioning and difficulty walking. PLAN: The patient will be transferred to acute rehab. We will continue on current medications. He is on hydralazine 25 mg 3 times a day, verapamil 240 daily, losartan 100 mg daily, amlodipine 10 mg daily, so he will be transferred to acute rehab in [place] today. Adrian Thomas MD
== END 2017-08-17 15:02 | DRG 26 ==
LOC: ED 16:48 → ERH 19:46 → CCU 21:34 → 3RNO 08-15 14:41
PROVIDERS: ADMIT Internal Medicine; ATTEND Internal Medicine
PROC: 00C40ZZ Extirpation of Matter from Intracranial Subdural Space, Open Approach (ICD-10-PCS; principal; 2017-08-13 12:30)
DX: S06.5X0A Traumatic subdural hemorrhage without loss of consciousness, initial encounter (principal); J44.1 Chronic obstructive pulmonary disease with (acute) exacerbation; I69.354 Hemiplegia and hemiparesis following cerebral infarction affecting left non-dominant side; S00.83XA Contusion of other part of head, initial encounter; I11.0 Hypertensive heart disease with heart failure; I50.9 Heart failure, unspecified; M15.9 Polyosteoarthritis, unspecified; M48.00 Spinal stenosis, site unspecified; E78.5 Hyperlipidemia, unspecified; R09.02 Hypoxemia; R06.89 Other abnormalities of breathing; W06.XXXA Fall from bed, initial encounter; E89.0 Postprocedural hypothyroidism; G47.30 Sleep apnea, unspecified; D72.829 Elevated white blood cell count, unspecified; Y92.092 Bedroom in other non-institutional residence as the place of occurrence of the external cause; Z99.3 Dependence on wheelchair; Z79.1 Long term (current) use of non-steroidal anti-inflammatories (NSAID); Z87.891 Personal history of nicotine dependence; Z79.02 Long term (current) use of antithrombotics/antiplatelets